=== PATIENT | female | born 1950 | race Caucasian/White ===

== ENCOUNTER 2017-09-28 15:16 | Emergency (ER) | payer MEDICARE, BC, SELFPAY ==
[2017-09-28 15:17] VITALS: BP 146/72; PULSE 69; RESP 16; TEMP 36.5; O2SAT 97; BMI 26.6
--- NOTE | 2017-09-28 15:35 | CT_ITS ---
STUDY: CT ABDOMEN AND PELVIS WITH CONTRAST REASON FOR EXAM: Female, 67 years old. Diarrhea, abdominal pain and swelling. RADIATION DOSAGE (If Supplied By Facility): CTDIvol = ( 14.61 ) mGy, DLP = ( 846.58 ) mGycm TECHNIQUE: Transaxial images were obtained from the dome of the diaphragm to the symphysis pubis with oral contrast. 100 ml of Isovue 300 contrast was administered. Sagittal and coronal images were reconstructed. Individualized dose optimization techniques were used for this CT. COMPARISON: None. FINDINGS: Mild posterior bibasilar atelectatic changes. The visualized portions of the heart are within normal limits. Normal liver. There are surgical clips in the gallbladder fossa consistent with a prior cholecystectomy. Normal spleen. Normal pancreas. Normal bilateral adrenal glands. Subcentimeter cysts of the kidneys. Otherwise normal kidneys without hydronephrosis, renal or ureteral stones. Food filled stomach. Normal small intestine. Normal colon. The appendix is visualized and appears normal. Mild calcified plaque of the aorta. Normal inferior vena cava. Normal retroperitoneum. Distended urinary bladder. Status post hysterectomy. The remaining ovaries are atrophic. Negative for pelvic mass or free fluid of the pelvis. Normal abdominal wall. There are diffuse degenerative changes of the visualized lumbar spine with demineralized osseous structures. CT/Abdomen/Pelvis WITH Contrast IMPRESSION: No acute bowel related findings. Negative for evidence of bowel perforation, bowel obstruction or inflammatory bowel changes. Negative for diverticulosis. A normal appendix is identified. No acute renal findings. Negative for hydronephrosis, renal or ureteral stones. Distended urinary bladder. Status post hysterectomy and cholecystectomy. Electronically Signed: Steph Lobo MD at 18:09 EDT , Service support ,
--- NOTE | 2017-09-28 15:37 | ED.VISSUMM ---
- ER Visit Summary Date of Service: 09/28/17 Chief Complaint: Abdominal pain and cough History of Present Illness: The patient is a 67 F who presents with generalized abdominal pain for the last 8 months. Patient describes feeling an aching sensation of burning as well as feeling bloated. She reportedly has a history of irritable bowel and spastic colon. She follows with a GI doctor in [place]. She states that there was some test done last month but she does not know the name of it. She is due for another colonoscopy this year. Patient also complains of a cough that started last fall. It is dry. She has not noted fever or chills. Her primary care physician gave her some cough syrup did not help. Physical Examination: Vital signs are unremarkable. Patient is in no acute distress and is nontoxic appearing. Head and neck examination is normal. Heart is regular rate and rhythm. Palpable pulses are noted throughout. Lungs are clear with good air movement throughout. Abdomen is soft mild diffuse tenderness throughout. Bowel sounds are noted. Extremity examination is unremarkable with full range of motion. Neurologic examination reveals no focal deficits. Test Results: CBC and chemistry studies are significant only for sodium of 133. Urinalysis is normal. Two-view chest x-ray shows no acute findings. CT scan abdomen and pelvis with p.o. and IV contrast shows no acute bowel related findings. There is no inflammation. Emergency Department Course and Treatment: She was initially given IV fluids. I kept her up to date on awaiting test. Nurse presented to me stating that she was requesting something for headache and was ordered Tylenol. When the nurse took this to her patient states that she wanted Vicodin for her migraine headache and that nothing else would work. I presented to the bedside to explain to the patient that we do not use narcotics for migraines or headaches as this causes rebound headaches. I offered to give her our normal migraine cocktail. She stated that she had taken these things in the past and nothing else would work except for Vicodin. She then brought up the fact that she had previously been in pain management and walked away from her pain management doctor last fall. I explained to her that I was not accusing her of seeking narcotics but it is recommended that narcotics not be used in the treatment of headache. Once test results returned nurse did advise her that everything looked okay and patient wanted her IV removed and left the emergency room prior to my repeat evaluation or being able to write discharge instructions. Treatment Plan: [] Disposition: Eloped from ED Impression: 1. Chronic abdominal pain 2. Chronic cough This note was generated with indeni dictation software. It may contain incorrect words, spelling, and punctuation that were not noted in review of the chart prior to signing ED Disposition - Plan for ED Patient: Disposition: Home or Assisted Living Chief Complaint: Abd Pain Referrals: Regino Davey MD [Primary Care Provider] -
[2017-09-28 15:53] LABS: Absolute Neutrophil Count 4.9 X10^3/uL (2.0-7.7); Basophil# 0.03 X10^3/uL; Basophil% 0.3 % (0-1); Eosinophils% 2.3 % (0-5); Hematocrit 34.7 % (37-47); Hemoglobin 12.1 g/dl (12.0-15.0); Lymphocyte % 33.1 % (19-41); Mean Corp Hgb Conc 34.9 g/gl (32-36); Mean Corpuscular Hgb 33.7 pg (27.0-32.0); Mean Corpuscular Volume 96.7 fL (81-99); Mean Platelet Vol. 9.6 fl (6.2-12.0); Monocyte# 0.75 X10^3/uL; Monocyte% 8.6 % (0-10); Neutrophil # 4.86 X10^3/uL (2.7-7.7); Neutrophil % 55.5 % (47-70); Platelet Count 397 K/mm3 (150-450); RBC Distribution Width CV 12.5 % (11.6-14.6); RBC Distribution Width SD 42.2 fl (35.1-43.9); Red Blood Count 3.59 M/mm3 (4.2-5.4); White Blood Count 8.8 K/mm3 (4.4-11.0)
[2017-09-28] MEDS: 0.9% Normal Saline 1,000 ML 150 ML IV (15:53)
[2017-09-28 15:55] LABS: Bacteria 0 SEEN /hpf (None Seen); Mucous, Urine 0 SEEN /hpf (<or=2+); White Blood Cells 0 SEEN /hpf (0-5)
[2017-09-28 16:10] LABS: POSITIVE COUNT NO; POSITIVE DIFFERENTIAL NO; POSITIVE MORPHOLOGY NO
[2017-09-28 16:15] LABS: Color, Urine Yellow (Yellow); Glucose, Dipstick Normal (Normal); Ketone-Dipstick Negative (Negative); Leukocyte Esterase-Dipstick Negative /ul (Negative); Nitrite-Dipstick Negative (Negative); Occult Blood-Urine Negative /ul (Negative); Protein-Dipstick Negative (Negative); Urine Bilirubin Dipstick Negative (Negative); Urine Clarity Clear (Clear); Urine Urobilinogen Normal (Normal)
[2017-09-28 16:24] LABS: Anion Gap 5 (5-15); BUN 9 mg/dL (7-18); Calcium,Total 9.2 mg/dL (8.5-10.1); Chloride 101 mmol/L (98-107); EST Glomerular Filtration Rate 59 mL/min (>60); Est Glom Filt Rate - Afr Amer 71 mL/min (>60); Estimated Creatinine Clearance 42.59 ml/min; Glucose 91 mg/dL (74-106); Potassium 4.3 mmol/L (3.5-5.1); Sodium Level 133 mmol/L (136-145)
[2017-09-28 16:29] LABS: Red Blood Cells-Urine 0-5 SEEN /hpf (0-5); Squamous Epithelial Cells - UA 0-5 SEEN /hpf (5-10)
--- NOTE | 2017-09-28 17:25 | RAD_ITS ---
STUDY: X-RAY CHEST REASON FOR EXAM: Female, 67 years old. Coughing since February 26, 2017. Diarrhea for one year. Left lower quadrant sharp abdominal pain. History of prior cholecystectomy. TECHNIQUE: 2 views COMPARISON: Prior chest radiograph of February 28, 2014. FINDINGS: The lungs are clear and expanded. There is no demonstrated pleural abnormality. Normal size heart. Normal mediastinum and coleen. Normal visualized pulmonary arteries. There is atherosclerotic calcification of the aortic arch . Normal visualized thoracic spine. Normal visualized ribs, clavicles, and shoulders. There is no demonstrated abnormality of the visualized soft tissue structures of the upper abdomen. RAD/Chest PA and Lateral IMPRESSION: No acute cardiopulmonary findings or changes. Electronically Signed: Steph Lobo MD at 17:54 EDT , Service support ,
--- NOTE | 2017-09-28 17:47 | ED.RN ---
DR MENDOZA NOTIFIED PT REQUESTING SOMETHING FOR A MIGRAINE
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
[2017-09-28 18:23] VITALS: BP 179/86; PULSE 75; RESP 18; O2SAT 97
--- NOTE | 2017-09-28 19:07 | ED.RN ---
PT ASKING FOR IV OUT, DR. MENDOZA AWARE AND GIVES VERBAL CONSENT TO DISCUSS NEGATIVE SCAN RESULTS. PT AWARE AND WANTING TO LEAVE PRIOR TO DISCHARGE INSTRUCTIONS GIVEN. DISCUSSED FURTHER PAIN AND COMPLICATIONS TO COME BACK. AMBULATORY OUT WITH .
== END 2017-09-28 19:11 | disposition home or self-care (01) ==
PROVIDERS: Emergency Provider Emergency Medicine; Family Provider Family Medicine; PCP Family Medicine
DX: G89.29 Other chronic pain (principal); R10.9 Unspecified abdominal pain; R05 Cough; R19.7 Diarrhea, unspecified; M79.7 Fibromyalgia; Z72.0 Tobacco use
CPT/HCPCS: 71046; 74177; 80048; 81001; 85025; 99282; J7030; Q9967; A4216

== ENCOUNTER → 2017-12-05 16:11 | Outpatient (CLI) | payer MEDICARE, BC, SELFPAY | PROVIDERS: Family Provider Family Medicine; PCP Family Medicine; Visit Provider Family Medicine | DX: M25.552 Pain in left hip (principal) | CPT/HCPCS: 73502 ==

== ENCOUNTER → 2018-06-21 15:09 | Outpatient (CLI) | payer MEDICARE, SELFPAY ==
[2018-06-21 18:01] LABS: Anion Gap 10 (5-15); BUN 14 mg/dL (7-18); BUN/Creat Ratio 15.3 RATIO (10-20); Calcium,Total 9.2 mg/dL (8.5-10.1); Chloride 99 mmol/L (98-107); Cholesterol 220 mg/dL (200); Creatinine, Serum 0.92 mg/dL (0.55-1.02); EST Glomerular Filtration Rate 65 mL/min (>60); Est Glom Filt Rate - Afr Amer 78 mL/min (>60); Glucose 102 mg/dL (74-106); High Density Lipoprotein 57 mg/dL; Potassium 4.5 mmol/L (3.5-5.1); Sodium Level 134 mmol/L (136-145); Thyroid Stim Hormone (TSH) 1.13 uIU/mL (0.358-3.74); Triglycerides 177 mg/dL; Very Low Density Lipoprotein 35 mg/dL (5-40)
== END ==
PROVIDERS: Family Provider Family Medicine; PCP Family Medicine; Referring Provider Family Medicine; Visit Provider Family Medicine
DX: I10 Essential (primary) hypertension (principal); E66.9 Obesity, unspecified
CPT/HCPCS: 36415; 80048; 80061; 84443

== ENCOUNTER → 2019-02-17 15:38 | Outpatient (CLI) | payer MEDICARE, SELFPAY ==
[2019-02-17 18:04] LABS: Anion Gap 11 (5-15); BUN 13 mg/dL (7-18); BUN/Creat Ratio 11.2 RATIO (10-20); Calcium,Total 8.9 mg/dL (8.5-10.1); Chloride 103 mmol/L (98-107); Cholesterol 239 mg/dL (200); Creatinine, Serum 1.16 mg/dL (0.55-1.02); EST Glomerular Filtration Rate 49 mL/min (>60); Est Glom Filt Rate - Afr Amer 60 mL/min (>60); Glucose 98 mg/dL (74-106); High Density Lipoprotein 63 mg/dL; Potassium 4.2 mmol/L (3.5-5.1); Sodium Level 137 mmol/L (136-145); Triglycerides 141 mg/dL; Very Low Density Lipoprotein 28 mg/dL (5-40)
== END ==
PROVIDERS: Family Provider Family Medicine; PCP Family Medicine; Referring Provider Family Medicine; Visit Provider Family Medicine
DX: I10 Essential (primary) hypertension (principal)
CPT/HCPCS: 36415; 80048; 80061

== ENCOUNTER → 2019-05-15 14:33 | Outpatient (CLI) | payer MEDICARE, SELFPAY ==
[2019-04-17 14:05] VITALS: BMI 31.3
[2019-05-15 16:08] LABS: Anion Gap 7 (5-15); BUN 14 mg/dL (7-18); BUN/Creat Ratio 13.1 RATIO (10-20); Calcium,Total 9.2 mg/dL (8.5-10.1); Chloride 100 mmol/L (98-107); Cholesterol 213 mg/dL (200); Creatinine, Serum 1.07 mg/dL (0.55-1.02); EST Glomerular Filtration Rate 54 mL/min (>60); Est Glom Filt Rate - Afr Amer 65 mL/min (>60); Glucose 93 mg/dL (74-106); High Density Lipoprotein 63 mg/dL; Potassium 4.2 mmol/L (3.5-5.1); Sodium Level 131 mmol/L (136-145); Triglycerides 174 mg/dL; Very Low Density Lipoprotein 35 mg/dL (5-40)
== END ==
PROVIDERS: PCP Family Medicine; Referring Provider Family Medicine; Visit Provider Family Medicine
DX: I10 Essential (primary) hypertension (principal)
CPT/HCPCS: 36415; 80048; 80061

== ENCOUNTER → 2019-09-12 15:34 | Outpatient (CLI) | payer MEDICARE, SELFPAY ==
[2019-04-17 14:05] VITALS: BMI 31.3
[2019-09-12 17:59] LABS: Absolute Lymphocyte Count 2.01 X10^3/uL (0.83-4.51); Absolute Neutrophil Count 6.5 X10^3/uL (2.0-7.7); Basophil# 0.07 X10^3/uL; Basophil% 0.7 % (0-1); Eosinophils% 2.1 % (0-5); Hematocrit 39.1 % (37-47); Hemoglobin 13.3 g/dL (12.0-15.0); Lymphocyte # 2.01 X10^3/ul (4.0); Lymphocyte % 21.4 % (19-41); Mean Corpuscular Hgb 32.8 pg (27.0-32.0); Mean Corpuscular Volume 96.3 fL (81-99); Mean Platelet Vol. 11.2 fl (6.2-12.0); Monocyte# 0.61 X10^3/uL; Monocyte% 6.5 % (0-10); NRBC Flagged by Analyzer 0 % (0-5); Neutrophil # 6.47 X10^3/uL (2.7-7.7); Platelet Count 347 K/mm3 (150-450); RBC Distribution Width SD 42.3 fl (35.1-43.9); Red Blood Count 4.06 M/mm3 (4.2-5.4); White Blood Count 9.4 K/mm3 (4.4-11.0)
[2019-09-12 18:30] LABS: ALB/GLOB Ratio 1.2 RATIO (0.9-2.4); AST(SGOT) 21 U/L (15-37); Alanine Aminotransfer ALT/SGPT 20 U/L (13-56); Albumin, Serum 3.8 g/dL (3.2-5.0); Alkaline Phosphatase 53 U/L (45-117); Anion Gap 6 (5-15); BUN 7 mg/dL (7-18); BUN/Creat Ratio 7.8 RATIO (10-20); Chloride 103 mmol/L (98-107); Cholesterol 162 mg/dL (200); Creatinine, Serum 0.89 mg/dL (0.55-1.02); EST Glomerular Filtration Rate 66 mL/min (>60); Est Glom Filt Rate - Afr Amer 80 mL/min (>60); Globulin 3.1 g/dL (2.2-4.2); Glucose 106 mg/dL (74-106); High Density Lipoprotein 58 mg/dL; Potassium 4.3 mmol/L (3.5-5.1); Protein, Total 6.9 g/dL (6.4-8.2); Sodium Level 135 mmol/L (136-145); Triglycerides 104 mg/dL; Very Low Density Lipoprotein 21 mg/dL (5-40)
--- OUTSIDE RECORDS SUMMARY | 2020-01-25 08:43 | XMS RPT_ITS | CCD ---
:1950 External Reference #:[id number] Author Organization [facility] Care Team Providers Name Role Phone Edouard Unavailable Unavailable Edouard Unavailable Unavailable Edouard Unavailable Unavailable Edouard Unavailable Unavailable Edouard Unavailable Unavailable Joel PACHECO, Eulalio Unavailable Unavailable Primary Care Provider Unavailable Popeye Davey Primary Care Provider Allergies Reported Allergen Reaction(s) Severity Date of Location Onset buPROPion Intolerance 12-09-2009 - [facility] (61157) cloNIDine Intolerance 09-27-2015 - [facility] (66695) Desipramine Intolerance 12-09-2009 - [facility] (40935) Desvenlafaxine Mental Status 04-13-2011 - [facility] Change (10384) Doxycycline Hives 11-29-2011 - [facility] (16160) Erythromycin hives Critical, 08-16-2015 - [facility] Critical Orthopaedic [address] [facility] (53002) FLUoxetine Mental Status 11-24-2010 - [facility] Change (92099) gabapentin Hives 03-13-2013 - [facility] (03447) Imipramine Hives 12-09-2009 - [facility] (05991) metroNIDAZOLE Hives, Itching 08-06-2012 - [facility] (47971) Misc. Anesthesia [facility]: [facility] [ Misc. Anesthesia Repositor y Allergy] Mold Extract Critical, 06-17-2019 - [facility] Translations: [ MOLD] Critical Orthop [facility]edic Center - [facility] (18605) Sertraline Other: See 06-26-2011 - [facility] Comments (86225) Solifenacin Intolerance 11-09-2009 - [facility] (97883) SUMAtriptan Intolerance 12-09-2009 - [facility] (99604) traMADol GI Upset 02-14-2006 - [facility] (69230) Valproate Other: See 10-21-2010 - [facility] Comments (00670) venlafaxine Hives High 05-14-2012 - [facility] (38089) Medications Current Medications Medication Name Sig Date Prescriber Location Acetaminophen acetaminophen 09-21-2019 [facility], (TYLENOL) tablet [place] ([address]) 1,000 mg Acetaminophen / HYDROcodone-acetamin Historical [facility], HYDROcodone ophen (NORCO) Provider [place] ([address]) 7.5-325 MG per Historical tablet Take 1 tablet Provider by mouth every 6 hours as needed for Pain. 0 Active Atenolol 25 mg, Oral, 2 TIMES 09-19-2019 [facility] DAILY, First dose on Orthopa edic 09/19/19 at 2100 Center - [facility] (75802) atenolol (TENORMIN) 25 mg 08-16-2015 [facility] tablet Take 1 tablet by mouth [facility] - [facility]opa[facility] Surgeons three times daily. 90 tablet Cli amanda (03505) 11 03/25/2016 Active Comment: Take 1 tablet by mouth three times daily. atorvastatin 10 mg, Oral, DAILY, First dose 09-19-2019 [facility] [place] on Sun09/19/19 at 2200 (4523 7) Substituted for Simvastatin (ZOCOR). Comment: Take 10 mg by mouth once antwan ly. Docusate / sennosides-docusate sodium 09-22-2019 [facility]- sennosides, LONG-TERM (SENOKOT-S) 8.6-50 [place] tablet 1 tablet (35797) Enoxaparin enoxaparin (LOVENOX) 09-19-2019 [facility] ealth- injection 40 [place], [place] ([address]) Folic Acid folic acid (FOLVITE) 09-22-2019 Amira Mckee [facility]- tablet 1 [place] ([address]) haloperidol haloperidol lactate 09-20-2019 [facility] alth- lactate (HALDOL) (HALDOL) injection 1 mg [place], [place] injection 1 mg (64088) Labetalol labetalol 09-19-2019 [facility] (NORMODYNE;TRANDATE) [place] injection 10 mg (86359) Lisinopril lisinopril 09-23-2019 [facility]- (PRINIVIL;ZESTRIL) tablet [place] , [place] 40 mg (37866) 20 mg, Oral, DAILY, First dose 09-19-2019 - 09-22-2019 [facility] [place], [place] ([address]) on Sun09/19/19 at 1615 LORazepam LORazepam (ATIVAN) tablet 1.5 09-19-2019 [facility] Orthopaedic mg Center - [facility] (08216) LORazepam (ATIVAN) 2 mg tab 10-30-2016 [facility] Provider Ramona [facility] - [facility] (65024) ATIVAN 1 MG TABS take 1 tablet 08-16-2015 [facility]edic three times a day [facility] - [facility]opaedic Surgeons LORAZEPAM [phone] [facility] (96309) Ras HERNANDEZN Multiple Multiple Historical [facility]- Vitamins-Minerals Vitamins-Minerals Provider [place], [place] (MULTIVITAMIN ADULT PO) (MULTIVITAMIN ADULT PO) Histor ical (35026) Take by mouth daily as Provider needed 0 Active Nutritional Supplements Nutritional Supplements Histor ical [facility]- (ENSURE ACTIVE) LIQD (ENSURE ACTIVE) LIQD Provider [place] Take by mouth daily as Historical (4523 7) needed 0 Active Provider oxyCODONE oxyCODONE (ROXICODONE) [facility]- immediate release tablet 020 [place], [place] 5 mg (84701) POLYETHYLENE GLYCOL 3350 polyethylene glycol [facility]- (GLYCOLAX) packet 17 g 020 [place], [place] ([address]42) Promethazine promethazine (PHENERGAN) [facility]- tablet 12.5 mg 020 [place] ([address]) Simvastatin simvastatin (ZOCOR) 5 MG Historical [facility]- tablet Take 5 mg by Provider [place] mouth nightly 0 Active Historical (4523 7) Provider Sodium Chloride sodium chloride flush [facility]- 0.9 % injection 10 mL 020 [place] ([address]) Thiamine vitamin B-1 (THIAMINE) [facility]- tablet 100 mg 020 [place] ([address]) Completed/Discontinuned Medications Medication Name Sig Date Prescriber Location Acetaminophen / oxyCODONE-acetami 09-20-2019 - [facility], oxyCODONE nophen (PERCOCET) 09-21-2019 [place] (00819) 5-325 MG per tablet 1 tablet oxyCODONE-acetaminophen (PERCOCET) 09-23-2019 Historical Pr [facility], .5-325 MG per tablet Take 1 tablet [place] ([address]) by mouth every 6 hours as needed for Pain. 0 09/23/2019 Discontinued (Stop Taking at Discharge) amLODIPine amLODIPine (NORVASC) 5 MG tablet 09-24-2019 [place] ([address]) Take 1 tablet by mouth daily 30 tablet 3 09/24/2019 Active amLODIPine (NORVASC) 5 MG 09-24-2019 - 09-23-2019 Kevyn Diop [place], [place] tablet Take 1 tablet by (63591) mouth daily 30 tablet 3 09/24/2019 09/23/2019 Discontinued amLODIPine (NORVASC) tablet 09-22-2019 [place], [place] 5 mg (17720) Aspirin / Caffeine aspirin/caffeine (MIKA BACK [facility] Pr [facility] AND BODY ORAL) Take by mouth. (64721) 0 Active aspirin/caffeine (MIKA BACK AND BODY ORAL) [facility] Provider [facility] (24923) Take by mouth. 0 Active Comment: Take by mouth. Betamethasone betamethasone valerate 0.1 % 12-03-2019 [facility] [place] ([address]) every Sunday,Sunday,Sunday. 45 g 1 12/03/2019 Active betamethasone dipropionate Historical Provider [facility] ([address]) (DIPROLENE) 0.05 % ointment Apply topically 2 times daily Apply topically 2 times daily. 0 Active Comment: Apply to affected area every Sunday,Sunday,Sunday. Betamethasone / clotrimazole-betamethasone 09-10-2019 [facility] Clotrimazole (LOTRISONE) cream Apply to [facility], outside of vagina and crease of [place] ([address]990) legs twice a day for 10-14 days. 45 g 2 09/10/2019 Active clotrimazole-betamethasone (LOTRISONE) Historica l Provider [facility]- [place], [place] 1-0.05 % cream Apply topically 2 times (84910) daily Apply topically 2 times daily. 0 Active Comment: Apply to outside of vagina a nd crease of legs twice a day for 10-14 days. Blood Pressure Blood Pressure Cuff - 09-27-2015 Khadar Richardson [facility] Cuff - Home Use Home Use Indications: (44 195) Elevated blood pressure reading without diagnosis of hypertension BLOOD PRESSURE CUFF FOR HOME USE. DX: LABILE BLOOD PRESSURE 1 Device 0 09/27/2015 Active Blood Pressure Cuff - Home Use 09-27-2015 Khadar Richardson [facility] (40762) Indications: Elevated blood pressure reading without diagnosis of hypertension BLOOD PRESSURE CUFF FOR HOME USE. DX: LABILE BLOOD PRESSURE 1 Device 0 09/27/2015 Active Comment: BLOOD PRESSURE CUFF FOR HOME USE. DX: LABILE BLOOD PRESSURE Cholecalciferol VITAMIN D3 50 MCG (2000 UT) 03-14-2016 [facility] Orthopaedic TABS take 2 tablets daily Ce nter - Orthopaedic [facility]OL [facility] (48394[facility] [phone] Maggi Mcginnis [employer] Cholecalciferol, Vitamin D3, 05-20-2013 Khadar Richardson [facility] 2,000 unit cap Take 1 tablet Ort [facility]edic Center - by mouth once daily. 0 Orthopaed ic Surgeons 05/20/2013 Active Clinic (05767) Vitamin D, Cholecalciferol, 10 Historical Provid er [facility] MCG (400 UNIT) TABS Take 1 Ortho paedic Center - tablet by mouth daily as Orthopa edic Surgeons needed 0 Active Clinic (19191) Comment: Take 1 tablet by mouth once daily. Dicyclomine DICYCLOMINE HCL 20 MG TABS 03-14-2016 [facility] take 3 tablets three times C enter - Orthopaedic Surgeons daily DICYCLOMINE Clinic (63119) HCL [phone] Maggi Mcginnis LPN dicyclomine (BENTYL) 10 mg [facility] Provider Cryst al [facility] Orthopaedic capsule Take 10 mg by mouth Cent er - Orthopaedic Surgeons three times daily. 0 Active Clin ic (70906) dicyclomine (BENTYL) 10 MG Historical Provider C rystal [facility] Orthopaedic capsule Take 30 mg by mouth 3 Ce nter - Orthopaedic Surgeons times daily 0 Active Clinic (441 30) Comment: Take 10 mg by mouth three ti mes daily. Estrogens, conjugated 05-05-2019 - [facility] Conjugated (LONG-TERM) estrogens 12-02-2019 [facility] (57916[facility] (PREMARIN) vaginal cream Use 1 g vaginally two times a week. Also to the outside of the vagina. 45 g 3 12/02/2019 Active Comment: Use 1 g vaginally two times a week. Also to the outside of the vagina. Famotidine famotidine (PEPCID) 20 10-22-2015 Khadar Richardson [facility] mg tablet Take 1 tablet Orth [facility] - by mouth twice daily. Orthop aedic Surgeons 180 tablet 3 10/22/2015 Clin ic (36220) Active PEPCID 20 MG TABS take 1 tablet once 08-16-2015 [facility] - daily FAMOTIDINE Orth [facility] (79252) [phone] Maggi Mcginnis LPN Comment: Take 1 tablet by mouth twice daily. Fluconazole fluconazole (DIFLUCAN) 09-25-2018 Kilo Bonds [facility] 150 mg tablet 1 pill (39297) now, repeat in 48 hours. 2 tablet 2 09/25/2018 Active Comment: 1 pill now, repeat in 48 peter rs. Lactobacillus Lactobacillus 08-16-2017 [place] [facility] acidophilus acidophilus (81751) (ACIDOPHILUS) cap Take 1-2 capsules by mouth twice daily with meals. 60 capsule 5 08/16/2017 Active Lactobacillus acidophilus 08-16-2017 Kilo Hall [facility] (42301) (ACIDOPHILUS) cap Take 1-2 capsules by mouth twice daily with meals. 60 capsule 5 08/16/2017 Active Comment: Take 1-2 capsules by mouth t wice daily with meals. Loperamide loperamide HCl (IMODIUM A-D ORAL) [facility] Pro vider [facility] (47622) Take by mouth. 0 Active loperamide HCl (IMODIUM A-D ORAL) Take by Ccf Pr ovider [facility] (51861) mouth. 0 Active Comment: Take by mouth. Naproxen NAPROXEN 500 MG TABS 06-17-2019 [facility] take 1 tablet once daily [facility] Orthopa [facility]ic Surgeons NAPROXEN [phone] [facility] (08562) Maggi Mcginnis LPN Nystatin nystatin (MYCOSTATIN) 03-27-[address] [facility] (66187) powder Apply 1 application to affected area twice daily. Till Apr 09 (14 days) 60 g 3 03/27/2019 Active Comment: Apply 1 application to affec lenard area twice daily. Till Apr 09 (14 days) Omeprazole omeprazole (PRILOSEC) 20 mg [facility] Provider [facility] (48887) capsule Take 20 mg by mouth once daily. 0 Active Comment: Take 20 mg by mouth once antwan ly. OTC NUTRITIONAL OTC NUTRITIONAL [facility] Provider [facility] SUPPLEMENT SUPPLEMENT ensure 0 (18465) Active OTC NUTRITIONAL SUPPLEMENT ensure 0 Active Ccf P rovider [facility] (97571) Comment: ensure rosuvastatin rosuvastatin (CRESTOR) 5 02-27-2019 Kilo Bonds [facility] mg tablet Take 1 tablet (827 78) by mouth daily at bedtime. 0 02/27/2019 Active Comment: Take 1 tablet by mouth daily at bedtime. valACYclovir valACYclovir (VALTREX) 10-03-2018 Kilo [facility] 500 mg tablet Take 1 [facility] - tablet by mouth twice Orthop aedic Surgeons daily. 120 tablet 5 [facility] ( 87583) 10/03/2018 Active valACYclovir (VALTREX) 500 mg 08-16-2015 Kilo Vicente [facility] Orthopaedic tablet Take 1 tablet by mouth Ce nter - Orthopaedic once daily. 90 tablet 4 Surgeons [facility] (23639) 07/10/2018 Active Comment: Take 1 tablet by mouth twice daily. Take 1 tablet by mouth once daily. Problems Active Problems Category Problem Name Status Date Location Adjustment disorders Stress and adjustment Active 05-30-2012 - [facility] reaction (96153) Anxiety disorders Anxiety Active 04-21-2005 - [facility] [place] ([address]) Essential hypertension Hypertensive disorder Active [facility] (74981) Headache; including Headache [facility] migraine (09623) Hemorrhoids Hemorrhoids Active [facility] (43756) Inflammatory diseases Bacterial vaginosis Active [facility] of female pelvic (69757) organs Menopausal disorders Atrophic vaginitis Active 12-13-2011 - [facility] (43978) Mood disorders Depressive disorder Active 04-21-2005 - [facility] (57942) Other connective Trochanteric bursitis, Active 06-18-2019 - [facility] Clinic tissue disease left hip Orthopaedic C enter - Orthopaedic [facility] (93329) Other connective Muscle pain Active [facility] linic tissue disease (10562) Other nervous system Acute postoperative [facility] [place] disorders pain (61489) Residual codes; Altered mental status Active 09-19-2019 - [facility] [place] unclassified (88981) Residual codes; Chronic pain Active 06-19-2013 [facility] unclassified (50267) Residual codes; Delirium Active [facility] [place] un[place] (74702) Residual codes; [facility]inations [facility] [place] (15175) Residual codes; Decline in functional Active [facility] [place] un[place] status (13981) 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-15-2013 [facility] [place] disorders withdrawal delirium (45392) Unclassified Positive measurement Active 05-26-2014 - [facility] finding (66060) Urinary tract Chronic interstitial Active 11-25-2009 - [facility] infections cystitis (17002) Viral infection Herpes simplex type 2 Active [facility] infection (07821) Past or Other Problems Category Problem Name Status Date Location Abdominal pain Pain in female pelvis Completed 11-25-2009 [facility] - (26633) Anal and rectal Rectal pain Completed 01-05-2012 [facility] conditions - (65541) Biliary tract disease Biliary calculus [facility] (07243[facility] Other and unspecified Tubular adenoma of Completed 10-31-2013 [facility] benign neoplasm colon - (00683) Other bone disease and Osteopenia Completed 06-22-2010 [facility] musculoskeletal - (67459) deformities Other connective tissue Fibromyalgia Completed 08-12-2011 [facility] disease - (17384) Other eye disorders Aponeurotic ptosis Completed 08-16-2015 Cr ystal [facility] - Orthopaedic [address] - [facility] (02241) Other gastrointestinal Constipation Completed 12-13-2011 [facility] disorders - (91613) Other inflammatory Pruritus of skin Completed 12-13-2011 [facility] condition of skin - (30068) Other lower respiratory Cough Completed 08-02-2010 [facility] disease - (71409) Other nervous system Burning sensation of Completed 06-05-2012 [facility] disorders vagina - (98521) Other nutritional; Weight gain Completed 11-24-2010 [facility] endocrine; and - (46760) metabolic disorders Other skin disorders Intrinsic aging of skin Completed 6 [facility] Orthopaedic [facility] (39679) Sexually transmitted Human papilloma virus Completed 12-08-2012 [facility] infections (not HIV or deoxyribonucleic acid - (16031) hepatitis) test positive, high risk on vaginal specimen Unclassified Problem [facility] Orthopaedic [facility] (02799) Results Result Name Value Range Unit Interpretation Flag Date Location [facility] Normal 12-02-2019 [facility] LÓPEZANGÉLICA Axel ([id number]) 1950 F [facility] Time Provider Department (93294) 12/02/19 KILO BONDS During your visit today, we recorded the following informati on about you: Kilo Bonds MD 12/02/2019 2:42 PM Signed The following approved medic ation requests have been transmitted electronically. Signed Prescriptions Disp Refills betamethasone valerate 0.1 % cream 45 g 1 Sig: Apply to affected area every Sunday,Sunday,Sunday. Authorizing Provider: KILO BONDS MD Allergies As of Date: 12/02/2019 Noted Allergy Reaction VENLAFAXINE 05/14/2012 4 - Hives CLONIDINE 09/27/2015 5 - Intolerance Comments: pain all over DEPAKOTE (DIVALPROEX SODIUM) 10/21/2010 14 - Other: See Comm ents Comments: body jerks DESIPRAMINE 12/09/2009 5 - Intolerance Comments: crying DOXYCYCLINE 11/29/2011 4 - Hives FLAGYL (METRONIDAZOLE HCL) 08/06/2012 4 - Hives 9 - Itching IMIPRAMINE 12/09/2009 4 - Hives Comments: wt gain IMITREX (SUMATRIPTAN SUCCINATE) 12/09/2009 5 - Intolerance Comments: anxiety NEURONTIN (GABAPENTIN) 03/13/2013 4 - Hives PRISTIQ (DESVENLAFAXINE) 04/13/2011 1 - Mental Status Change Comments: headache,anorexia PROZAC (FLUOXETINE HCL) 11/24/2010 1 - Mental Status Change Comments: confusion,frequent falls,bladder pain SERTRALINE 06/26/2011 14 - Other: See Comments Comments: dysuria,bladder pain ULTRAM (TRAMADOL HCL) 02/14/2006 8 - GI Upset VESICARE (SOLIFENACIN SUCCINATE) 11/09/2009 5 - Intolerance Comments: blurred vision,trouble swallow WELLBUTRIN (BUPROPION HCL) 12/09/2009 5 - Intolerance Comments: anxiety, sob Date Reviewed: 05/21/2019 Reviewed by: Phillip Birch - Fully Assessed Reason for Visit: Hx Meds [438] Order(s):[START ON 12/03/2019] betamethasone valerate 0.1 % c reamApply to affected area every Sunday,Sunday,Sunday.Disp: 45 gRfl: 1 Prescriptions as of 12/02/2019 Sig: CONJUGATED ESTROGENS 0.625 MG* Use 1 g vaginally two times a * BETAMETHASONE VALERATE 0.1 % * Apply to affected area every * CLOTRIMAZOLE-BETAMETHASONE 1 * Apply to outside of vagina an * OMEPRAZOLE 20 MG CAPSULE,LAURA* Take 20 mg by mouth once magalie * ATORVASTATIN 10 MG TABLET Take 10 mg by mouth once magalie* NYSTATIN 100,000 UNIT/GRAM TO* Apply 1 application to affect * Patient not taking: Reported on 05/05/2019 ROSUVASTATIN 5 MG TABLET Take 1 tablet by mouth daily * Patient not taking: Reported on 03/27/2019 OTC NUTRITIONAL SUPPLEMENT ensure IMODIUM A-D ORAL Take by mouth. MIKA BACK AND BODY ORAL Take by mouth. VALACYCLOVIR 500 MG TABLET Take 1 tablet by mouth twice * FLUCONAZOLE 150 MG TABLET 1 pill now, repeat in 48 hour* VALACYCLOVIR 500 MG TABLET Take 1 tablet by mouth once d* Patient not taking: Reported on 02/27/2019 DICYCLOMINE 10 MG CAP (BENTYL* Take 10 mg by mouth three bhavya * LACTOBACILLUS ACIDOPHILUS CAP* Take 1-2 capsules by mouth tw * Patient not taking: Reported on 02/27/2019 LORAZEPAM 2 MG TABLET ATENOLOL 25 MG TABLET Take 1 tablet by mouth three * FAMOTIDINE 20 MG TABLET Take 1 tablet by mouth twice * COMPOUNDED PRESCRIPTION BLOOD PRESSURE CUFF FOR HOME * CHOLECALCIFEROL (VITAMIN D3) * Take 1 tablet by mouth once d * Problem List As Of Date 12/02/2019 Noted Resolved DEPRESSIVE DISORDER NEC [F32.9] 04/21/2005 KIMBERLY (generalized anxiety disorder) [F41.1] 04/21/2005 HEADACHE [R51] 04/21/2005 HEMORRHOIDS NOS [K64.9] More... Myalgia [M79.10] COMMON MIGRAINE W/O MENTN INTRACT [G43.009] 10/30/2005 Chronic Interstitial Cystitis [N30.10] 11/25/2009 Pelvic Pain in Female [R10.2] 11/25/2009 Osteopenia [M85.80] 06/22/2010 More... Cystitis [N30.90] 08/02/2010 Cough [R05] 08/02/2010 Weight gain [R63.5] 11/24/2010 Fibromyalgia [M79.7] 08/12/2011 Anxiety [F41.9] 10/06/2011 Unspecified pruritic disorder [L29.9] 12/13/2011 Postmenopausal atrophic vaginitis [N95.2] 12/13/2011 Unspecified constipation [K59.00] 12/13/2011 Vaginal pain [R10.2] 01/05/2012 Rectal pain [K62.89] 01/05/2012 Adjustment disorder with mixed anxiety and depr*05/30/2012 Vaginal burning [N94.9] 06/05/2012 Chronic pain [G89.29] 06/19/2013 Perineal pain in female [N94.9] 09/18/2013 Constipation [K59.00] 09/18/2013 Stress and adjustment reaction [F43.29] 10/31/2013 Tubular adenoma of colon [D12.6] 10/31/2013 Opiate dependence (HCC) [F11.20] 12/15/2013 Vaginal high risk HPV DNA test positive [R87.81*12/08/2012 More... HPV test positive [[id number]] 05/26/2014 More... Generalized abdominal pain [R10.84] 02/18/2015 Other cholelithiasis without obstruction [K80.8*02/18/2015 HTN (hypertension) [I10] BV (bacterial vaginosis) [N76.0, B96.89] HSV-2 (herpes simplex virus 2) infection [B00.9] Prescriptions ordered this encounter Disp Refills Start End BETAMETHASONE VALERATE 0.1 % TOPICAL* 45 g 1 12/03/2019 Route: TOPICAL Sig: Apply to affected area every Sunday,Sunday,Sunday. Encounter Status:Closed by KILO BONDS MD on 12/02/19 [facility] (OB[facility]) Normal 12-01-2019 [facility] ANGÉLICA DAWN ([id number]) 1950 [facility] Date Time Provider Department ([id number]) 12/01/19 KILO BONDS During your visit today, we recorded the following informati on about you: Cathie Baker 12/01/2019 12:49 PM Signed Please call when you get a chance. Not sure what she needs as she dropped the call. But she mentioned her premerin and having back surgery Kilo Bonds MD 12/02/2019 11:50 AM Signed The following approved medic ation requests have been transmitted electronically. Signed Prescriptions Disp Refills conjugated estrogens (PREMARIN) vaginal cream 45 g 3 Sig: Use 1 g vaginally two times a week. Also to the outsi de of the vagina. HERMELINDO: No Authorizing Provider: KILO BONDS MD Please notify patient that her prescript ion for estrogen cream was sent to her pharmacy to use as prescribed. If she has had a recurrence of vulvar vaginal itching queta cative of a yeast infection she can utilize her Lotrisone cream. Thank you Kilo Bonds M.D. Kate Cross Pss 12/02/2019 2:42 PM Signed Pt called back. Relayed Dr. Bonds's message below but she is states there was a different cream that Dr. Bonds had prescribed for her. I was able t o speak to Dr. Bonds and he is calling the appropriate cream into her ph armacy and recommends that she follows the pharmacists instructio ns. He also recommends she follows up with her dynamite packing machine feeder in [place] for t he rash on her thighs. I relayed that message to pt AND she expressed understanding . Allergies As of Date: 12/01/2019 Noted Allergy Reaction VENLAFAXINE 05/14/2012 4 - Hives CLONIDINE 09/27/2015 5 - Intolerance Comments: pain all over DEPAKOTE (DIVALPROEX SODIUM) 10/21/2010 14 - Other: See Comm ents Comments: body jerks DESIPRAMINE 12/09/2009 5 - Intolerance Comments: crying DOXYCYCLINE 11/29/2011 4 - Hives FLAGYL (METRONIDAZOLE HCL) 08/06/2012 4 - Hives 9 - Itching IMIPRAMINE 12/09/2009 4 - Hives Comments: wt gain IMITREX (SUMATRIPTAN SUCCINATE) 12/09/2009 5 - Intolerance Comments: anxiety NEURONTIN (GABAPENTIN) 03/13/2013 4 - Hives PRISTIQ (DESVENLAFAXINE) 04/13/2011 1 - Mental Status Change Comments: headache,anorexia PROZAC (FLUOXETINE HCL) 11/24/2010 1 - Mental Status Change Comments: confusion,frequent falls,bladder pain SERTRALINE 06/26/2011 14 - Other: See Comments Comments: dysuria,bladder pain ULTRAM (TRAMADOL HCL) 02/14/2006 8 - GI Upset VESICARE (SOLIFENACIN SUCCINATE) 11/09/2009 5 - Intolerance Comments: blurred vision,trouble swallow WELLBUTRIN (BUPROPION HCL) 12/09/2009 5 - Intolerance Comments: anxiety, sob Date Reviewed: 05/21/2019 Reviewed by: Phillip Birch - Fully Assessed Reason for Visit: Question [0905] Order(s):conjugated estrogens (PREMARIN) vaginal creamUse 1 g vaginally two times a week. Also to the outside of the vagina.Disp: 45 gRf l: 3 Prescriptions as of 12/01/2019 Sig: CONJUGATED ESTROGENS 0.625 MG* Use 1 g vaginally two times a * CLOTRIMAZOLE-BETAMETHASONE 1 * Apply to outside of vagina an * OMEPRAZOLE 20 MG CAPSULE,LAURA* Take 20 mg by mouth once magalie * ATORVASTATIN 10 MG TABLET Take 10 mg by mouth once magalie* NYSTATIN 100,000 UNIT/GRAM TO* Apply 1 application to affect * Patient not taking: Reported on 05/05/2019 ROSUVASTATIN 5 MG TABLET Take 1 tablet by mouth daily * Patient not taking: Reported on 03/27/2019 OTC NUTRITIONAL SUPPLEMENT ensure IMODIUM A-D ORAL Take by mouth. MIKA BACK AND BODY ORAL Take by mouth. VALACYCLOVIR 500 MG TABLET Take 1 tablet by mouth twice * FLUCONAZOLE 150 MG TABLET 1 pill now, repeat in 48 hour* VALACYCLOVIR 500 MG TABLET Take 1 tablet by mouth once d* Patient not taking: Reported on 02/27/2019 DICYCLOMINE 10 MG CAP (BENTYL* Take 10 mg by mouth three bhavya * LACTOBACILLUS ACIDOPHILUS CAP* Take 1-2 capsules by mouth tw * Patient not taking: Reported on 02/27/2019 LORAZEPAM 2 MG TABLET ATENOLOL 25 MG TABLET Take 1 tablet by mouth three * FAMOTIDINE 20 MG TABLET Take 1 tablet by mouth twice * COMPOUNDED PRESCRIPTION BLOOD PRESSURE CUFF FOR HOME * CHOLECALCIFEROL (VITAMIN D3) * Take 1 tablet by mouth once d * Problem List As Of Date 12/01/2019 Noted Resolved DEPRESSIVE DISORDER NEC [F32.9] 04/21/2005 KIMBERLY (generalized anxiety disorder) [F41.1] 04/21/2005 HEADACHE [R51] 04/21/2005 HEMORRHOIDS NOS [K64.9] More... Myalgia [M79.10] COMMON MIGRAINE W/O MENTN INTRACT [G43.009] 10/30/2005 Chronic Interstitial Cystitis [N30.10] 11/25/2009 Pelvic Pain in Female [R10.2] 11/25/2009 Osteopenia [M85.80] 06/22/2010 More... Cystitis [N30.90] 08/02/2010 Cough [R05] 08/02/2010 Weight gain [R63.5] 11/24/2010 Fibromyalgia [M79.7] 08/12/2011 Anxiety [F41.9] 10/06/2011 Unspecified pruritic disorder [L29.9] 12/13/2011 Postmenopausal atrophic vaginitis [N95.2] 12/13/2011 Unspecified constipation [K59.00] 12/13/2011 Vaginal pain [R10.2] 01/05/2012 Rectal pain [K62.89] 01/05/2012 Adjustment disorder with mixed anxiety and depr*05/30/2012 Vaginal burning [N94.9] 06/05/2012 Chronic pain [G89.29] 06/19/2013 Perineal pain in female [N94.9] 09/18/2013 Constipation [K59.00] 09/18/2013 Stress and adjustment reaction [F43.29] 10/31/2013 Tubular adenoma of colon [D12.6] 10/31/2013 Opiate dependence (HCC) [F11.20] 12/15/2013 Vaginal high risk HPV DNA test positive [R87.81*12/08/2012 More... HPV test positive [KRI4230] 05/26/2014 More... 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 Also to the outsi de of the vagina. Medications Discontinued During This Encounter Prescriptions - conjugated estrogens (PREMARIN) vaginal cream (Discontinue d) Use 1 g vaginally two times a week. Also to the outside of t he vagina. Encounter Status:Closed by OLIVERIO SCHWARTZ RN on 12/02/19 mrds on 2019-10-02 MRDS Patient name: ANGÉLICA DAWN MR#: Judy 10-02-2019 [facility] [id number] Hospital ([id number]) Location: MD Acc#: [id number] Admit Date: 09/25/19 Discharge Date: 10/02/19 : 1950 Age: 69 Sex: F Dictated By: Chino Vail MD Signing Physician: DICTATED BY: Chino Vail M.D. SIGNING PHYSICIAN: DISCHARGE DATE: 10/02/19 DATE OF SERVICE: 10/02/2019 This is a 69-year-old female, admitted on a pink slip from [facility] Emergency Department for paranoid delusions and hallucinatio ns. Chief Complaint: Paranoia, delusions, and hallucinations. History of Present Illness: Please refer to initial psychi atric evaluation. HOSPITAL COURSE: During this hospital stay, the patient was treated with Rispedal 0.25 mg b.i.d., lorazepam 2 mg t.i.d., Remeron 7.5 mg at bedtime, traz odone 25 mg at bedtime p.r.n. Overall, the patient showed significant improvement. She consistently den ied any hallucinations. Did not exhibit any dangerous behavi or to self or others. Able to participate in groups and activities with a lot of encouragement. During this hospitalization, her lab oratory data, hemoglobin A1c 5.2, triglycerides 151. Vitamin B12, folate l evel, TSH within normal range. RPR was nonreactive. DISCHARGE CONDITION: This is a 69-year-old female, pleasant, cooperaive, alert, oriented to day, month, year, place, and person. Mood is fee ling better. Affect is bright. Denies any hallucinations. Denies suicidal ideations. Did not dis cuss any paranoid ideations. Concentration is poor. Insight superficial. Impulse control and judgment improved. DISCHARGE DIAGNOSES: AXIS I: 1. Major depression, severe, recurrent with psychosis. 2. Generalized anxiety disorder. 3. Delirium secondary to medical condition. AXIS II: Deferred. AXIS III: 1. Hypertension. 2. Hypercholesterolemia. 3. Status post cervical fusion. AXIS IV: Moderate, suffering with chronic depression. AXIS V: Global Assessment of Functioning at the time of disc harge 55. DISCHARGE MEDICATIONS: 1. Risperdal 0.25 mg b.i.d. 2. Remeron 7.5 mg at bedtime. 3. Lorazepam 2 mg t.i.d. 4. Trazodone 25 mg at bedtime p.r.n. 5. Flexeril 5 mg t.i.d. 6. Simvastatin 5 mg before bedtime. 7. Lisinopril 20 mg daily. 8. [place] 1 tablet every 6 hours p.r.n. 9. Atenolol 25 mg b.i.d. 10. Norvasc 5 mg daily. DISPOSITION: The patient discharged home with her husb and with followup with VR. JAKE/YOVANY @ 16:52 @ 03:40 # [id number] Chino Vail M.D. Electronically Signed Date/T sheila: 10/05/191406 Electronically Signed Date/Time: 10/05/191406 mrpn on 2019-10-01 MRPN Patient Name:ANGÉLICA DAWN MR #: Judy 10-01-2019 [facility] [id number] [facility] ([id number]) Location: MD Acc#: [id number] Date of Admit: 09/25/19 : 1950 Age: 69 Sex: F Dictated By: Girish Martin MD Signing Physician: DICTATED BY: Girish Martin M.D. SIGNING PHYSICIAN: DATE OF SERVICE: 10/01/2019 REASON FOR VISIT: Medical management. SUBJECTIVE: The patient is seen and evaluated. D iscussed with nurseKatherine patient. Has back spine spasm since she has re cent surgery. Decided to put on Flexeril 10 mg p.o. t.i.d. The patient denies any chest pain, cough, phlegm, fe chau, chills, nausea, vomiting. Started her on physical therapy. OBJECTIVE: VITAL SIGNS: Temperature 37.2, pulse 89, respirat ions 20, blood prssure 137/56, oxygen saturation 95% on room air. HEENT : Pupils are equal, round, reactive to light and accommodation. NECK: Supple. No goiter, lymphadenopathy. [address]: Symmetrical. LUNGS: Clinically clear. No rhonchi, rub, or rales. CARDIOVASCULA R: S1, S2 normal. No murmur, rub, or gallop. ABDOMEN: Soft, nontender. No distention. Bowel sound s present. EXTREMITIES: Has no edema, clubbing, cyanosis. SKIN: Warm, dry. PSYCHOLOGICAL: A ffect normal, mood normal. CENTRAL NERVOUS SYSTEM: Moving all 4 extremities. No focal deficit. Looked on her back wound, that is healing. No obvious infection. VASCULAR: Radial pulse 2+, dorsalis pedis 2+. No new lab work today. ASSESSMENT AND PLAN: 1. The patient has generalized anxiety, major depression, ps ychosis. Treatmentper Dr. Castro. 2. Hypertension. Continue with lisinopril, atenolol, Norvasc . 3. Hyperlipidemia. Continue with statin. 4. Recent back surgery. Now has spasm. Start Flexeril 10 mg p.o. t.i.d. JAYRO/YOVANY @ 12:01 @ 15:20 # [id number] Girish Martin M.D. Electronically Signed Date/Time: 10/01/191618 Electronically Signed Date/Time: 10/01/191618 [facility] Patient Name:ANGÉLICA DAWN MR #: Judy 10-01-2019 [facility] [id number] [facility] ([id number]) Location: MD Acc#: [id number] Date of Admit: 09/25/19 : 1950 Age: 69 Sex: F Dictated By: Ramesh Castro MD Signing Physician: DICTATED BY: Ramesh Castro M.D. SIGNING PHYSICIAN: DATE OF SERVICE: 10/01/2019 Chief Complaint: Change in mental status including paranoi a, delusions, and visual hallucinations. SUBJECTIVE: This is a 69-year-old female with no significant past psychiatric history, who was admitted with an abrupt change in mental status, which inclu ded paranoia, delusions and visual hallu cinations. This patient unde rwent spinal fusion September 18 of this year and soon after surgery began exhibiting the previously described symptomatology. Her symp toms were most consistent with delirium. I evaluated her on the time of admission to this u nit and again today. I found her to be significantly improved with no signs of active psychosis as of this dictation. This morning, she is pleasant, cooperative and relaxed. She is not manic or psych otic. She has insight into her recent change in mental status, stating my mind was all mixed up and I thought my was somebody else, but I do not think that now. The patient states that she is eager to be discharged home back to her . She was alert and oriented in al l spheres. She denied feeling depressed. She was not anxious. She adamantly denied suicidal thoughts. She is tolerating medication well with no side effects. She did have poor sleep last night . Her appetite is erratic and that she eats anywhere between 25% and 75% of her meal s. At times, she is somewhat attention seeking including being irritable _and____ tearful with staff. But again her p sychosis has resolved. OBJECTIVE: Mental Status Exam: At the time of this minal luation, she was alert and oriented in all 3 spheres. Memory was intact in all spheres as well. Mood is d escribed as okay. Her affect is somewhat dull. She is currently not psychotic. There is no e vidence of auditory or visual hallucinations. She is not paranoid or delusional. She denie s suicidal and homicidal thoughts. Her judgment is theoretically intact. Insight is good. Speech is presented in a normal tone as well as normal pace. DIAGNOSTIC ASSESSMENT: Delirium, improved. TREATMENT PLAN: 1. No change in psychiatric medication as this patient is showing definite signs of improvement. 2. Continue supportive therapy, activity therapy and group t herapy. 3. Likely to be discharged tomorrow back home with her amee nd. MORALES/YOVANY @ 09:26 @ 10:10 # [id number] Ramesh Castro M.D. Electronically Signed Date/Time: 10/01/19 1133 Electronically Signed Date/Time: 10/01/19 1133 [facility] Patient Name:ANGÉLICA DAWN MR #: Judy 10-01-2019 [facility] [id number] [facility] ([id number]) Location: MD Acc#: [id number] Date of Admit: 09/25/19 : 1950 Age: 69 Sex: F Dictated By: Chino Vail MD Signing Physician: DICTATED BY: Chino Vail M.D. SIGNING PHYSICIAN: PSYCHIATRIC FOLLOWUP NOTE SUBJECTIVE: This is a 69-year-old Caucas rachelle female, admitted as a referral fro [facility] Emergency Department for increased paranoia, delusi ons, and hallucinations. Information gathered by reji parrish the chart, discussing with staff, interviewin with patient. The patient reports to not sleep ing well and reports she is having pain in her back and keeping her up at night. She is eating up to 75% of her meals. Last night , she did receive repeat trazodone. Staff reports the patient is somewhat anxious, irritable, wanting staff to do things for her own. During this interview, the patient able to comprehend a nd respond appropriately, able to maintain conversation. No observation of any hallucinations. The patient reports she did talk to her and they had a g ood conversation. She does not think that he is her ex-. She continues to believe that her has been into drugs an d he is acting strange. The patient reports she would like to go home, so that she can wal k around the house and spent time to dog. Most recent labs, vital signs, and medical followup reviewed . The patient tolerating medications fairly well. Review Of Systems: Denies nausea, diarrhea, or constipatio n. Gait unsteady. OBJECTIVE: Vital signs: Blood pressure 152/67, pulse 96, res pirations 20, andtemperature 36.4. Denies feeling dizzy or lightheaded. No falls reported. Cooperative, alert, and oriented to time, place, and person. Mood feeling bettr. Affect is anxious. Denies hallucinations. Remains delusional. Denies s uicidal ideations. Concentration is poor. Insight superficial. Impulse control improved. Judgmen t improved. ASSESSMENT: AXIS I: 1. Generalized anxiety disorder. 2. Major depression, recurrent with psychosis. AXIS III: 1. Hypertension. 2. Hypercholesterolemia. 3. Status post cervical fusion. TREATMENT PLAN: 1. Lorazepam 2 mg t.i.d. 2. Risperdal 0.25 mg b.i.d. 3. Remeron 7.5 mg at bedtime. 4. Trazodone 25 mg at bedtime p.r.n. 5. Supportive therapy, group and activity therapy. JAKE/YOVANY @ 23:00 @ 12:50 # [id number] Chino Vail M.D. Electronically Signed Date/Time: 10/02/19 1228 Electronically Signed Date/Time: 10/02/19 1228 rapid plasma reagin on 2019-09-29 RAPID PLASMA REAGIN NONREACTIVE NONREACTIVE Normal 2019 [facility] ( [id number]) Comment: Performed By: #### VB12, FOL , LIPID, MG, T4, TSH #### [facility] [address] [place] [address] mrpn on 2019-09-29 MRPN Patient Name:ANGÉLICA DAWN MR #: Normal 09-29-2019 [facility] [id number] Hospital ([id number]) Location: MD Acc#: [id number] Date of Admit: 09/25/19 : 1950 Age: 69 Sex: F Dictated By: Chino Vail MD Signing Physician: DICTATED BY: Chino Vail M.D. SIGNING PHYSICIAN: DATE OF SERVICE: 09/29/2019 SUBJECTIVE: This is a 69-year-old Caucas rachelle female, admitted as a referral fro [facility] on a pink slip for increased pa ranoia, delusions, and hallucinations. Information is gathered by reviewing chart, discussing with staff, interviewingthe patient. Staff reports, the patient slept 5 hours, eating 50% of meals. D id receive Ativan p.r.n. around 2:55 for anxiety and restlessness. During this interview, the p atient continues to be paranoid and delusional towards her husba nd and she thinks he has been drugs and she is scared. She thinks he is using her pain medications. Able to maintain eye conta ct, maintain conversation. Most recent labs, vital signs, and medical followup reviewed. The patien t tolerating medications fairly well. Review of Systems: Denies nausea, vomiting, diarrhea, or c onstipation. Gait usteady. OBJECTIVE: Vital Signs: Blood pressure 129/72, pulse 95, res pirations 16, andtemperature 36.4. Reports to being in pain in her back. Cooperative, alert, and oriented to time, place, and person. Mood somewhat depessed. Affect is anxious. Denies any hallucinations. Remains paranoid and d elusional. Denies suicidal ideations. Concentration is poor. Insight superficial. Impulse control improved. Judgement poor. ASSESSMENT: AXIS I: 1. Generalized anxiety disorder. 2. Major depression, recurrent with psychosis. AXIS III: 1. Hypertension. 2. Status post spinal fusion. 3. Hypercholesterolemia. TREATMENT PLAN: 1. Lorazepam 2 mg t.i.d. 2. Risperdal 0.25 mg b.i.d. 3. Remeron 7.5 mg daily. 4. Trazodone 25 mg at bedtime p.r.n. 5. Supportive therapy. 6. Group and activity therapy. JAKE/YOVANY @ 12:44 @ 16:50 # [id number] Chino Vail M.D. Electronically Signed Date/Time: 09/30/19 1147 Electronically Signed Date/Time: 09/30/19 1147 [facility] Patient Name:ANGÉLICA DAWN MR #: Judy 09-29-2019 [facility] [id number] [facility] ([id number]) Location: MD Acc#: [id number] Date of Admit: 09/25/19 : 1950 Age: 69 Sex: F Dictated By: Girish Martin MD Signing Physician: DICTATED BY: Girish Martin M.D. SIGNING PHYSICIAN: DATE OF SERVICE: 09/29/2019 A 69-year-old female. REASON FOR VISIT: Medical management. SUBJECTIVE: The patient is seen and evaluated. She had recent spinal surgery on September 17, 2019. Eventually, has a healing garza rgical incision, but got two three gaps, very small gap with sanguinous discharge. Discussed with the nurse. We will keep watching. No treatment, just to heal on their own. The patient has no fever, chills, chest pain, or any ba ck pain. OBJECTIVE: VITAL SIGNS: Temperature 36.4, pulse 98, respirat ion 16, blood pressure 129/72, oxygen saturation 96% on room air. HEENT: Pupils equal, round, and reactive to light and accommodation. NECK: Supple. No goiter. No lymphadenopathy. CHEST: Symmetri louise. LUNGS: Clinically clear. No rhonchi, rub, or rales. CARDIOVASCULAR: S1, S2 normal. No mu rmur, rub, or gallop. ABDOMEN: Soft, nontender. No distention. Bowel sounds present. EXTREM ITIES: Has no edema, clubbing, cyanosis. Peripheral pulses are well felt. SKIN: Warm and dr y. PSYCHOLOGICAL: Affect normal. Mood normal. CENTRAL NERVOUS SYSTEM: Moving all four extremi ties. No focal weakness. On back suture sides is having littl e gap in her suture on the upper end on both sides. Lower side has some sanguinous discharge, but it does not look infected. No new lab work today. ASSESSMENT AND PLAN: 1. The patient has generalized anxiety disorder, major depression, psychosis, treatment per Dr. Vail. 2. The patient has hypertension. Continue with lisinopril, a tenolol, and Norvasc. Blood pressure is well controlled. 3. Hyperlipidemia. Continue with simvastatin, recent spina l fusion surgery. The patient is getting pain medications. She has surgical wound that is healing. No further treatment required. JAYRO/YOVANY @ 12:38 @ 17:10 # [id number] Girish Martin M.D. Electronically Signed Date/Time: 10/01/19800 Electronically Signed Date/Time: 10/01/19800 pn.pdoc on PN.PDOC ANGÉLICA DAWN Female [id number] Normal 09-28-2019 [facility] Attending provider: ADM IN MD [id number] [facility] ([id number]) Chino Vail 1950 69 DOS: Progress Note - Date of Service Date of Service: 09/28/19 - Subjective Subjective: Pt seen for medical management. Pt with no complaints. No CP or SOB. Taking PO w ith no nausea or vomiting. Pt says fair control of back pain, wearing her brace. 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 HTN - lisinopril, atenolol, norvasc 2. HLD - simvastatin 3. recent spinal fusion surgery, narcotics may be causing so me delirium, hallucinations - stopped narcotics - scheduled tylenol and motrin 4. Hallucinations and delirium, history of anxiety - further management as per psych Dictated By: Jen Israel MD Dictated Date/Time:09/28/19 1355 Electronically Signed Date/Time: 09/28/19 1438 mrpn on 2019-09-28 MRPN Patient Name:ANGÉLICA DAWN MR #: Judy 09-28-2019 [facility] [id number] Hospital ([id number]) Location: MD Acc#: [id number] Date of Admit: 09/25/19 : 1950 Age: 69 Sex: F Dictated By: Chino Vail MD Signing Physician: DICTATED BY: Chino Vail M.D. SIGNING PHYSICIAN: DATE OF SERVICE: 09/28/2019 SUBJECTIVE: This is a 69-year-old Caucas rachelle female, admitted as a referral fro [facility] on a pink slip for increased pa ranoia, delusions, and hallucinations. Information is gathered by reviewing chart, discussing with staff, interviewingthe patient. Staff reports, the patient slept 6.5 hours, eating 25% to 50% of m eals. She did receive Ativan 1 mg p.r.n. around 4 p.m. During this interview, the patient reports she had surgery on her back and since then she has not been sleeping and her appetite has be en poor. She reports to feeling sad and depressed where she thinks her is drugs. During this interview, the patient is pleasant, able to maintain eye contact, maintain conversation. She thinks her is getting into her medications and she knew when somebody uses drugs as her first in a car crash and he was abusing drugs at that time. She reports to being scared at home because of her experience with her first and now she thinks her c urrent is doing the same thing using drugs. During this interview, the patient is ple asant able to maintain eye contact and maintain conversation. No reports of any suicida l statements or gestures. She denies any appetite disturbance. Most recent labs, vital sig ns, and medical followup reviewed. The patient tolerating medications fairly well. REVIEW OF SYSTEMS: Denies nausea, vomiting, diarrhea, consti pation. OBJECTIVE: Vital signs, blood pressure 143/73, p ulse 92, respirations 20, and emperature 36.2. Denies feeling dizzy or lightheaded. Abl e to maintain eye contact and maintain conversation. Cooperative, alert, and oriented to time, place, and p erson. Mood depressed. ffect is anxious. Denies any auditory or visual hallucinations at present. Remains paranoid and delusional. Denies suicidal or homicidal ideations. Concentration is poor . Insight superficial. Impulse control somewhat improved. Judgement poor. ASSESSMENT: AXIS I: 1. Generalized anxiety disorder. 2. Major depression, recurrent with psychosis. AXIS III: Hypertension, hypercholesterolemia, status post sp inal fusion. TREATMENT PLAN: 1. Remeron 7.5 mg before bedtime. 2. Risperdal 0.25 mg b.i.d. 3. Trazodone 25 mg at bedtime p.r.n. 4. Lorazepam 2 mg t.i.d. 5. Supportive therapy. 6. Group and activity therapy. PABLO @ 15:45 @ 17:40 # [id number] Chino Vail M.D. Electronically Signed Date/Time: 09/29/191102 Electronically Signed Date/Time: 09/29/191102 mrpn on 2019-09-27 MRPN Patient Name:ANGÉLICA DAWN MR #: Judy 09-27-2019 [facility] [id number] Hospital ([id number]) Location: MD Acc#: [id number] Date of Admit: 09/25/19 : 1950 Age: 69 Sex: F Dictated By: Deandra Garcia NP Signing Physician: DICTATED BY: SPRING Dennis SIGNING PHYSICIAN: DATE OF SERVICE: 09/27/2019 This is a 69-year-old female of Dr. Chino Vail. SUBJECTIVE: This is a 69-yea r-old female who is admitted due to a new onset change in mental status including paranoia, delusions, and visual guerra ucinations. Information is gathered by reviewing the chart, discussing w [facility] staff and interviewing the patient. Staff reports the patient slept about 3-1/2 hours last linwood ron. The patient herself states that she did not get to sleep very well. She complained o f a lot of pain in her mouth. She says that she really does not have a very good appetite. I did ask her if it was because of the pain in her mouth, she said no, she is just not hungry. She reports to having depression, mainly because she cannot go home to be with her dog and her kids. She re ports that she started having anxiety and depression when she was age 29. Reports that she has had a lot of anxiety and fear and that the Ativan is the thing that helps her. She states that she was having some hallucinations when she was in the hospital for the surgery and states that they told her she had a micro CVA. She, by staff report, had a spinal fusion about a week ago. She is delusional about her first off and on. He apparently was a drug addict, has since passed in an auto accident. She hs been to the current for a number of years, and s he is thinking that he is the previous , been delusional and confused off and on since the admission, and paranoid with flight of ideas. Very concerned about one of the o ther patients that yells and screams a lot. She has been social with one of the other female patient in the a ctivities room, but at the time that I saw her, she was lying in her bed, complaining of the pain in her mouth and on her back. She does have some scheduled medications, but according to the staff, they are not giving her narcotics at this time. She has scheduled anti-inflammatory and Tylenol. She reported that she is only paranoid that she is never going to get out of this place and started telling me about how she hurt her back, jumping over an old dog because she did not want a fall on the dog. She denies current suicidal ideation. She was aware she was in [facility] that it was September 2019 and Monica was president. She thought it was the , which was l ast Sunday. She was able to maintain eye contact. The entire time that she was charli merle with me she had her finger on her tooth telling me that she had a broken tooth, which was caus ing her extreme pain and that she could not keep her tongue off of it and she reported that she was not able to talk a nd denied that was the reason she was not eating much, but questionable she m ay not be a eating as much because of the to tooth. Most recent labs, vital signs, and medical followup have been reviewed. OBJECTIVE: Blood pressure 137/60, pulse 76, respiratio ns 16, temperature 36, and pulse ox 98% on room air. Her gait is somewhat unsteady because of having th e recent back surgery. There have been no falls reported. There is no noted involuntary buccolingua l movements, tardive dyskinesia, or other extrapyramidal symptoms that are abnormal. She is alert and oriented x3 to 4. Her memory is intact. Her mood is somewhat euthymic, b ut possibly some depression there. Her affect is anxious, fearful. She continues to be paranoid, delusiona l. Denying any hallucinations currently, but she realizes that she did have them previously. She is denying s uicidal or homicidal thoughts. Judgment is poor. Insight poor. Impulse control somewhat poo r and speech normal in tone and rate. DIAGNOSTIC ASSESSMENT: AXIS I: Delirium with psychosis. AXIS III: Hypertension, hyperlipidemia, recent spinal fusion surgery and acute pain. TREATMENT PLAN: 1. Review the medications. 2. Continue the medications as ordered.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 [address] [place] [address] Glucose Ql (U) Normal Normal (<70) Normal 09-19-2019 [facility] (44862) Comment: Result Comment: . Performed By: #### CUA2, DRG A4 #### [facility] [address] [place] [address] Ketone,Urine Negative Negative Normal 09-19-2019 [facility] (13039) Comment: Result Comment: . Performed By: #### CUA2, DRG A4 #### [facility] [address] [place] [address] Leukocytes,Urine Negative Negative Normal 09-19-2019 [facility] (97582) Comment: Result Comment: . Performed By: #### CUA2, DRG A4 #### [facility] [address] [place] [address] Nitrites,Urine Negative Negative Normal 09-19-2019 [facility] (07234) Comment: Result Comment: . Performed By: #### CUA2, DRG A4 #### [facility] [address] [place] [address] Occult Blood,Urine Negative Negative Normal 09-19-2019 [facility] (30883) Comment: Result Comment: . Performed By: #### CUA2, DRG A4 #### [facility] [address] [place] [address] pH (U) 6.5 5.0-8.0 Normal 09-19-[address] [facility] (16563) Comment: Result Comment: . Performed By: #### CUA2, DRG A4 #### [facility] [address], [place] Protein (U) [Mass/Vol] Negative Negative mg/dL Normal 020 [facility] (58595) Comment: Result Comment: . Performed By: #### CUA2, DRG A4 #### [facility] [address], [place] Specific Campbell,Urine 1.007 1.005 - 1.030 Normal [facility] (78481) Comment: Result Comment: . Performed By: #### CUA2, DRG A4 #### [facility] [address], [place] Urobilinogen,Urine Normal Normal (0-1) Normal 09-19-19 [facility] (38428) Comment: Result Comment: . Performed By: #### CUA2, DRG A4 #### [place] [address], [place] comp metabolic panel on 2019-09-19 Calcium [Mass/Vol] 10.0 8.4-10.4 mg/dL Normal 09-19-2019 [facility] (27672) Comment: Performed By: #### HEMDF, CM P3, ETOH4, MG3, TSH5 #### [place] [address], [place] ALP [Catalytic activity/Vol] 59 38-126 U/L Normal 0 09-19-2019 [facility] (62294) Comment: Performed By: #### HEMDF, CM P3, ETOH4, MG3, TSH5 #### [facility] [address], [place] ALT [Catalytic activity/Vol] 14 0-34 U/L Normal 0 09-19-2019 [facility] (66486) Comment: Result Comment: The ALT test is performed by an updated assay method. Please note that the referen ce intervals have been changed and are now sex spec ific. Performed By: #### HEMDF, CM P3, ETOH4, MG3, TSH5 #### [place] [address] [place], [place] Anion gap [Moles/Vol] 10 Normal 09-19-19 [facility] (54142) Comment: Performed By: #### HEMDF, CM P3, ETOH4, MG3, TSH5 #### [facility] [address], [place] AST [Catalytic activity/Vol] 38 15-46 U/L Normal 0 09-19-2019 [facility] (68025) Comment: Performed By: #### HEMDF, CM P3, ETOH4, MG3, TSH5 #### [facility] [address], [place] Bilirubin [Mass/Vol] 0.5 0.2-1.3 mg/dL Normal 0 [facility] (99782) Comment: Performed By: #### HEMDF, CM P3, ETOH4, MG3, TSH5 #### [place] [address] [place], [place] CO2 [Moles/Vol] 23 22-30 mmol/L Normal 09-19-2019 [facility] (09002) Comment: Performed By: #### HEMDF, CM P3, ETOH4, MG3, TSH5 #### [place] [address] [place], [place] Creatinine [Mass/Vol] 0.81 0.52-1.25 mg/dL Normal 09-19-19 20 [facility] (16496) Comment: Performed By: #### HEMDF, CM P3, ETOH4, MG3, TSH5 #### [place] [address] [place], [place] GFR/1.73 sq M predicted 85.2 >60 mL/min Normal 2019 [facility] among blacks MDRD (S/P/Bld) (38215) [Vol rate/Area] Comment: Performed By: #### HEMDF, CM P3, ETOH4, MG3, TSH5 #### [facility] [address], [place] GFR/1.73 sq M predicted 73.5 >60 mL/min Normal 2019 [facility] among non-blacks MDRD (16878) (S/P/Bld) [Vol rate/Area] Comment: Result Comment: KDIGO guidel zachary provide the following GFR categories: Stage GFR(ml/min/1.73 m2) Te lidia G1 >=90 Normal or high G2 60-89 Mildly decreased* G3a 45-59 Mildly to moderate ly decreased G3b 30-44 Moderately to irene rely decreased G4 15-29 Severely decreased G5 <15 Kidney failure *Relative to young adult lev el. In the absence of evidence o f kidney damage, neither GFR category G1 nor G2 fulfill t he criteria for CKD. The CKD-EPI equation is brenda dated in individuals 18 years of age and older. Currently the best equation for estimating glomerular filtra tion rate (GFR) from serum creatinine in children is e Bedside Mckay equation. It is less accurate in patie nts with extremes of muscle mass, restriction of dietary protein, ingestion of creatine, extra-renal metabolism of cr eatinine, or treatment with medications that affect ruthie l tubular creatinine secretion. Performed By: #### HEMDF, CM P3, ETOH4, MG3, TSH5 #### [facility] [address], [place] Glucose [Mass/Vol] 117 70-100 mg/dL High 09-19-2019 [facility] (89021) Comment: Performed By: #### HEMDF, CM P3, ETOH4, MG3, TSH5 #### [facility] [address], [place] Protein [Mass/Vol] 7.0 6.3-8.2 g/dL Normal 09-19-2019 [facility] (75094) Comment: Performed By: #### HEMDF, CM P3, ETOH4, MG3, TSH5 #### [facility] [address] [place] [address] Urea nitrogen [Mass/Vol] 8 7-20 mg/dL Normal 09-18 [facility] (66384) Comment: Performed By: #### HEMDF, CM P3, ETOH4, MG3, TSH5 #### [facility] [address], [place] Potassium [Moles/Vol] 3.8 3.5-5.1 mmol/L Normal 09-19-19 20 [facility] (68184) Comment: Performed By: #### HEMDF, CM P3, ETOH4, MG3, TSH5 #### [facility] [address] [place] [address] Sodium [Moles/Vol] 132 135-145 mmol/L Low 09-19-2019 [facility] (43210) Comment: Performed By: #### HEMDF, CM P3, ETOH4, MG3, TSH5 #### [facility] [address] [place] [address] Albumin [Mass/Vol] 4.4 3.5-5.0 g/dL Normal 09-19-2019 [facility] (81160) Comment: Performed By: #### HEMDF, CM P3, ETOH4, MG3, TSH5 #### [facility] [address] [place] [address] Chloride [Moles/Vol] 99 98-107 mmol/L Normal 0 [facility] (38522) Comment: Performed By: #### HEMDF, CM P3, ETOH4, MG3, TSH5 #### [facility] [address] [place] [address] No panel information on 2019-09-19 SARS-CoV-2 Not Detected 09-19-2019 [facility]- Expected Result: Not Detected [place] ([address]) _ Real-time, RT-PCR performed on the [employer] by the [facility]. Negative results do not preclude SARS-CoV-2 infection and should not be used as the sole basis for treatment or other patient management decisions. This assay was developed by [employer] and distributed under an Emergency Use Authorization (EUA) granted by the FDA for the qualitative detection of SARS-CoV-2 nucleic acid. Test Performed by 09-19-2019 , [place] ([address]) [address] [place] [address] Specimen Source Comment:Nasopharyngea l Swab TSH Qn 0.941 0.465 - u[IU]/m 09-19-2019 [facility] lth- 4.68 L [place] (93 078) Test Performed by 09-19-2019 [place] ([address]) [address] [place] [address] Amphetamines, urine Negative 09-19-2019 [place], [place] ([address]) Barbiturates, Ur Negative 09-19-2019 [place] ([address]) Benzodiazepine Ur Qual Negative 020 [place] ([address]) Cocaine Metabolites, Negative 0 [place], [place] ([address]) Methadone, Urine Negative 09-19-2019 [place] ([address]) Opiates, Urine Positive 09-19-2019 [place] ([address]) Oxycodone Screen, Ur Positive 0 [place] ([address]) PCP, Urine Negative 09-19-2019 [place] ([address]) Comment: The expected value for all o f the drugs listed above is Negative. The following drugs or drug groups have been screened for by Immunoassay at the llowing thresholds: Amphetamine class (1000 ng/m L), Barbiturates (200 ng/mL), Benzodiazepines (200 ng/mL), Cocaine (300 ng/mL), Methadone (300 ng/mL), Opiat es (300 ng/mL), Oxycodone (100 ng/mL), and P CP (25 ng/mL). NOTE: These results are for medical treatment only. Analysis performed using non -forensic procedures. POSITIVE results are NOT con firmed by a more specific alternative method unless re quested. If confirmation is needed, request confirmation under separate order. Test Performed by 09-19-2019 [place] ([address]) [address] [place] [address] Albumin [Mass/Vol] 4.4 3.5 - 5 g/dL 09-19-2019 [place] ([address]) ALP [Catalytic 59 38 - 126 U/L 09-19-2019 [facility], activity/Vol] [place] (45 237) ALT [Catalytic 14 0 - 34 U/L 09-19-2019 [facility], activity/Vol] [place] (45 237) Comment: The ALT test is performed by an updated assay method. Please note that the referen ce intervals have been changed and are now sex spec ific. Anion gap [Moles/Vol] 10 mmol/L 09-19-19 20 [place] ([address]) AST [Catalytic 38 15 - 46 U/L 09-19-2019 [place] activity/Vol] (94931 ) Bilirubin Ql (U) 0.5 0.2 - 1.3 mg/dL 09-19-2019 [place] ([address]) Calcium [Mass/Vol] 10.0 8.4 - 10.4 mg/dL 09-19-2019 [place] ([address]) Chloride [Moles/Vol] 99 98 - 107 mmol/L 0 [place] ([address]) CO2 [Moles/Vol] 23 22 - 30 mmol/L 09-19-2019 [place] ([address]) Creatinine [Mass/Vol] 0.81 0.52 - 1.25 mg/dL 2019 [place] ([address]) EGFR IF NonAfrican 73.5 >60 mL/min 09-19-2019 [place] ([address]) Comment: KDIGO guidelines provide the following GFR categories: Stage GFR(ml/min/1.73 m2) Terms G1 >=90 Normal or h igh G2 60-89 Mildly decr eased* G3a 45-59 Mildly to moderately decreased G3b 30-44 Moderately to severely decreased G4 15-29 Severely de creased G5 <15 Kidne y failure *Relative to young adult lev el. In the absence of evidence o f kidney damage, neither GFR category G1 nor G2 fulfill t he criteria for CKD. The CKD-EPI equation is brenda dated in individuals 18 years of age and older. Currently the best equation for estimating glomerular filtra tion rate (GFR) from serum creatinine in children is th e Bedside Mckay equation. It is less accurate in patie nts with extremes of muscle mass, restriction of dietary protein, ingestion of creatine, extra-renal metabolism of cr eatinine, or treatment with medications that affect rtuhie l tubular creatinine secretion. Ethanol Lvl <0.010 0 - 0.01 09-19-2019 [place] ([address]) Comment: NOTE: This result is for med ical treatment only. Analysis performed using non -forensic procedures. GFR/1.73 sq M 85.2 >60 mL/min 09-19-2019 [facility] predicted among [facility], blacks MDRD LINDA (5558 7) (S/P/Bld) [Vol rate/Area] Glucose [Mass/Vol] 117 70 - 100 mg/dL High 09-19-2019 [place] ([address]) Interpretation and Abnormal 09-19-2019 [facility] review of laboratory [facility], [place] ([address]) Magnesium [Mass/Vol] 1.9 1.6 - 2.3 mg/dL 0 [place] ([address]) Potassium 3.8 3.5 - 5.1 mmol/L 09-19-2019 [facility] [Moles/Vol] [place] ([address]) Protein [Mass/Vol] 7.0 6.3 - 8.2 g/dL 09-19-2019 [place] ([address]) Sodium [Moles/Vol] 132 135 - 145 mmol/L Low 09-19-2019 [place] ([address]) Urea nitrogen 8 7 - 20 mg/dL 09-19-2019 [facility] [Mass/Vol] [place] ([address]) Test Performed by 09-19-2019 [facility], [address] [place] [address] Patient Name: 09-19-2019 [facility] ANGÉLICA DAWN MRN: [facility], [id number] FIN: [place] (4 1781) [id number] ---CT--- Exam Date/Time 09/19/2019 08:47:[address] Head or Brain w/o Contrast Ordering Physician KILO ELLSWORTH Accession Number [id number] CPT4 Codes 09282 () Reason For Exam altered mental status Report CT HEAD: CLINICAL INDICATION: Altered mental status TECHNIQUE: Transaxial CT sequence performed through the head with 3 mm reconstruction. Sagittal and Coronal reconstruction images included. Dose reduction employed with automated exposure control. COMPARISON: None FINDINGS: Ventricles and Extra-axial spaces: Normal in size and morphology for the patient's age. No abnormal extracerebral collection identified. Cerebral and cerebellar parenchyma: No definite CT evidence for acute infarct. No mass effect or midline shift. Hemorrhage: None Brainstem: Normal Visualized Paranasal sinuses: Normal. Mastoid air cells: Normal Visualized Orbits: Normal Calvarium and skull base: There is frontal bone hyperostosis IMPRESSION: 1. No evidence for acute intracranial abnormality. Report Dictated on --- Final --- Dictated: 09/19/2019 8:56 am Dictating Physician: MD ROJAS GEORGE RICHARD Signed Date and Time: 09/19/2019 8:58 am Signed by: MD ROJAS GEORGE RICHARD Transcribed Date and Time: 09/19/2019 8:56 [facility], [facility] Incoming Radiology Results From [facility] - 2019 8:59 AM EDT 09-19-2019 [place] ([address]) Patient Name: ANGÉLICA DAWN ---CT--- Exam Date/Time 09/19/2019 08:47:[address] Head or Brain w/o Contrast Ordering Physician KILO ELLSWORTH Accession Number [id number] CPT4 Codes 61197 () Reason For Exam altered mental status Report CT HEAD: CLINICAL INDICATION: Altered mental status TECHNIQUE: Transaxial CT sequence performed through the head with 3 mm reconstruction. Sagittal and Coronal reconstruction images i ncluded. Dose reduction employed with automated exposure control. COMPARISON: None FINDINGS: Ventricles and Extra-axial spaces: Normal in size and morpho logy for the patient's age. No abnormal extracerebral collection iden tified. Cerebral and cerebellar parenchyma: No definite CT evidence for acute infarct. No mass effect or midline shift. Hemorrhage: None Brainstem: Normal Visualized Paranasal sinuses: Normal. Mastoid air cells: Normal Visualized Orbits: Normal Calvarium and skull base: There is frontal bone hyperostosis IMPRESSION: 1. No evidence for acute intracranial abnormality. Report Dictated on --- Final --- Dictated: 09/19/2019 8:56 am Dictating Physician: MD ROJAS GEORGE RICHARD Signed Date and Time: 09/19/2019 8:58 am Signed by: RUEB, MD, MARINE Gay Date and Time: 09/19/2019 8:56 Absolute Baso # 0.1 0 - 0.2 10*3/uL 09-19-2019 [place] ([address]) Absolute Neut # 11.0 1.8 - 7 10*3/uL High 09-19-2019 [place] ([address]) Basophils/100 WBC 0.4 0 - 2 % 09-19-2019 [facility] (Bld) [place] ([address]) Eosinophils (Bld) 0.0 0 - 0.5 10*3/uL 09-19-2019 [facility] [#/Vol] [place] ([address]) Eosinophils/100 WBC 0.3 1 - 6 % Low 09-19-2019 [facility] (Bld) [place] ([address]) Erythrocyte 12.8 11.5 - % 09-19-2019 [facility] distribution width [facility].5 [facility] ([facility] [Ratio] LINDA (45 237) Granulocytes/100 WBC 79.3 40 - 80 % 0 [facility] (Bld) [place] ([address]) Hematocrit (Bld) 36.5 35 - 47 % 09-19-2019 [facility] [Volume fraction] [place] ([address]) Hemoglobin (Bld) 12.8 11.7 - 16 g/dL 09-19-2019 [facility] [Mass/Vol] [place] ([address]) Interpretation and Abnormal 09-19-2019 [facility] review of laboratory [facility], results [place] ([address]) Lymphocytes (Bld) 1.7 1 - 4.3 10*3/uL 09-19-2019 [facility] [#/Vol] [place] ([address]) Lymphocytes/100 WBC 11.9 20 - 40 % Low 09-19-2019 [facility] (Bld) [place] ([address]) MCH (RBC) [Entitic 33.3 26 - 34 pg 09-19-2019 [facility] mass] [place] ([address]) MCHC (RBC) 35.0 32 - 36 % 09-19-2019 [facility] [Mass/Vol] [place] ([address]) MCV (RBC) [Entitic 95.1 79 - 98 fL 09-19-2019 [facility] [place] ([address]) Monocytes (Bld) 1.1 0 - 0.8 10*3/uL High 09-19-2019 [facility] [#/Vol] [place] ([address]) Monocytes/100 WBC 8.1 2 - 10 % 09-19-2019 [place] (Bld) [place] ([address]) Platelet mean volume 8.6 7.4 - 10.4 fL 09-19-19 20 [facility] (Bld) [Entitic vol] [place] ([address]) Platelets (Bld) 313 140 - 440 10*3/uL 09-19-2019 [facility] [#/Vol] [place] ([address]) RBC (Bld) [#/Vol] 3.84 3.8 - 5.2 10*6/uL 09-19-2019 [place] ([address]) WBC (Bld) [#/Vol] 13.9 3.6 - 10.7 10*3/uL High 09-19-2019 [place] ([address]) Test Performed by 09-19-2019 [facility], [address] [place] [address]) [place] [address] Appearance (U) Clear Clear NA 09-19-2019 [place] ([address]) Comment: . Bilirubin Urine Negative Negative mg/dL 0 [place] ([address]) Comment: . Color (U) Colorless Lt. Yellow NA 09-19-2019 [place] ([address]) Comment: . Glucose, Ur Normal Normal (<70) mg/dL 0 [place] ([address]) Comment: . Ketones Ql (U) Negative Negative mg/dL 09-19-2019 [place] ([address]) Comment: . LEUKOCYTES, UA Negative Negative Janelle/uL 0 [place] ([address]) Comment: . Nitrite, Urine Negative Negative NA 09-19-2019 [place] ([address]) Comment: . Occult Blood,Urine Negative Negative mg/dL 2019 [place] ([address]) Comment: . pH (U) 6.5 OTH - OTH [pH] 09-19-2019 [facility] [place] ([address]) Comment: . Protein (U) [Mass/Vol] Negative Negative mg/dL mg/[place] ([address]) Comment: . Specific Campbell, Urine 1.007 OTH - OTH 2019 [place] ([address]) Comment: . Urobilinogen, Urine Normal Normal (0-1) mg/dL 0 09-19-2019 [place] ([address]) Comment: . Test Performed by [employer] 09-19-2019 [place] ([address]) [employer], [place] [address] obsolete on 2019-09 OBSOLETE Refill (OBGMEM) Normal 09-09-2019 [facility] ANGÉLICA [place] ([id number]) 1950 [facility] Time Provider Department ([address]) 09/09/19 KILO BONDS OBGMEM During your visit today, we recorded the following informati on about you: Allergies As of Date: 09/09/2019 Noted Allergy Reaction VENLAFAXINE 05/14/2012 4 - Hives CLONIDINE 09/27/2015 5 - Intolerance Comments: pain all over DEPAKOTE (DIVALPROEX SODIUM) 10/21/2010 14 - Other: See Comm ents Comments: body jerks DESIPRAMINE 12/09/2009 5 - Intolerance Comments: crying DOXYCYCLINE 11/29/2011 4 - Hives FLAGYL (METRONIDAZOLE HCL) 08/06/2012 4 - Hives 9 - Itching IMIPRAMINE 12/09/2009 4 - Hives Comments: wt gain IMITREX (SUMATRIPTAN SUCCINATE) 12/09/2009 5 - Intolerance Comments: anxiety NEURONTIN (GABAPENTIN) 03/13/2013 4 - Hives PRISTIQ (DESVENLAFAXINE) 04/13/2011 1 - Mental Status Change Comments: headache,anorexia PROZAC (FLUOXETINE HCL) 11/24/2010 1 - Mental Status Change Comments: confusion,frequent falls,bladder pain SERTRALINE 06/26/2011 14 - Other: See Comments Comments: dysuria,bladder pain ULTRAM (TRAMADOL HCL) 02/14/2006 8 - GI Upset VESICARE (SOLIFENACIN SUCCINATE) 11/09/2009 5 - Intolerance Comments: blurred vision,trouble swallow WELLBUTRIN (BUPROPION HCL) 12/09/2009 5 - Intolerance Comments: anxiety, sob Date Reviewed: 05/21/2019 Reviewed by: Phillip Birch - Fully Assessed Order(s):clotrimazole-betamethasone (LOTRISONE) creamApply t o outside of vagina and crease of legs twice a day for 10-14 days.Disp: 4 5 gRfl: 2 Aug Betamethasone Dipropionate (DIPROLENE) 0.05 % ointmentAp ply 1 application to affected area twice daily for 10 days. For 7- 10 daysDisp: 45 gRfl: 2 Prescriptions as of 09/09/2019 Sig: CLOTRIMAZOLE-BETAMETHASONE 1 * Apply to outside of vagina an * BETAMETHASONE, AUGMENTED 0.05* Apply 1 application to affect * OMEPRAZOLE 20 MG CAPSULE,LAURA* Take 20 mg by mouth once magalie * CONJUGATED ESTROGENS 0.625 MG* Use 1 g vaginally two times a * ATORVASTATIN 10 MG TABLET Take 10 mg by mouth once magalie* NYSTATIN 100,000 UNIT/GRAM TO* Apply 1 application to affect * Patient not taking: Reported on 05/05/2019 ROSUVASTATIN 5 MG TABLET Take 1 tablet by mouth daily * Patient not taking: Reported on 03/27/2019 OTC NUTRITIONAL SUPPLEMENT ensure IMODIUM A-D ORAL Take by mouth. MIKA BACK AND BODY ORAL Take by mouth. VALACYCLOVIR 500 MG TABLET Take 1 tablet by mouth twice * FLUCONAZOLE 150 MG TABLET 1 pill now, repeat in 48 hour* VALACYCLOVIR 500 MG TABLET Take 1 tablet by mouth once d* Patient not taking: Reported on 02/27/2019 DICYCLOMINE 10 MG CAP (BENTYL* Take 10 mg by mouth three bhavya * LACTOBACILLUS ACIDOPHILUS CAP* Take 1-2 capsules by mouth tw * Patient not taking: Reported on 02/27/2019 LORAZEPAM 2 MG TABLET ATENOLOL 25 MG TABLET Take 1 tablet by mouth three * FAMOTIDINE 20 MG TABLET Take 1 tablet by mouth twice * COMPOUNDED PRESCRIPTION BLOOD PRESSURE CUFF FOR HOME * CHOLECALCIFEROL (VITAMIN D3) * Take 1 tablet by mouth once d * Problem List As Of Date 09/09/2019 Noted Resolved DEPRESSIVE DISORDER NEC [F32.9] 04/21/2005 KIMBERLY (generalized anxiety disorder) [F41.1] 04/21/2005 HEADACHE [R51] 04/21/2005 HEMORRHOIDS NOS [K64.9] More... Myalgia [M79.10] COMMON MIGRAINE W/O MENTN INTRACT [G43.009] 10/30/2005 Chronic Interstitial Cystitis [N30.10] 11/25/2009 Pelvic Pain in Female [R10.2] 11/25/2009 Osteopenia [M85.80] 06/22/2010 More... Cystitis [N30.90] 08/02/2010 Cough [R05] 08/02/2010 Weight gain [R63.5] 11/24/2010 Fibromyalgia [M79.7] 08/12/2011 Anxiety [F41.9] 10/06/2011 Unspecified pruritic disorder [L29.9] 12/13/2011 Postmenopausal atrophic vaginitis [N95.2] 12/13/2011 Unspecified constipation [K59.00] 12/13/2011 Vaginal pain [R10.2] 01/05/2012 Rectal pain [K62.89] 01/05/2012 Adjustment disorder with mixed anxiety and depr*05/30/2012 Vaginal burning [N94.9] 06/05/2012 Chronic pain [G89.29] 06/19/2013 Perineal pain in female [N94.9] 09/18/2013 Constipation [K59.00] 09/18/2013 Stress and adjustment reaction [F43.29] 10/31/2013 Tubular adenoma of colon [D12.6] 10/31/2013 Opiate dependence (HCC) [F11.20] 12/15/2013 Vaginal high risk HPV DNA test positive [R87.81*12/08/2012 More... HPV test positive [[id number]] 05/26/2014 More... 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 BETAMETHASONE, AUGMENTED 0.05 % TOPI* 45 g 2 09/10/201909/07 Class: Call Rx Route: TOPICAL Sig: Apply 1 application to affected area twice daily for 10 days. For 7-10 days Medications Discontinued During This Encounter clotrimazole-betamethasone (LOTRISON* 45 g 2 02/27/20192019 Route: TOPICAL Sig: Apply 1 application to affected area twice daily. Apply to outside of vagina and crease of legs twice a day for 10-14 days. Disc: Reason for discontinue is not on file. Aug Betamethasone Dipropionate (DIPR* 45 g 2 10/24/2018 020 Route: TOPICAL Sig: Apply 1 application to affected area twice daily. For 7 -10 days Patient not taking: Reported on 02/27/2019 Disc: Reason for discontinue is not on file. Encounter Status:Closed by KILO BONDS MD on 09/10/19 progress on 2019-08 PROGRESS HNO ID: [id number] Normal 08-25-2019 [facility] Author: Michelle (Rt) Na Bryson ([id number]) Service: ? Author Type: Superintendent Division Type: Progress Notes Filed: 08/25/2019 3:09 PM Note Text: Radiology Service Progress Note PATIENT NAME: Angélica Dawn DATE OF SERVICE: August 25, 2019 TIME: 3:09 PM PATIENT IDENTITY VERIFICATION COMPLETED USING TWO (2) IDENTI FIERS: Name and Date of confirmed by patient verbally. FALL SCREENING: Has the patient had 2 falls in the last year or 1 fall with injury or currently using an Ambulatory Assistive Devic e (Walker, Cane, Wheelchair, Crutches, etc.)? No PATIENT GENDER DATA: Female. status: : No status: NO. PATIENT RELEVANT IMPLANT DATA REVIEWED: Yes RADIOLOGY DEPARTMENT: MR; Exam(s) Completed: Spine: Lumbar s pine PERIPHERAL IV DATA: Not applicable SIGNED BY: RT Nas August 25, 2019 3:09 PM mri lumbar spine wo ivcon on 2019-08-25 MRI LUMBAR * * *Final Report* * * Normal 2019 [facility] SPINE WO IVCON DATE OF EXAM: Aug 25 2019 3:30PM [place] ([id number]) WRM [id number] - MRI LUMBAR SPINE WO IVCON / PROCEDURE REASON: MRI Lumbar W/O Contrast * * * * Physician Interpretation * * * * EXAMINATION: MRI LUMBAR SPINE WO IVCON CLINICAL HISTORY: Low back pain with radiation to the left l eg. TECHNIQUE: Routine lumbosacral spine MR protocol without kimberly olinium. MQ: [id number] COMPARISON: None. RESULT: Counting reference: Lumbosacral junction. For the purposes o f this report, L4-5 is considered the level of the iliac crest and assume there are 5 lumbar-type vertebrae. Anatomic variant: None. Alignment: Grade 1 spondylolisthesis at L4-5 and minimal spondylolisthesis at L5-S1. Alignment is otherwise anatomic. Mild disc space narrowing at L4-5.. Bone marrow signal/fracture: No evidence of pathologic marro w infiltration. Mild loos in height of the T12 vertebral body with normal signal intensity compatible with a remote benign compression fracture. Conus: The conus is within normal limits of signal intensity and morphology. Paraspinal soft tissues: Small synovial cysts along the rj ins of the lamina and spinous processes at L4-5. Lower thoracic spine: Visualized lower thoracic canal and fo ramina are patent. T12-L1: Canal and foramina are patent. L1-L2: Canal and foramina are patent. L2-L3: Canal and foramina are patent L3-L4: Canal and foramina are patent L4-L5: Spondylolisthesis, facet degenerative changes and rig ht sided synovial cyst with severe canal stenosis. Spondylolisthesis, facet degenerative changes and rostrocaudal facet subluxation with moderate to severe left and mild right foraminal stenosis. L5-S1: Minimal spondylolisthesis. Canal and foramina are pat ent Sacrum and iliac wings: The visualized sacrum and iliac wing s are within normal limits. IMPRESSION: Grade 1 spondylolisthesis with severe canal and moderate to severe bony foraminal stenosis at L4-5. Subtle remote benign compression fracture at T12. Anatomic Thoracic/Lumbar Variant: None. L4-5 is considered t he level of the iliac crest and assume there are 5 lumbar-type vertebrae . Barge Captain: PSCB Transcribe Date/Time: Aug 25 2019 4:21P Dictated by : REGINO ZACARIAS MD This examination was interpreted and the report reviewed and electronically signed by: REGINO ZACARIAS MD on Aug 25 2019 4:42PM EST [id number] clinical summary: [email or web address] on 2019-06-18 OOP 06-18-2019 - 06-18-2019 [facility] ([id number]) clinical lists update: preload extended on 2019-06-17 Tobacco smoking current everyday 020 - [facility] status NHIS smoker 06-17-2019 [facility] - [facility] ([id number]) progress on 2019-05 PROGRESS HNO ID: [id number] Normal 05-21-2019 [place] Author: Phillip Early Queta [facility] Service: ? [place] Author Type: Physician ([id number]) Type: Progress Notes Filed: 05/21/2019 5:00 PM Note Text: HISTORY AND PHYSICAL Angélica Dawn 1950 REFERRING PHYSICIAN: Kilo Bonds MD CHIEF COMPLAINT: Consult (Possible Hemorrhoids) HPI: The patient is a 68 year old female referred for rectal and anal pain. The patient notes a painful feeling her rectum. She no irvin it is worse when sitting. She states this is been present for some time but getting worse for at least the past few weeks to months. Angélica feels this is hemorrhoidal issues. She does not note a ny bleeding but does note pain. She denies pain with bowel movements. In the past she had long-standing history is related to constipation. ronaldo now notes irritable bowel type symptoms which alternated between const ipation and diarrhea. She has trouble regulating her stools. In the past she took Amena lax for her constipation issues The patient notes acid reflux and occasional difficulty in s wallowing. The patient underwent colonoscopy in 2013 was found to have an adenomatous polyp but no other specific abnormalities. She also had uppe r endoscopy performed in 2014 this was apparently unremarkable. She unde rwent laparoscopic cholecystectomy on February 26, 2015 She underwent upper GI/barium swallow on September 30, 2013. This was generally unremarkable. She was seen by Dr. Taco reyes on September 18, 2013. His impre ssion was chronic perineal pain along with an anterior rectocele and s phincter defect. At the time she was having more chronic constipation issues and fibromyalgia and irritable bowel syndrome constipation predo minant. Dr. reyes noted: The patient is a 63-year-old female with a 4-year history of constant burning pain that worsens with sitting and improves with a b owel motion. She complains of associated erythematous skin changes to the perineum. The pain is equally distributed around the anus, and is localize d to the perianum/anal canal. The pain began after her mother was mur dered by her sisters. ? She occasionally experiences bright red rectal bleeding. She notices this blood with bowel motions, but not during strenuous or normal activity. The blood appears on the tissue paper, but not in the commode wa ter or mixed with the stool. She has some protrusion that spontaneously r educes. ? She has a 20-year history of constipation and abdominal pain . She has one bowel motion each month that is preceded by abdominal pain a nd bloating. She never strains, but she does sit on the commode for 5 min utes every morning. ? She eventually feels distended and nauseated. She will sit o n the commode and begin to immediately evacuate without straining or manip ulation. The stools are initially hard and then become more loose; she ge nerally complains of incomplete evacuation. She admits to occasional (every other month) digital disimpaction. She never has to splint her vag dontae to facilitate passage of stool. She denies incontinence of flat us, liquid stool, and solid stool. She is and had one difficult de livery with an associated tear or episiotomy. ? She has trialed psyllium, laxatives, suppositories, and enem as with mixed success; the transanal therapies work best. She takes Vicodi n each day and has done so for the past 6 years. She has been well prepped for both colonoscopies with standard mechanical polyethylene glycol s olution preparations. ? She underwent a colonoscopy in February 2012 that revealed a tubular adenoma that was completely removed. Another colonoscopy in September 2013 showed decreased anal sphincter tone and two polyps that wer e completely removed. She allegedly underwent a CT scan of the abdomen an d pelvis in 2011 that was normal. She has not undergone serum testing fo r thyroid dysfunction, hypercalcemia, and hyperkalemia, anorectal phys iology testing, or imaging by defecating proctogram and colonic tra nsit study. ? Please see the results from today's anorectal physiology josué dy, which were reviewed and discussed. He noted an anterior sphincter defect with decreased tone an d squeeze along with an anterior rectocele. Defecography was ordered but was not completed by the lindsayen t. In discussions with the patient she notes the time of childb irth she weighed about 120 pounds. She had relatively large children with her 2 births. She recalls she had an episiotomy. Care was recommended to have follow-up colonoscopy recently but states that because of her pelvic and anal pain she doesn't feel sh e could tolerate endoscopy. The patient is being seen by me today at the request of Dr. Bonds for my opinion and advice regarding anal/pelvic pain. 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 - HTN (hypertension) - IBS (irritable bowel syndrome) - Myalgia and myositis, unspecified - Unspecified constipation Constipation - Unspecified hemorrhoids without mention of complication Hemorrhoids - Vaginal high risk HPV DNA test positive 12/2012 Pap negative PAST SURGICAL HISTORY Procedure Laterality Date - COLONOSCOP W/ OR W/O [facility] SPEC 11/27/2001 Colonoscopy - COLONOSCOPY 2013 - LAP CHOLECYSTECT/CHOLANGIOGRAPHY 02/25/2015 - LIGATE FALLOPIAN TUBE 1978 Tubal ligation - VAGINAL HYSTERECTOMY Hysterectomy, vaginal Current Outpatient Medications Medication Sig - hydrocortisone (PREPARATION H HYDROCORTISONE) 1 % cream Ap ply to affected area twice daily. - omeprazole (PRILOSEC) 20 mg capsule Take 20 mg by mouth on ce daily. - conjugated estrogens (PREMARIN) vaginal cream Use 1 g vagi nicolette two times a week. Also to the outside of the vagina. - atorvastatin (LIPITOR) 10 mg tablet Take 10 mg by mouth on ce daily. - nystatin (MYCOSTATIN) powder Apply 1 application to affect ed area twice daily. Till Apr 09 (14 days) (Patient not taking: Reported on 05/05/2019 ) - clotrimazole-betamethasone (LOTRISONE) cream Apply 1 appli cation to affected area twice daily. Apply to outside of vagina and cr ease of legs twice a day for 10-14 days. - rosuvastatin (CRESTOR) 5 mg tablet Take 1 tablet by mouth daily at bedtime. (Patient not taking: Reported on 03/27/2019 ) - OTC NUTRITIONAL SUPPLEMENT ensure - loperamide HCl (IMODIUM A-D ORAL) Take by mouth. - aspirin/caffeine (MIKA BACK AND BODY ORAL) Take by mouth. - Aug Betamethasone Dipropionate (DIPROLENE) 0.05 % ointment Apply 1 application to affected area twice daily. For 7-10 days (Pat ient not taking: Reported on 02/27/2019 ) - valACYclovir (VALTREX) 500 mg tablet Take 1 tablet by mout h twice daily. - fluconazole (DIFLUCAN) 150 mg tablet 1 pill now, repeat in 48 hours. - valACYclovir (VALTREX) 500 mg tablet Take 1 tablet by mout h once daily. (Patient not taking: Reported on 02/27/2019 ) - dicyclomine (BENTYL) 10 mg capsule Take 10 mg by mouth thr ee times daily. - Lactobacillus acidophilus (ACIDOPHILUS) cap Take 1-2 capsu les by mouth twice daily with meals. (Patient not taking: Reported on ) - LORazepam (ATIVAN) 2 mg tab - atenolol (TENORMIN) 25 mg tablet Take 1 tablet by mouth th ree times daily. - famotidine (PEPCID) 20 mg tablet Take 1 tablet by mouth tw ice daily. - Blood Pressure Cuff - Home Use BLOOD PRESSURE CUFF FOR KAMLESH E USE. DX: LABILE BLOOD PRESSURE - Cholecalciferol, Vitamin D3, 2,000 unit cap Take 1 tablet by mouth once daily. No current facility-administered medications for this visit. ALLERGIES: Venlafaxine; Clonidine; Depakote [Divalproex Sodi um]; Desipramine; Doxycycline; Flagyl [Metronidazole Hcl]; Imipra mine; Imitrex [Sumatriptan Succinate]; Neurontin [Gabapentin]; Pristiq [De svenlafaxine]; Prozac [Fluoxetine Hcl]; Sertraline; Ultram [Tramadol Hcl]; Vesicare [Solifenacin Succinate]; Wellbutrin [Bupropion Hcl] PERSONAL HISTORY: Social History Tobacco Use - Smoking status: Current Some Day Smoker Packs/day: 0.50 Types: Cigarettes Start date: 01/01/1997 - Smokeless tobacco: Never Used - Tobacco comment: 2 cig per day Substance Use Topics - Alcohol use: No - Drug use: No FAMILY HISTORY: FAMILY HISTORY Problem Relation Age of Onset - Diabetes Sister Type 2 - Coronary Artery Disease Father - Cancer Maternal Aunt lung - Cancer Maternal Uncle stomach - Alzheimer's Disease Maternal Aunt - Alzheimer's Disease Mother REVIEW OF SYMPTOMS: The review of systems data was entered by the nurse and revi ewed by me See Below PHYSICAL EXAMINATION: General: The patient is 68 year old female, well nourished, well hydrated in no acute distress. The patient is oriented to time, place , and person. VITALS: Blood pressure 157/88, pulse 90, temperature 37.2 ?C (98.9 ?F), height 157.5 cm (5' 2), weight 76.2 kg (168 lb). Body mass index is 30.73 kg/m?. HEENT: Normal cephalic, ataumatic, pupils are equally round, sclera are anicteric, mucous membranes are moist, oropharynx is clear. Neck has no masses, asymmetry or lymphadenopathy. Thyroid is unremarkabl e. Respiratory: Clear to auscultation and percussion. Normal re spiratory excursion and pattern. Cardiac: Examination is regular rate and rhythm. Abdominal exam: Soft, nontender, with no palpable masses. No hepatosplenomegaly. No palpable hernias. Rectal exam: Normal external anatomy, no significant hemorrh oids or masses. Digital rectal exam - decreased tone with an anterio r palpable sphincter defect. Relatively thin perineal body. No obvious external prolapse of a rectocele but the congestion of an anterior re ctocele and digital rectal exam. Visual inspection appears to be more co nsistent with a cystocele, otherwise no masses or other abnormalities Extremities: no clubbing, cyanosis or edema. No adenopathy. Other: LABORATORY VALUES: As Noted RADIOLOGIC STUDIES: As Noted Assessment IMPRESSION: Likely sphincter injury, likely small rectocele, irritable bowel syndrome alternating diarrhea constipation, anorectal/ pelvic pain PLAN: At this point in time, I recommend the patient have a trial of fiber to see if this does better job related to her bowels. We also d iscussed topical steroid ointment in the perianal area versus supposi tories and also recommended sitz baths to see if this would help. If overall her perianal pain issues subside, then I would pl an to perform upper and lower endoscopy. We discussed the risks and benefi ts of the planned endoscopy. I have informed the patient that complica tions can occur including failure to complete the endoscopy and perfor ation. The patient had the opportunity to ask questions concerning the planned endoscopy. My staff has also explained the procedure to the patient in understandable terms and has given the patient printed mater ial concerning the procedure. The patient freely consents to surgery. For symptoms fail to improve on the above treatments then I would consider referral back to colorectal surgery and pelvic floor dysfunc tion clinic. The patient has medical comorbidities for which I plan to pe rform the procedure under monitored anesthetic care. Diagnoses: (Z86.010) Personal history of colonic polyps ([facility] encounter diagnosis) (K64.8) Internal hemorrhoids (K62.89) Anal or rectal pain My findings have been communicated to Dr. Bonds via share d medical record. This note will be forwarded to Axel Collado. Return to Clinic: The patient is instructed to follow-up wit h me as needed. Phillip Birch MD Client Representative for exam offered to Angélica Dawn: accepted GENERAL:No weight loss, No malaise, No fevers HEENT:Negative for frequent or significant headaches, No guido nges in hearing or vision, no nose bleeds or other nasal problems CARDIOVASCULAR: Negative for chest pain, Negative for leg sw elling, Negative for palpitaions RESPIRATORY:Positive for:, Chronic or frequent coughs GASTROINTESTINAL: Negative for abdominal discomfort, Negativ e for blood in stools, Negative for black stools, Positive for:, Change in bowel movements, Frequent diarrhea and Painful bowel movements or constipation GENITOURINARY: Postivie for: and Incontinence or dribbling ENDOCRINE: None MECHANICAL PROJECT ENGINEER:Positive for:, Incontinence or diribbling MECHANICAL PROJECT ENGINEER: Age of first period: 12 Number of pregnancies: 2 Number of live births: 2 Your age at of first child: 18 Your age at start of menopause: 40's Taking hormone replacement: Yes, for 10 year. Family History of Cancer: Breast: Niece. MUSCULOSKELETAL: Positive for:, joint pain, back pain NEUROLOGIC:Positive for: Frequent or recurring Headaches HEMATOLOGIC/LYMPHATIC/IMMUNOLOGIC:Positive for: and Bleeding or bruising tendancy cnov on 2019-05-21 CNOV Office Visit (OSCAR) Normal 05-21-[address] [place] [address] Clinic LÓPEZANGÉLICA ([id number]) 1950 [facility] Date Time Provider Department ([id number]) 05/21/19 1:45 PM PHILLIP BIRCH During your visit today, we recorded the following informati on about you: Temperature Pulse Blood pressure Weight 98.9 degrees 90/minute 157/88 76.2 kg Height 1.575 m Phillip Birch MD 05/21/2019 5:00 PM Signed HISTORY AND PHYSICAL Angélica Dawn 1950 REFERRING PHYSICIAN: Kilo Bonds MD CHIEF COMPLAINT: Consult (Possible Hemorrhoids) HPI: The patient is a 68 year old female referred for rect al and anal pain. The patient notes a painful feeling her rectum. She notes it is worse when sitting. She states this is been present for some time but getting worse for at least the past few weeks to months. Angélica feels this is hemorrhoidal issues. She does not note any bleeding but does note pain. She denies pain with bowel movements. In the past she had long-standing history is related to constipation. She now no irvin irritable bowel type symptoms which alternated between constipation and diarrhea. She has trouble regulating her stools. In the past she took Amena lax for her constipation issues The patient notes acid reflux and occasional difficulty in s wallowing. The patient underwent colonoscopy in 2013 was found to have an adenomatous polyp but no other specific abnormalities. She also had uppe r endoscopy performed in 2014 this was apparently un remarkable. She underwent laparoscopic cholecystectomy on February 26, 2015 She underwent upper GI/barium swallow on September 30, 2013. This was generally unremarkable. She was seen by Dr. Taco reyes on September 18 4. His impression was chronic perineal pain along with an anterior rectocele and sphinct er defect. At the time she was having more chronic constipation issues and fib romyalgia and irritable bowel syndrome constipation predominant. Dr. linda brown noted: The patient is a 63-year-old female with a 4-yea r history of constant burning pain that worsens with sitting and impro ves with a bowel motion. She complains of associated erythematous skin changes to the perineu m. The pain is equally distributed around the anus, and is localized to the perianum/anal canal. The pain began after her mother was murdered by her sisters. ? She occasionally experiences bright red rectal bleeding. She notices this blood with bowel motions, but not during strenuous or normal activ ity. The blood appears on the tissue paper, but not in the commode water or mixed with the stool. She has some protrusion that spontaneously reduces. ? She has a 20-year history of constipation and abdominal pain. She has one bowel motion each month that is preceded by abdominal pain a nd bloating. She never strains, but she does sit on the commode for 5 minutes every morning. ? She eventually feels distended and nauseated. Sh e will sit on the commode and begin to immediately evacuat e without straining or manipulation. The stools are initially hard and then become more loose; she generally com plains of incomplete evacuation. She admits to occasional (every oth er month) digital disimpaction. She never has to splint her vagina to facilita te passage of stool. She denies incontinen ce of flatus, liquid stool, and solid stool. She is and had one difficult delivery with an associated tear or episiotomy. ? She has trialed psyllium, laxatives, suppositories, and enem as with mixed success; the transanal therapies work be st. She takes Vicodin each day and has done so for the past 6 years. She has be en well prepped for both colonoscopies with standard mechanical polyethylene glycol solution prepar ations. ? She underwent a colonoscopy in February 2012 that reve aled a tubular adenoma that was completely removed. Another col onoscopy in September 2013 showed decreased anal sphincter tone and two polyps that were completely removed. She allegedly underwent a CT scan of the abdomen and p patti in 2011 that was normal. She has not undergone serum testing for thyroid dysfunction, hyperca lcemia, and hyperkalemia, anorectal phys iology testing, or imaging by defecating proctogram and colonic transit study. ? Please see the results from today's anorectal physiology josué dy, which were reviewed and discussed. He noted an anterior sphincter defect with decreased tone and squeeze along with an anterior rectocele. Defecography was ordered but was not completed by the jose t. In discussions with the patient she notes the time of childbirth she weighed about 120 pounds. She had relatively large children with her 2 births. She recalls she had an episiotomy. Care was recommended to have follow-up colonoscopy recentl y but states that because of her pelvic and anal pain she doesn't feel she cou ld tolerate endoscopy. The patient is being seen by me today at the request of Dr Christina Bonds for my opinion and advice regarding anal/pelvic pain. 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 - HTN (hypertension) - IBS (irritable bowel syndrome) - Myalgia and myositis, unspecified - Unspecified constipation Constipation - Unspecified hemorrhoids without mention of complication Hemorrhoids - Vaginal high risk HPV DNA test positive 12/2012 Pap negative PAST SURGICAL HISTORY Procedure Laterality Date - COLONOSCOP W/ OR W/O BRSH SPEC 11/27/2001 Colonoscopy - COLONOSCOPY 2013 - LAP CHOLECYSTECT/CHOLANGIOGRAPHY 02/25/2015 - LIGATE FALLOPIAN TUBE 1978 Tubal ligation - VAGINAL HYSTERECTOMY Hysterectomy, vaginal Current Outpatient Medications Medication Sig - hydrocortisone (PREPARATION H HYDROCORTISONE) 1 % cream Apply to affected area twice daily. - omeprazole (PRILOSEC) 20 mg capsule Take 20 mg by mouth on ce daily. - conjugated estrogens (PREMARIN) vaginal cream Use 1 g vaginally two times a week. Also to the outside of the vagina. - atorvastatin (LIPITOR) 10 mg tablet Take 10 mg by mouth on ce daily. - nystatin (MYCOSTATIN) powder Apply 1 application to affect ed area twice daily. Till Apr 09 (14 days) (Patient not taking: Reported on 05/05/2019 ) - clotrimazole-betamethasone (LOTRISONE) cream Apply 1 application to affected area twice daily. Apply to o utside of vagina and crease of legs twice a day for 10-14 days. - rosuvastatin (CRESTOR) 5 mg tablet Take 1 tabl et by mouth daily at bedtime. (Patient not taking: Reported on 03/27/2019 ) - OTC NUTRITIONAL SUPPLEMENT ensure - loperamide HCl (IMODIUM A-D ORAL) Take by mouth. - aspirin/caffeine (MIKA BACK AND BODY ORAL) Take by mouth. - Aug Betamethasone Dipropionate (DIPROLENE) 0.05 % ointment Apply 1 application to affected area twice daily. For 7-10 day s (Patient not taking: Reported on 02/27/2019 ) - valACYclovir (VALTREX) 500 mg tablet Take 1 tablet by mout h twice daily. - fluconazole (DIFLUCAN) 150 mg tablet 1 pill now, repeat in 48 hours. - valACYclovir (VALTREX) 500 mg tablet Take 1 tablet by mout h once daily. (Patient not taking: Reported on 02/27/2019 ) - dicyclomine (BENTYL) 10 mg capsule Take 10 mg by mouth t hree times daily. - Lactobacillus acidophilus (ACIDOPHILUS ) cap Take 1-2 capsules by mouth twice daily with meals. (Patient not taking: Reported on 9 ) - LORazepam (ATIVAN) 2 mg tab - atenolol (TENORMIN) 25 mg tablet Take 1 tablet by mo uth three times daily. - famotidine (PEPCID) 20 mg tablet Take 1 tablet by mouth tw ice daily. - Blood Pressure Cuff - Home Use BLOOD PRESSURE CUFF FOR HOME USE. DX: LABILE BLOOD PRESSURE - Cholecalciferol, Vitamin D3, 2,000 unit cap Take 1 tablet by mouth once daily. No current facility-administered medications for this visit. ALLERGIES: Venlafaxine; Clonidine; Depakote [Div alproex Sodium]; Desipramine; Doxycycline; Flagyl [Metronidazole Hcl]; Imipramine; Imitrex [Sumatriptan Succinate]; Neurontin [Gabapentin]; Pristiq [Desvenlafaxine] ; Prozac [Fluoxetine Hcl]; Sertraline; Ultram [Tramadol Hcl]; Vesicar e [Solifenacin Succinate]; Wellbutrin [Bupropion Hcl] PERSONAL HISTORY: Social History Tobacco Use - Smoking status: Current Some Day Smoker Packs/day: 0.50 Types: Cigarettes Start date: 01/01/1997 - Smokeless tobacco: Never Used - Tobacco comment: 2 cig per day Substance Use Topics - Alcohol use: No - Drug use: No FAMILY HISTORY: FAMILY HISTORY Problem Relation Age of Onset - Diabetes Sister Type 2 - Coronary Artery Disease Father - Cancer Maternal Aunt lung - Cancer Maternal Uncle stomach - Alzheimer's Disease Maternal Aunt - Alzheimer's Disease Mother REVIEW OF SYMPTOMS: The review of systems data was entered by the nurse and revi ewed by me See Below PHYSICAL EXAMINATION: General: The patient is 68 year old female, well traci shed, well hydrated in no acute distress. The patient is oriented to time, place, a nd person. VITALS: Blood pressure 157/88, pulse 90, temperature 37.2 ?C (98.9 ?F), height 157.5 cm (5' 2), weight 76.2 kg (168 lb). Body mass index i s 30.73 kg/m?. HEENT: Normal cephalic, ataumatic, pupils are equally round, sclera are anicteric, mucous membranes are moist, oropharynx is clear. Neck has no masses, asymmetry or lymphadenopathy. Thyroid is unremarkabl e. Respiratory: Clear to auscultation and percussion. Normal re spiratory excursion and pattern. Cardiac: Examination is regular rate and rhythm. Abdominal exam: Soft, nontender, with no palpable masses. No hepatosplenomegaly. No palpable hernias. Rectal exam: Normal external anatomy, no significant hemor rhoids or masses. Digital rectal exam - decreased tone with an anterior palpab le sphincter defect. Relatively thin perineal body. No obvious external p rolapse of a rectocele but the congestion of an anter ior rectocele and digital rectal exam. Visual inspection appears to be more con sistent with a cystocele, otherwise no masses or other abnormalities Extremities: no clubbing, cyanosis or edema. No adenopathy. Other: LABORATORY VALUES: As Noted RADIOLOGIC STUDIES: As Noted Assessment IMPRESSION: Likely sphincter injury, likely small rect ocele, irritable bowel syndrome alternating diarrhea constipation, anorectal/pelvic pain PLAN: At this point in time, I recommend the p atient have a trial of fiber to see if this does better job related to her bowels. We a lso discussed topical steroid ointment in the perianal area versus suppositories and also recommended sitz baths to see if this would help. If overall her perianal pain issues subside, then I would plan to perform upper and lower endoscopy. We discussed the risks and benefits of the planned endoscopy. I have informed the patient that comp lications can occur including failure to complete the endoscopy and perforation. The patie nt had the opportunity to ask questions concerning the planned endosc opy. My staff has also explained the procedure to the patient in understanda ble terms and has given the patient printed material concerning the procedure. The patient freely consents to surgery. For symptoms fail to improve on the above treatments then I would consider referral back to colorectal surgery and pelvic floor dysfunc tion clinic. The patient has medical luca rbidities for which I plan to perform the procedure under monitored anesthetic care. Diagnoses: (Z86.010) Personal history of colonic polyps ([facility] encounter diagnosis) (K64.8) Internal hemorrhoids (K62.89) Anal or rectal pain My findings have been communicated to Dr. Anatoliy garcia via shared medical record. This note will be forwarded to Dr. Regino Davey MD. Return to Clinic: The patient is instructed to follow-up w ith me as needed. Phillip Birch MD Client Representative for exam offered to Angélica Dawn: accepted GENERAL:No weight loss, No malaise, No fevers HEENT:Negative for frequent or significa nt headaches, No changes in hearing or vision, no nose bleeds or other nasal problems CARDIOVASCULAR: Negative for chest pain, Negative for leg swelling, Negative for palpitaions RESPIRATORY:Positive for:, Chronic or frequent coughs GASTROINTESTINAL: Negative for abdominal discomfort, Negativ e for blood in stools, Negative for black stools, Positive for:, Mcdonnell ge in bowel movements, Frequent diarrhea and Painful bowel movements or constipatio n GENITOURINARY: Postivie for: and Incontinence or dribbling ENDOCRINE: None MECHANICAL PROJECT ENGINEER:Positive for:, Incontinence or diribbling MECHANICAL PROJECT ENGINEER: Age of first period: 12 Number of pregnancies: 2 Number of live births: 2 Your age at of first child: 18 Your age at start of menopause: 40's Taking hormone replacement: Yes, for 10 year. Family History of Cancer: Breast: Niece. MUSCULOSKELETAL: Positive for:, joint pain, back pain NEUROLOGIC:Positive for: Frequent or recurring Headaches HEMATOLOGIC/LYMPHATIC/IMMUNOLOGIC:Positive for: and Bleeding or bruising tendancy Edna Love LPN 05/21/2019 1:41 PM Addendum SMOKING CESSATION Stopping smoking is one of t he most important things you can do to protect your current and future health, as well as that of your family. I t is an potent risk factor for the future development of coronary artery disease and heart attacks. Smoking is both an addiction and a learned behavior. T he nicotine withdrawal takes anywhere from 2-4 weeks and results in symptoms such as irritability, fatigue, insomnia, coughing, dizziness, poor concentration, hunger and cigarette cravings. After the nicotine withdrawa l period, the learned linkage between certain acts or situations and cigarette use remain. Strategies to deal with these must be deve loped along with new behaviors to ensure successful smoking cessation. RESOURCES [facility] Smoking Cessation Appointment Line [facility] [place] [phone]. [place] Tobacco Quit line: National Cancer [place] at http://www.smokefree.gov [place] [employer] at http://www.lungusa.org [place] [employer] Society at http://www.cancer.org STRATEGIES TOWARD SMOKING CESSATION - Make a list of the reasons why you want to quit, plus the benefits to be gained, and compare them to the reasons why you should kalin nue to smoke. - Pick a specific quit date. - If you are interested in using nicotine patches or gum t o assist with the nicotine withdrawal, let your doctor know. - Inform friends, family, and co-workers that you are quitting and when your quit date is. Ask for their understanding and support. - Prepare your environment by removing a ll cigarettes prior to your quit date. - Prior to your quit date, avoid smoking in places where y ou spend a lot of time (such as the house, work, car). - From previous quit attempts, identify what helped you to s top smoking. - From previous quit attempts, identify what triggered rel apse. How can you avoid that again? - What things (situations, emotions) do you anticipate will be most challenging, especially in the first few weeks, to your quit ting effort? - What can you do to address these challenges? - Avoid (or limit) alcohol consumption during the quitting p rocess. - If your spouse or close co worker currently smokes, consider quitting together or at the very least, develop specific plans to maintain you r cigarette abstinence while in the home or at work. - Take each day, each hour, each craving, one at a time. Every step or action you take toward smoking cessation is a success. The only sunshine lure is the failure to try. - The health of you and your family is worth the effort. STOP SMOKING CHECK LIST Preparing to Quit: ___ Make a personal pact with yourself to quit. ___ Pick a date for quitting completely. (My date to quit is ____.) ___ Write down on a card the three most importan t reasons for quitting. Carry the card with you from now on. Look at it several times a da y. ___ Prior to quitting, elimi deanne smoking completely in 2 or 3 of your high risk situations. ___ Reduce consumption to one pack per day or less. ___ Change to a less desirable brand of cigarettes. ___ Discard your employee benefits manager. Use matches. Carry your cigarett es in a different place. ___ Spend a little time each day picturing in your mind stre ssful events occurring in the future and you not smoking. Actual Quitting: The First Two Weeks ___ Get rid of all cigarettes. Put away all smoking relate d objects such as ashtrays. Ask the people you live with not to smoke in your presence for the first two weeks. ___ Spend as much time as possible with non-smoking people. ___ Keep busy, especially on evenings and weekends. ___ Avoid high risk situations (large parties, bars, etc.). ___ Spend time in places that prohibit or discou rage smoking (e.g., theaters, libraries). ___ Drink plenty of fluids. ___ Don't substitute food or sugar based products for cigarettes. Use approved substitutions. (ice water, high bulk/low calorie foods, suga rless gum, mouthwash, brushing teeth) ___ Begin or increase a regular exercise program. ___ When experiencing withdrawal effects: 1. Remind yourself why you are quitting (from your card). 2. Remind yourself that whatever discomfort you are experien cing is only a tiny fraction of the probable discomfort ass ociated with continued smoking. 3. Practice deep breathing or other relaxation techniques. ___ Remind yourself that you can free yo urself from this unhealthy, expensive, messy habit and become a non-smoker. Maintenance of Quitting: After two weeks ___ Remind yourself that the desire to smoke is linked to ma ny situations, people and emotional stress. ___ When you do have a desire to smoke, remember that it onl y lasts a few seconds: distract yourself and leave the situation if necess aurora. ___ After each desire to smoke has passed, pat y ourself on the back, you have just made progress in breaking the habit forever. ___ Save the money on wasted on cigarettes in a special fund and buy yourself something nice. Maintenance of Quitting: After Two Months ___ Be particularly vigilant when unusual life events occur. (weddings, holidays, vacations). ___ Be particularly vigilant when stressful life event s occur (relationship, financial or work problems). ___ Remind yourself regularly that not smoking is completely within your personal control. ___ Never lull yourself into thinking yo u are out of danger and you can safely have a cigarette or two. ___ If you do slip and have one or more cigarettes, do not conclude that you have failed at quitting. Return to complete abstinence immediately and learn from your experience. ___ If you have gained signi ficant weight since quitting, now is the time to do something about it. ___ Each time you see a cigarettes advertisement, lm nd yourself of why you quit. Also remember that a powerful industry spends bi llions of dollars each year trying to get people like yourself re-hooked. [facility] - LAB TEST INFORMATION HOURS: 7 am to 6 pm Sunday ? Sunday, 7 am -12 pm on Sunday . The lab is located in [facility] on the first floor. T here is a registration window at the lab, available 7 am to 3 pm Sunday ? Sunday. If lisa tration is unavailable at the lab, you may register at the patient re gistration office near the front lobby of the [facility]. ROUTINE ORDERS 60 days after they are entered. If you arrive for your lab testing after the orders have , you m ay be required to wait in the lab while they are reinstated. FUTURE ORDERS are lab tests to be completed on or afte r an ?expected? future date. These orders 60 days after the expected date. STANDING ORDERS are recurrin g orders with an expiration date. The interval will indicate how often the test should be completed. FASTING means nothing to eat or drink (except water) 1 0-12 hours before your blood is drawn. CT / MRI / IVP If you have lab tests ord ered for one of these radiology exams, please complete the blood work at least one day prior to the scheduled exam. PRESCRIPTION REFILL REQUESTS Request prescription refills through your [facility] account or contact your Pharmacy. [facility] Schedule My Appointment enables you to view yo established Primary Care Provider's open Wave - Private Location App e and book an appointment online in real-time. This feature is available in Internal Medicine, [facility], or Pediatrics at any of our [facility] locations and [place]. The following instructions are important for you related to your office visit today with the [facility] General Surgeons. INSTRUCTIONS FOR AN ANAL PAIN Regulation of the bowel habits is most important - I u sually recommend fiber for initial regularion. I recommend that you avoid spicy foods and perform sitz ba ths three to four times per day and after bovel movements. A sitz bath is draw ing luke warm water in the bathtub and soaking. The purpose is to relax the sphincter and rinse the anal area. DO NOT ADD EPSOM SALTS OR OTHER I NGREDIENTS THIS CAN INCREASE THE BURNING. Try hydrocortisone ointment to the rectum area With each bowel movement, I recommend placing th e topcial pain ointment prior to the bowel movements and use baby wipes and perform a sitz bath after each bowel movement. Dibucaine can be used between times as needed for anal pain. If you note any difficulties or concerns, you should contact our office immediately. If you note any additional difficulties, questions, or con cerns, you should contact our office immediately @ and ask to be transferred to the General Surgery department. Referring Provider: KILO BONDS [[id number]] Allergies As of Date: 05/21/2019 Noted Allergy Reaction VENLAFAXINE 05/14/2012 4 - Hives CLONIDINE 09/27/2015 5 - Intolerance Comments: pain all over DEPAKOTE (DIVALPROEX SODIUM) 10/21/2010 14 - Other: See Comm ents Comments: body jerks DESIPRAMINE 12/09/2009 5 - Intolerance Comments: crying DOXYCYCLINE 11/29/2011 4 - Hives FLAGYL (METRONIDAZOLE HCL) 08/06/2012 4 - Hives 9 - Itching IMIPRAMINE 12/09/2009 4 - Hives Comments: wt gain IMITREX (SUMATRIPTAN SUCCINATE) 12/09/2009 5 - Intolerance Comments: anxiety NEURONTIN (GABAPENTIN) 03/13/2013 4 - Hives PRISTIQ (DESVENLAFAXINE) 04/13/2011 1 - Mental Status Change Comments: headache,anorexia PROZAC (FLUOXETINE HCL) 11/24/2010 1 - Mental Status Change Comments: confusion,frequent falls,bladder pain SERTRALINE 06/26/2011 14 - Other: See Comments Comments: dysuria,bladder pain ULTRAM (TRAMADOL HCL) 02/14/2006 8 - GI Upset VESICARE (SOLIFENACIN SUCCINATE) 11/09/2009 5 - Intolerance Comments: blurred vision,trouble swallow WELLBUTRIN (BUPROPION HCL) 12/09/2009 5 - Intolerance Comments: anxiety, sob Date Reviewed: 05/21/2019 Reviewed by: Phillip T Queta - Fully Assessed Reason for Visit: Consult [[id number]] Cmt: Possible Hemorrhoids Primary Visit Diagnosis:Personal history of colonic polyps [ Z86.010] Other Visit Diagnoses:Internal hemorrhoids [K64.8] Anal or rectal pain [K62.89] Order(s):CONSULT TO GENERAL SURGERY [9095] Order #: [id number] 68Qty: 1 hydrocortisone (PREPARATION H HYDROCORTISONE) 1 % creamApply to affected area twice daily.Disp: 57 gRfl: 2 Prescriptions as of 05/21/2019 Sig: HYDROCORTISONE 1 % TOPICAL CR* Apply to affected area twice * OMEPRAZOLE 20 MG CAPSULE,LAURA* Take 20 mg by mouth once magalie * CONJUGATED ESTROGENS 0.625 MG* Use 1 g vaginally two times a * ATORVASTATIN 10 MG TABLET Take 10 mg by mouth once magalie* NYSTATIN 100,000 UNIT/GRAM TO* Apply 1 application to affect * Patient not taking: Reported on 05/05/2019 CLOTRIMAZOLE-BETAMETHASONE 1 * Apply 1 application to affect * ROSUVASTATIN 5 MG TABLET Take 1 tablet by mouth daily * Patient not taking: Reported on 03/27/2019 OTC NUTRITIONAL SUPPLEMENT ensure IMODIUM A-D ORAL Take by mouth. MIKA BACK AND BODY ORAL Take by mouth. BETAMETHASONE, AUGMENTED 0.05* Apply 1 application to affect * Patient not taking: Reported on 02/27/2019 VALACYCLOVIR 500 MG TABLET Take 1 tablet by mouth twice * FLUCONAZOLE 150 MG TABLET 1 pill now, repeat in 48 hour* VALACYCLOVIR 500 MG TABLET Take 1 tablet by mouth once d* Patient not taking: Reported on 02/27/2019 DICYCLOMINE 10 MG CAP (BENTYL* Take 10 mg by mouth three bhavya * LACTOBACILLUS ACIDOPHILUS CAP* Take 1-2 capsules by mouth tw * Patient not taking: Reported on 02/27/2019 LORAZEPAM 2 MG TABLET ATENOLOL 25 MG TABLET Take 1 tablet by mouth three * FAMOTIDINE 20 MG TABLET Take 1 tablet by mouth twice * COMPOUNDED PRESCRIPTION BLOOD PRESSURE CUFF FOR HOME * CHOLECALCIFEROL (VITAMIN D3) * Take 1 tablet by mouth once d * Problem List As Of Date 05/21/2019 Noted Resolved DEPRESSIVE DISORDER NEC [F32.9] 04/21/2005 KIMBERLY (generalized anxiety disorder) [F41.1] 04/21/2005 HEADACHE [R51] 04/21/2005 HEMORRHOIDS NOS [K64.9] More... Myalgia [M79.10] COMMON MIGRAINE W/O MENTN INTRACT [G43.009] 10/30/2005 Chronic Interstitial Cystitis [N30.10] 11/25/2009 Pelvic Pain in Female [R10.2] 11/25/2009 Osteopenia [M85.80] 06/22/2010 More... Cystitis [N30.90] 08/02/2010 Cough [R05] 08/02/2010 Weight gain [R63.5] 11/24/2010 Fibromyalgia [M79.7] 08/12/2011 Anxiety [F41.9] 10/06/2011 Unspecified pruritic disorder [L29.9] 12/13/2011 Postmenopausal atrophic vaginitis [N95.2] 12/13/2011 Unspecified constipation [K59.00] 12/13/2011 Vaginal pain [R10.2] 01/05/2012 Rectal pain [K62.89] 01/05/2012 Adjustment disorder with mixed anxiety and depr*05/30/2012 Vaginal burning [N94.9] 06/05/2012 Chronic pain [G89.29] 06/19/2013 Perineal pain in female [N94.9] 09/18/2013 Constipation [K59.00] 09/18/2013 Stress and adjustment reaction [F43.29] 10/31/2013 Tubular adenoma of colon [D12.6] 10/31/2013 Opiate dependence (HCC) [F11.20] 12/15/2013 Vaginal high risk HPV DNA test positive [R87.81*12/08/2012 More... HPV test positive [ULM1996] 05/26/2014 More... 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 It is an potent risk factor for the future development of coronary ar valdez disease and heart attacks. Smoking is both an addiction and a learned behavior. The amanda otine withdrawal takes anywhere from 2-4 weeks and results in symp toms such as irritability, fatigue, insomnia, coughing, dizziness, poor c oncentration, hunger and cigarette cravings. After the nicotine withdrawal period, the learned linkage between certain acts or situations and cigar ette use remain. Strategies to deal with these must be developed laurent g with new behaviors to ensure successful smoking cessation. RESOURCES [facility] Smoking Cessation Appointment Line [phone] [facility] [phone]. [place] Tobacco Quit line: National Cancer [place] at http://www.smokefree.gov [place] [employer] at http://www.lungusa.org [place] [employer] Society at http://www.cancer.org STRATEGIES TOWARD SMOKING CESSATION - Make a list of the reasons why you want to quit, plus the benefits to be gained, and compare them to the reasons why you should kalin nue to smoke. - Pick a specific quit date. - If you are interested in using nicotine patches or gum to assist with the nicotine withdrawal, let your doctor know. - Inform friends, family, and co-workers that you are quitti ng and when your quit date is. Ask for their understanding and support. - Prepare your environment by removing all cigarettes prior to your quit date. - Prior to your quit date, avoid smoking in places where you spend a lot of time (such as the house, work, car). - From previous quit attempts, identify what helped you to s top smoking. - From previous quit attempts, identify what triggered relap se. How can you avoid that again? - What things (situations, emotions) do you anticipate will be most challenging, especially in the first few weeks, to your quit ting effort? - What can you do to address these challenges? - Avoid (or limit) alcohol consumption during the quitting p rocess. - If your spouse or close coworker currently smokes, conside r quitting together or at the very least, develop specific plans to nawaf ntain your cigarette abstinence while in the home or at work. - Take each day, each hour, each craving, one at a time. [place] ry step or action you take toward smoking cessation is a success. The o nly failure is the failure to try. - The health of you and your family is worth the effort. STOP SMOKING CHECK LIST Preparing to Quit: ___ Make a personal pact with yourself to quit. ___ Pick a date for quitting completely. (My date to quit is ____.) ___ Write down on a card the three most important reasons fo r quitting. Carry the card with you from now on. Look at it several time s a day. ___ Prior to quitting, eliminate smoking completely in 2 or 3 of your high risk situations. ___ Reduce consumption to one pack per day or less. ___ Change to a less desirable brand of cigarettes. ___ Discard your employee benefits manager. Use matches. Carry your cigarettes in a different place. ___ Spend a little time each day picturing in your mind stre ssful events occurring in the future and you not smoking. Actual Quitting: The First Two Weeks ___ Get rid of all cigarettes. Put away all smoking related objects such as ashtrays. Ask the people you live with not to smoke in yo ur presence for the first two weeks. ___ Spend as much time as possible with non-smoking people. ___ Keep busy, especially on evenings and weekends. ___ Avoid high risk situations (large parties, bars, etc.). ___ Spend time in places that prohibit or discourage smoking (e.g., theaters, libraries). ___ Drink plenty of fluids. ___ Don't substitute food or sugar based products for cigare ttes. Use approved substitutions. (ice water, high bulk/low calorie fo ods, sugarless gum, mouthwash, brushing teeth) ___ Begin or increase a regular exercise program. ___ When experiencing withdrawal effects: 1. Remind yourself why you are quitting (from your card). 2. Remind yourself that whatever discomfort you are experiencing is only a tiny fraction of the probable discomf ort associated with continued smoking. 3. Practice deep breathing or other relaxation techniques. ___ Remind yourself that you can free yourself from this unh ealthy, expensive, messy habit and become a non-smoker. Maintenance of Quitting: After two weeks ___ Remind yourself that the desire to smoke is linked to ma ny situations, people and emotional stress. ___ When you do have a desire to smoke, remember that it onl y lasts a few seconds: distract yourself and leave the situation if necess aurora. ___ After each desire to smoke has passed, pat yourself on t he back, you have just made progress in breaking the habit forever. ___ Save the money on wasted on cigarettes in a special fun d and buy yourself something nice. Maintenance of Quitting: After Two Months ___ Be particularly vigilant when unusual life events occur. (weddings, holidays, vacations). ___ Be particularly vigilant when stressful life events occu r (relationship, financial or work problems). ___ Remind yourself regularly that not smoking is completely within your personal control. ___ Never lull yourself into thinking you are out of danger and you can safely have a cigarette or two. ___ If you do slip and have one or more cigarettes, do not c onclude that you have failed at quitting. Return to complete abstinence i mmediately and learn from your experience. ___ If you have gained significant weight since quitting, no w is the time to do something about it. ___ Each time you see a cigarettes advertisement, remind you rself of why you quit. Also remember that a [employer] spends bill ions of dollars each year trying to get people like yourself harsha zamudio. [facility] - LAB TEST INFORMATION HOURS: 7 am to 6 pm Sunday ? Sunday, 7 am -12 pm on Sunday . The lab is located in [facility] on the first floor. There is a re gistration window at the lab, available 7 am to 3 pm Sunday ? Sunday. I f registration is unavailable at the lab, you may register at the patient registration office near the front lobby of the hospital. ROUTINE ORDERS 60 days after they are entered. If you arrive for your lab testing after the orders have , you may be r equired to wait in the lab while they are reinstated. FUTURE ORDERS are lab tests to be completed on or after an ? expected? future date. These orders 60 days after the expected date. STANDING ORDERS are recurring orders with an expiration date . The interval will indicate how often the test should be completed. FASTING means nothing to eat or drink (except water) 10-12 h ours before your blood is drawn. CT / MRI / IVP If you have lab tests ordered for one of thes e radiology exams, please complete the blood work at least one day prior to the scheduled exam. PRESCRIPTION REFILL REQUESTS Request prescription refills through your [facility] account or contact your Pharmacy. [facility] Schedule My Appointment enables you to view your est ablished Primary Care Provider's open schedule and book an appointmen t online in real-time. This feature is available in Internal Medicine, F amily Medicine, or Pediatrics at any of our [facility] and [facility]. The following instructions are important for you related to your office visit today with the [facility] General Hieuo emma. INSTRUCTIONS FOR AN ANAL PAIN Regulation of the bowel habits is most important - I usually recommend fiber for initial regularion. I recommend that you avoid spicy foods and perform sitz bath s three to four times per day and after bovel movements. A sitz bath is drawing luke warm water in the bathtub and soaking. The purpose is t o relax the sphincter and rinse the anal area. DO NOT ADD EPSOM SALTS OR OTHER INGREDIENTS THIS CAN INCREASE THE BURNING. Try hydrocortisone ointment to the rectum area With each bowel movement, I recommend placing the topcial pa in ointment prior to the bowel movements and use baby wipes and perform a sitz bath after each bowel movement. Dibucaine can be used between bhavya es as needed for anal pain. If you note any difficulties or concerns, you should contact our office immediately. If you note any additional difficulties, questions, or roc rns, you should contact our office immediately @ [phone] and ask to be transferred to the General Surgery department. Prescriptions ordered this encounter Disp Refills Start End HYDROCORTISONE 1 % TOPICAL CREAM 57 g 2 05/21/2019 0 Route: TOPICAL Sig: Apply to affected area twice daily. Letter Text Letter Text Encounter Status:Closed by PHILLIP BIRCH MD on 05/21/19 vag pathogens dna o n 2019-05-05 Mariola sp DNA Negative for Negative for Normal 0 [facility] Probe Mariola species Mariola species Walton ([id number]) by DNA Probe by DNA Probe Comment: Performed By: #### VAGDNA ## ##[id number] [place], [place] [phone] Kierra vag DNA Negative for Negative for Normal 05-05-2019 [facility] Probe Gardnerella Gardnerella [place] and vaginalis by DNA vaginalis by DNA ([id number]) Probe Probe Comment: Performed By: #### VAGDNA ## ##[place] [address] [place], [place] [phone] Trich vag DNA Negative for Negative for Normal 05-05-2019 [facility] Probe Trichomonas Trichomonas Clevel and vaginalis by DNA vaginalis by DNA ([id number]) Probe Probe Comment: Performed By: #### VAGDNA ## ##[address] [phone] progress on 2019-04 PROGRESS HNO ID: [id number] Normal 05-05-2019 [facility] Author: Kilo Bonds [place] ([id number]) Service: ? Author Type: Physician Type: Progress Notes Filed: 05/30/2019 12:56 PM Note Text: Angélica Dawn is a 68 year old female who presents for a fol low up for vulvar irritation and burning. 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 ? She was treated for this in the past second week of March . ? However further testing was performed and positive one week later and she should be retreated with the Cleocin vaginal ovules that she did well within the past. Patient called and said that she has started the suppository for her infection and it is burning. She said it also fajardo when she is urinating but that didn't start until she started the medication. Subjective: Current Outpatient Medications on File Prior to Visit Medication Sig - atorvastatin (LIPITOR) 10 mg tablet Take 10 mg by mouth on ce daily. - nystatin (MYCOSTATIN) powder Apply 1 application to affect ed area twice daily. Till Apr 09 (14 days) - clotrimazole-betamethasone (LOTRISONE) cream Apply 1 appli cation to affected area twice daily. Apply to outside of vagina and cr ease of legs twice a day for 10-14 days. - rosuvastatin (CRESTOR) 5 mg tablet Take 1 tablet by mouth daily at bedtime. (Patient not taking: Reported on 03/27/2019 ) - OTC NUTRITIONAL SUPPLEMENT ensure - loperamide HCl (IMODIUM A-D ORAL) Take by mouth. - aspirin/caffeine (MIKA BACK AND BODY ORAL) Take by mouth. - Aug Betamethasone Dipropionate (DIPROLENE) 0.05 % ointment Apply 1 application to affected area twice daily. For 7-10 days (Pat ient not taking: Reported on 02/27/2019 ) - valACYclovir (VALTREX) 500 mg tablet Take 1 tablet by mout h twice daily. - fluconazole (DIFLUCAN) 150 mg tablet 1 pill now, repeat in 48 hours. (Patient not taking: Reported on 03/27/2019 ) - valACYclovir (VALTREX) 500 mg tablet Take 1 tablet by mout h once daily. (Patient not taking: Reported on 02/27/2019 ) - dicyclomine (BENTYL) 10 mg capsule Take 10 mg by mouth thr ee times daily. - Lactobacillus acidophilus (ACIDOPHILUS) cap Take 1-2 capsu les by mouth twice daily with meals. (Patient not taking: Reported on ) - LORazepam (ATIVAN) 2 mg tab - atenolol (TENORMIN) 25 mg tablet Take 1 tablet by mouth th ree times daily. - famotidine (PEPCID) 20 mg tablet Take 1 tablet by mouth tw ice daily. (Patient not taking: Reported on 02/27/2019 ) - Blood Pressure Cuff - Home Use BLOOD PRESSURE CUFF FOR KAMLESH E USE. DX: LABILE BLOOD PRESSURE - Cholecalciferol, Vitamin D3, 2,000 unit cap Take 1 tablet by mouth once daily. No current facility-administered medications on file prior t o visit. 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 - HTN (hypertension) - IBS (irritable bowel syndrome) - Myalgia and myositis, unspecified - Unspecified constipation Constipation - Unspecified hemorrhoids without mention of complication Hemorrhoids - Vaginal high risk HPV DNA test positive 12/2012 Pap negative PAST SURGICAL HISTORY Procedure Laterality Date - COLONOSCOP W/ OR W/O BRSH SPEC 11/27/2001 Colonoscopy - COLONOSCOPY 2013 - LAP CHOLECYSTECT/CHOLANGIOGRAPHY 02/25/2015 - LIGATE FALLOPIAN TUBE 1977 Tubal ligation - VAGINAL HYSTERECTOMY Hysterectomy, vaginal FAMILY HISTORY Problem Relation Age of Onset - Diabetes Sister Type 2 - Coronary Artery Disease Father - Cancer Maternal Aunt lung - Cancer Maternal Uncle stomach - Alzheimer's Disease Maternal Aunt - Alzheimer's Disease Mother Social History Tobacco Use - Smoking status: Current Some Day Smoker Packs/day: 0.50 Types: Cigarettes Start date: 01/01/1997 - Smokeless tobacco: Never Used - Tobacco comment: 2 cig per day Substance Use Topics - Alcohol use: No - Drug use: No Objective: There were no vitals taken for this visit. No LMP recorded. Patient has had a hysterectomy. ALLERGIES Allergen Reactions - Venlafaxine Hives - Clonidine Intolerance pain all over - Depakote [Divalproe* Other: See Comments body jerks - Desipramine Intolerance crying - Doxycycline Hives - Flagyl [Metronidazo* Hives, Itching - Imipramine Hives wt gain - Imitrex [Sumatripta* Intolerance anxiety - Neurontin [Gabapent* Hives - Pristiq [Desvenlafa* Mental Status Change headache,anorexia - Prozac [Fluoxetine * Mental Status Change confusion,frequent falls,bladder pain - Sertraline Other: See Comments dysuria,bladder pain - Ultram [Tramadol Hc* GI Upset - Vesicare [Solifenac* Intolerance blurred vision,trouble swallow - Wellbutrin [Bupropi* Intolerance anxiety, sob Pelvic exam: No evidence of lichen sclerosis Mild erythema of the vulva No vulvar lesions Findings consistent with vulvar vaginal atrophy however impr danny from findings in the past No evidence of external hemorrhoids Assessment: 1) recent bacterial vaginosis treated with Cleocin 2) resolved lichen sclerosus 3) vulvar atrophy 4) long-term persistent complaints of rectal pain which symp tomatically appears to be consistent with internal hemorrhoids She has had a difficult therapeutic relationship with prior gastroenterologists Complicated by high level of anxiety and psychiatric issues Plan: 1) vaginal DNA sent 2) need to find affordable option for estrogen vaginal cream , possibly through Premarin cream 3) patient looking for referral for evaluation of internal h emorrhoids and referral made to Gen. surgery division [facility] 4) follow-up results vaginal DNA Kilo Bonds MD cnov on 2019-05-05 CNOV Office Visit (OBGMEM) Normal 05-05-[address] [place] [address] Clinic ANGÉLICA DAWN ([id number]) 1950 [facility] Date Time Provider Department ([id number]) 05/05/19 1:15 PM KILO BONDS OBEM During your visit today, we recorded the following informati on about you: Blood pressure Weight 170/90 77.1 kg Kilo Bonds MD 05/30/2019 12:56 PM Signed Angélica Dawn is a 68 year old female who presen for a follow up for vulvar irritation and burning. 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 ? She was treated for this in the past second week of March . ? However further testing was performed and positive one week later and she should be retreated with the Cleocin vaginal ovules th at she did well within the past. Patient called and said that she has sta rted the suppository for her infection and it is burning. She said it also fajardo when she is urinating but that didn't start until she started the medication. Subjective: Current Outpatient Medications on File Prior to Visit Medication Sig - atorvastatin (LIPITOR) 10 mg tablet Take 10 mg by mouth on ce daily. - nystatin (MYCOSTATIN) powder Apply 1 application to affect ed area twice daily. Till Apr 09 (14 days) - clotrimazole-betamethasone (LOTRISONE) cream Apply 1 application to affected area twice daily. Apply to o utside of vagina and crease of legs twice a day for 10-14 days. - rosuvastatin (CRESTOR) 5 mg tablet Take 1 tabl et by mouth daily at bedtime. (Patient not taking: Reported on 03/27/2019 ) - OTC NUTRITIONAL SUPPLEMENT ensure - loperamide HCl (IMODIUM A-D ORAL) Take by mouth. - aspirin/caffeine (MIKA BACK AND BODY ORAL) Take by mouth. - Aug Betamethasone Dipropionate (DIPROLENE) 0.05 % ointment Apply 1 application to affected area twice daily. For 7-10 day s (Patient not taking: Reported on 02/27/2019 ) - valACYclovir (VALTREX) 500 mg tablet Take 1 tablet by mout h twice daily. - fluconazole (DIFLUCAN) 150 mg tablet 1 pill now, repeat in 48 hours. (Patient not taking: Reported on 03/27/2019 ) - valACYclovir (VALTREX) 500 mg tablet Take 1 tablet by mout h once daily. (Patient not taking: Reported on 02/27/2019 ) - dicyclomine (BENTYL) 10 mg capsule Take 10 mg by mouth t hree times daily. - Lactobacillus acidophilus (ACIDOPHILUS ) cap Take 1-2 capsules by mouth twice daily with meals. (Patient not taking: Reported on 9 ) - LORazepam (ATIVAN) 2 mg tab - atenolol (TENORMIN) 25 mg tablet Take 1 tablet by mo uth three times daily. - famotidine (PEPCID) 20 mg tablet Take 1 tablet by mouth twice daily. (Patient not taking: Reported on 02/27/2019 ) - Blood Pressure Cuff - Home Use BLOOD PRESSURE CUFF FOR HOME USE. DX: LABILE BLOOD PRESSURE - Cholecalciferol, Vitamin D3, 2,000 unit cap Take 1 tablet by mouth once daily. No current facility-administered medications on file prior t o visit. 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 - HTN (hypertension) - IBS (irritable bowel syndrome) - Myalgia and myositis, unspecified - Unspecified constipation Constipation - Unspecified hemorrhoids without mention of complication Hemorrhoids - Vaginal high risk HPV DNA test positive 12/2012 Pap negative PAST SURGICAL HISTORY Procedure Laterality Date - COLONOSCOP W/ OR W/O BRSH SPEC 11/27/2001 Colonoscopy - COLONOSCOPY 2013 - LAP CHOLECYSTECT/CHOLANGIOGRAPHY 02/25/2015 - LIGATE FALLOPIAN TUBE 1978 Tubal ligation - VAGINAL HYSTERECTOMY Hysterectomy, vaginal FAMILY HISTORY Problem Relation Age of Onset - Diabetes Sister Type 2 - Coronary Artery Disease Father - Cancer Maternal Aunt lung - Cancer Maternal Uncle stomach - Alzheimer's Disease Maternal Aunt - Alzheimer's Disease Mother Social History Tobacco Use - Smoking status: Current Some Day Smoker Packs/day: 0.50 Types: Cigarettes Start date: 01/01/1997 - Smokeless tobacco: Never Used - Tobacco comment: 2 cig per day Substance Use Topics - Alcohol use: No - Drug use: No Objective: There were no vitals taken for this visit. No LMP recorded. Patient has had a hysterectomy. ALLERGIES Allergen Reactions - Venlafaxine Hives - Clonidine Intolerance pain all over - Depakote [Divalproe* Other: See Comments body jerks - Desipramine Intolerance crying - Doxycycline Hives - Flagyl [Metronidazo* Hives, Itching - Imipramine Hives wt gain - Imitrex [Sumatripta* Intolerance anxiety - Neurontin [Gabapent* Hives - Pristiq [Desvenlafa* Mental Status Change headache,anorexia - Prozac [Fluoxetine * Mental Status Change confusion,frequent falls,bladder pain - Sertraline Other: See Comments dysuria,bladder pain - Ultram [Tramadol Hc* GI Upset - Vesicare [Solifenac* Intolerance blurred vision,trouble swallow - Wellbutrin [Bupropi* Intolerance anxiety, sob Pelvic exam: No evidence of lichen sclerosis Mild erythema of the vulva No vulvar lesions Findings consistent with vulvar vaginal atrophy however improved from findings in the past No evidence of external hemorrhoids Assessment: 1) recent bacterial vaginosis treated with Cleocin 2) resolved lichen sclerosus 3) vulvar atrophy 4) long-term persistent comp laints of rectal pain which symptomatically appears to be consistent with internal hemorrhoids She has had a difficult ther apeutic relationship with prior gastroenterologists Complicated by high level of anxiety and psychiatric issues Plan: 1) vaginal DNA sent 2) need to find affordable option for es trogen vaginal cream, possibly through Premarin cream 3) patient looking for referral for evaluation of internal h emorrhoids and referral made to Gen. surgery division [facility] 4) follow-up results vaginal DNA Kilo Bonds MD Referring Provider: REGINO DAVEY [[id number]] Allergies As of Date: 05/05/2019 Noted Allergy Reaction VENLAFAXINE 05/14/2012 4 - Hives CLONIDINE 09/27/2015 5 - Intolerance Comments: pain all over DEPAKOTE (DIVALPROEX SODIUM) 10/21/2010 14 - Other: See Comm ents Comments: body jerks DESIPRAMINE 12/09/2009 5 - Intolerance Comments: crying DOXYCYCLINE 11/29/2011 4 - Hives FLAGYL (METRONIDAZOLE HCL) 08/06/2012 4 - Hives 9 - Itching IMIPRAMINE 12/09/2009 4 - Hives Comments: wt gain IMITREX (SUMATRIPTAN SUCCINATE) 12/09/2009 5 - Intolerance Comments: anxiety NEURONTIN (GABAPENTIN) 03/13/2013 4 - Hives PRISTIQ (DESVENLAFAXINE) 04/13/2011 1 - Mental Status Change Comments: headache,anorexia PROZAC (FLUOXETINE HCL) 11/24/2010 1 - Mental Status Change Comments: confusion,frequent falls,bladder pain SERTRALINE 06/26/2011 14 - Other: See Comments Comments: dysuria,bladder pain ULTRAM (TRAMADOL HCL) 02/14/2006 8 - GI Upset VESICARE (SOLIFENACIN SUCCINATE) 11/09/2009 5 - Intolerance Comments: blurred vision,trouble swallow WELLBUTRIN (BUPROPION HCL) 12/09/2009 5 - Intolerance Comments: anxiety, sob Date Reviewed: 05/05/2019 Reviewed by: Aura Franks - Fully Assessed Reason for Visit: Vaginal Infection [241] Cmt: Pt used cleocin and had bad sebastián e effect of burning Reason For Visit History Recorded Primary Visit Diagnosis:Chronic vaginitis [N76.1] Other Visit Diagnoses:Internal hemorrhoids [K64.8] Anal or rectal pain [K62.89] Order(s):VAGINAL PATHOGENS DNA PROBES [SQVAGDNA] Order #: [id number]. #:[id number] CONSULT TO GENERAL SURGERY [0724] Order #: [id number]: 1 FUTURE conjugated estrogens (PREMARIN) vaginal creamUse 1 g vaginal ly two times a week. Also to the outside of the vagina.Disp: 45 gRf l: 3 Prescriptions as of 05/05/2019 Sig: OMEPRAZOLE 20 MG CAPSULE,LAURA* Take 20 mg by mouth once magalie * ATORVASTATIN 10 MG TABLET Take 10 mg by mouth once magalie* CLOTRIMAZOLE-BETAMETHASONE 1 * Apply 1 application to affect * OTC NUTRITIONAL SUPPLEMENT ensure IMODIUM A-D ORAL Take by mouth. MIKA BACK AND BODY ORAL Take by mouth. VALACYCLOVIR 500 MG TABLET Take 1 tablet by mouth twice * FLUCONAZOLE 150 MG TABLET 1 pill now, repeat in 48 hour* DICYCLOMINE 10 MG CAP (BENTYL* Take 10 mg by mouth three bhavya * LORAZEPAM 2 MG TABLET ATENOLOL 25 MG TABLET Take 1 tablet by mouth three * FAMOTIDINE 20 MG TABLET Take 1 tablet by mouth twice * COMPOUNDED PRESCRIPTION BLOOD PRESSURE CUFF FOR HOME * CHOLECALCIFEROL (VITAMIN D3) * Take 1 tablet by mouth once d * CONJUGATED ESTROGENS 0.625 MG* Use 1 g vaginally two times a * NYSTATIN 100,000 UNIT/GRAM TO* Apply 1 application to affect * Patient not taking: Reported on 05/05/2019 ROSUVASTATIN 5 MG TABLET Take 1 tablet by mouth daily * Patient not taking: Reported on 03/27/2019 BETAMETHASONE, AUGMENTED 0.05* Apply 1 application to affect * Patient not taking: Reported on 02/27/2019 VALACYCLOVIR 500 MG TABLET Take 1 tablet by mouth once d* Patient not taking: Reported on 02/27/2019 LACTOBACILLUS ACIDOPHILUS CAP* Take 1-2 capsules by mouth tw * Patient not taking: Reported on 02/27/2019 Problem List As Of Date 05/05/2019 Noted Resolved DEPRESSIVE DISORDER NEC [F32.9] 04/21/2005 KIMBERLY (generalized anxiety disorder) [F41.1] 04/21/2005 HEADACHE [R51] 04/21/2005 HEMORRHOIDS NOS [K64.9] More... Myalgia [M79.10] COMMON MIGRAINE W/O MENTN INTRACT [G43.009] 10/30/2005 Chronic Interstitial Cystitis [N30.10] 11/25/2009 Pelvic Pain in Female [R10.2] 11/25/2009 Osteopenia [M85.80] 06/22/2010 More... Cystitis [N30.90] 08/02/2010 Cough [R05] 08/02/2010 Weight gain [R63.5] 11/24/2010 Fibromyalgia [M79.7] 08/12/2011 Anxiety [F41.9] 10/06/2011 Unspecified pruritic disorder [L29.9] 12/13/2011 Postmenopausal atrophic vaginitis [N95.2] 12/13/2011 Unspecified constipation [K59.00] 12/13/2011 Vaginal pain [R10.2] 01/05/2012 Rectal pain [K62.89] 01/05/2012 Adjustment disorder with mixed anxiety and depr*05/30/2012 Vaginal burning [N94.9] 06/05/2012 Chronic pain [G89.29] 06/19/2013 Perineal pain in female [N94.9] 09/18/2013 Constipation [K59.00] 09/18/2013 Stress and adjustment reaction [F43.29] 10/31/2013 Tubular adenoma of colon [D12.6] 10/31/2013 Opiate dependence (HCC) [F11.20] 12/15/2013 Vaginal high risk HPV DNA test positive [R87.81*12/08/2012 More... HPV test positive [LSP5554] 05/26/2014 More... Generalized abdominal pain [R10.84] 02/18/2015 Other cholelithiasis without obstruction [K80.8*02/18/2015 HTN (hypertension) [I10] BV (bacterial vaginosis) [N76.0, B96.89] HSV-2 (herpes simplex virus 2) infection [B00.9] Prescriptions ordered this encounter Disp Refills Start End CONJUGATED ESTROGENS 0.625 MG/GRAM V* 45 g 3 05/05/2019 Route: VAGINAL Sig: Use 1 g vaginally two times a week. Also to the outsi de of the vagina. Encounter Status:Closed by KILO BONDS MD on 05/30/19 progress on 2019-04 PROGRESS HNO ID: [id number] Normal 04-28-2019 [facility] Author: Kilo Bonds [place] ([id number]) Service: ? Author Type: Physician Type: Progress Notes Filed: 04/28/2019 9:36 AM Note Text: Angélica Dawn is a 68 year old female who presents for a fol low up for hormonal issues. Also evaluation of response to treatment regarding lichen sc lerosus Current Outpatient Medications on File Prior to Visit Medication Sig - atorvastatin (LIPITOR) 10 mg tablet Take 10 mg by mouth on ce daily. - clotrimazole-betamethasone (LOTRISONE) cream Apply 1 appli cation to affected area twice daily. Apply to outside of vagina and cr ease of legs twice a day for 10-14 days. - OTC NUTRITIONAL SUPPLEMENT ensure - loperamide HCl (IMODIUM A-D ORAL) Take by mouth. - valACYclovir (VALTREX) 500 mg tablet Take 1 tablet by mout h twice daily. - dicyclomine (BENTYL) 10 mg capsule Take 10 mg by mouth thr ee times daily. - LORazepam (ATIVAN) 2 mg tab - atenolol (TENORMIN) 25 mg tablet Take 1 tablet by mouth th ree times daily. - Cholecalciferol, Vitamin D3, 2,000 unit cap Take 1 tablet by mouth once daily. - rosuvastatin (CRESTOR) 5 mg tablet Take 1 tablet by mouth daily at bedtime. (Patient not taking: Reported on 03/27/2019 ) - aspirin/caffeine (MIKA BACK AND BODY ORAL) Take by mouth. - Aug Betamethasone Dipropionate (DIPROLENE) 0.05 % ointment Apply 1 application to affected area twice daily. For 7-10 days (Pat ient not taking: Reported on 02/27/2019 ) - fluconazole (DIFLUCAN) 150 mg tablet 1 pill now, repeat in 48 hours. (Patient not taking: Reported on 03/27/2019 ) - valACYclovir (VALTREX) 500 mg tablet Take 1 tablet by mout h once daily. (Patient not taking: Reported on 02/27/2019 ) - Lactobacillus acidophilus (ACIDOPHILUS) cap Take 1-2 capsu les by mouth twice daily with meals. (Patient not taking: Reported on ) - famotidine (PEPCID) 20 mg tablet Take 1 tablet by mouth tw ice daily. (Patient not taking: Reported on 02/27/2019 ) - Blood Pressure Cuff - Home Use BLOOD PRESSURE CUFF FOR KAMLESH E USE. DX: LABILE BLOOD PRESSURE No current facility-administered medications on file prior t o visit. 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 - HTN (hypertension) - IBS (irritable bowel syndrome) - Myalgia and myositis, unspecified - Unspecified constipation Constipation - Unspecified hemorrhoids without mention of complication Hemorrhoids - Vaginal high risk HPV DNA test positive 12/2012 Pap negative PAST SURGICAL HISTORY Procedure Laterality Date - COLONOSCOP W/ OR W/O [facility] SPEC 11/27/2001 Colonoscopy - COLONOSCOPY 2013 - LAP CHOLECYSTECT/CHOLANGIOGRAPHY 02/25/2015 - LIGATE FALLOPIAN TUBE 1978 Tubal ligation - VAGINAL HYSTERECTOMY Hysterectomy, vaginal FAMILY HISTORY Problem Relation Age of Onset - Diabetes Sister Type 2 - Coronary Artery Disease Father - Cancer Maternal Aunt lung - Cancer Maternal Uncle stomach - Alzheimer's Disease Maternal Aunt - Alzheimer's Disease Mother Social History Tobacco Use - Smoking status: Current Some Day Smoker Packs/day: 0.50 Types: Cigarettes Start date: 01/01/1997 - Smokeless tobacco: Never Used - Tobacco comment: 2 cig per day Substance Use Topics - Alcohol use: No - Drug use: No Objective: BP 162/94 Wt 170 lb (77.1kg) No LMP recorded. Patient has had a hysterectomy. ALLERGIES Allergen Reactions - Venlafaxine Hives - Clonidine Intolerance pain all over - Depakote [Divalproe* Other: See Comments body jerks - Desipramine Intolerance crying - Doxycycline Hives - Flagyl [Metronidazo* Hives, Itching - Imipramine Hives wt gain - Imitrex [Sumatripta* Intolerance anxiety - Neurontin [Gabapent* Hives - Pristiq [Desvenlafa* Mental Status Change headache,anorexia - Prozac [Fluoxetine * Mental Status Change confusion,frequent falls,bladder pain - Sertraline Other: See Comments dysuria,bladder pain - Ultram [Tramadol Hc* GI Upset - Vesicare [Solifenac* Intolerance blurred vision,trouble swallow - Wellbutrin [Bupropi* Intolerance anxiety, sob Pelvic exam: Resolution of lichen sclerosis externally Mild external erythema within the folds of the groin area an d near the labia majora appear the results of a vulvar candidiasis Assessment: 1) previous history of lichen sclerosis now well controlled 2) 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 no active outbreaks 3) vulvar candidiasis minimal 4) GI related issues as previously noted Plan: 1) Diflucan 150 mg repeat in 48 hours 2) nystatin powder twice a day as discussed 3) vaginal DNA results 4) follow-up by phone for results Kilo Bonds MD Addendum positive BV noted vag pathogens dna o n 2019-03-27 Mariola sp DNA Negative for Negative for Normal 9 [facility] Probe Mariola species Mariola species Finn ([id number]) by DNA Probe by DNA Probe Comment: Performed By: #### VAGDNA ## ##[address] [phone] Kierra vag Positive for Negative for Critically 03-27-2019 Cl gabriel DNA Probe Gardnerella Gardnerella abnormal Clinic vaginalis by DNA vaginalis by DNA Finn probe. Probe ([id number]) Comment: Result Comment: This is sugg estive, but not diagnostic of bacterial vaginosis, results should be interpreted in conjunction with other data such as pH, amine odor, clue cell s and vaginal discharge characteristics. Performed By: #### VAGDNA ## ##[address] [phone] Trich vag DNA Negative for Negative for Normal 03-27-2019 [facility] Probe Trichomonas Trichomonas Clevel and vaginalis by DNA vaginalis by DNA ([id number]) Probe Probe Comment: Performed By: #### VAGDNA ## ##[address] [id number]- [phone] cnov on 2019-03-27 CNOV Office Visit (OBGMEM) Normal 03-27-20 [facility] ANGÉLICA DAWN ([id number]) 1950 [facility] Date Time Provider Department ([id number]) 03/27/19 10:15 AM KILO BONDS During your visit today, we recorded the following informati on about you: Blood pressure Weight 162/94 77.1 kg Kilo Bonds MD 04/28/2019 9:36 AM Signed Angélica Dawn is a 68 year old female who presents for a fol low up for hormonal issues. Also evaluation of response to treatment regarding lichen sc lerosus Current Outpatient Medications on File Prior to Visit Medication Sig - atorvastatin (LIPITOR) 10 mg tablet Take 10 mg by mouth on ce daily. - clotrimazole-betamethasone (LOTRISONE) cream Apply 1 application to affected area twice daily. Apply to o utside of vagina and crease of legs twice a day for 10-14 days. - OTC NUTRITIONAL SUPPLEMENT ensure - loperamide HCl (IMODIUM A-D ORAL) Take by mouth. - valACYclovir (VALTREX) 500 mg tablet Take 1 tablet by mout h twice daily. - dicyclomine (BENTYL) 10 mg capsule Take 10 mg by mouth t hree times daily. - LORazepam (ATIVAN) 2 mg tab - atenolol (TENORMIN) 25 mg tablet Take 1 tablet by mo uth three times daily. - Cholecalciferol, Vitamin D3, 2,000 unit cap Take 1 tablet by mouth once daily. - rosuvastatin (CRESTOR) 5 mg tablet Take 1 tabl et by mouth daily at bedtime. (Patient not taking: Reported on 03/27/2019 ) - aspirin/caffeine (MIKA BACK AND BODY ORAL) Take by mouth. - Aug Betamethasone Dipropionate (DIPROLENE) 0.05 % ointment Apply 1 application to affected area twice daily. For 7-10 day s (Patient not taking: Reported on 02/27/2019 ) - fluconazole (DIFLUCAN) 150 mg tablet 1 pill now, repeat in 48 hours. (Patient not taking: Reported on 03/27/2019 ) - valACYclovir (VALTREX) 500 mg tablet Take 1 tablet by mout h once daily. (Patient not taking: Reported on 02/27/2019 ) - Lactobacillus acidophilus (ACIDOPHILUS ) cap Take 1-2 capsules by mouth twice daily with meals. (Patient not taking: Reported on 9 ) - famotidine (PEPCID) 20 mg tablet Take 1 tablet by mouth twice daily. (Patient not taking: Reported on 02/27/2019 ) - Blood Pressure Cuff - Home Use BLOOD PRESSURE CUFF FOR HOME USE. DX: LABILE BLOOD PRESSURE No current facility-administered medications on file prior t o visit. 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 - HTN (hypertension) - IBS (irritable bowel syndrome) - Myalgia and myositis, unspecified - Unspecified constipation Constipation - Unspecified hemorrhoids without mention of complication Hemorrhoids - Vaginal high risk HPV DNA test positive 12/2012 Pap negative PAST SURGICAL HISTORY Procedure Laterality Date - COLONOSCOP W/ OR W/O [facility] SPEC 11/27/2001 Colonoscopy - COLONOSCOPY 2013 - LAP CHOLECYSTECT/CHOLANGIOGRAPHY 02/25/2015 - LIGATE FALLOPIAN TUBE 1977 Tubal ligation - VAGINAL HYSTERECTOMY Hysterectomy, vaginal FAMILY HISTORY Problem Relation Age of Onset - Diabetes Sister Type 2 - Coronary Artery Disease Father - Cancer Maternal Aunt lung - Cancer Maternal Uncle stomach - Alzheimer's Disease Maternal Aunt - Alzheimer's Disease Mother Social History Tobacco Use - Smoking status: Current Some Day Smoker Packs/day: 0.50 Types: Cigarettes Start date: 01/01/1997 - Smokeless tobacco: Never Used - Tobacco comment: 2 cig per day Substance Use Topics - Alcohol use: No - Drug use: No Objective: BP 162/94 Wt 170 lb (77.1kg) No LMP recorded. Patient has had a hysterectomy. ALLERGIES Allergen Reactions - Venlafaxine Hives - Clonidine Intolerance pain all over - Depakote [Divalproe* Other: See Comments body jerks - Desipramine Intolerance crying - Doxycycline Hives - Flagyl [Metronidazo* Hives, Itching - Imipramine Hives wt gain - Imitrex [Sumatripta* Intolerance anxiety - Neurontin [Gabapent* Hives - Pristiq [Desvenlafa* Mental Status Change headache,anorexia - Prozac [Fluoxetine * Mental Status Change confusion,frequent falls,bladder pain - Sertraline Other: See Comments dysuria,bladder pain - Ultram [Tramadol Hc* GI Upset - Vesicare [Solifenac* Intolerance blurred vision,trouble swallow - Wellbutrin [Bupropi* Intolerance anxiety, sob Pelvic exam: Resolution of lichen sclerosis externally Mild external erythema within the folds of the groin a jae and near the labia majora appear the results of a vulvar candidiasis Assessment: 1) previous history of lichen sclerosis now well controlled 2) 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 Valtrex no active outbreaks 3) vulvar candidiasis minimal 4) GI related issues as previously noted Plan: 1) Diflucan 150 mg repeat in 48 hours 2) nystatin powder twice a day as discussed 3) vaginal DNA results 4) follow-up by phone for results Kilo Bonds MD Addendum positive BV noted Referring Provider: SELF [[id number]] Allergies As of Date: 03/27/2019 Noted Allergy Reaction VENLAFAXINE 05/14/2012 4 - Hives CLONIDINE 09/27/2015 5 - Intolerance Comments: pain all over DEPAKOTE (DIVALPROEX SODIUM) 10/21/2010 14 - Other: See Comm ents Comments: body jerks DESIPRAMINE 12/09/2009 5 - Intolerance Comments: crying DOXYCYCLINE 11/29/2011 4 - Hives FLAGYL (METRONIDAZOLE HCL) 08/06/2012 4 - Hives 9 - Itching IMIPRAMINE 12/09/2009 4 - Hives Comments: wt gain IMITREX (SUMATRIPTAN SUCCINATE) 12/09/2009 5 - Intolerance Comments: anxiety NEURONTIN (GABAPENTIN) 03/13/2013 4 - Hives PRISTIQ (DESVENLAFAXINE) 04/13/2011 1 - Mental Status Change Comments: headache,anorexia PROZAC (FLUOXETINE HCL) 11/24/2010 1 - Mental Status Change Comments: confusion,frequent falls,bladder pain SERTRALINE 06/26/2011 14 - Other: See Comments Comments: dysuria,bladder pain ULTRAM (TRAMADOL HCL) 02/14/2006 8 - GI Upset VESICARE (SOLIFENACIN SUCCINATE) 11/09/2009 5 - Intolerance Comments: blurred vision,trouble swallow WELLBUTRIN (BUPROPION HCL) 12/09/2009 5 - Intolerance Comments: anxiety, sob Date Reviewed: 03/27/2019 Reviewed by: Gaby Castañeda - Fully Assessed Reason for Visit: Vaginal Problem [117] Primary Visit Diagnosis:Acute vaginitis [N76.0] Order(s):[] fluconazole (DIFLUCAN) 150 mg tabletTake 1 tablet by mouth one time only for 1 dose. Repeat in 48 hours.Disp: 2 tabletR fl: 1 nystatin (MYCOSTATIN) powderApply 1 application to affected area twice daily. Till Apr 09 (14 days)Disp: 60 gRfl: 3 VAGINAL PATHOGENS DNA PROBES [SQVAGDNA] Order #: [id number] pec. #:[id number] Clindamycin Phosphate (CLEOCIN) 100 mg vaginal suppositoryUs e 1 Suppository vaginally daily at bedtime for 3 days.Disp: 3 SuppositoryRfl: 0 Prescriptions as of 03/27/2019 Sig: ATORVASTATIN 10 MG TABLET Take 10 mg by mouth once magalie* CLOTRIMAZOLE-BETAMETHASONE 1 * Apply 1 application to affect * OTC NUTRITIONAL SUPPLEMENT ensure IMODIUM A-D ORAL Take by mouth. VALACYCLOVIR 500 MG TABLET Take 1 tablet by mouth twice * DICYCLOMINE 10 MG CAP (BENTYL* Take 10 mg by mouth three bhavya * LORAZEPAM 2 MG TABLET ATENOLOL 25 MG TABLET Take 1 tablet by mouth three * CHOLECALCIFEROL (VITAMIN D3) * Take 1 tablet by mouth once d * CLEOCIN 100 MG VAGINAL SUPPOS* Use 1 Suppository vaginally d * FLUCONAZOLE 150 MG TABLET Take 1 tablet by mouth one ti* NYSTATIN 100,000 UNIT/GRAM TO* Apply 1 application to affect * ROSUVASTATIN 5 MG TABLET Take 1 tablet by mouth daily * Patient not taking: Reported on 03/27/2019 MIKA BACK AND BODY ORAL Take by mouth. BETAMETHASONE, AUGMENTED 0.05* Apply 1 application to affect * Patient not taking: Reported on 02/27/2019 FLUCONAZOLE 150 MG TABLET 1 pill now, repeat in 48 hour* Patient not taking: Reported on 03/27/2019 VALACYCLOVIR 500 MG TABLET Take 1 tablet by mouth once d* Patient not taking: Reported on 02/27/2019 LACTOBACILLUS ACIDOPHILUS CAP* Take 1-2 capsules by mouth tw * Patient not taking: Reported on 02/27/2019 FAMOTIDINE 20 MG TABLET Take 1 tablet by mouth twice * Patient not taking: Reported on 02/27/2019 COMPOUNDED PRESCRIPTION BLOOD PRESSURE CUFF FOR HOME * Problem List As Of Date 03/27/2019 Noted Resolved DEPRESSIVE DISORDER NEC [F32.9] 04/21/2005 KIMBERLY (generalized anxiety disorder) [F41.1] 04/21/2005 HEADACHE [R51] 04/21/2005 HEMORRHOIDS NOS [K64.9] More... Myalgia [M79.10] COMMON MIGRAINE W/O MENTN INTRACT [G43.009] 10/30/2005 Chronic Interstitial Cystitis [N30.10] 11/25/2009 Pelvic Pain in Female [R10.2] 11/25/2009 Osteopenia [M85.80] 06/22/2010 More... Cystitis [N30.90] 08/02/2010 Cough [R05] 08/02/2010 Weight gain [R63.5] 11/24/2010 Fibromyalgia [M79.7] 08/12/2011 Anxiety [F41.9] 10/06/2011 Unspecified pruritic disorder [L29.9] 12/13/2011 Postmenopausal atrophic vaginitis [N95.2] 12/13/2011 Unspecified constipation [K59.00] 12/13/2011 Vaginal pain [R10.2] 01/05/2012 Rectal pain [K62.89] 01/05/2012 Adjustment disorder with mixed anxiety and depr*05/30/2012 Vaginal burning [N94.9] 06/05/2012 Chronic pain [G89.29] 06/19/2013 Perineal pain in female [N94.9] 09/18/2013 Constipation [K59.00] 09/18/2013 Stress and adjustment reaction [F43.29] 10/31/2013 Tubular adenoma of colon [D12.6] 10/31/2013 Opiate dependence (HCC) [F11.20] 12/15/2013 Vaginal high risk HPV DNA test positive [R87.81*12/08/2012 More... HPV test positive [TMA2770] 05/26/2014 More... Generalized abdominal pain [R10.84] 02/18/2015 Other cholelithiasis without obstruction [K80.8*02/18/2015 HTN (hypertension) [I10] BV (bacterial vaginosis) [N76.0, B96.89] HSV-2 (herpes simplex virus 2) infection [B00.9] Prescriptions ordered this encounter Disp Refills Start End FLUCONAZOLE 150 MG TABLET 2 ta* 1 03/27/2019 03/27/2019 Route: ORAL Sig: Take 1 tablet by mouth one time only for 1 dose. Repeat in 48 hours. NYSTATIN 100,000 UNIT/GRAM TOPICAL P* 60 g 3 03/27/2019 Route: TOPICAL Sig: Apply 1 application to affected area twice daily. Till Apr 09 (14 days) CLEOCIN 100 MG VAGINAL SUPPOSITORY 3 Garza* 0 04/28/20192019 Route: VAGINAL Sig: Use 1 Suppository vaginally daily at bedtime for 3 days . Medications Discontinued During This Encounter Clindamycin Phosphate (CLEOCIN) 100 * 3 Garza* 0 03/09/201904/28 Route: VAGINAL Sig: Use 1 Suppository vaginally daily at bedtime for 3 days . Disc: Reason for discontinue is not on file. Disposition: Return in about 3 months (around 06/26/2019) for lichen sclerosis. Follow-up and Disposition History Recorded Encounter Status:Closed by IKLO BONDS MD on 04/28/19 vag pathogens dna o n 2019-02-27 Mariola sp DNA Negative for Negative for Normal 9 [facility] Probe Mariola species Mariola species Finn ([id number]) by DNA Probe by DNA Probe Comment: Performed By: #### VAGDNA ## ## [facility] [address] [place] [id number] Kierra vag Positive for Negative for Critically 02-27-2019 Cl gabriel DNA Probe Gardnerella Gardnerella abnormal Clinic vaginalis by DNA vaginalis by DNA Finn probe. Probe ([id number]) Comment: Result Comment: This is sugg estive, but not diagnostic of bacterial vaginosis, results should be interpreted in conjunction with other data such as pH, amine odor, clue cell s and vaginal discharge characteristics. Performed By: #### VAGDNA ## ## [facility] [address] [place], [place] [address] Trich vag DNA Negative for Negative for Normal 02-27-2019 [facility] Probe Trichomonas Trichomonas Clevel and vaginalis by DNA vaginalis by DNA ([id number]) Probe Probe Comment: Performed By: #### VAGDNA ## ## [facility] [address] [place], [place] [address] progress on 2019-02 PROGRESS HNO ID: [id number] Normal 02-27-2019 [facility] Author: Kilo Bonds [place] ([id number]) Service: ? Author Type: Physician Type: Progress Notes Filed: 03/09/2019 11:14 AM Note Text: Angélica Dawn is a 68 year old post-menopausal femal e who presents for her annual gynecologic exam. Patient has been m enopausal for many. Patient has been on hormone replacement therapy. 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 Known lichen sclerosus history with improvement on medicatio n patient somewhat compliant with appropriate Temovate taper in the pa st however she becomes confused at times about how to use this and sometime s overuses or under uses History of anal rectal pain Detailed workup and evaluation by Deandra Price [facility] Dev[facility]n Is well known to me and many of these issues characterized i n her note from GI evaluation are familiar and helping and going on for years waxing and waning. History of chronic suppressive Valtrex use. Will need to reevaluate her liver enzymes, recently normal t his year History of HSV type II Last Pap: Negative vaginal DNA test positive for HPV er 2012 Otology has remained negative History of abnormal pap: yes Last mammogram: Negative History of abnormal mammogram: no Colonoscopy: , 2011 2018 Bone Mineral Density: Discussed Cholesterol profile 2019 Glucose/TSH 2019 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 2018 - HTN (hypertension) - IBS (irritable bowel syndrome) - Myalgia and myositis, unspecified - Unspecified constipation Constipation - Unspecified hemorrhoids without mention of complication Hemorrhoids - Vaginal high risk HPV DNA test positive 12/2012 Pap negative PAST SURGICAL HISTORY Procedure Laterality Date - COLONOSCOP W/ OR W/O [facility] SPEC 11/27/2001 Colonoscopy - COLONOSCOPY 2013 - LAP CHOLECYSTECT/CHOLANGIOGRAPHY 02/25/2015 - LIGATE FALLOPIAN TUBE 1977 Tubal ligation - VAGINAL HYSTERECTOMY Hysterectomy, vaginal FAMILY HISTORY Problem Relation Age of Onset - Diabetes Sister Type 2 - Coronary Artery Disease Father - Cancer Maternal Aunt lung - Cancer Maternal Uncle stomach - Alzheimer's Disease Maternal Aunt - Alzheimer's Disease Mother Social History Tobacco Use - Smoking status: Current Some Day Smoker Packs/day: 0.50 Types: Cigarettes Start date: 01/01/1997 - Smokeless tobacco: Never Used - Tobacco comment: 2 cig per day Substance Use Topics - Alcohol use: No - Drug use: No REVIEW OF SYSTEMS Bladder: vaginal burning internal, external and vaginal dryn ess Bowel: hemorrhoids Breast: No breast lumps, nipple d/c, overlying skin changes, redness or skin retraction EXAM: pleasant,well developed,well nourished,white female in no apparent distress, in mild distress HEENT: WNL NECK: Full range of motion,no adenopathy,thyroid normal DERMATOLOGY:Without lesions, Non-icteric, non-hirsute BREAST: soft, non-tender, symmetric, no dominant mass, demetra l nipple-areolar complex, no lymphadenopathy and no nipple dis charge CHEST: Normal inspiratory effort CARDIAC:Regular rate, rhythm ABDOMEN: Soft,non-tender,no hernia,No masses, hepatosplenome slade,No lymphadenopathy PELVIC: external genitalia normal, normal Bartholin's glands , urethra, [employer] [place]'s glands, no vulvar lesions, no cervical lesions, vaul t clean with normal discharge, normal appearing perineal body and periana l region, resolution of lichen sclerosis Some evidence of vulvar candidiasis mild erythema but very m inimal Compared to prior exams no evidence of active lichen scleros us possibility of mild exists No inguinal lymphadenopathy No vulvar lesions Thin discharge consistent BIMANUAL: no adnexal masses, no pelvic masses and uterus jian gically absent RECTAL: deferred. NEURO: alert and oriented x3,exam grossly non-focal EXTREMITIES: Warm,No cyanosis, clubbing,No edema,nontender ASSESSMENT: Normal annual exam. 1) postmenopausal for many years 2) overall resolution of lichen sclerosis. 3) history of HSV type II and she takes Valtrex for chronic suppression discussed in detail. 4) minimal vulvar irritation consistent with yeast. History of HPV 2013 vaginal pap cytology has been negative PLAN: 1) Pap done with HPV 2) SBE reviewed, Mammogram ordered yes 3) Nutrition, exercise and routine health maintenance exams reviewed. 4) follow-up with GI as previously indicated 5) vaginal DNA sent patient to check for results Kilo Bonds MD hpv w/genotype on HPV HighRisk Negative for HPV DNA high risk types: Normal 02-27-2019 [facility] Other 31,33,35,39,45,51,52,56,58,59,66,68 by [facility] PCR. [place] ([id number]) Comment: Result Comment: This test wa s developed and its performance characteristics determined by [facility] [place] ([facility] It has not been cleared or a pproved by the FDA. [facility] is regulated under CLIA as qualified to perform high-complexity testing. This test is used for clinical purposes. It should not be regarded as inv estigational or for research . Performed By: #### HPVHRR ## ##[place] [id number] [phone] HPV HighRisk Type 16 Negative for HPV DNA Normal 02-27-2019 [facility] high risk type 16 by [place] ([id number]) PCR. Comment: Performed By: #### HPVHRR ## ##[place] [id number]- [phone] HPV HighRisk Type 18 Negative for HPV DNA Normal 02-27-2019 [facility] high risk type 18 by [facility] ([id number]) PCR. Comment: Performed By: #### HPVHRR ## ##[place] [id number]- [phone] cytology on 2019-02 CYTOLOGY Normal 02-27-2019 [facility] ADDITIONAL PROCEDURES PRESENT Clinic [facility] ([id number]) Specimen originated from [facility] Specimen #: [id number] Submitting Physician: KILO BONDS MD SPECIMEN SUBMITTED A: VAGINAL VAULT,SCREENING, FLUID FINAL DIAGNOSIS A. VAGINAL VAULT,SCREENING, FLUID Satisfactory for interpretation. Negative for intraepithelial lesion or malignancy. This specimen has been analyzed by the ThinPrep Imaging Syst em, an automated imaging and review system, which assists the labor atory in evaluating cells on ThinPrep Pap tests. Following automated imaging, selected vazquez from every slide are reviewed by a cytotechn ologist. DARREN Burr(ASCP) (Electronic Signature) ADDITIONAL PROCEDURE(S) HUMAN PAPILLOMA VIRUS Date Ordered: 02/28/2019 Date Reported: 03/04/2019 Procedure Results and Interpretation Negative for HPV DNA high risk type 16 by PCR. Negative for HPV DNA high risk type 18 by PCR. Negative for HPV DNA high risk types: 31,33,35,39,45,51,52,5 6,58,59,66,68 by PCR. This test was developed and its performance characteristics determined by [facility] [place] ([facility] It has not been cleared or approved by the FDA. -[facility] is r egulated under CLIA as qualified to perform high-complexity testing. This test is used for clinical purposes. It should not be regarded as investigatio nal or for research. CLINICAL DATA ROUTINE EXAM, HPV Testing: No Date of Last Menstrual Period: Hysterectomy Menstrual History: HYSTERECTOMY STAINS A: VAGINAL VAULT,SCREENING, FLUID THIN PREP MECHANICAL PROJECT ENGINEER Liu Richardson M.D., Community Director Date of Report: 03/04/2019 Date of Procedure: 02/27/2019 Date of Receipt: 02/27/2019 Submitted by: KILO BONDS MD Location: [facility] Diagnostic interpretation performed at [facility], [address] [place] [address]. CLIA Number: [id number] The Pap Smear is a screening test for cervical cancer. False negative results occur with all screening tests, emphasizing the need for rescreening at recommended intervals, and clinical correlati on. cnov on 2019-02-27 CNOV Office Visit (OBGMEM) Normal 02-28-20 [place] [facility] LÓPEZANGÉLICA ([id number]) 1950 F [facility] Time Provider Department ([id number]) 02/27/19 2:00 PM KILO BONDS OBGMEM During your visit today, we recorded the following informati on about you: Blood pressure Weight 122/68 78.9 kg Kilo Bonds MD 03/09/2019 11:14 AM Signed Angélica Dawn is a 68 year old post-menopausal femal e who presents for her annual gynecologic exam. Patient has been menopausal for many. Patient has been on hormone replacement therapy. 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 Known lichen sclerosus history with impr ovement on medication patient somewhat compliant with appropriate Temovate taper in the past howeve r she becomes confused at times about how to use this and sometimes overuses or under uses History of anal rectal pain Detailed workup and evaluation by Deandra Price [facility] Is well known to me and many of these is sues characterized in her note from GI evaluation are familiar and helping and going on for years waxing and waning. History of chronic suppressive Valtrex use. Will need to reevaluate her liver enzymes, recently normal t his year History of HSV type II Last Pap: Negative vaginal DNA test positive for HPV er 2012 Otology has remained negative History of abnormal pap: yes Last mammogram: Negative History of abnormal mammogram: no Colonoscopy: , 2011 2018 Bone Mineral Density: Discussed Cholesterol profile 2019 Glucose/TSH 2018 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 - HTN (hypertension) - IBS (irritable bowel syndrome) - Myalgia and myositis, unspecified - Unspecified constipation Constipation - Unspecified hemorrhoids without mention of complication Hemorrhoids - Vaginal high risk HPV DNA test positive 12/2012 Pap negative PAST SURGICAL HISTORY Procedure Laterality Date - COLONOSCOP W/ OR W/O BRSH SPEC 11/27/2001 Colonoscopy - COLONOSCOPY 2013 - LAP CHOLECYSTECT/CHOLANGIOGRAPHY 02/25/2015 - LIGATE FALLOPIAN TUBE 1977 Tubal ligation - VAGINAL HYSTERECTOMY Hysterectomy, vaginal FAMILY HISTORY Problem Relation Age of Onset - Diabetes Sister Type 2 - Coronary Artery Disease Father - Cancer Maternal Aunt lung - Cancer Maternal Uncle stomach - Alzheimer's Disease Maternal Aunt - Alzheimer's Disease Mother Social History Tobacco Use - Smoking status: Current Some Day Smoker Packs/day: 0.50 Types: Cigarettes Start date: 01/01/1997 - Smokeless tobacco: Never Used - Tobacco comment: 2 cig per day Substance Use Topics - Alcohol use: No - Drug use: No REVIEW OF SYSTEMS Bladder: vaginal burning internal, external and vaginal dryn ess Bowel: hemorrhoids Breast: No breast lumps, nipple d/c, overlying skin ch anges, redness or skin retraction EXAM: pleasant,well developed,well nourished,white female in no apparent distress, in mild distress HEENT: WNL NECK: Full range of motion,no adenopathy,thyroid normal DERMATOLOGY:Without lesions, Non-icteric, non-hirsute BREAST: soft, non-tender, symmetric, no dominant mass, normal nipple-areolar complex, no lymphadenopathy and no nipple discharge CHEST: Normal inspiratory effort CARDIAC:Regular rate, rhythm ABDOMEN: Soft,non-tender,no hernia,No masses, hepatosplenome slade,No lymphadenopathy PELVIC: external genitalia normal, demetra l Bartholin's glands, urethra, [place]'s glands, no vulvar lesions, no cervical lesions, vault clean with normal discharge, normal appearing perineal body and perianal region, resolution of lichen sclerosis Some evidence of vulvar candidiasis mild erythema but very m inimal Compared to prior exams no evidence of active li calderon sclerosus possibility of mild exists No inguinal lymphadenopathy No vulvar lesions Thin discharge consistent BIMANUAL: no adnexal masses, no pelvic masses and uterus jian gically absent RECTAL: deferred. NEURO: alert and oriented x3,exam grossly non-focal EXTREMITIES: Warm,No cyanosis, clubbing,No edema,nontender ASSESSMENT: Normal annual exam. 1) postmenopausal for many years 2) overall resolution of lichen sclerosis. 3) history of HSV type II and she takes Valtrex for chronic suppression discussed in detail. 4) minimal vulvar irritation consistent with yeast. History of HPV 2012 vaginal pap cytology has been negative PLAN: 1) Pap done with HPV 2) SBE reviewed, Mammogram ordered yes 3) Nutrition, exercise and routine health maintenance exams reviewed. 4) follow-up with GI as previously indicated 5) vaginal DNA sent patient to check for results Kilo Bonds MD Referring Provider: SELF [[id number]] Allergies As of Date: 02/27/2019 Noted Allergy Reaction VENLAFAXINE 05/14/2012 4 - Hives CLONIDINE 09/27/2015 5 - Intolerance Comments: pain all over DEPAKOTE (DIVALPROEX SODIUM) 10/21/2010 14 - Other: See Comm ents Comments: body jerks DESIPRAMINE 12/09/2009 5 - Intolerance Comments: crying DOXYCYCLINE 11/29/2011 4 - Hives FLAGYL (METRONIDAZOLE HCL) 08/06/2012 4 - Hives 9 - Itching IMIPRAMINE 12/09/2009 4 - Hives Comments: wt gain IMITREX (SUMATRIPTAN SUCCINATE) 12/09/2009 5 - Intolerance Comments: anxiety NEURONTIN (GABAPENTIN) 03/13/2013 4 - Hives PRISTIQ (DESVENLAFAXINE) 04/13/2011 1 - Mental Status Change Comments: headache,anorexia PROZAC (FLUOXETINE HCL) 11/24/2010 1 - Mental Status Change Comments: confusion,frequent falls,bladder pain SERTRALINE 06/26/2011 14 - Other: See Comments Comments: dysuria,bladder pain ULTRAM (TRAMADOL HCL) 02/14/2006 8 - GI Upset VESICARE (SOLIFENACIN SUCCINATE) 11/09/2009 5 - Intolerance Comments: blurred vision,trouble swallow WELLBUTRIN (BUPROPION HCL) 12/09/2009 5 - Intolerance Comments: anxiety, sob Date Reviewed: 02/27/2019 Reviewed by: Gaby Castañeda - Fully Assessed Reason for Visit: Well Woman [[id number]] Primary Visit Diagnosis:Vaginal high risk human papillomavirus (HPV) DNA test positive [R87.811] Other Visit Diagnoses:Candidiasis of vulva and vagina [B37.3 ] Well female exam with routine gynecological exam [Z01.419] Order(s):clotrimazole-betamethasone (LOTRISONE) creamApply 1 application to affected area twice daily. Apply to outside of vagina and cr ease of legs twice a day for 10-14 days.Disp: 45 gRfl: 2 rosuvastatin (CRESTOR) 5 mg tabletTake 1 tablet by mouth antwan ly at bedtime.Disp: Rfl: PAP FLUID VAGINAL VAULT SCREENING [3611665] Order #: [id number]. #:[id number] VAGINAL PATHOGENS DNA PROBES [SQVAGDNA] Order #: [id number] pec. #:[id number] HPV W/GENOTYPE [SQHPVHRR] Order #: [id number]. #:[id number] Prescriptions as of 02/27/2019 Sig: CLOTRIMAZOLE-BETAMETHASONE 1 * Apply 1 application to affect * OTC NUTRITIONAL SUPPLEMENT ensure IMODIUM A-D ORAL Take by mouth. MIKA BACK AND BODY ORAL Take by mouth. VALACYCLOVIR 500 MG TABLET Take 1 tablet by mouth twice * FLUCONAZOLE 150 MG TABLET 1 pill now, repeat in 48 hour* DICYCLOMINE 10 MG CAP (BENTYL* Take 10 mg by mouth three bhavya * LORAZEPAM 2 MG TABLET ATENOLOL 25 MG TABLET Take 1 tablet by mouth three * COMPOUNDED PRESCRIPTION BLOOD PRESSURE CUFF FOR HOME * CHOLECALCIFEROL (VITAMIN D3) * Take 1 tablet by mouth once d * ROSUVASTATIN 5 MG TABLET Take 1 tablet by mouth daily * BETAMETHASONE, AUGMENTED 0.05* Apply 1 application to affect * Patient not taking: Reported on 02/27/2019 VALACYCLOVIR 500 MG TABLET Take 1 tablet by mouth once d* Patient not taking: Reported on 02/27/2019 LACTOBACILLUS ACIDOPHILUS CAP* Take 1-2 capsules by mouth tw * Patient not taking: Reported on 02/27/2019 FAMOTIDINE 20 MG TABLET Take 1 tablet by mouth twice * Patient not taking: Reported on 02/27/2019 Problem List As Of Date 02/27/2019 Noted Resolved DEPRESSIVE DISORDER NEC [F32.9] 04/21/2005 KIMBERLY (generalized anxiety disorder) [F41.1] 04/21/2005 HEADACHE [R51] 04/21/2005 HEMORRHOIDS NOS [K64.9] More... Myalgia [M79.10] COMMON MIGRAINE W/O MENTN INTRACT [G43.009] 10/30/2005 Chronic Interstitial Cystitis [N30.10] 11/25/2009 Pelvic Pain in Female [R10.2] 11/25/2009 Osteopenia [M85.80] 06/22/2010 More... Cystitis [N30.90] 08/02/2010 Cough [R05] 08/02/2010 Weight gain [R63.5] 11/24/2010 Fibromyalgia [M79.7] 08/12/2011 Anxiety [F41.9] 10/06/2011 Unspecified pruritic disorder [L29.9] 12/13/2011 Postmenopausal atrophic vaginitis [N95.2] 12/13/2011 Unspecified constipation [K59.00] 12/13/2011 Vaginal pain [R10.2] 01/05/2012 Rectal pain [K62.89] 01/05/2012 Adjustment disorder with mixed anxiety and depr*05/30/2012 Vaginal burning [N94.9] 06/05/2012 Chronic pain [G89.29] 06/19/2013 Perineal pain in female [N94.9] 09/18/2013 Constipation [K59.00] 09/18/2013 Stress and adjustment reaction [F43.29] 10/31/2013 Tubular adenoma of colon [D12.6] 10/31/2013 Opiate dependence (HCC) [F11.20] 12/15/2013 Vaginal high risk HPV DNA test positive [R87.81*12/08/2012 More... HPV test positive [GFF7409] 05/26/2014 More... Generalized abdominal pain [R10.84] 02/18/2015 Other cholelithiasis without obstruction [K80.8*02/18/2015 HTN (hypertension) [I10] BV (bacterial vaginosis) [N76.0, B96.89] HSV-2 (herpes simplex virus 2) infection [B00.9] Prescriptions ordered this encounter Disp Refills Start End CLOTRIMAZOLE-BETAMETHASONE 1 %-0.05 * 45 g 2 02/27/2019 Route: TOPICAL Sig: Apply 1 application to affected area twice daily. Apply to outside of vagina and crease of legs twice a day for 10-14 days. ROSUVASTATIN 5 MG TABLET 02/27/2019 Class: Med Update Route: ORAL Sig: Take 1 tablet by mouth daily at bedtime. Medications Discontinued During This Encounter clotrimazole-betamethasone (LOTRISON* 45 g 2 12/18/201802/27 Route: TOPICAL Sig: Apply 1 application to affected area twice daily. Apply to outside of vagina and crease of legs twice a day for 10-14 days. Disc: Reason for discontinue is not on file. Encounter Status:Closed by KILO BONDS MD on 03/09/19 progress on 2019-01 PROGRESS HNO ID: [id number] Normal 01-08-2019 [facility] Author: Deandra Castro [place] ([id number]) Service: ? Author Type: Physician Type: Progress Notes Filed: 01/09/2019 11:54 AM Note Text: Angélica Dawn 1950 REFERRING PHYSICIAN: MD Arturo CHIEF COMPLAINT: Established Patient (Discuss colonscopy) HPI: The patient is a 68 year old female presents for [facility] ons about her upcoming colonoscopy. She initially began by stating that she was in a great deal of pain and that she required narcotic pain medications for her colonosc opy, because she knows that the colon cleansing preparation is going to hurt. I reassured her that she will have adequate anesthesia for t he procedure. She wanted me to prescribe her narcotic pain pills in this e ncounter in anticipation of the pain that she would have after the colon oscopy. I told her that narcotic pain medications after the colonosc opy would not be needed, and I recommended use of acetaminophen and/or ibu profen. She states that the acetaminophen and ibuprofen were not preeti quate. Then she continues on by discussing her vaginal atrophy and that it is causing a great deal of pain. She describes rectal pain that is so severe that she lies all day and that her has to do the lorenzo cery shopping. She states that she is trying a medication for her vaginal a trophy and that every time she goes off it, something bad happens. The first time, her mother . The second time, her dog di ed. At this point, the patient is in tears. She continues in tears and i s sobbing for the remainder of this encounter. She states that she has had pain since the age of 27 and yo u don't know what it's like. I can't take it, I lay in bed and cry. I have offered referral to a pain clinic for the patient. Kendall higgins states that she had seen one of the pain management physicians in [facility] a nd all he does is shots and they don't help and he won't give me pills . She states that she walked out. She refused referral to a pain clinic , because she states - all they do is shots. She states that she paid $300 to obtain a marijuana drug car d and states that she went into a store to look for something to take, bu t everything was too expensive. She thinks that the lorazepam is causing her vaginal atrophy , but she doesn't want to discontinue it, because I don't know what I 'll do . Then she states: my dog's about to . When she learned that I was not a vehicle calibration engineer or a co lorectal surgeon, she stated that she did not know this (even though this was told to her by my staff when she was in clinic last week) She did not want to undergo the procedure (colonoscopy) sche duled for next week. I had offered to refer patient to either a gastroenterologis t and/or a colorectal surgery - she refused. Review of records- patient's rectal pain evaluated by Dr. St laura, a colorectal surgeon, in 2013. He notes that the rectal pain b andrea after the patient's mother was murdered by the patient's sisters. He also noted that patient had a long history of irritable bowel symptoms. He obtained an anal manometry test which he stated was normal. Patient was also seen by Dr. Rogers, a colorectal surgeon, i n February 2018. He had found no abnormalities upon examination and rec ommended referral to a vehicle calibration engineer for which the patient refus ed. 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 - HTN (hypertension) - IBS (irritable bowel syndrome) - Myalgia and myositis, unspecified - Unspecified constipation Constipation - Unspecified hemorrhoids without mention of complication Hemorrhoids - Vaginal high risk HPV DNA test positive 12/2012 Pap negative PAST SURGICAL HISTORY Procedure Laterality Date - COLONOSCOP W/ OR W/O BRSH SPEC 11/27/2001 Colonoscopy - COLONOSCOPY 2013 - LAP CHOLECYSTECT/CHOLANGIOGRAPHY 02/25/2015 - LIGATE FALLOPIAN TUBE 1978 Tubal ligation - VAGINAL HYSTERECTOMY Hysterectomy, vaginal Current Outpatient Medications: OTC NUTRITIONAL SUPPLEMENT ensure loperamide HCl (IMODIUM A-D ORAL) Take by mouth. aspirin/caffeine (MIKA BACK AND BODY ORAL) Take by mouth. clotrimazole-betamethasone (LOTRISONE) cream Apply 1 applica tion to affected area twice daily. Apply to outside of vagina and cr ease of legs twice a day for 10-14 days. Aug Betamethasone Dipropionate (DIPROLENE) 0.05 % ointment A pply 1 application to affected area twice daily. For 7-10 days valACYclovir (VALTREX) 500 mg tablet Take 1 tablet by mouth twice daily. fluconazole (DIFLUCAN) 150 mg tablet 1 pill now, repeat in 4 8 hours. valACYclovir (VALTREX) 500 mg tablet Take 1 tablet by mouth once daily. dicyclomine (BENTYL) 10 mg capsule Take 10 mg by mouth three times daily. Lactobacillus acidophilus (ACIDOPHILUS) cap Take 1-2 capsule s by mouth twice daily with meals. LORazepam (ATIVAN) 2 mg tab atenolol (TENORMIN) 25 mg tablet Take 1 tablet by mouth thre e times daily. famotidine (PEPCID) 20 mg tablet Take 1 tablet by mouth twic e daily. Blood Pressure Cuff - Home Use BLOOD PRESSURE CUFF FOR HOME USE. DX: LABILE BLOOD PRESSURE Cholecalciferol, Vitamin D3, 2,000 unit cap Take 1 tablet by mouth once daily. 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 Social Needs Financial resource strain: Not on file Food insecurity: Worry: Not on file Inability: Not on file Transportation needs: Medical: Not on file Non-medical: Not on file Tobacco Use Smoking status: Current Some Day Smoker Packs/day: 0.50 Types: Cigarettes Start date: 01/01/1997 Smokeless tobacco: Never Used Tobacco comment: 2 cig per day Substance and Sexual Activity Alcohol use: No Drug use: No Sexual activity: Yes Partners: Male Lifestyle Physical activity: Days per week: Not on file Minutes per session: Not on file Stress: Not on file Relationships Social connections: Talks on phone: Not on file Gets together: Not on file Attends christianity service: Not on file Active member of club or organization: Not on file Attends meetings of clubs or organizations: Not on file Relationship status: Not on file Intimate partner violence: Fear of current or ex partner: Not on file Emotionally abused: Not on file Physically abused: Not on file Forced sexual activity: Not on file Other Topics Concerns: Not on file Social History Narrative Not on file FAMILY HISTORY Problem Relation Age of Onset - Diabetes Sister Type 2 - Coronary Artery Disease Father - Cancer Maternal Aunt lung - Cancer Maternal Uncle stomach - Alzheimer's Disease Maternal Aunt - Alzheimer's Disease Mother REVIEW OF SYSTEMS: (obtained by nursing staff and reviewed b y me) General: The patient denies fatigue, denies weight loss, NOT ES weight gain, NOTES feeling hot, and NOTES feelings of cold. Eyes: The patient denies glaucoma, denies eye injury/surgery , does not wear glasses or contacts. Ear/Nose/Throat: The patient denies allergies, denies hayfev er, denies ear infections, and denies bloody noses. Cardiovascular: The patient NOTES chest pain, denies heart d isease, NOTES high blood pressure,denies cardiac stent, denies prior heart attack, denies irregular heart beat, NOTES high cholesterol, denies poor circulation, denies heart failure, other cardiac issues, NOT ES claudication, NOTES cold feet, denies peripheral arterial st ent. Respiratory: The patient denies tuberculosis, denies pneumon ia, NOTES frequent cough, denies pulmonary embolism, denies shor tness of breath, and denies coughing up blood. Gastrointestinal: The patient NOTES difficulty swallowing, N OTES acid reflux, denies ulcers, denies vomiting, denies jaundice /hepatitis, NOTES gallbladder problems, denies black or tarry stools, NO IRVIN hemorrhoids, denies bleeding from rectum, denies diverticuli tis, NOTES constipation, NOTES diarrhea, NOTES loss of stool control, a nd denies hernias. Kidney/Bladder: The patient denies kidney stones, denies uri ne infections, and denies bloody urine. Skin: The patient denies a history of skin cancer, denies bleeding/changing moles, and denies a history of skin rash. Neurologic: The patient denies a history of epilepsy/convuls ions, NOTES headaches, denies head/spinal injuries, and denies str mihaela/TIA. Psychiatric: The patient NOTES psychiatric medications, NOTE S depression, and denies voices, denies substance abuse. Endocrine: The patient denies thyroid disorders, denies diab etes, and NOTES hormonal problems. Hematologic: The patient denies a history of bruising, denie s bleeding, and denies anemia, denies blood clots. Infections: The patient denies a history of measles and mump s, denies rheumatic fever, and NOTES sexually transmitted disea ses. Musculoskeletal: The patient NOTES back pain/injury, NOTES b ack problems, denies sciatica, denies knee/foot trouble, NOTES a rthritis, or denies gout. PHYSICAL EXAMINATION: General: The patient is 68 year old female, well nourished, well hydrated in no acute distress. The patient is oriented to time, place , and person. VITALS: BP 148/80 RR 14 HR 82 Ht 5'3 Wt:167# Head ? Normocephalic. EOM intact with sclera clear and no ic terus noted. Mouth with mucus membranes moist. Neck - supple with no jugular venous distention noted. Trach ea is midline. Lungs ? no labored breathing noted, such as retractions. No cough heard. Abdomen ? soft and benign. Difficult to determine if any mas ses or organomegaly due to body habitus. Extremities ? no pitting edema noted. Skin ? normal skin integrity. Neurological ? no focal deficits noted. Psych ? tearful, anxious but appropriate Assessment IMPRESSION: chronic rectal pain PLAN: I have discussed the above with the patient. I had also discussed physical examination findings with Dejuan Key PA-C, who had evaluated patient last week. The majority of this patient encounter was involved in discu ssion of the patient's multiple complaints and calamities. She often spea ks tangentially, as in stating that her does the grocer y shopping, and her dog dying, etc. When asked specifically about her sy mptoms, she responds only that she is in chronic pain and that it is sev ere and that it has been present for many years and none of the treatment s in the past has worked. She states that she is not a drug addict and wou ld use any narcotics that I would prescribe her very carefully. In the records, there is note of opioid addiction and a hospitalization note d for withdrawal symptoms from opioids. She has been evaluated by multiple specialists. She does hav e symptoms of irritable bowel syndrome for which a referral to a gastroent erologist (who specializes in IBS) at [facility] may be of benefit. (I do not believe that there are any surgical options to offer the patient) Sh e states that she doesn't want to travel to [place]. I have explained th at the specialists at that location would be better equipped to hel p her. She still refuses. I mentioned that she might benefit with talking to a therap ist and she then said you all think I am crazy, I am not. I am in pain (and she points to her perineum) and you need to find it! Once again, I had offered endoscopic evaluation to patient, but she refused. I have offered referral to colorectal surgery and/or gastroe nterology, but she refused. She states that they probably wouldn't given her pills also. Because of her chronic pain, I have offered patient referral to a pain management clinic but she refused. Greater than 50% of this patient encounter was dedicated to face to face discussion with the patient - total time spent with the lindsay ent - 25 minutes. . Diagnoses: (K62.89) Anal or rectal pain (primary encounter d iagnosis) Return to Clinic: The patient is instructed to follow-up wit h me as per needed. I have confirmed and edited as necessary, the [facility] and HERMAN gonzales btained by others. MD naveen Cash on 2019-01-08 CNOV Office Visit (GENSWS) Normal 01-09-20 19 [place] [facility] ANGÉLICA DAWN ([id number]) 1950 [facility] Date Time Provider Department ([id number]) 01/08/19 3:30 PM DEANDRA CASTRO During your visit today, we recorded the following informati on about you: Deandra Castro MD 01/09/2019 11:54 AM Signed Angélica Dawn 1950 REFERRING PHYSICIAN: MD Arturo CHIEF COMPLAINT: Established Patient (Discuss colonscopy) HPI: The patient is a 68 year old female presents for [facility] about her upcoming colonoscopy. She initially began by stating that she was in a great deal of pain and that she required narcotic pain medications for her c olonoscopy, because she knows that the colon cleansing preparation is going to hurt. I reassured her that she will have adequate anesthesia for t he procedure. She wanted me to prescribe her narcotic pain pills in this e ncounter in anticipation of the pain that she would have after the colon oscopy. I told her that narcotic pain medications after the co lonoscopy would not be needed, and I recommended use of acetaminophen and/or ibupro fen. She states that the acetaminophen and ibuprofen were not preeti quate. Then she continues on by discussing her vaginal atrophy and that it is causing a great deal of pain. She describes rectal pain that is so s evere that she lies all day and that her has to do the grocery shop ping. She states that she is trying a medication for her vaginal atrophy and that every time she goes off it, something bad happens. The first time, her mother . The second time, her dog di ed. At this point, the patient is in tears. She continues in tears and is sobbing for the remainder of this encounter. She states that she has had pain since the age o f 27 and you don't know what it's like. I can't take it, I lay in bed and cry. I have offered referral to a pain clinic for the patient. She states that she had seen one of the pain management physicians in [facility] and a ll he does is shots and they don't help and he won't give me pills. She states that she walked out. She refused referral to a pain clinic, because she states - all they do is shots. She states that she paid $300 to obtain a [employer] drug card and states that she went into a store to look for something to take, but e verything was too expensive. She thinks that the lorazepam is causing her vag inal atrophy, but she doesn't want to discontinue it, because I don't know what I'll do . Then she states: my dog's about to . When she learned that I was not a gastroenterolo gist or a colorectal surgeon, she stated that she did not know this (even bonifacio salas this was told to her by my staff when she was in clinic last week) She did not want to undergo the procedure (colonoscopy) scheduled for next week. I had offered to refer patient to either a gastroenterologis t and/or a colorectal surgery - she refused. Review of records- patient's rectal pain evaluated by Dr. Reyes, a colorectal surgeon, in 2013. He notes that the rectal pain began after the patient's mother was murdered by the patient's sis ters. He also noted that patient had a long history of irritable bowel symptoms. He obtained an anal manometry test which he stated was normal. Patient was also seen by Dr. Rogers, a colorectal surg leno, in February 2018. He had found no abnormalities upon examination and rec ommended referral to a vehicle calibration engineer for which the patient refused. 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 - HTN (hypertension) - IBS (irritable bowel syndrome) - Myalgia and myositis, unspecified - Unspecified constipation Constipation - Unspecified hemorrhoids without mention of complication Hemorrhoids - Vaginal high risk HPV DNA test positive 12/2012 Pap negative PAST SURGICAL HISTORY Procedure Laterality Date - COLONOSCOP W/ OR W/O [facility] SPEC 11/27/2001 Colonoscopy - COLONOSCOPY 2013 - LAP CHOLECYSTECT/CHOLANGIOGRAPHY 02/25/2015 - LIGATE FALLOPIAN TUBE 1977 Tubal ligation - VAGINAL HYSTERECTOMY Hysterectomy, vaginal Current Outpatient Medications: OTC NUTRITIONAL SUPPLEMENT ensure loperamide HCl (IMODIUM A-D ORAL) Take by mouth. aspirin/caffeine (MIKA BACK AND BODY ORAL) Take by mouth. clotrimazole-betamethasone (LOTRISONE) cream Apply 1 a pplication to affected area twice daily. Apply to o utside of vagina and crease of legs twice a day for 10-14 days. Aug Betamethasone Dipropionate (DIPROLEN E) 0.05 % ointment Apply 1 application to affected area twice daily. For 7-10 days valACYclovir (VALTREX) 500 mg tablet Take 1 tablet by mouth twice daily. fluconazole (DIFLUCAN) 150 mg tablet 1 pill now, repeat in 4 8 hours. valACYclovir (VALTREX) 500 mg tablet Take 1 tablet by mouth once daily. dicyclomine (BENTYL) 10 mg capsule Take 10 mg by mouth three times daily. Lactobacillus acidophilus (ACIDOPHILUS) cap Take 1-2 c apsules by mouth twice daily with meals. LORazepam (ATIVAN) 2 mg tab atenolol (TENORMIN) 25 mg tablet Take 1 tablet by mouth thre e times daily. famotidine (PEPCID) 20 mg tablet Take 1 tablet by mouth twic e daily. Blood Pressure Cuff - Home Use BLOOD PRESSURE CUFF FOR KAMLESH E USE. DX: LABILE BLOOD PRESSURE Cholecalciferol, Vitamin D3, 2,000 unit cap Take 1 tablet by mouth once daily. 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 Needs Financial resource strain: Not on file Food insecurity: Worry: Not on file Inability: Not on file Transportation needs: Medical: Not on file Non-medical: Not on file Tobacco Use Smoking status: Current Some Day Smoker Packs/day: 0.50 Types: Cigarettes Start date: 01/01/1997 Smokeless tobacco: Never Used Tobacco comment: 2 cig per day Substance and Sexual Activity Alcohol use: No Drug use: No Sexual activity: Yes Partners: Male Lifestyle Physical activity: Days per week: Not on file Minutes per session: Not on file Stress: Not on file Relationships Social connections: Talks on phone: Not on file Gets together: Not on file Attends christianity service: Not on file Active member of club or organization: Not on file Attends meetings of clubs or organizations: Not on file Relationship status: Not on file Intimate partner violence: Fear of current or ex partner: Not on file Emotionally abused: Not on file Physically abused: Not on file Forced sexual activity: Not on file Other Topics Concerns: Not on file Social History Narrative Not on file FAMILY HISTORY Problem Relation Age of Onset - Diabetes Sister Type 2 - Coronary Artery Disease Father - Cancer Maternal Aunt lung - Cancer Maternal Uncle stomach - Alzheimer's Disease Maternal Aunt - Alzheimer's Disease Mother REVIEW OF SYSTEMS: (obtained by nursing staff and reviewed b y me) General: The patient denies fatigue, denies weight loss, NOT ES weight gain, NOTES feeling hot, and NOTES feelings of cold. Eyes: The patient denies glaucoma, denies eye injury/surgery , does not wear glasses or contacts. Ear/Nose/Throat: The patient denies allergies, denies hayfev er, denies ear infections, and denies bloody noses. Cardiovascular: The patient NOTES chest pain, denies heart d isease, NOTES high blood pressure,denies cardiac stent, denies prior hea rt attack, denies irregular heart beat, NOTES high cholesterol, de nies poor circulation, denies heart failure, other cardiac issues, NOTES claudication, NOT ES cold feet, denies peripheral arterial stent. Respiratory: The patient denies tuberculosis, denies pneumon ia, NOTES frequent cough, denies pulmonary embolism, denies shortness of breath, and denies coughing up blood. Gastrointestinal: The patient NOTES difficulty swallowing, N OTES acid reflux, denies ulcers, denies vomiting, denies jaundice/hepa titis, NOTES gallbladder problems, denies black or tarry stoo ls, NOTES hemorrhoids, denies bleeding from rectum, denies diverticulitis, NOTES constipat ion, NOTES diarrhea, NOTES loss of stool control, and denies hernias. Kidney/Bladder: The patient denies kidney stones, denies uri ne infections, and denies bloody urine. Skin: The patient denies a history of skin cancer, denies bleeding/changing moles, and denies a history of skin rash. Neurologic: The patient denies a history of epilepsy/convuls ions, NOTES headaches, denies head/spinal injuries, and denies stroke/TI A. Psychiatric: The patient NOTES psychiatric medications, NOTE S depression, and denies voices, denies substance abuse. Endocrine: The patient denies thyroid disorders, denies diab etes, and NOTES hormonal problems. Hematologic: The patient denies a history of bruising, denie s bleeding, and denies anemia, denies blood clots. Infections: The patient denies a history of measles and mump s, denies rheumatic fever, and NOTES sexually transmitted diseases. Musculoskeletal: The patient NOTES back pain/injury, NOTES b ack problems, denies sciatica, denies knee/foot trouble, NOTES arthritis , or denies gout. PHYSICAL EXAMINATION: General: The patient is 68 year old female, well traci shed, well hydrated in no acute distress. The patient is oriented to time, place, a nd person. VITALS: BP 148/80 RR 14 HR 82 Ht 5'3 Wt:167# Head ? Normocephalic. EOM intact with sc liza clear and no icterus noted. Mouth with mucus membranes moist. Neck - supple with no jugular venous distention noted. Trach ea is midline. Lungs ? no labored breathing noted, such as retractions. No cough heard. Abdomen ? soft and benign. D ifficult to determine if any masses or organomegaly due to body habitus. Extremities ? no pitting edema noted. Skin ? normal skin integrity. Neurological ? no focal deficits noted. Psych ? tearful, anxious but appropriate Assessment IMPRESSION: chronic rectal pain PLAN: I have discussed the above with the patient. I had also discussed physical examinatio n findings with Kate Shaver PA-C, who had evaluated patient last week. The majority of this patient encounter was involved in discu ssion of the patient's multiple complaints and calamities. She lexie hiren speaks tangentially, as in stating that her does the grocery shoppi ng, and her dog dying, etc. When asked specifically about her s ymptoms, she responds only that she is in chronic pain and that it is severe and that it has been present for many years and none of the treatments in the past has worke d. She states that she is not a drug addict and would use any narcotics that I wo uld prescribe her very carefully. In the records, there is note of opioid chaparro ction and a hospitalization noted for withdrawal symptoms from opioids. She has been evaluated by multiple specialists. She does hav e symptoms of irritable bowel syndrome for which a referral to a gastroent erologist (who specializes in IBS) at [facility] may be of benefit. (I do not believe that there are any surgical options to offer the patient) She sta irvin that she doesn't want to travel to [place]. I have expl ained that the specialists at that location would be better equipped to help her. She stil l refuses. I mentioned that she might benefit with talking to a therapist and she then said you all think I am crazy, I am not. I am i n pain (and she points to her perineum) and you need to find it! Once again, I had offered endoscopic evaluation to humaira silvestre, but she refused. I have offered referral to colorectal garza rgery and/or gastroenterology, but she refused. She states that they probably wouldn't given her pills also. Because of her chronic pain, I have offered patient referral to a pain management clinic but she refused. Greater than 50% of this patient encounter was dedicated to face to face discussion with the patient - total time spent w ith the patient - 25 minutes. . Diagnoses: (K62.89) Anal or rectal pain (primary encounter d iagnosis) Return to Clinic: The lindsayen t is instructed to follow-up with me as per needed. I have confirmed and edited as necessary , the PFSH and ROS obtained by others. Deandra Castro MD Referring Provider: SELF [[id number]] Allergies As of Date: 01/08/2019 Noted Allergy Reaction VENLAFAXINE 05/14/2012 4 - Hives CLONIDINE 09/27/2015 5 - Intolerance Comments: pain all over DEPAKOTE (DIVALPROEX SODIUM) 10/21/2010 14 - Other: See Comm ents Comments: body jerks DESIPRAMINE 12/09/2009 5 - Intolerance Comments: crying DOXYCYCLINE 11/29/2011 4 - Hives FLAGYL (METRONIDAZOLE HCL) 08/06/2012 4 - Hives 9 - Itching IMIPRAMINE 12/09/2009 4 - Hives Comments: wt gain IMITREX (SUMATRIPTAN SUCCINATE) 12/09/2009 5 - Intolerance Comments: anxiety NEURONTIN (GABAPENTIN) 03/13/2013 4 - Hives PRISTIQ (DESVENLAFAXINE) 04/13/2011 1 - Mental Status Change Comments: headache,anorexia PROZAC (FLUOXETINE HCL) 11/24/2010 1 - Mental Status Change Comments: confusion,frequent falls,bladder pain SERTRALINE 06/26/2011 14 - Other: See Comments Comments: dysuria,bladder pain ULTRAM (TRAMADOL HCL) 02/14/2006 8 - GI Upset VESICARE (SOLIFENACIN SUCCINATE) 11/09/2009 5 - Intolerance Comments: blurred vision,trouble swallow WELLBUTRIN (BUPROPION HCL) 12/09/2009 5 - Intolerance Comments: anxiety, sob Date Reviewed: 01/08/2019 Reviewed by: Deandra Castro - Fully Assessed Reason for Visit: Established Patient [[id number]] Cmt: Discuss colonscopy Primary Visit Diagnosis:Anal or rectal pain [K62.89] Prescriptions as of 01/08/2019 Sig: OTC NUTRITIONAL SUPPLEMENT ensure IMODIUM A-D ORAL Take by mouth. MIKA BACK AND BODY ORAL Take by mouth. CLOTRIMAZOLE-BETAMETHASONE 1 * Apply 1 application to affect * BETAMETHASONE, AUGMENTED 0.05* Apply 1 application to affect * VALACYCLOVIR 500 MG TABLET Take 1 tablet by mouth twice * FLUCONAZOLE 150 MG TABLET 1 pill now, repeat in 48 hour* VALACYCLOVIR 500 MG TABLET Take 1 tablet by mouth once d* DICYCLOMINE 10 MG CAP (BENTYL* Take 10 mg by mouth three bhavya * LACTOBACILLUS ACIDOPHILUS CAP* Take 1-2 capsules by mouth tw * LORAZEPAM 2 MG TABLET ATENOLOL 25 MG TABLET Take 1 tablet by mouth three * FAMOTIDINE 20 MG TABLET Take 1 tablet by mouth twice * COMPOUNDED PRESCRIPTION BLOOD PRESSURE CUFF FOR HOME * CHOLECALCIFEROL (VITAMIN D3) * Take 1 tablet by mouth once d * Problem List As Of Date 01/08/2019 Noted Resolved DEPRESSIVE DISORDER NEC [F32.9] INVALID FOR* KIMBERLY (generalized anxiety disorder) [F41.1] INVALID FOR* HEADACHE [R51] INVALID FOR* HEMORRHOIDS NOS [K64.9] More... Myalgia [M79.10] COMMON MIGRAINE W/O MENTN INTRACT [G43.009] INVALID FOR* Chronic Interstitial Cystitis [N30.10] INVALID FOR* Pelvic Pain in Female [R10.2] INVALID FOR* Osteopenia [M85.80] INVALID FOR* More... Cystitis [N30.90] INVALID FOR* Cough [R05] INVALID FOR* Weight gain [R63.5] INVALID FOR* Fibromyalgia [M79.7] INVALID FOR* Anxiety [F41.9] INVALID FOR* Unspecified pruritic disorder [L29.9] INVALID FOR* Postmenopausal atrophic vaginitis [N95.2] INVALID FOR* Unspecified constipation [K59.00] INVALID FOR* Vaginal pain [R10.2] INVALID FOR* Rectal pain [K62.89] INVALID FOR* Adjustment disorder with mixed anxiety and depr*INVALID FOR* Vaginal burning [N94.9] INVALID FOR* Chronic pain [G89.29] INVALID FOR* Perineal pain in female [N94.9] INVALID FOR* Constipation [K59.00] INVALID FOR* Stress and adjustment reaction [F43.29] INVALID FOR* Tubular adenoma of colon [D12.6] INVALID FOR* Opiate dependence (HCC) [F11.20] INVALID FOR* Vaginal high risk HPV DNA test positive [R87.81*INVALID FOR* More... HPV test positive [[id number]] INVALID FOR* More... Generalized abdominal pain [R10.84] INVALID FOR* Other cholelithiasis without obstruction [K80.8*INVALID FOR* HTN (hypertension) [I10] BV (bacterial vaginosis) [N76.0, B96.89] HSV-2 (herpes simplex virus 2) infection [B00.9] Encounter Status:Closed by MD DEANDRA CASTRO on 01/09/19 progress on 2018-12 PROGRESS HNO ID: [id number] Normal 01-06-2019 [facility] Author: Kate Shaver Finn ([id number]) Service: ? Author Type: Physician Gas Meter Repair Supervisor Type: Progress Notes Filed: 01/06/2019 7:11 PM Note Text: HISTORY AND PHYSICAL Angélica Dawn 1950 REFERRING PHYSICIAN: MD Arturo CHIEF COMPLAINT: Consult (Consult Diarrhea rectal pain) HPI: The patient is a 68 year old female referred for rectal pain and diarrhea. Angélica notes pain with sitting. She notes frequent loose stools which worsens the irritation in her rectal area. Denies bloo d in stools, black tarry stools or abdominal pain. Denies family history of colon issues. The patient notes no upper GI complaints. Angélica has undergone prior endoscopy. She notes significant a nxiety regarding endoscopy citing that she was fully awake for r 2011 colonoscopy which was done under moderate sedation. Notes sh ronaldo remembered everything and had extreme discomfort with that procedure. Patient recalls was told after colonoscopy that I have a pouch in m y rectum. Notes has chronic vaginal pain as well, saw MECHANICAL PROJECT ENGINEER and was diag nosed with vaginal atrophy. Patient had another colonoscopy which was done in [place] in 2013, scanned records reviewed in [facility]. She had polyps removed at that time, pathology report not available for review. She was also note d to have small external hemorrhoids and decreased sphincter tone. Rec ommendations included seeing a colorectal surgeon and having anal sphinct er manometry. Patient states she was unaware of that finding and did not s ee colorectal at that time. She did see a colorectal surgeon in February 08 for rectal pain, that note is reviewed. She was not found to hav e any specific abnormalities at that time, and her symptoms were f elt to possibly be related to IBS. Gastroenterology was recommended , however per Dr. Rogers's note the patient declined referral at that time . She denies having another rectal exam since that time. She d enies seeing anyone in gastroenterology recently. 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 - HTN (hypertension) - IBS (irritable bowel syndrome) - Myalgia and myositis, unspecified - Unspecified constipation Constipation - Unspecified hemorrhoids without mention of complication Hemorrhoids - Vaginal high risk HPV DNA test positive 12/2012 Pap negative PAST SURGICAL HISTORY Procedure Laterality Date - COLONOSCOP W/ OR W/O [facility] SPEC 11/27/2001 Colonoscopy - COLONOSCOPY 2013 - LAP CHOLECYSTECT/CHOLANGIOGRAPHY 02/25/2015 - LIGATE FALLOPIAN TUBE 1978 Tubal ligation - VAGINAL HYSTERECTOMY Hysterectomy, vaginal Current Outpatient Medications: OTC NUTRITIONAL SUPPLEMENT ensure loperamide HCl (IMODIUM A-D ORAL) Take by mouth. aspirin/caffeine (MIKA BACK AND BODY ORAL) Take by mouth. clotrimazole-betamethasone (LOTRISONE) cream Apply 1 applica tion to affected area twice daily. Apply to outside of vagina and cr ease of legs twice a day for 10-14 days. valACYclovir (VALTREX) 500 mg tablet Take 1 tablet by mouth twice daily. dicyclomine (BENTYL) 10 mg capsule Take 10 mg by mouth three times daily. LORazepam (ATIVAN) 2 mg tab famotidine (PEPCID) 20 mg tablet Take 1 tablet by mouth twic e daily. Cholecalciferol, Vitamin D3, 2,000 unit cap Take 1 tablet by mouth once daily. Aug Betamethasone Dipropionate (DIPROLENE) 0.05 % ointment A pply 1 application to affected area twice daily. For 7-10 days fluconazole (DIFLUCAN) 150 mg tablet 1 pill now, repeat in 4 8 hours. valACYclovir (VALTREX) 500 mg tablet Take 1 tablet by mouth once daily. Lactobacillus acidophilus (ACIDOPHILUS) cap Take 1-2 capsule s by mouth twice daily with meals. atenolol (TENORMIN) 25 mg tablet Take 1 tablet by mouth thre e times daily. Blood Pressure Cuff - Home Use BLOOD PRESSURE CUFF FOR HOME USE. DX: LABILE BLOOD PRESSURE No current facility-administered medications for this visit. 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 Social Needs Financial resource strain: Not on file Food insecurity: Worry: Not on file Inability: Not on file Transportation needs: Medical: Not on file Non-medical: Not on file Tobacco Use Smoking status: Current Some Day Smoker Packs/day: 0.50 Types: Cigarettes Start date: 01/01/1997 Smokeless tobacco: Never Used Tobacco comment: 2 cig per day Substance and Sexual Activity Alcohol use: No Drug use: No Sexual activity: Yes Partners: Male Lifestyle Physical activity: Days per week: Not on file Minutes per session: Not on file Stress: Not on file Relationships Social connections: Talks on phone: Not on file Gets together: Not on file Attends christianity service: Not on file Active member of club or organization: Not on file Attends meetings of clubs or organizations: Not on file Relationship status: Not on file Intimate partner violence: Fear of current or ex partner: Not on file Emotionally abused: Not on file Physically abused: Not on file Forced sexual activity: Not on file Other Topics Concerns: Not on file Social History Narrative Not on file FAMILY HISTORY: FAMILY HISTORY Problem Relation Age of Onset - Diabetes Sister Type 2 - Coronary Artery Disease Father - Cancer Maternal Aunt lung - Cancer Maternal Uncle stomach - Alzheimer's Disease Maternal Aunt - Alzheimer's Disease Mother REVIEW OF SYMPTOMS: The review of systems data was entered by the nurse and revi ewed by nj Nursing Notes: J Luis Ivette ANDREW 01/01/2019 2:34 PM Signed REVIEW OF SYSTEMS: General: The patient denies fatigue, denies weight loss, NOT ES weight gain, NOTES feeling hot, and NOTES feelings of cold. Eyes: The patient denies glaucoma, denies eye injury/surgery , does not wear glasses or contacts. Ear/Nose/Throat: The patient denies allergies, denies hayfev er, denies ear infections, and denies bloody noses. Cardiovascular: The patient NOTES chest pain, denies heart d isease, NOTES high blood pressure,denies cardiac stent, denies prior heart attack, denies irregular heart beat, NOTES high cholesterol, denies poor circulation, denies heart failure, other cardiac issues, NOT ES claudication, NOTES cold feet, denies peripheral arterial st ent. Respiratory: The patient denies tuberculosis, denies pneumon ia, NOTES frequent cough, denies pulmonary embolism, denies shor tness of breath, and denies coughing up blood. Gastrointestinal: The patient NOTES difficulty swallowing, N OTES acid reflux, denies ulcers, denies vomiting, denies jaundice /hepatitis, NOTES gallbladder problems, denies black or tarry stools, NO IRVIN hemorrhoids, denies bleeding from rectum, denies diverticuli tis, NOTES constipation, NOTES diarrhea, NOTES loss of stool control, a nd denies hernias. Kidney/Bladder: The patient denies kidney stones, denies uri ne infections, and denies bloody urine. Skin: The patient denies a history of skin cancer, denies bleeding/changing moles, and denies a history of skin rash. Neurologic: The patient denies a history of epilepsy/convuls ions, NOTES headaches, denies head/spinal injuries, and denies str mihaela/TIA. Psychiatric: The patient NOTES psychiatric medications, NOTE S depression, and denies voices, denies substance abuse. Endocrine: The patient denies thyroid disorders, denies diab etes, and NOTES hormonal problems. Hematologic: The patient denies a history of bruising, denie s bleeding, and denies anemia, denies blood clots. Infections: The patient denies a history of measles and mump s, denies rheumatic fever, and NOTES sexually transmitted disea ses. Musculoskeletal: The patient NOTES back pain/injury, NOTES b ack problems, denies sciatica, denies knee/foot trouble, NOTES a rthritis, or denies gout. When was patient's last Mammogram screening? 2019? Last Colonoscopy: 2013 J Luis Toro LPN I have confirmed and edited as necessary, the PFSH and ROS o btained by others. PHYSICAL EXAMINATION: General: The patient is 68 year old female, well nourished, well hydrated in no acute distress. The patient is oriented to time, place , and person. VITALS: Blood pressure 152/78, pulse 86, temperature 36.4 ?C (97.6 ?F), height 158.8 cm (5' 2.5), weight 75.8 kg (167 lb), SpO2 98 %. Body mass index is 30.06 kg/m?. HEENT: Normal cephalic, ataumatic, pupils are equally round, sclera are anicteric, mucous membranes are moist, oropharynx is clear. Neck has no masses, asymmetry or lymphadenopathy. Respiratory: Clear to auscultation and percussion. Normal re spiratory excursion and pattern. Cardiac: Examination is regular rate and rhythm. Normal S1/S 2 Abdominal exam: Soft, nontender, with no palpable masses. No hepatosplenomegaly. No palpable hernias. Extremities: no clubbing, cyanosis or edema. No adenopathy. Other: rectal examination showed LABORATORY VALUES: As Noted RADIOLOGIC STUDIES: As Noted Assessment IMPRESSION: rectal pain, loose stools, pain with sitting, hi story of colon polyps PLAN: I have reviewed my findings with the surgeon. Will sydnie n for lower endoscopy with anoscopy with close inspection of rectum and random biopsies. We discussed the risks and benefits of the planned endoscopy. I have informed the patient that complications can occur inc luding failure to complete the endoscopy and perforation. The patient had t he opportunity to ask questions concerning the planned endoscop y. My staff has also explained the procedure to the patient in understan dable terms and has given the patient printed material concerning the pr ocedure. The patient freely consents to surgery. I plan to use Golytely bowel preparation We will plan for Monitored Anesthetic Care. Recall and disco mfort with prior endoscopy done under moderate sedation If no concerning findings on endoscopy, recommend establishi ng with gastroenterology for further evaluation and management of IB S symptoms Patient verbalized understanding of all above and agreed wit h the plan. Diagnoses: (K62.89) Anal or rectal pain (primary encounter d iagnosis) (R19.7) Diarrhea, unspecified type (Z87.19) History of IBS (N95.2) Vaginal atrophy KEKE Richardson on 2019-01-01 CNOV Office Visit (SWS) Normal 01-02-20 19 [facility] ANGÉLICA DAWN ([id number]) 1950 [facility] Date Time Provider Department ([id number]) 01/01/19 2:30 PM KATE SHAVER During your visit today, we recorded the following informati on about you: Temperature Pulse Blood pressure Weight 97.6 degrees 86/minute 152/78 75.8 kg Height 1.588 m J Luis Toro LPN 01/01/2019 2:34 PM Signed REVIEW OF SYSTEMS: General: The patient denies fatigue, denies weight loss, NOT ES weight gain, NOTES feeling hot, and NOTES feelings of cold. Eyes: The patient denies glaucoma, denies eye injury/surgery , does not wear glasses or contacts. Ear/Nose/Throat: The patient denies allergies, denies hayfev er, denies ear infections, and denies bloody noses. Cardiovascular: The patient NOTES chest pain, denies heart d isease, NOTES high blood pressure,denies cardiac stent, denies prior hea rt attack, denies irregular heart beat, NOTES high cholesterol, de nies poor circulation, denies heart failure, other cardiac issues, NOTES claudication, NOT ES cold feet, denies peripheral arterial stent. Respiratory: The patient denies tuberculosis, denies pneumon ia, NOTES frequent cough, denies pulmonary embolism, denies shortness of breath, and denies coughing up blood. Gastrointestinal: The patient NOTES difficulty swallowing, N OTES acid reflux, denies ulcers, denies vomiting, denies jaundice/hepa titis, NOTES gallbladder problems, denies black or tarry stoo ls, NOTES hemorrhoids, denies bleeding from rectum, denies diverticulitis, NOTES constipat ion, NOTES diarrhea, NOTES loss of stool control, and denies hernias. Kidney/Bladder: The patient denies kidney stones, denies uri ne infections, and denies bloody urine. Skin: The patient denies a history of skin cancer, denies bleeding/changing moles, and denies a history of skin rash. Neurologic: The patient denies a history of epilepsy/convuls ions, NOTES headaches, denies head/spinal injuries, and denies stroke/TI A. Psychiatric: The patient NOTES psychiatric medications, NOTE S depression, and denies voices, denies substance abuse. Endocrine: The patient denies thyroid disorders, denies diab etes, and NOTES hormonal problems. Hematologic: The patient denies a history of bruising, denie s bleeding, and denies anemia, denies blood clots. Infections: The patient denies a history of measles and mump s, denies rheumatic fever, and NOTES sexually transmitted diseases. Musculoskeletal: The patient NOTES back pain/injury, NOTES b ack problems, denies sciatica, denies knee/foot trouble, NOTES arthritis , or denies gout. When was patient's last Mammogram screening? 2019? Last Colonoscopy: 2013 J Luis Shaver PA-C 01/06/2019 7:11 PM Signed HISTORY AND PHYSICAL Angélica Axel Dawn 1950 REFERRING PHYSICIAN: MD Arturo CHIEF COMPLAINT: Consult (Consult Diarrhea rectal pain) HPI: The patient is a 68 yea r old female referred for rectal pain and diarrhea. Angélica notes pain with sitting. She notes frequent loos e stools which worsens the irritation in her rectal area. Denies blood in stools, black tarry stools or abdominal pain. Denies family history of colon issues. The patient notes no upper GI complaints. Angélica has undergone prior endoscopy. She notes signifi cant anxiety regarding endoscopy citing that she was fully batsheva ke for her 2011 colonoscopy which was done under moderate sedation. Notes she remembered everythi ng and had extreme discomfort with that procedure. Patient recalls was told after colonoscopy that I have a pouch in my r ectum. Notes has chronic vaginal pain as well, saw MECHANICAL PROJECT ENGINEER and was diagnosed with vaginal atrophy. Patient had another colonoscopy which was done in [facility] in 2013, scanned records reviewed in [facility]. She had polyps removed at that [facility], pathology report not available for review. She was also noted to have small external hemorrhoids and decreased sphincter tone. Recommendations included seeing a colorectal surgeon and having anal sphin cter manometry. Patient states she was unaware of that finding and did not see colorectal at that time. She did see a colorectal surgeon in February 2018 for rectal pain, that note is reviewed. She was not found to have any specific abnormalities at that time, and her symptoms were felt to possibly be related to IBS. Gastroente rology was recommended, however per Dr. Rogers's note the patient dec lined referral at that time. She denies having another rectal exam since that time. She d enies seeing anyone in gastroenterology recently. 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 - HTN (hypertension) - IBS (irritable bowel syndrome) - Myalgia and myositis, unspecified - Unspecified constipation Constipation - Unspecified hemorrhoids without mention of complication Hemorrhoids - Vaginal high risk HPV DNA test positive 12/2012 Pap negative PAST SURGICAL HISTORY Procedure Laterality Date - COLONOSCOP W/ OR W/O [facility] SPEC 11/27/2001 Colonoscopy - COLONOSCOPY 2013 - LAP CHOLECYSTECT/CHOLANGIOGRAPHY 02/25/2015 - LIGATE FALLOPIAN TUBE 1978 Tubal ligation - VAGINAL HYSTERECTOMY Hysterectomy, vaginal Current Outpatient Medications: OTC NUTRITIONAL SUPPLEMENT ensure loperamide HCl (IMODIUM A-D ORAL) Take by mouth. aspirin/caffeine (MIKA BACK AND BODY ORAL) Take by mouth. clotrimazole-betamethasone (LOTRISONE) cream Apply 1 a pplication to affected area twice daily. Apply to o utside of vagina and crease of legs twice a day for 10-14 days. valACYclovir (VALTREX) 500 mg tablet Take 1 tablet by mouth twice daily. dicyclomine (BENTYL) 10 mg capsule Take 10 mg by mouth three times daily. LORazepam (ATIVAN) 2 mg tab famotidine (PEPCID) 20 mg tablet Take 1 tablet by mouth twic e daily. Cholecalciferol, Vitamin D3, 2,000 unit cap Take 1 tablet by mouth once daily. Aug Betamethasone Dipropionate (DIPROLEN E) 0.05 % ointment Apply 1 application to affected area twice daily. For 7-10 days fluconazole (DIFLUCAN) 150 mg tablet 1 pill now, repeat in 4 8 hours. valACYclovir (VALTREX) 500 mg tablet Take 1 tablet by mouth once daily. Lactobacillus acidophilus (ACIDOPHILUS) cap Take 1-2 c apsules by mouth twice daily with meals. atenolol (TENORMIN) 25 mg tablet Take 1 tablet by mouth thre e times daily. Blood Pressure Cuff - Home Use BLOOD PRESSURE CUFF FOR KAMLESH E USE. DX: LABILE BLOOD PRESSURE No current facility-administered medications for this visit. 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 Needs Financial resource strain: Not on file Food insecurity: Worry: Not on file Inability: Not on file Transportation needs: Medical: Not on file Non-medical: Not on file Tobacco Use Smoking status: Current Some Day Smoker Packs/day: 0.50 Types: Cigarettes Start date: 01/01/1997 Smokeless tobacco: Never Used Tobacco comment: 2 cig per day Substance and Sexual Activity Alcohol use: No Drug use: No Sexual activity: Yes Partners: Male Lifestyle Physical activity: Days per week: Not on file Minutes per session: Not on file Stress: Not on file Relationships Social connections: Talks on phone: Not on file Gets together: Not on file Attends christianity service: Not on file Active member of club or organization: Not on file Attends meetings of clubs or organizations: Not on file Relationship status: Not on file Intimate partner violence: Fear of current or ex partner: Not on file Emotionally abused: Not on file Physically abused: Not on file Forced sexual activity: Not on file Other Topics Concerns: Not on file Social History Narrative Not on file FAMILY HISTORY: FAMILY HISTORY Problem Relation Age of Onset - Diabetes Sister Type 2 - Coronary Artery Disease Father - Cancer Maternal Aunt lung - Cancer Maternal Uncle stomach - Alzheimer's Disease Maternal Aunt - Alzheimer's Disease Mother REVIEW OF SYMPTOMS: The review of systems data was entered by the nurse and revi ewed by nj Nursing Notes: J Luis Toro LPN 01/01/2019 2:34 PM Signed REVIEW OF SYSTEMS: General: The patient denies fatigue, denies weight loss, NOT ES weight gain, NOTES feeling hot, and NOTES feelings of cold. Eyes: The patient denies glaucoma, denies eye injury/surgery , does not wear glasses or contacts. Ear/Nose/Throat: The patient denies allergies, denies hayfev er, denies ear infections, and denies bloody noses. Cardiovascular: The patient NOTES chest pain, denies heart d isease, NOTES high blood pressure,denies cardiac stent, denies prior hea rt attack, denies irregular heart beat, NOTES high cholesterol, de nies poor circulation, denies heart failure, other cardiac issues, NOTES claudication, NOT ES cold feet, denies peripheral arterial stent. Respiratory: The patient denies tuberculosis, denies pneumon ia, NOTES frequent cough, denies pulmonary embolism, denies shortness of breath, and denies coughing up blood. Gastrointestinal: The patient NOTES difficulty swallowing, N OTES acid reflux, denies ulcers, denies vomiting, denies jaundice/hepa titis, NOTES gallbladder problems, denies black or tarry stoo ls, NOTES hemorrhoids, denies bleeding from rectum, denies diverticulitis, NOTES constipat ion, NOTES diarrhea, NOTES loss of stool control, and denies hernias. Kidney/Bladder: The patient denies kidney stones, denies uri ne infections, and denies bloody urine. Skin: The patient denies a history of skin cancer, denies bleeding/changing moles, and denies a history of skin rash. Neurologic: The patient denies a history of epilepsy/convuls ions, NOTES headaches, denies head/spinal injuries, and denies stroke/TI A. Psychiatric: The patient NOTES psychiatric medications, NOTE S depression, and denies voices, denies substance abuse. Endocrine: The patient denies thyroid disorders, denies diab etes, and NOTES hormonal problems. Hematologic: The patient denies a history of bruising, denie s bleeding, and denies anemia, denies blood clots. Infections: The patient denies a history of measles and mump s, denies rheumatic fever, and NOTES sexually transmitted diseases. Musculoskeletal: The patient NOTES back pain/injury, NOTES b ack problems, denies sciatica, denies knee/foot trouble, NOTES arthritis , or denies gout. When was patient's last Mammogram screening? 2019? Last Colonoscopy: 2013 J Luis Toro LPN I have confirmed and edited as necessary , the PFSH and ROS obtained by others. PHYSICAL EXAMINATION: General: The patient is 68 year old female, well traci shed, well hydrated in no acute distress. The patient is oriented to time, place, a nd person. VITALS: Blood pressure 152/78, pulse 86, temperature 36.4 ?C (97.6 ?F), height 158.8 cm (5' 2.5), weight 75.8 kg (167 lb), SpO2 98 %. Body mass index is 30.06 kg/m?. HEENT: Normal cephalic, ataumatic, pupils are equally round, sclera are anicteric, mucous membranes are moist, oropharynx is clear. Neck has no masses, asymmetry or lymphadenopathy. Respiratory: Clear to auscultation and percussion. Normal re spiratory excursion and pattern. Cardiac: Examination is regular rate and rhythm. Normal S1/S 2 Abdominal exam: Soft, nontender, with no palpable masses. No hepatosplenomegaly. No palpable hernias. Extremities: no clubbing, cyanosis or edema. No adenopathy. Other: rectal examination showed LABORATORY VALUES: As Noted RADIOLOGIC STUDIES: As Noted Assessment IMPRESSION: rectal pain, loose stools, pain with sitting, hi story of colon polyps PLAN: I have reviewed my findings with the surgeon. Will sydnie n for lower endoscopy with anoscopy with close inspection of rectu m and random biopsies. We discussed the risks and benefits of the plann ed endoscopy. I have informed the patient that complications can occur including failure t o complete the endoscopy and perforation. The patient had the opportunity to ask questions concerning the planned endoscopy. My sta ff has also explained the procedure to the patient in understandable terms and has given the patient printed material concerning the procedure. The patient freely consents to jian rina. I plan to use Golytely bowel preparation We will plan for Monitored Anesthetic Care. Recall and discomfort with prior endoscopy done under moderate sedation If no concerning findings on endoscopy, recommend establishi ng with gastroenterology for further evaluation and management of IB S symptoms Patient verbalized understanding of all above and agreed wit h the plan. Diagnoses: (K62.89) Anal or rectal pain (primary encounter d iagnosis) (R19.7) Diarrhea, unspecified type (Z87.19) History of IBS (N95.2) Vaginal atrophy Kate Shaver PA-C Referring Provider: SELF [[id number]] Allergies As of Date: 01/01/2019 Noted Allergy Reaction VENLAFAXINE 05/14/2012 4 - Hives CLONIDINE 09/27/2015 5 - Intolerance Comments: pain all over DEPAKOTE (DIVALPROEX SODIUM) 10/21/2010 14 - Other: See Comm ents Comments: body jerks DESIPRAMINE 12/09/2009 5 - Intolerance Comments: crying DOXYCYCLINE 11/29/2011 4 - Hives FLAGYL (METRONIDAZOLE HCL) 08/06/2012 4 - Hives 9 - Itching IMIPRAMINE 12/09/2009 4 - Hives Comments: wt gain IMITREX (SUMATRIPTAN SUCCINATE) 12/09/2009 5 - Intolerance Comments: anxiety NEURONTIN (GABAPENTIN) 03/13/2013 4 - Hives PRISTIQ (DESVENLAFAXINE) 04/13/2011 1 - Mental Status Change Comments: headache,anorexia PROZAC (FLUOXETINE HCL) 11/24/2010 1 - Mental Status Change Comments: confusion,frequent falls,bladder pain SERTRALINE 06/26/2011 14 - Other: See Comments Comments: dysuria,bladder pain ULTRAM (TRAMADOL HCL) 02/14/2006 8 - GI Upset VESICARE (SOLIFENACIN SUCCINATE) 11/09/2009 5 - Intolerance Comments: blurred vision,trouble swallow WELLBUTRIN (BUPROPION HCL) 12/09/2009 5 - Intolerance Comments: anxiety, sob Date Reviewed: 01/01/2019 Reviewed by: Kate Shaver - Fully Assessed Reason for Visit: Consult [173] Cmt: Consult Diarrhea rectal pain Primary Visit Diagnosis:Anal or rectal pain [K62.89] Other Visit Diagnoses:Diarrhea, unspecified type [R19.7] History of IBS [Z87.19] Vaginal atrophy [N95.2] Order(s):[] peg 3350-Electrolytes (GOLYTE LY) 236-22.74-6.74 -5.86 gram suspensionTake 4,000 mL by mouth one time only for 1 dose.Di sp: 1 BottleRfl: 0 Prescriptions as of 01/01/2019 Sig: OTC NUTRITIONAL SUPPLEMENT ensure IMODIUM A-D ORAL Take by mouth. MIKA BACK AND BODY ORAL Take by mouth. CLOTRIMAZOLE-BETAMETHASONE 1 * Apply 1 application to affect * VALACYCLOVIR 500 MG TABLET Take 1 tablet by mouth twice * DICYCLOMINE 10 MG CAP (BENTYL* Take 10 mg by mouth three bhavya * LORAZEPAM 2 MG TABLET FAMOTIDINE 20 MG TABLET Take 1 tablet by mouth twice * CHOLECALCIFEROL (VITAMIN D3) * Take 1 tablet by mouth once d * PEG 3350-ELECTROLYTES 236 GRA* Take 4,000 mL by mouth one ti * BETAMETHASONE, AUGMENTED 0.05* Apply 1 application to affect * FLUCONAZOLE 150 MG TABLET 1 pill now, repeat in 48 hour* VALACYCLOVIR 500 MG TABLET Take 1 tablet by mouth once d* LACTOBACILLUS ACIDOPHILUS CAP* Take 1-2 capsules by mouth tw * ATENOLOL 25 MG TABLET Take 1 tablet by mouth three * COMPOUNDED PRESCRIPTION BLOOD PRESSURE CUFF FOR HOME * Medication notes this encounter BETAMETHASONE, AUGMENTED 0.05 % TOPICAL OINTMENT >> J Luis Toro LPN 01/01/2019 2:22 PM >> J LUIS TORO LPN SunJan 01, 2019 2:22 PM Please d/C VALACYCLOVIR 500 MG TABLET >> J Luis Toro LPN 01/01/2019 2:21 PM >> J LUIS TORO LPN SunJan 01, 2019 2:21 PM Please d/c duplicate ATENOLOL 25 MG TABLET >> J Luis Toro LPN 01/01/2019 2:20 PM >> J LUIS TORO LPN SunJan 01, 2019 2:20 PM Twice daily Problem List As Of Date 01/01/2019 Noted Resolved DEPRESSIVE DISORDER NEC [F32.9] INVALID FOR* KIMBERLY (generalized anxiety disorder) [F41.1] INVALID FOR* HEADACHE [R51] INVALID FOR* HEMORRHOIDS NOS [K64.9] More... Myalgia [M79.10] COMMON MIGRAINE W/O MENTN INTRACT [G43.009] INVALID FOR* Chronic Interstitial Cystitis [N30.10] INVALID FOR* Pelvic Pain in Female [R10.2] INVALID FOR* Osteopenia [M85.80] INVALID FOR* More... Cystitis [N30.90] INVALID FOR* Cough [R05] INVALID FOR* Weight gain [R63.5] INVALID FOR* Fibromyalgia [M79.7] INVALID FOR* Anxiety [F41.9] INVALID FOR* Unspecified pruritic disorder [L29.9] INVALID FOR* Postmenopausal atrophic vaginitis [N95.2] INVALID FOR* Unspecified constipation [K59.00] INVALID FOR* Vaginal pain [R10.2] INVALID FOR* Rectal pain [K62.89] INVALID FOR* Adjustment disorder with mixed anxiety and depr*INVALID FOR* Vaginal burning [N94.9] INVALID FOR* Chronic pain [G89.29] INVALID FOR* Perineal pain in female [N94.9] INVALID FOR* Constipation [K59.00] INVALID FOR* Stress and adjustment reaction [F43.29] INVALID FOR* Tubular adenoma of colon [D12.6] INVALID FOR* Opiate dependence (HCC) [F11.20] INVALID FOR* Vaginal high risk HPV DNA test positive [R87.81*INVALID FOR* More... HPV test positive [PXA3313] INVALID FOR* More... Generalized abdominal pain [R10.84] INVALID FOR* Other cholelithiasis without obstruction [K80.8*INVALID FOR* HTN (hypertension) [I10] BV (bacterial vaginosis) [N76.0, B96.89] HSV-2 (herpes simplex virus 2) infection [B00.9] Visit Notes: >> J Luis Toro LPN SunJan 01, 2019 2:29 PM Status: Signed REVIEW OF SYSTEMS: General: The patient denies fatigue, denies weight loss, NOT ES weight gain, NOTES feeling hot, and NOTES feelings of cold. Eyes: The patient denies glaucoma, denies eye injury/surgery , does not wear glasses or contacts. Ear/Nose/Throat: The patient denies allergies, denies hayfev er, denies ear infections, and denies bloody noses. Cardiovascular: The patient NOTES chest pain, denies heart d isease, NOTES high blood pressure,denies cardiac stent, denies prior heart attack, denies irregular heart beat, NOTES high cholesterol, denies poor circulation, denies heart failure, other cardiac issues, NOT ES claudication, NOTES cold feet, denies peripheral arterial st ent. Respiratory: The patient denies tuberculosis, denies pneumon ia, NOTES frequent cough, denies pulmonary embolism, denies shor tness of breath, and denies coughing up blood. Gastrointestinal: The patient NOTES difficulty swallowing, N OTES acid reflux, denies ulcers, denies vomiting, denies jaundice /hepatitis, NOTES gallbladder problems, denies black or tarry stools, NO IRVIN hemorrhoids, denies bleeding from rectum, denies diverticuli tis, NOTES constipation, NOTES diarrhea, NOTES loss of stool control, a nd denies hernias. Kidney/Bladder: The patient denies kidney stones, denies uri ne infections, and denies bloody urine. Skin: The patient denies a history of skin cancer, denies bleeding/changing moles, and denies a history of skin rash. Neurologic: The patient denies a history of epilepsy/convuls ions, NOTES headaches, denies head/spinal injuries, and denies str mihaela/TIA. Psychiatric: The patient NOTES psychiatric medications, NOTE S depression, and denies voices, denies substance abuse. Endocrine: The patient denies thyroid disorders, denies diab etes, and NOTES hormonal problems. Hematologic: The patient denies a history of bruising, denie s bleeding, and denies anemia, denies blood clots. Infections: The patient denies a history of measles and mump s, denies rheumatic fever, and NOTES sexually transmitted disea ses. Musculoskeletal: The patient NOTES back pain/injury, NOTES b ack problems, denies sciatica, denies knee/foot trouble, NOTES a rthritis, or denies gout. When was patient's last Mammogram screening? 2019? Last Colonoscopy: 2013 J Luis Toro [facility] [employer] [employer] Prescriptions ordered this encounter Disp Refills Start End PEG 3350-ELECTROLYTES 236 GRAM-22.74* 1 Seferino* 0 01/01/2019 Route: ORAL Sig: Take 4,000 mL by mouth one time only for 1 dose. Encounter Status:Closed by KATE SHAVER PA-C on 01/06/19 progress on 2018-12 PROGRESS HNO ID: [id number] Normal 12-23-2018 [facility] Author: Nadine Dallas Walton ([id number]) Service: ? Author Type: ? Type: Progress Notes Filed: 12/23/2018 3:03 PM Note Text: Radiology Service Progress Note PATIENT NAME: Angélica Dawn DATE OF SERVICE: December 23, 2018 TIME: 3:03 PM PATIENT IDENTITY VERIFICATION COMPLETED USING TWO (2) METHOD S: Name and Date of confirmed by patient verbally. PATIENT GENDER DATA: Female. status: : No status: NO. PATIENT RELEVANT IMPLANT DATA REVIEWED: Not Applicable RADIOLOGY DEPARTMENT: Mammography PERIPHERAL IV DATA: Not applicable SIGNED BY: Nadine Dallas December 23, 2018 3:03 PM galindo screening on 27-12-15 [facility] SCREENING * * *Final Report* * * Normal [facility] DATE OF EXAM: Dec 23 2018 2:53PM Walton ([id number]) [facility] - [facility] SCREENING / PROCEDURE REASON: Encounter for screening mammogram for kris gnant neoplasm of breast * * * * Physician Interpretation * * * * RESULT: #[id number] - [facility] SCREENING BILATERAL DIGITAL SCREENING MAMMOGRAM WITH CAD: 12/23/2018 HISTORY: Encounter For Screening Mammogram For Malignant James plasm Of Breast /Screening Mammogram - patient reports NO breast symp toms /Priors available for comparison. RESULT: TECHNIQUE: The study was acquired using full field digital t echnology and interpreted from soft copy. Current study was also evaluated with a Computer Aided Detec tion (CAD). Comparison is made to exams dated: 09/24/2017 mammogram and mammogram - [facility]. There are scatter ed fibroglandular elements in both breasts. No significant masses, calcifications, or other findings are seen in either breast. There has been no significant interval change. IMPRESSION: NEGATIVE There is no mammographic evidence of malignancy. A 1 year sc reening mammogram is recommended. Leeann Whitley M.D., lp/treva:12/23/2018 15:12:53 Furniture Rental Consultant(s): Nadine Otoole, RT(R)(M), [facility] letter sent: Normal over 40 Mammogram BI-RADS: 1 Negative Multiple national specialty organizations have released sobia st cancer screening guidelines for women at average risk for developin g breast cancer - guidelines that are based on both evidence and opin ion, yet differ on when to start and how often to screen for breast c ancer. With representation from Breast Imaging, Internal Medicine, Women 's Health, Family Medicine, and Medical/Surgical Oncology, the [facility] has carefully reviewed the data and reached the following consen janny: 1) All women should engage in shared decision-making with eir providers to decide when to start and how often to screen; 2) All women should have the opportunity to start screening mammography at age 40; 3) For women ages 45-55, we recommend annual screening mammo grams; 4) For women ages 55 and over, we support both the transitio n from an annual to a biennial interval if this aligns more with patie nt's values and preferences, or continuation with annual screening; 5) All women should discuss with their providers when to sto p screening mammograms. Barge Captain: Treva Transcribe Date/Time: Dec 23 2018 2:31P Dictated by: LEEANN WHITLEY MD This examination was interpreted and the report reviewed and electronically signed by: LEEANN WHITLEY MD on Dec 23 2018 3:12PM EST [id number] cnco on 2018-12-23 CNCO HNO ID: [id number] Normal 12-23-2018 [facility] Author: Mammography Coordinator ([id number]) Service: ? Author Type: Physician Type: Letter Filed: 12/24/2018 11:33 PM Note Text: December 23, 2018 PID: [id number] Angélica Dawn [address] [place] [address] Dear Ms. Dawn, We are pleased to inform you that the results of your recent breast imaging exam on 12/23/2018 are normal. Early detection of cancer is very important. We also underst and recommendations regarding breast cancer screening are contro versial. Please discuss with your primary care provider which strateg y is best for you and whether a mammogram is right for you. Your imaging studies and report will be kept on file at [facility] as part of your permanent medical record and are available f or your continuing care. Thank you for allowing us to help in meeting your health car e needs. Sincerely, Dr. Whitley Interpreting Radiologist [facility] (Normal over 40) obsolete on 2018-12 OBSOLETE Refill (OBGMEM) Normal 12-16-2018 [facility] ANGÉLICA DAWN ([id number]) 1950 F [facility] Time Provider Department ([id number]) 12/16/18 KILO BONDS OBEM During your visit today, we recorded the following informati on about you: Allergies As of Date: 12/16/2018 Noted Allergy Reaction VENLAFAXINE 05/14/2012 4 - Hives CLONIDINE 09/27/2015 5 - Intolerance Comments: pain all over DEPAKOTE (DIVALPROEX SODIUM) 10/21/2010 14 - Other: See Comm ents Comments: body jerks DESIPRAMINE 12/09/2009 5 - Intolerance Comments: crying DOXYCYCLINE 11/29/2011 4 - Hives FLAGYL (METRONIDAZOLE HCL) 08/06/2012 4 - Hives 9 - Itching IMIPRAMINE 12/09/2009 4 - Hives Comments: wt gain IMITREX (SUMATRIPTAN SUCCINATE) 12/09/2009 5 - Intolerance Comments: anxiety NEURONTIN (GABAPENTIN) 03/13/2013 4 - Hives PRISTIQ (DESVENLAFAXINE) 04/13/2011 1 - Mental Status Change Comments: headache,anorexia PROZAC (FLUOXETINE HCL) 11/24/2010 1 - Mental Status Change Comments: confusion,frequent falls,bladder pain SERTRALINE 06/26/2011 14 - Other: See Comments Comments: dysuria,bladder pain ULTRAM (TRAMADOL HCL) 02/14/2006 8 - GI Upset VESICARE (SOLIFENACIN SUCCINATE) 11/09/2009 5 - Intolerance Comments: blurred vision,trouble swallow WELLBUTRIN (BUPROPION HCL) 12/09/2009 5 - Intolerance Comments: anxiety, sob Date Reviewed: 10/24/2018 Reviewed by: Tena Carranza Ma - Fully Assessed Reason for Visit: Refill Request [94] Order(s):clotrimazole-betamethasone (LOTRISONE) creamApply 1 application to affected area twice daily. Apply to outside of vagina and cr ease of legs twice a day for 10-14 days.Disp: 45 gRfl: 2 Prescriptions as of 12/16/2018 Sig: CLOTRIMAZOLE-BETAMETHASONE 1 * Apply 1 application to affect * BETAMETHASONE, AUGMENTED 0.05* Apply 1 application to affect * VALACYCLOVIR 500 MG TABLET Take 1 tablet by mouth twice * FLUCONAZOLE 150 MG TABLET 1 pill now, repeat in 48 hour* VALACYCLOVIR 500 MG TABLET Take 1 tablet by mouth once d* DICYCLOMINE 10 MG CAP (BENTYL* Take 10 mg by mouth three bhavya * LACTOBACILLUS ACIDOPHILUS CAP* Take 1-2 capsules by mouth tw * LORAZEPAM 2 MG TABLET ATENOLOL 25 MG TABLET Take 1 tablet by mouth three * FAMOTIDINE 20 MG TABLET Take 1 tablet by mouth twice * COMPOUNDED PRESCRIPTION BLOOD PRESSURE CUFF FOR HOME * CHOLECALCIFEROL (VITAMIN D3) * Take 1 tablet by mouth once d * Problem List As Of Date 12/16/2018 Noted Resolved DEPRESSIVE DISORDER NEC [F32.9] INVALID FOR* KIMBERLY (generalized anxiety disorder) [F41.1] INVALID FOR* HEADACHE [R51] INVALID FOR* HEMORRHOIDS NOS [K64.9] More... Myalgia [M79.10] COMMON MIGRAINE W/O MENTN INTRACT [G43.009] INVALID FOR* Chronic Interstitial Cystitis [N30.10] INVALID FOR* Pelvic Pain in Female [R10.2] INVALID FOR* Osteopenia [M85.80] INVALID FOR* More... Cystitis [N30.90] INVALID FOR* Cough [R05] INVALID FOR* Weight gain [R63.5] INVALID FOR* Fibromyalgia [M79.7] INVALID FOR* Anxiety [F41.9] INVALID FOR* Unspecified pruritic disorder [L29.9] INVALID FOR* Postmenopausal atrophic vaginitis [N95.2] INVALID FOR* Unspecified constipation [K59.00] INVALID FOR* Vaginal pain [R10.2] INVALID FOR* Rectal pain [K62.89] INVALID FOR* Adjustment disorder with mixed anxiety and depr*INVALID FOR* Vaginal burning [N94.9] INVALID FOR* Chronic pain [G89.29] INVALID FOR* Perineal pain in female [N94.9] INVALID FOR* Constipation [K59.00] INVALID FOR* Stress and adjustment reaction [F43.29] INVALID FOR* Tubular adenoma of colon [D12.6] INVALID FOR* Opiate dependence (HCC) [F11.20] INVALID FOR* Vaginal high risk HPV DNA test positive [R87.81*INVALID FOR* More... HPV test positive [ISU4325] INVALID FOR* More... 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 Apply to outside of vagina and crease of legs twice a day for 10-14 days. Medications Discontinued During This Encounter clotrimazole-betamethasone (LOTRISON* 45 g 2 09/25/20182018 Route: TOPICAL Sig: Apply 1 application to affected area twice daily. Apply to outside of vagina and crease of legs twice a day for 10-14 days. Disc: Reason for discontinue is not on file. Encounter Status:Closed by KILO BONDS MD on 12/18/18 us dvt lower hammad on 2018-09-04 US DVT LOWER * * *Final Report* * * Normal 05- [facility] DATE OF EXAM: Sep 04 2018 2:33PM ([id number]) MDU 1005 - US DVT LOWER [facility] / PROCEDURE REASON: Leg swelling or pain, DVT suspected * * * * Physician Interpretation * * * * EXAMINATION: BILATERAL LOWER EXTREMITY VENOUS ULTRASOUND WIT H DUPLEX DOPPLER IMAGING HISTORY: Leg swelling or pain, DVT suspected TECHNIQUE: Sam scale with compression maneuvers, color and spectral (duplex) Doppler at rest and with augmentation of the bilate ral distal external iliac, common femoral, femoral and popliteal veins was performed. Sam scale with compression maneuvers of the bila teral peroneal and posterior tibial veins was performed. Images we re obtained and stored in a permanent archive. COMPARISON: None. RESULT: Right lower extremity: Distal external iliac and common femoral veins: Compression: Normal Doppler: Normal, spontaneous respirophasic flow Normal response to augmentation Femoral vein: Compression: Normal Doppler: Normal, spontaneous respirophasic flow Normal response to augmentation Popliteal vein: Compression: Normal Doppler: Normal, spontaneous respirophasic flow Normal response to augmentation Calf deep veins: Peroneal veins: Normal color flow Posterior tibial veins: Normal color flow Left lower extremity: Distal external iliac and common femoral veins: Compression: Normal Doppler: Normal, spontaneous respirophasic flow Normal response to augmentation Femoral vein: Compression: Normal Doppler: Normal, spontaneous respirophasic flow Normal response to augmentation Popliteal vein: Compression: Normal Doppler: Normal, spontaneous respirophasic flow Normal response to augmentation Calf deep veins: Peroneal veins: Normal color flow Posterior tibial veins: Normal color flow - - IMPRESSION: NO ACUTE DVT IN THE RIGHT LOWER EXTREMITY. NO ACUTE DVT IN THE LEFT LOWER EXTREMITY. Barge Captain: [facility] Transcribe Date/Time: Sep 04 2018 2:36P Dictated by : ALETHEA SMYTH MD This examination was interpreted and the report reviewed and electronically signed by: ALETHEA SMYTH MD on Sep 04 2018 2:39PM EST [id number] nt pro bnp on 09-04 Protein mass conc 82 <125 pg/mL Normal 09-04-2018 [facility] ([id number]) Comment: Performed By: #### NTBNP ### # [facility] [address] [place] [address] magnesium on 09-04 Magnesium mass conc 1.8 1.7-2.3 mg/dL Normal 09-04-2018 [facility] ([id number]) Comment: Performed By: #### CBCDICinthia Naranjo MP, MG1 #### [facility] [address] [facility] [phone] ed prov note on 201 12-12-28 Protein mass HNO ID: [id number] Normal 09-05-19 [place] [facility] Author: Jonas Ortiz) [facility] Service: ? 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 Was sent in by her doctor for concer ns of blood clot. Patient denies any history of blood clots. Denies any history of congestive heart failure. States that she first noticed the swelling increased over the past few weeks. Denies any shortness of b reath or difficulty breathing. Denies any fever or chills. 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 - HTN (hypertension) - IBS (irritable bowel syndrome) - Myalgia and myositis, unspecified - Unspecified constipation Constipation - Unspecified hemorrhoids without mention of complication Hemorrhoids - Vaginal high risk HPV DNA test positive 12/2012 Pap negative PAST SURGICAL HISTORY Procedure Laterality Date - COLONOSCOP W/ OR W/O BRSH SPEC 11/27/2001 Colonoscopy - LAP CHOLECYSTECT/CHOLANGIOGRAPHY 02/25/2015 - LIGATE FALLOPIAN TUBE 1978 Tubal ligation - VAGINAL HYSTERECTOMY Hysterectomy, vaginal FAMILY HISTORY Problem Relation Age of Onset - Diabetes Sister Type 2 - Coronary Artery Disease Father - Cancer Maternal Aunt lung - Cancer Maternal Uncle stomach - Alzheimer's Disease Maternal Aunt - Alzheimer's Disease Mother Social History Tobacco Use - Smoking status: Current Some Day Smoker Packs/day: 0.50 Years: 8.00 Pack years: 4.00 Types: Cigarettes - Smokeless tobacco: Never Used - Tobacco comment: 2 cig per day Substance and Sexual Activity - Alcohol use: No - Drug use: No - Sexual activity: Yes Partners: Male ALLERGIES Allergen Reactions - Venlafaxine Hives - Clonidine Intolerance pain all over - Depakote [Divalproe* Other: See Comments body jerks - Desipramine Intolerance crying - Doxycycline Hives - Flagyl [Metronidazo* Hives, Itching - Imipramine Hives wt gain - Imitrex [Sumatripta* Intolerance anxiety - Neurontin [Gabapent* Hives - Pristiq [Desvenlafa* Mental Status Change headache,anorexia - Prozac [Fluoxetine * Mental Status Change confusion,frequent falls,bladder pain - Sertraline Other: See Comments dysuria,bladder pain - Ultram [Tramadol Hc* GI Upset - Vesicare [Solifenac* Intolerance blurred vision,trouble swallow - Wellbutrin [Bupropi* Intolerance anxiety, sob Review of Systems Constitutional: Negative. HENT: Negative. Respiratory: Negative. Negative for cough, shortness of sobia th and wheezing. Cardiovascular: Positive for leg swelling. Gastrointestinal: Negative. Genitourinary: Negative. Musculoskeletal: Negative. Negative for back pain and neck p ain. Skin: Negative. Negative for rash and wound. Neurological: Negative. Psychiatric/Behavioral: Negative. Physical Exam BP 176/84 Pulse 84 Temp (Src) 98.2 (Oral) Resp 20 Wt 170 lb (77.1kg) SpO2 98% O2 Therapy: Room Air Physical Exam Constitutional: She is oriented to person, place, and time. She appears well-developed and well-nourished. No distress. HENT: Head: Atraumatic. Nose: Nose normal. Eyes: Pupils are equal, round, and reactive to light. EOM ar e normal. Neck: Normal range of motion. Cardiovascular: Normal rate, regular rhythm and normal heart sounds. Pulmonary/Chest: Effort normal and breath sounds normal. No stridor. No respiratory distress. Musculoskeletal: Clinically I do not appreciate any swelling in the lower ext remities. No edema. Neurovascularly intact distally. No calf tenderness. Neurological: She is alert and oriented to person, place, an d time. No cranial nerve deficit. Coordination normal. Skin: Skin is warm. Capillary refill takes less than 2 secon ds. No erythema. Psychiatric: She has a normal mood and affect. Her behavior is normal. Judgment and thought content normal. Nursing note and vitals reviewed. Diagnostic Testing ED Labs Ordered and Reviewed COMP METABOLIC PANEL - Abnormal; Notable for the following c omponents: Result Value Ref Range Glucose 107 (*) 74 - 99 mg/dL Creatinine 1.00 (*) 0.58 - 0.96 mg/dL All other components within normal limits MAGNESIUM BLD NT PRO BNP CBC + DIFF US DVT LOWER BILAT Final Result IMPRESSION: NO ACUTE DVT IN THE RIGHT LOWER EXTREMITY. NO ACUTE DVT IN THE LEFT LOWER EXTREMITY. 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 Patient and felt comfortable with discharge plan and understand the importance of follow-up with a primary care doctor and return here if s ymptoms change or worsen. The patient was DISCHARGED: Counseled patient regarding lab results AND radiology results AND suspected diagnosis AND need for follow-up. Discharged home with verbal and written instructions. They were instruc lenard to return as needed for persistent or worsening symptoms or any new co ncerns. Condition at time of disposition: stable SIGNATURE: KEKE Flanagan (Pa) 09/04/182228 ed note on ED NOTE HNO ID: [id number] Normal 09-04-2018 [facility] ([id number]) Author: Alejandrina StrongRn) CARMEL Zarate Service: ? Author Type: Registered Nurse Type: ED Notes Filed: 09/04/2018 3:06 PM Note Text: Pt was discharged home and will follow up with her family me gerardo anderson She was ambulatory with her discharge ED NOTE HNO ID: [id number] Normal 09-04-2018 [facility] ([id number]) Author: Bety StrongRn) CARMEL Francisco Service: ? Author Type: Registered Nurse Type: ED Notes Filed: 09/06/2018 9:48 AM Note Text: Emergency Services: ED Call Back Questionnaire SERVICE DATE: 09/04/2018 Are you feeling better? No Any questions about discharge instructions and follow-up car e? No Were you able to make a follow up appointment? Patient state s she will call today to schedule f/u Do you have any further questions? No Is there anything that we could have done differently to imp rove your ED visit? no SIGNATURE: Bety Francisco RN PATIENT NAME: Angélica Dawn DATE: September 06, 2018 TIME: 9:47 AM ED NOTE HNO ID: [id number] Colon 09-04-2018 [facility] ([id number]) Author: Alejandrina StrongRn) CARMEL Zarate Service: ? Author Type: Registered Nurse Type: ED Notes Filed: 09/04/2018 2:58 PM Note Text: Jonas poole rounds and the pt is discharged questions answere d ED NOTE HNO ID: [id number] Colon 09-04-2018 [facility] ([id number]) Author: Alejandrina StrongRn) CARMEL Zarate Service: ? Author Type: Registered Nurse Type: ED Notes Filed: 09/04/2018 2:53 PM Note Text: Pt is in a position of comfort Denies increase in her pain H er remains at the bedside ED NOTE HNO ID: [id number] Colon 09-04-2018 [facility] ([id number]) Author: Alejandrina Zarate RN Service: ? Author Type: Registered Nurse Type: ED Notes Filed: 09/04/2018 2:09 PM Note Text: is bedside ED NOTE HNO ID: [id number] Colon 09-04-2018 [facility] ([id number]) Author: Meg StrongRn) CARMEL Braun Service: Nursing Author Type: Registered Nurse Type: ED Notes Filed: 09/04/2018 1:13 PM Note Text: Patient presents to ED with bilat LE swelling. Patient has m ultiple vague complaints. 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 About leg sw elling and was advised to go to ED to r/o DVT comp metabolic panel on 2018-09-04 Albumin mass conc 4.8 3.9-4.9 g/dL Normal 09-04-2018 [facility] ([id number]) Comment: Performed By: #### CBCDIF, C MP, MG1 #### [facility] [address] [facility] [phone] ALP enzyme act/vol 68 34-123 U/L Normal 09-04-2018 [facility] ([id number]) Comment: Performed By: #### CBCDIF, C MP, MG1 #### [facility] [address] [facility] [phone] ALT enzyme act/vol 22 7-38 U/L Normal 09-04-2018 [facility] ([id number]) Comment: Performed By: #### CBCDIF, C MP, MG1 #### [facility] [address] [facility] [phone] Anion gap molar conc 12 9-18 mmol/L Normal [address] [place] [address] ([id number]) Comment: Performed By: #### CBCDIF, C MP, MG1 #### [facility] [address] [phone] AST enzyme act/vol 33 13-35 U/L Normal 09-04-2018 [facility] ([id number]) Comment: Performed By: #### CBCDIF, C MP, MG1 #### [facility] [address] [place] [address] Bilirubin mass conc 0.3 0.2-1.3 mg/dL Normal 09-04-2018 [facility] ([id number]) Comment: Performed By: #### CBCDIF, C MP, MG1 #### [facility] [address] [place] [address] Calcium mass conc 9.3 8.5-10.2 mg/dL Normal 09-04-2018 [facility] ([id number]) Comment: Performed By: #### CBCDIF, C MP, MG1 #### [facility] [address] [place] [address] Chloride molar conc 103 97-105 mmol/L Normal 09-04-2018 [facility] ([id number]) Comment: Performed By: #### CBCDIF, C MP, MG1 #### [facility] [address] [place] [address] CO2 molar conc 22 22-30 mmol/L Normal 09-04-[address] [facility] ([id number]) Comment: Performed By: #### CBCDIF C MP, MG1 #### [facility] [address] [facility] [phone] Creatinine mass conc 1.00 0.58-0.96 mg/dL High 9 [facility] ([id number]) Comment: Performed By: #### CBCDIF C MP, MG1 #### [facility] [address] [facility] [phone] eGFR- Amer. >60 Normal 09-04-2018 [facility] ([id number]) Comment: Performed By: #### CBCDIF C MP, MG1 #### [facility] [address] [phone] GFR/1.73 sq M predicted among 55 . Normal 09-04-2018 [facility] ([id number]) non-blacks MDRD vol rate/area (S/P/Bld) Comment: Result Comment: eGFR (Estima lenard GFR) Units of measure: mL/min/1.73 meters squared eGFR is derived from the ree xpressed MDRD Study equation using the following parameters: serum creatinine, age, gender and race. The creatinine assay has been calibrated to be traceable to IDMS. An eGFR <60 mL/min/1.73m2 fo r >3 months is consistent with chronic kidney disease. Refer to KDOQI guidelines for clinical interpretation. In patients with unstable re nal function, e.g. those with acute kidney injury, the eGFR may not accurately reflect actual GFR. Performed By: #### CBCDIF C MP, MG1 #### [facility] [address] [facility] [phone] Glucose mass conc 107 74-99 mg/dL High 09-04-2018 [facility] ([id number]) Comment: Result Comment: The [place] [employer] (ADA) provides guidance for cutoff values for fasting glucose and random glucose. The ADA defines fasting as no caloric intake for at least 8 hours. Fas ting plasma glucose results between 100 to 125 mg/dL indicate increased risk for diabetes (prediabetes). Fasting plasma glucose resul ts greater than or equal to 126 mg/dL meet the criteria for diagnosis of diabetes. In the absence of unequivocal hyperglycemia, results should be confirmed by repeat testing. In a patient with classic s ymptoms of hyperglycemia or hyperglycemic crisis, random plasma glucose results greater than or equal to 200 mg/dL meet the criteria for diagnosis of diabetes. Reference: Standards of [facility] Care in Diabetes 2016, [place] [employer] Association. Diabetes Care. 2016.39(Suppl 1). Performed By: #### CBCDIF, C MP, MG1 #### [facility] [address] [facility] [phone] Potassium molar conc 4.0 3.7-5.1 mmol/L Normal 9 [facility] ([id number]) Comment: Performed By: #### CBCDIF, C MP, MG1 #### [facility] [address] [place] [phone] Protein mass conc 7.7 6.3-8.0 g/dL Normal 09-04-2018 [facility] ([id number]) Comment: Performed By: #### CBCDIF, C MP, MG1 #### [facility] [address] [place], [place] [phone] Sodium molar conc 137 136-144 mmol/L Normal 09-04-2018 [facility] (40274) Comment: Performed By: #### CBCDIF, C MP, MG1 #### [facility] [address] Urea nitrogen mass conc 12 7-21 mg/dL Normal 2018 [facility] ([id number]) Comment: Performed By: #### CBCDIF, C MP, MG1 #### [facility] [address] [place] [address] cbc and differential on 2018-09-04 Abs Baso 0.04 <0.11 k/uL Normal 09-04-2018 [facility] ([id number]) Comment: Performed By: #### CBCDIF, C MP, MG1 #### [facility] [address] [place] [phone] Abs [place] 0.50 <0.87 k/uL Normal 09-04-2018 [facility] ([id number]) Comment: Performed By: #### CBCDIF, C MP, MG1 #### [facility] [address] [facility] [phone] Abs Neut 5.17 1.45-7.50 k/uL Normal 09-04-2018 [facility] ([id number]) Comment: Performed By: #### CBCDIF, C MP, MG1 #### [facility] [address] [place] [address] Basophils/100 WBC (Bld) 0.5 % Normal 2018 [facility] ([id number]) Comment: Performed By: #### CBCDIF, C MP, MG1 #### [facility] [address] [place] [address] Eosinophils #/vol (Bld) 0.22 <0.46 k/uL Normal 2018 [facility] ([id number]) Comment: Performed By: #### CBCDIF, C MP, MG1 #### [facility] [address] [place] [phone] Eosinophils/100 WBC (Bld) 2.8 % Normal - [facility] ([id number]) Comment: Performed By: #### CBCDIF, C MP, MG1 #### [facility] [address] [place], [place] [id number] Erythrocyte distribution 12.6 11.5-15.0 % Normal 09-04 [facility] (72129) width Ratio (RBC) Comment: Performed By: #### CBCDIF, C MP, MG1 #### [facility] [address] [place] [phone] Hematocrit Volume Fraction 41.1 36.0-46.0 % Normal [facility] (91086) (Bld) Comment: Performed By: #### CBCDIF, C MP, MG1 #### [facility] [address] [place] [phone] Hemoglobin mass conc 14.1 11.5-15.5 g/dL Normal [facility] (Bld) (75099) Comment: Performed By: #### CBCDIF, C MP, MG1 #### [facility] [address] [place] [phone] Lymphocytes #/vol (Bld) 1.83 1.00-4.00 k/uL Normal 2018 [facility] (08401) Comment: Performed By: #### CBCDIF, C MP, MG1 #### [facility] [address] [facility] [phone] Lymphocytes/100 WBC (Bld) 23.6 % Normal 08-08 [facility] (66800) Comment: Performed By: #### CBCDIF, C MP, MG1 #### [facility] [address] [facility] [phone] MCH Entitic mass (RBC) 34.0 26.0-34.0 pG Normal 019 [facility] (63623) Comment: Performed By: #### CBCDIF, C MP, MG1 #### [facility] [address] [facility] [phone] MCHC mass conc (RBC) 34.3 30.5-36.0 g/dL Normal [facility] (38669) Comment: Performed By: #### CBCDIF, C MP, MG1 #### [facility] [address] [place] [address] MCV Entitic volume (RBC) 99.0 80.0-100.0 fL Normal 08-08 [facility] (94994) Comment: Performed By: #### CBCDIF, C MP, MG1 #### [facility] [address] [place] [address] Monocytes/100 WBC (Bld) 6.4 % Normal 2018 [facility] ([id number]) Comment: Performed By: #### CBCDIF, C MP, MG1 #### [facility] [address] [facility] [phone] Neutrophils/100 WBC (Bld) 66.7 % Normal 08-08 [facility] (80210) Comment: Performed By: #### CBCDIF, C MP, MG1 #### [facility] [address] [place] [address] Platelet mean volume 9.8 9.0-12.7 fL Normal 9 [facility] (70326) Entitic volume (Bld) Comment: Performed By: #### CBCDIF, C MP, MG1 #### [facility] [address] [place] [address] Platelets #/vol (Bld) 356 150-400 k/uL Normal 09-05-19 19 [facility] (05955) Comment: Performed By: #### CBCDIF, C MP, MG1 #### [facility] [address] [phone] RBC #/vol (Bld) 4.15 3.90-5.20 m/uL Normal 09-04-2018 [facility] (28299) Comment: Performed By: #### CBCDIF, C MP, MG1 #### [facility] [address] [phone] WBC #/vol (Bld) 7.76 3.70-11.00 k/uL Normal 09-04-2018 [facility] (91118) Comment: Performed By: #### CBCDIF, C MP, MG1 #### [facility] [address] [phone] Vital Signs Vital Sign Description Value / Unit Date Location The following section is limited to 5 en tries per type and includes entries from the following time range: [id number] - [id number] 2. BMI (Body Mass Index) 27.44 kg/m2 09-19-2019 [place], [place] ([address]) NEGATED: Highlighted 29.37 kg/m2 06-18-2019 - 06-18-2019 [facility] rowBMI (Body Mass Index) [facility] (31531) Body Temperature 97.5 [degF] 09-23-2019 [place] ([address]) Body weight 68.04 kg 09-19-2019 [place] ([address]) NEGATED: Highlighted 72.58 kg 06-18-2019 - 06-18-2019 [facility] (73052) NEGATED: Highlighted 73 kg 06-18-2019 - 06-18-2019 [facility] rowBody weight [facility] (05277) BP Diastolic 60 mm[Hg] 09-23-2019 [place], [place] ([address]) NEGATED: Highlighted 82 mm[Hg] 06-18-2019 - 06-18-2019 [facility] rowBP Diastolic [facility] (29374) NEGATED: Highlighted 77 mm[Hg] 06-18-2019 - 06-18-2019 [facility] rowBP Diastolic [facility] (40548) BP Systolic 148 mm[Hg] 09-23-2019 [place], [place] ([address]) NEGATED: Highlighted 149 mm[Hg] 06-18-2019 - 06-18-2019 [facility] rowBP Systolic [facility] (50497) NEGATED: Highlighted 144 mm[Hg] 06-18-2019 - 06-18-2019 [facility] rowBP Systolic [facility] (65744) NEGATED: Highlighted 2+ 06-18-2019 - 06-18-2019 [facility] rowHeart rate [facility] (23392) Height 157.5 cm 09-19-2019 [place], [place] ([address]) NEGATED: Highlighted 157 cm 06-18-2019 - 06-18-2019 [facility] rowHeight [facility] (29919) NEGATED: Highlighted 157.48 cm 06-18-2019 - 06-18-2019 [facility] rowHeight [facility] (91219) Pulse (Heart Rate) 71 /min 09-23-2019 [place], [place] ([address]) NEGATED: Highlighted 67 /min 06-18-2019 - 06-18-2019 [facility] rowPulse (Heart Rate) [facility] (18495) Pulse Oximetry 96 % 09-23-2019 [place], [place] ([address]) Respiratory Rate 20 /min 09-23-2019 [place], [place] ([address]) Encounters Date Type Reason Provider Location 07-20-2017 - Ambulatory Farideh Edouard Farideh Facility:[facility] 07-21-2017 Edouard Farideh [facility] 05-28-2017 - Ambulatory Farideh Edouard Farideh Facility:[facility] 05-29-2017 [facility] 09-19-2019 - Evaluation and Altered mental Kilo Ellsworth [facility]W MED SURG 09-23-2019 management of status Kevyn Diop Comment: Altered mental status, unspe cified altered mental status type (Primary Dx); Hallucinations; Delirium 06-18-2019 - Patient encounter Manny Vicente [facility] 06-19-[address] - [facility]opaedic [facility] (56266) 12-02-2019 - Telephone encounter Kilo Bonds Obst etrics/Gynecology 12-02-2019 Comment: Hx Meds 12-01-2019 - 12-01-2019 Telephone encounter Kilo Pham Obstetrics/Gynecology Comment: Question Procedures Procedure Name Date Provider Location Radiologic exam chest 09-20-2019 Kevyn Diop [place], [place] single view ([address]27) COVID-19 09-19-2019 [place] ([address]) Ct head/brain w/o contrast 09-19-2019 Kilo Brookeowski [place], [place] material ([address]) Assay of ethanol 09-19-2019 [place] ([address]) Assay of magnesium 09-19-2019 [place] ([address]) Assay of thyroid 09-19-2019 Kilo Juani [place], [place] stimulating hormone tsh (86027) Blood count complete 09-19-2019 Kiol Ellsworth Tashia [place], [place] auto&auto difrntl wbc (66434) Comprehensive metabolic 09-19-2019 Kilo Juani [place], [place] panel ([address]) Drug screen class list a 09-19-2019 [place] ([address]) Urnls dip stick/tablet rgnt 09-19-2019 Kilo Ellsworth [place] auto w/o microscopy ([address]116) NEGATED: Highlighted 06-18-2019 - [facility] rowDocumentation of current 06-18-2019 [facility] medications [facility] (26086) NEGATED: Highlighted 06-18-2019 - [facility] am[facility] rowSmoking cessation 06-18-2019 [facility] - education [facility] (06549) Arthrocentesis aspir&/inj 06-18-2019 - Manny Allen [facility] major jt/bursa w/o us 06-19-2019 [facility] (04869) Blood pressure outside of 06-18-2019 - Manny Allen [facility] normal parameters - 06-19-2019 [facility] [place] - follow-up not documented [facility] (76519) BMI documented as above 06-18-2019 - Manny [facility] normal parameters - 06-19-2019 [facility] [place] - follow-up documented [facility] (80352) Documentation of current 06-18-2019 - Manny Vicente rystal Clinic medications 06-19-2019 [facility] er - [facility] (77280) Fall plan of care docd 06-18-2019 - Manny Sofia [facility] 06-19-2019 [facility] er - [facility] (13586) Fall risk assessment docd 06-18-2019 - Manny [facility] 06-19-2019 [facility] er - [facility] (62704) Injection - triamcinolone 06-18-2019 - Manny Allen [facility] acetonide 10 mg 06-19-2019 [facility] er - [facility] (63300) Pain assessment documented 06-18-2019 - Manny Allen [facility] as positive - follow-up 06-19-2019 [facility] - documented [facility] (75413) Pt tobacco screen rcvd tlk 06-18-2019 - Manny [facility] 06-19-2019 [facility] er - [facility] (80993) Ptfalls assess-docd ge2>/yr 06-18-2019 - Manny [facility] 06-19-2019 [facility] er - [facility] (13734) Radiologic examination 06-18-2019 - Manny Sofia [facility] pelvis 1/2 views 06-18-2019 [facility] ter - [facility] (69147) [facility]53433[facility] Colonoscopy 02-26-2012 - [facility] 02-26-2012 (10813) Plan of Treatment Plan Description Date Location COLONOSCOPY COLONOSCOPY 02-25-2022 - [facility] 02-25-2022 (73322) DIABETES SCREEN DIABETES SCREEN 09-04-2021 - [facility] 09-04-2021 (72385) Creatinine monitoring Creatinine monitoring 09-18-2020 [place] ([address]) Potassium monitoring Potassium monitoring 09-18-2020 [place], [place] ([address]) MAMMOGRAM MAMMOGRAM 12-24-2019 - [facility] 12-24-2019 (62923) Flu vaccine (Season no information 12-09-2019 - [place], [place] Ended) 12-09-2019 (52477) LIPID SCREEN LIPID SCREEN 01-21-2018 - [facility] 01-21-2018 (15935) ANNUAL PCP TEAM CHRONIC ANNUAL PCP TEAM CHRONIC 03-25-2017 - [facility] DISEASE VISIT DISEASE VISIT 03-25-2017 (93161) ADVANCE DIRECTIVE ADVANCE DIRECTIVE 2014 - [facility] DISCUSSION DISCUSSION 2014 (96207) SHINGRIX VACCINE (2 of SHINGRIX VACCINE ([facility]) 08-13-2012 (80113) DTAP,TDAP,TD (1 - Tdap) DTAP,TDAP,TD (1 - Tdap) 1968 - [facility] 1968 (37930) BP CONTROLLED (<130/80) BP CONTROLLED (<130/80) 07-05-1967 - [facility] 07-05-1967 (67461) HEPATITIS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 pt's were both updated. Will continue to monitor. organ, Betty Herzog PTA - 09/22/2019 10:10 AM EDT Physical Therapy Facility/Department: [facility] Daily Treatment Note NAME: Angélica Dawn : 1950 Date of Service: 09/22/2019 Discharge Recommendations: 24 hour supervision or assist, Home with Home health PT PT Equipment Recommendations Other: pt has FWW at home Assessment Body structures, Functions, Activity limitations: Decreased functional mobility ;Decreased ROM;Decreased safe awareness;Decreased balance;Increased pain;Decreased strength;Decreased cognition Assessment: Pt moving well but limited by current cognition. Still having several paranoid thoughts.Anticipate discharge to home with 24 hour assist and home PT once medically stable. Increased time for session to redirect and re-orient. Prognosis: Good Decision Making: Low Complexity Barriers to Learning: mental status REQUIRES PT FOLLOW UP: Yes Activity Tolerance Activity Tolerance: Patient limited by cognitive status Patient Diagnosis(es): The primary encounter diagnosis was Altered mental status, unspecified altered mental status type. Diagnoses of Hallucinations and Delirium were also pertinent to this visit. has no past medical history on file. has no past surgical history on file. Restrictions Restrictions/Precautions Restrictions/Precautions: Fall Risk, General Precautions Required Braces or Orthoses?: (back brace is at home) Position Activity Restriction Spinal Precautions: No Bending, No Lifting, No Twisting Spinal Precautions: recent lumbar sx--per spouse L4L5 done at [facility] Other position/activity restrictions: soft restraints, sitter present in room Subjective General Chart Reviewed: Yes Family / Caregiver Present: Yes(sitter) Subjective Subjective: pt supine in bed with HOB up. Agreeable to PT and wanting to go to the bathroom. Still expressing several paranoid thoughts. General Comment Comments: soft restraints, no bandage over incision Pain Screening Patient Currently in Pain: Yes Pain Assessment Pain Level: (was not able to rate on a pain scale when asked. ) Pain Type: Surgical pain Pain Location: Back Vital Signs Patient Currently in Pain: Yes Orientation Orientation Overall Orientation Status: Impaired Orientation Level: Disoriented to place;Oriented to person;Disoriented to situation;Disoriented to time Objective Bed mobility Bridging: Supervision Supine to Sit: Minimal assistance Sit to Supine: Supervision Scooting: Supervision Comment: increased time to complete Transfers Sit to Stand: Contact guard assistance Stand to sit: Contact guard assistance Comment: several transfers during session, multiple times from EOB and once from toilet. Ambulation Ambulation?: Yes Ambulation 1 Surface: level tile Device: No Device Assistance: Contact guard assistance Gait Deviations: Slow [place];Decreased step length;Decreased step height Distance: 15 ft to bathroom Ambulation 2 Surface - 2: level tile Device 2: Rolling Walker Assistance 2: Supervision Gait Deviations: Slow [place]ina Distance: ~300 ft Comments: initially did not want to go back to room due to paranoid thoughts that someone was going to kill her. Offered to call once back in room and pt was agreeable. Stairs/Curb Stairs?: No(deferred due to paranoid thoughts) Balance Comments: pt used toilet and was able to wipe independently. Stood at sink to wash hands, supervision. Pt also taken to window and tried to work on standing ex's but pt stated that she does not like toexercise. Exercises Knee Long Arc Quad: sitting EOB x 10 reps, BLE Ankle Pumps: sitting EOB x 5 reps Goals Short term goals Time Frame for Short term goals: 2 wks Short term goal 1: Pt will be able to complete log roll technique for supine to sit with min A for homegoing., PROGRESSING, try with bed flat and no rail next session. Short term goal 2: Pt will be able to verbalize full recall of lumbar precautions to protect healingstructures., NOT ADDRESSED Short term goal 3: Pt will transfer sit<>stand supv in prep for gait. PROGRESSING Short term goal 4: Pt will amb 50-100' with FWW supv without LOB. GOAL MET, PLEASE UPDATE Short term goal 5: Up/down 5 steps with bilat UE support CGA for home entry. NOT ADDRESSED Patient Goals Patient goals : to go home Plan Plan Times per day: Daily Plan weeks: 2 wks Current Treatment Recommendations: Strengthening, Balance Training, Transfer Training, Gait Training, Patient/Caregiver Education & Training, Functional Mobility Training, Stair training, Safety Education & Training Safety Devices Type of devices: All fall risk precautions in place, Patient at risk for falls, Left in bed, Call light within reach Restraints Initially in place: Yes Restraints: soft UE restraints Therapy Time Individual Concurrent Group Co-treatment Time In 915 Time Out 0950 Minutes 34 Timed Code Treatment Minutes: 34 Minutes(gait, FA) *This MATERIALS ASSOCIATE wore N95, gloves and face shield during whole treatment session.* Betty Chapa PTA Amira Terry APRN - COPING MACHINE OPERATOR - 09/22/2019 8:36 AM EDT Department of Psychiatry Progress Note Reason for Consult/Chief Complaint: Chief Complaint Patient presents with ? Delusional [place] slipped from [facility] she had back surgery 2 days ago. Per the pink slip she is here for med clearance. SHe had stated to staff she was seeing black bears in her room and was hearing gun shots outside her room. She refused to be evaluated there so she was pink slipped. SHe arrives via [facility] is calm and cooperative with staff. ? Hallucinations Patient denies the above but does make mention of black bears in her room. SHe states she had an unwitnessed fall this am in the bathroom. When RN inquired if she let her nurse know, she states I have not seen her. Kate on 7W at [facility] states she had a sitter last night that would be very unlikely. Patient is currently A&Ox3. Consulting Practitioner: Amira Terry APRN Identifying data: Angélica Dawn is a 69 y.o. female HISTORY OF PRESENT ILLNESS: Pt seen for follow up regarding consult for hallucinations. Please see Dr. Lugo's note for full consult. Had seemingly been improving over the preceding 24 hours. This morning patient is in 2 point soft restraints. She does seem rather paranoid this morning. Not hallu cinating but talking about her sleeping with the nurses. Has also been rather argumentative and accusatory with staff this morning. This morning refuses to answer orientation questions for me, states several times that she needs to be released so that she can go and take her dog and leave town. Very irritable throughout interview. Past Medical and Psychiatric History: PTSD, KIMBERLY, major depressive disorder No past medical history on file. Family Psychiatric and Medical History: no known family psych history. Father with ETOH use disorder No family history on file. Social History: Lives at home with . Social History Socioeconomic History ? Marital status: Spouse name: Not on file ? Number of children: Not on file ? Years of education: Not on file ? Highest education level: Not on file Occupational History ? Not on file Social Needs ? Financial resource strain: Not on file ? Food insecurity Worry: Not on file Inability: Not on file ? Transportation needs Medical: Not on file Non-medical: Not on file Tobacco Use ? Smoking status: Not on file Substance and Sexual Activity ? Alcohol use: Not on file ? Drug use: Not on file ? Sexual activity: Not on file Lifestyle ? Physical activity Days per week: Not on file Minutes per session: Not on file ? Stress: Not on file Relationships ? Social connections Talks on phone: Not on file Gets together: Not on file Attends christianity service: Not on file Active member of club or organization: Not on file Attends meetings of clubs or organizations: Not on file Relationship status: Not on file ? Intimate partner violence Fear of current or ex partner: Not on file Emotionally abused: Not on file Physically abused: Not on file Forced sexual activity: Not on file Other Topics Concern ? Not on file Social History Narrative ? Not on file PAST SURGICAL HISTORY No past surgical history on file. Recent lumbar spinal surgery Allergies: Patient has no allergy information on record. REVIEW OF SYSTEMS: ROS: Review of Systems Unable to perform ROS: Mental status change PHYSICAL EXAM: Vitals: BP (!) 146/93 Pulse 90 Temp 97.3 ?F (36.3 ?C) (Temporal) Resp 16 Ht 5' 2 (1.575 m) Wt 150lb (68 kg) SpO2 97% BMI 27.44 kg/m? Physical Examination: Physical Exam HENT: Head: Normocephalic and atraumatic. Cardiovascular: Rate and Rhythm: Normal rate. Pulmonary: Effort: Pulmonary effort is normal. No respiratory distress. Neurological: Mental Status: She is alert. She is disoriented. Psychiatric: Attention and Perception: She is inattentive. She does not perceive auditory or visual hallucinations. Speech: Speech is tangential. Behavior: Behavior is uncooperative. Thought Content: Thought content is paranoid and delusional. Comments: Irritable mood, constricted affect Judgement and insight variable, currently irritable and accusatory Assessment: Delirium (likely multifactorial) in the setting of prior mental illness PTSD Anxiety PLAN: Will add low dose risperdal BID to assist with agitation, paranoia at this time given these symptomsaffecting the patient's ability to receive adequate care for her medical needs. Will continue low dose haldol PRN for breakthrough agitation. Pt likely poor candidate for inpatient psychiatric admission given postoperative status and absence of prior psychosis. (unlikely that this mental statua change is entirely psychiatrically mediated). Will monitor closely to observe for effect and tolerability. Please page myself or [facility] psychiatrist for emergent needs or follow up questions. Thank you for allowing me to participate in the care of this patient. Kevyn Diop MD - 09/22/2019 8:04 AM EDT Hospitalist Progress Note 09/22/2019 8:04 AM Subjective: Admit Date: 09/19/2019 PCP: No primary care provider on file. Interval History: Paranoid and delusional again this morning. When speaking with RN this morning, patient replies, You're not real. This is a figment of my imagination. I am hallucinating you. Does not believe I am her doctor, aggitated delirium. Denies chest pain, sob, abdominal pain, nausea, vomiting, diarrhea, constipation, fevers, or chills. DIET GENERAL; Patient Vitals for the past 96 hrs (Last 3 readings): Weight 09/19/19 0816 150 lb (68 kg) Medications: ? amLODIPine 5 mg Oral Daily ? [START ON 09/23/2019] lisinopril 40 mg Oral Daily ? acetaminophen 1,000 mg Oral 3 times per day ? sodium chloride flush 10 mL Intravenous 2 times per day ? enoxaparin 40 mg Subcutaneous Daily ? LORazepam 1.5 mg Oral TID ? atenolol 25 mg Oral BID ? atorvastatin 10 mg Oral Daily Recent Labs 09/19/19 0833 WBC 13.9* HGB 12.8 PLT 313 Recent Labs 09/19/19 0833 NA 132* K 3.8 CL 99 CO2 23 BUN 8 CREATININE 0.81 GLUCOSE 117* Recent Labs 09/19/19 0833 AST 38 ALT 14 BILITOT 0.5 ALKPHOS 59 No results found for: TRIG, HDL, LDLCALC, CHOL No results for input(s): INR in the last 72 hours. No results for input(s): CKTOTAL, CKMB, TROPONINI in the last 72 hours. Objective: Vitals: BP (!) 146/93 Pulse 90 Temp 97.3 ?F (36.3 ?C) (Temporal) Resp 16 Ht 5' 2 (1.575 m) Wt 150 lb (68 kg) SpO2 97% BMI 27.44 kg/m? Pulse Ox: SpO2 Av % Min: 97 % Max: 97 % Supplemental O2: PHYSICAL EXAM: GENERAL: agitated, in soft restraints. HEAD: Normocephalic, atraumatic. EYES: Pupils equal, round and reactive to light and accommodation, extraocular movements intact. ENT: Moist mucous membranes. No erythema is noted. NECK: Supple. No masses. No lymphadenopathy. CARDIOVASCULAR: Regular rate and rhythm, s1,2 no murmur PULMONARY: Lungs are clear to auscultation bilaterally. ABDOMEN: Soft, nontender, nondistended. Positive bowel sounds. MUSCULOSKELETAL: Strength 5/5 bilaterally in all extremities. Pulses 2+ NEUROLOGIC: Cranial nerves II through XII grossly intact. No focal deficits are noted. DATA: CBC: Recent Labs 09/19/19 0833 WBC 13.9* RBC 3.84 HGB 12.8 HCT 36.5 MCV 95.1 RDW 12.8 PLT 313 BMP: Recent Labs 09/19/19 0833 NA 132* K 3.8 CL 99 CO2 23 BUN 8 CREATININE 0.81 GLUCOSE 117* CALCIUM 10.0 ANIONGAP 10 LIVER PROFILE: Recent Labs 09/19/19 0833 AST 38 ALT 14 BILITOT 0.5 ALKPHOS 59 LABALBU 4.4 PROT 7.0 PT/INR: No results for input(s): PROTIME, INR in the last 72 hours. CARDIAC ENZYMES: No results for input(s): TROPONINI in the last 72 hours. Procalcitonin: No results found for: PROCAL Urine Culture: No results found for this or any previous visit. I reviewed: [x] laboratory results [x] radiographic results At the time of today's encounter. Pt was advised of the results. Assessment Active Problems: Altered mental status, unspecified Benzodiazepine withdrawal with delirium (HCC) Declining functional status Anxiety Resolved Problems: * No resolved hospital problems. * TME; delirium vs benzo w/d: waxing and waning; worse in the AM S/p L3-L5 laminectomy L4-L5 TLIF 09/16 HTN HLD PLAN: Face to face evaluation for non-violent restraints; soft restraints to upper extremities Resume home meds, continue benzos, sitter, psych and geriatric PT/OT See orders, continue POC Dispo: medically cleared for DC pending psych recs regarding dispo; home vs IP psych. Advance Directive: Full Code PPE was worn for the duration of the encounter including but not limited to a N95. Donaldo Minor Hospitalist Kevyn mesa MD - 09/21/2019 3:01 PM EDT Hospitalist Progress Note 09/21/2019 3:01 PM Subjective: Admit Date: 09/19/2019 PCP: No primary care provider on file. Interval History: mentation improving throught the day. Remains on soft restraints for safety. Denies chest pain, sob, abdominal pain, nausea, vomiting, diarrhea, constipation, fevers, or chills. DIET GENERAL; Date 09/21/19 0000 - 09/21/19 2359 Shift [id number] [id number] [id number] 24 Hour Total INTAKE P.O.(mL/kg/hr) 400(0.7) 400 Shift Total(mL/kg) 400(5.9) 400(5.9) OUTPUT Shift Total(mL/kg) Weight (kg) 68 68 68 68 Patient Vitals for the past 96 hrs (Last 3 readings): Weight 09/19/19 0816 150 lb (68 kg) Medications: ? acetaminophen 1,000 mg Oral 3 times per day ? sodium chloride flush 10 mL Intravenous 2 times per day ? enoxaparin 40 mg Subcutaneous Daily ? LORazepam 1.5 mg Oral TID ? atenolol 25 mg Oral BID ? lisinopril 20 mg Oral Daily ? atorvastatin 10 mg Oral Daily Recent Labs 09/19/19 0833 WBC 13.9* HGB 12.8 PLT 313 Recent Labs 09/19/19 0833 NA 132* K 3.8 CL 99 CO2 23 BUN 8 CREATININE 0.81 GLUCOSE 117* Recent Labs 09/19/19 0833 AST 38 ALT 14 BILITOT 0.5 ALKPHOS 59 No results found for: TRIG, HDL, LDLCALC, CHOL No results for input(s): INR in the last 72 hours. No results for input(s): CKTOTAL, CKMB, TROPONINI in the last 72 hours. Objective: Vitals: BP (!) 146/93 Pulse 90 Temp 97.3 ?F (36.3 ?C) (Temporal) Resp 16 Ht 5' 2 (1.575 m) Wt 150 lb (68 kg) SpO2 97% BMI 27.44 kg/m? Pulse Ox: SpO2 Av % Min: 97 % Max: 97 % Supplemental O2: PHYSICAL EXAM: GENERAL: Patient is a well-developed, well-nourished female in no acute distress, alert and oriented to self and place, HEAD: Normocephalic, atraumatic. EYES: Pupils equal, round and reactive to light and accommodation, extraocular movements intact. ENT: Moist mucous membranes. No erythema is noted. NECK: Supple. No masses. No lymphadenopathy. CARDIOVASCULAR: Regular rate and rhythm, s1,2 no murmur PULMONARY: Lungs are clear to auscultation bilaterally. ABDOMEN: Soft, nontender, nondistended. Positive bowel sounds. MUSCULOSKELETAL: Strength 5/5 bilaterally in all extremities. Pulses 2+ NEUROLOGIC: Cranial nerves II through XII grossly intact. No focal deficits are noted. DATA: CBC: Recent Labs 09/19/19 0833 WBC 13.9* RBC 3.84 HGB 12.8 HCT 36.5 MCV 95.1 RDW 12.8 PLT 313 BMP: Recent Labs 09/19/19 0833 NA 132* K 3.8 CL 99 CO2 23 BUN 8 CREATININE 0.81 GLUCOSE 117* CALCIUM 10.0 ANIONGAP 10 LIVER PROFILE: Recent Labs 09/19/19 0833 AST 38 ALT 14 BILITOT 0.5 ALKPHOS 59 LABALBU 4.4 PROT 7.0 PT/INR: No results for input(s): PROTIME, INR in the last 72 hours. CARDIAC ENZYMES: No results for input(s): TROPONINI in the last 72 hours. Procalcitonin: No results found for: PROCAL Urine Culture: No results found for this or any previous visit. I reviewed: [x] laboratory results [x] radiographic results At the time of today's encounter. Pt was advised of the results. Assessment Active Problems: Altered mental status, unspecified Benzodiazepine withdrawal with delirium (HCC) Declining functional status Anxiety Resolved Problems: * No resolved hospital problems. * TME; delirium vs benzo w/d: improved S/p L3-L5 laminectomy L4-L5 TLIF 09/16 HTN HLD PLAN: Face to face evaluation for non-violent restraints; soft restraints to upper extremities Resume home meds, continue benzos, sitter, psych and geriatric PT/OT,DC planning See orders, continue POC Advance Directive: Full Code PPE was worn for the duration of the encounter including but not limited to a N95. Donaldo Minor Hospitalist Jana Navarrete RN - 09/21/2019 1:01 PM EDTPsych paged to make aware that the patient seems much more paranoid today. Dr. Sanchez paged. etty Rios PTA - 09/21/2019 12:11 PM EDT Physical Therapy Facility/Department: [facility] Daily Treatment Note NAME: Angélica Dawn : 1950 Date of Service: 09/21/2019 Discharge Recommendations: 24 hour supervision or assist, Home with Home health PT PT Equipment Recommendations Other: pt has FWW at home Assessment Body structures, Functions, Activity limitations: Decreased functional mobility ;Decreased ROM;Decreased safe awareness;Decreased balance;Increased pain;Decreased strength;Decreased cognition Assessment: Overall mobility of pt is good, no LOB, no SOB. Performed log roll with use of bed rail and supervision with gait when using a walker. Pt is more limited by delusions of staff going to hurther. For some reason pt did trust this MATERIALS ASSOCIATE and would not let aide get vital signs. This MATERIALS ASSOCIATE took vital signs at end of session for nursing staff. Anticipate discharge to home with 24 hr supervision andhome PT. Increased time for session due to pt needing redirected through out. Prognosis: Good Decision Making: Low Complexity Barriers to Learning: mental status REQUIRES PT FOLLOW UP: Yes Activity Tolerance Activity Tolerance: Patient limited by cognitive status Patient Diagnosis(es): The primary encounter diagnosis was Altered mental status, unspecified altered mental status type. Diagnoses of Hallucinations and Delirium were also pertinent to this visit. has no past medical history on file. has no past surgical history on file. Restrictions Restrictions/Precautions Restrictions/Precautions: Fall Risk, General Precautions Position Activity Restriction Spinal Precautions: No Bending, No Lifting, No Twisting Spinal Precautions: recent lumbar sx--per spouse L4L5 done at [facility] Other position/activity restrictions: soft restraints, sitter present in room Subjective General Chart Reviewed: Yes Additional Pertinent Hx: Pt transferred from [facility] where she had lumbar surgery after change in mentalstatus with delusions/hallucinations and fall Family / Caregiver Present: Yes(sitter present) Subjective Subjective: Pt supine in bed with restraints on. Agreeable to PT. Plesant but very paranoid and speaking about how the nurses are going to kill her and rape her. Re-oriented several times, reassurance given through out tx session, and called at end of session for pt to speak with him. General Comment Comments: soft restraints, no bandage over incision Pain Screening Patient Currently in Pain: Yes Pain Assessment Pain Assessment: 0-10 Pain Level: 9 Pain Type: Surgical pain Pain Location: Back Vital Signs Patient Currently in Pain: Yes Orientation Orientation Orientation Level: Disoriented to situation;Oriented to person(oriented to hospital but not which one. ) Cognition Cognition Following Commands: Follows one step commands consistently Attention Span: Difficulty dividing attention Insights: Decreased awareness of deficits Initiation: Requires cues for some Sequencing: Requires cues for some Cognition Comment: currently having delusions that staff is going to kill and rape her. Objective Bed mobility Supine to Sit: Minimal assistance(via log roll) Sit to Supine: Minimal assistance Scooting: Supervision Transfers Sit to Stand: Contact guard assistance Stand to sit: Contact guard assistance Comment: pt stood from bed several times through out session and stood from toilet Ambulation Ambulation?: Yes More Ambulation?: Yes Ambulation 1 Surface: level tile Device: No Device Assistance: Contact guard assistance Gait Deviations: Slow Etelvina;Decreased step length;Decreased step height Distance: 15 ft to bathroom Ambulation 2 Surface - 2: level tile Device 2: Rolling Walker Assistance 2: Supervision Gait Deviations: Slow Etelvina Distance: ~ 150 ft Comments: no LOB but stops several times and tells this MATERIALS ASSOCIATE statements about delusions she is havingand paranoid thoughts. Stairs/Curb Stairs?: No Balance Comments: pt used toilet and was able to wipe independently. Stood several minutes in bathroom and had to be redirected. Goals Short term goals Time Frame for Short term goals: 2 wks Short term goal 1: Pt will be able to complete log roll technique for supine to sit with min A for homegoing., PROGRESSING, try with bed flat and no rail next session. Short term goal 2: Pt will be able to verbalize full recall of lumbar precautions to protect healingstructures., NOT ADDRESSED Short term goal 3: Pt will transfer sit<>stand supv in prep for gait. PROGRESSING Short term goal 4: Pt will amb 50-100' with FWW supv without LOB. GOAL MET, PLEASE UPDATE Short term goal 5: Up/down 5 steps with bilat UE support CGA for home entry. NOT ADDRESSED Patient Goals Patient goals : to go home Plan Plan Times per day: Daily Plan weeks: 2 wks Current Treatment Recommendations: Strengthening, Balance Training, Transfer Training, Gait Training, Patient/Caregiver Education & Training, Functional Mobility Training, Stair training, Safety Education & Training Safety Devices Type of devices: Left in bed, Call light within reach, All fall risk precautions in place, Sitter present Restraints Initially in place: Yes Restraints: soft UE restraints Therapy Time Individual Concurrent Group Co-treatment Time In 0845 Time Out 0930 Minutes 45 Timed Code Treatment Minutes: 45 Minutes(gait x2, FA) *This MATERIALS ASSOCIATE wore N95, gloves and face shield during whole treatment session.* Betty Chapa PTA Jana Navarrete RN - 09/21/2019 9:51 AM EDTExplained to pt that if she is less aggressive and cooperating we will try to assist patient to bedside commode. Pt still not understanding reasoning for restraints. RN again explained that pt had beenacting very unsafe yesterday and was continuing to demonstrate unsafe behavior by wanting to get outof bed alone, and being aggressive towards staff. Pt then states that there are people out there trying to kill me, and listening to my phone conversations. They are going to rape and kill me. RN explained that she was in the hospital and that she was safe. Pt then stated They are all dressed as nurses. Dr. Diop made aware of paranoia and orders to continue medical hold and he will consult geriatrics. Radha Marley RD, LD - 09/20/2019 4:10 PM EDT Nutrition Assessment Type and Reason for Visit: Initial, Positive Nutrition Screen Nutrition Recommendations: 1. Continue general diet, encourage PO intake. 2. Pt declining ONS at this time. Re-assess during F/U. 3. Suggest obtain CBW when able to monitor wt changes. 4. Monitor %PO intakes, labs, mentation. RD will follow. Nutrition Assessment: Pt admitted with AMS s/p back surgery on 09/16. Pt denies N/V. States that she is not eating as well because she is in a lot of pain. Declining ONS at this time. Malnutrition Assessment: ? Malnutrition Status: At risk for malnutrition ? Context: Acute illness or injury ? Findings of the 6 clinical characteristics of malnutrition (Minimum of 2 out of 6 clinical characteristics is required to make the diagnosis of moderate or severe Protein Calorie Malnutrition based on AND/ASPEN Guidelines): 1. Energy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 information [employer] provides. The information contained herein is not intended to cover all possible uses, directions, precautions, warnings, drug interactions, allergic reactions, or adverse effects. If you have questions about the drugs you are taking, check with your doctor, nurse or pharmacist. Copyright 6742-5551 [employer] software. Version: 15.01. Revision date: 02/03/2019. Care instructions adapted under license by [employer]. If you have questions about a medical condition or this instruction, always ask your healthcare professional. [employer] disclaimsany warranty or liability for your use of this information. documented in this encounter Additional Source Comments FOR RECORDS PERTAINING TO PATIENTS WHO ARE OR HAVE BEEN ENROLLED IN A CHEMICAL DEPENDENCY/SUBSTANCE ABUSE PROGRAM, SOME INFORMATION MAY BE OMITTED. This clinical summary was aggregated from multiple sources. Caution should be exercised in using it in the provision of clinical care. This summary normalizes information from multiple sources, and as a consequence, information in this document may materially changethe coding, format and clinical context of patient data. In addition, data may be omittedin some cases. CLINICAL DECISIONS SHOULD BE BASED ON THE PRIMARY CLINICAL RECORDS. [employer] provides no warranty or guarantee of the accuracy or completeness of information in this document. UNRECOGNIZED CONTENT PROVIDED BELOW FOR UNRECOGNIZED SECTION INFORMATION SOURCE DATE CREATED AUTHOR AUTHOR'S ORGANIZATIO N 09/27/2017 [facility] DATE CREATED AUTHOR AUTHOR'S ORGANIZATIO N 09/12/2018 [facility] DATE CREATED AUTHOR AUTHOR'S ORGANIZATIO N 09/20/2019 [facility] DATE CREATED AUTHOR AUTHOR'S ORGANIZATIO N 10/28/2019 [facility] DATE CREATED AUTHOR AUTHOR'S ORGANIZATIO N 12/03/2019 [facility] donaldo UNRECOGNIZED CONTENT PROVIDED BELOW FOR UNRECOGNIZED SECTION Reason for Visit Reason For Visit Description Start Date New/Est - 1st visit with physician Preliminary reason for visit data, not yet signed by the author as of left hip pain Reason Comments Delusional [place] slipped from [facility] she had back surgery 2 days ago. Per the pink slip she is here for med clearance. SHe had stated to staff she was seei ng black bears in her room and was hearing gun shots outside her room. She refused to be evaluated there so she was pink slipped. SHe arrive s via [facility] is calm and cooperative with staff. Hallucinations Patient denies the above but does make mention of black bears in her room. SHe states she had an unwitnessed fall this am in the bathroom. When RN inquired if she let her nurse know, she states I have not seen her. Kate on 7W at [facility] states she had a sitter last night that would be very unl ikely. Patient is currently A&Ox3. Reason Onset Date Comments Question 12/01/2019 Reason Onset Date Comments Hx Meds 12/02/2019 UNRECOGNIZED CONTENT PROVIDED BELOW FOR UNRECOGNIZED SECTION Source Comments In the event this information is protected by the Federal Confidentiality of Alcohol and Drug Abuse Patient Records regulations: The Federal rules restrict any use of the information to criminally investigate or prosecute any alcohol or drug abuse patient.[facility] InstituteIn the event this information is protected by the Federal Confidentiality of Alcohol and Drug Abuse Patient Records regulations: The Federal rules restrict any use of the information to criminally investigate or prosecute any alcohol or drug abuse patient.[facility] UNRECOGNIZED CONTENT PROVIDED BELOW FOR UNRECOGNIZED SECTION Miscellaneous Notes Telephone Encounter - Kate Christianson - 12/02/2019 2:38 PM EDTPt called back. Relayed Dr. Bonds's message below but she is states there was a different cream that Dr. Hannah prescribed for her. I was able to speak to Dr. Bonds and he is calling the appropriate cream into her pharmacy and recommends that she follows the pharmacists instructions. He also recommends she follows up with her dynamite packing machine feeder in [place] for the rash on her thighs. I relayed that message to pt & she expressed understanding. elephone Encounter - Kilo Bonds - 12/02/2019 11:06 AM EDT The following approved medication requests have been transmitted electronically. Signed Prescriptions Disp Refills conjugated estrogens (PREMARIN) vaginal cream 45 g 3 Sig: Use 1 g vaginally two times a week. Also to the outside of the vagina. HERMELINDO: No Authorizing Provider: KILO BONDS MD Please notify patient that her prescription for estrogen cream was sent to her pharmacy to use as prescribed. If she has had a recurrence of vulvar vaginal itching indicative of a yeast infection she can utilize her Lotrisone cream. Thank you Kilo Bonds M.D. elephone Encounter - Cathie Baker - 12/01/2019 12:47 PM EDT Please call when you get a chance. Not sure what she needs as she dropped the call. But she mentioned her premerin and having back surgery documented in this encounter Telephone Encounter - Kilo Bonds - 12/02/2019 2:37 PM EDT The following approved medication requests have been transmitted electronically. Signed Prescriptions Disp Refills betamethasone valerate 0.1 % cream 45 g 1 Sig: Apply to affected area every Sunday,Sunday,Sunday. Authorizing Provider: KILO BONDS MD documented in this encounter
== END ==
PROVIDERS: PCP Family Medicine; Referring Provider Family Medicine; Visit Provider Family Medicine
DX: Z01.818 Encounter for other preprocedural examination (principal); I10 Essential (primary) hypertension
CPT/HCPCS: 36415; 80053; 80061; 85025

== ENCOUNTER 2019-09-24 14:25 | Emergency (ER) | payer MEDICARE, SELFPAY ==
[2019-04-17 14:05] VITALS: BMI 31.3
[2019-09-24 14:27] VITALS: BP 176/75; PULSE 96; RESP 18; TEMP 36.4; O2SAT 97; BMI 28.8
--- NOTE | 2019-09-24 14:33 | CT_ITS ---
STUDY: CT BRAIN WITHOUT CONTRAST REASON FOR EXAM: Female, 69 years old. AMS RADIATION DOSAGE (If Supplied By Facility): CTDIvol = ( 44.99 ) mGy, DLP = ( 796.11 ) mGycm TECHNIQUE: Transaxial CT imaging of the brain was performed without administration of intravenous contrast material. Individualized dose optimization techniques were used for this CT. COMPARISON: Comparison is made with prior examination dated October 28, 2010. FINDINGS: Normal soft tissue structures. Normal calvarium. There is mild cerebral atrophy with widening of the extra-axial spaces and ventricular dilatation. Normal white matter tracts of the cerebral hemispheres. Normal basal ganglia and thalami. Normal brainstem. Normal cerebellum. There is no intracranial hemorrhage. There are no findings of an acute ischemic infarction. Atherosclerotic calcification of the cavernous portions of the internal carotid arteries bilaterally. Normal visualized paranasal sinuses. CT/Brain/Head without Contrast IMPRESSION: Chronic involutional changes of the brain. Electronically Signed: Arnold Pruitt, at 15:46 EDT , Service support ,
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
[2019-09-24 14:42] VITALS: BP 176/75; PULSE 97; RESP 12; TEMP 37; O2SAT 97
[2019-09-24 14:51] LABS: Absolute Lymphocyte Count 1.76 X10^3/uL (0.83-4.51); Absolute Neutrophil Count 8.5 X10^3/uL (2.0-7.7); Basophil# 0.03 X10^3/uL; Basophil% 0.3 % (0-1); Eosinophil# 0.24 X10^3/uL; Eosinophils% 2.1 % (0-5); Hematocrit 32.2 % (37-47); Hemoglobin 11.2 g/dL (12.0-15.0); Lymphocyte # 1.76 X10^3/ul (4.0); Lymphocyte % 15.3 % (19-41); Mean Corp Hgb Conc 34.8 g/dL (32-36); Mean Corpuscular Hgb 33.1 pg (27.0-32.0); Mean Corpuscular Volume 95.3 fL (81-99); Mean Platelet Vol. 9.6 fl (6.2-12.0); NRBC Flagged by Analyzer 0 % (0-5); Neutrophil # 8.54 X10^3/uL (2.7-7.7); Neutrophil % 74.3 % (47-70); Platelet Count 405 K/mm3 (150-450); RBC Distribution Width CV 12.4 % (11.6-14.6); RBC Distribution Width SD 42.8 fl (35.1-43.9); Red Blood Count 3.38 M/mm3 (4.2-5.4); White Blood Count 11.5 K/mm3 (4.4-11.0)
[2019-09-24 14:56] LABS: Bacteria 0 SEEN /hpf (None Seen); Mucous, Urine 0 SEEN /hpf (<or=2+); Red Blood Cells-Urine 0 SEEN /hpf (0-5); Squamous Epithelial Cells - UA 0 SEEN /hpf (5-10); White Blood Cells 0 SEEN /hpf (0-5)
[2019-09-24 14:59] LABS: Color, Urine Yellow (Yellow); Glucose, Dipstick Normal (Normal); Leukocyte Esterase-Dipstick Negative /ul (Negative); Nitrite-Dipstick Negative (Negative); Occult Blood-Urine Negative /ul (Negative); Protein-Dipstick Negative (Negative); Urine Bilirubin Dipstick Negative (Negative); Urine Clarity Clear (Clear); Urine Urobilinogen Normal (Normal); Urine pH 6.5 (5.0 - 8.0)
[2019-09-24 15:00] LABS: Ketone-Dipstick 150 mg/dl (Negative)
[2019-09-24 15:16] LABS: AST(SGOT) 25 U/L (15-37); Alanine Aminotransfer ALT/SGPT 19 U/L (13-56); Albumin, Serum 3.4 g/dL (3.2-5.0); Alkaline Phosphatase 59 U/L (45-117); Anion Gap 10 (5-15); BUN 10 mg/dL (7-18); BUN/Creat Ratio 13.9 RATIO (10-20); Calcium,Total 8.8 mg/dL (8.5-10.1); Chloride 98 mmol/L (98-107); Creatinine, Serum 0.72 mg/dL (0.55-1.02); EST Glomerular Filtration Rate 85 mL/min (>60); Est Glom Filt Rate - Afr Amer 103 mL/min (>60); Globulin 3.3 g/dL (2.2-4.2); Glucose 108 mg/dL (74-106); Potassium 3.7 mmol/L (3.5-5.1); Protein, Total 6.7 g/dL (6.4-8.2); Sodium Level 132 mmol/L (136-145)
[2019-09-24] MEDS: 0.9% Normal Saline 1,000 ML 150 ML IV (15:52)
[2019-09-24 15:53] VITALS: BP 173/82; PULSE 93; RESP 17; TEMP 36.5; O2SAT 97
[2019-09-24 17:36] VITALS: BP 193/74; RESP 17
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
--- NOTE | 2019-09-24 18:30 | CM.ED ---
SOCIAL WORK CALL TO [facility] TO INQUIRE ABOUT BED AVAILABILITY. PER CLOTH FOLDER MACHINE, NO BED AVAILABLE AT THIS TIME.
--- NOTE | 2019-09-24 18:48 | CM.ED ---
SOCIAL WORK REFERRAL FAXED AND CALLED TO SHERRI AT [facility]. UPDATED ON REFERRAL FOR [facility]. REPORTS CONCERNS IF PATIENT NOT ACCEPTED AND BEING DISCHARGED HOME. EDUCATION AND SUPPORT PROVIDED.
[2019-09-24 19:31] LABS: Alcohol, Blood (Medical)-Serum < 3.0 mg/dL
[2019-09-24 19:50] LABS: Amphetamine Urine VISTA NEGATIVE (<1000 ng/mL); Barbiturate Urine VISTA NEGATIVE (< 200 ng/mL); Benzodiazepine Urine VISTA NEGATIVE (< 200 ng/mL); Cocaine Urine VISTA NEGATIVE (< 300 ng/mL); Ecstacy Urine VISTA NEGATIVE (< 500 ng/mL); Methadone Urine VISTA NEGATIVE (< 300 ng/mL); PCP Urine VISTA NEGATIVE (< 25 ng/mL); THC Urine VISTA NEGATIVE (< 50 ng/mL); Vista UDS pH Range 6
--- NOTE | 2019-09-24 19:55 | CM.ED ---
SOCIAL WORK RECEIVED CALL FROM SHERRI WITH [facility]. SHERRI REPORTS IS GETTING RECORDS FROM [facility]. WILL UPDATE THIS WORKER ONCE RECEIVED AND REVIEWED. Eliseo BOWMAN, CHIROPRACTIC CARE, CURRICULUM ASSISTANT
[2019-09-24 21:00] VITALS: BP 169/78; PULSE 78; RESP 16; O2SAT 97
--- NOTE | 2019-09-24 21:00 | CM.ED ---
SOCIAL WORK CALL TO SHERRI WITH [facility] TO INQUIRE ABOUT STATUS OF REFERRAL. LEFT MESSAGE, AWAITING CALL BACK.
--- NOTE | 2019-09-24 21:25 | CM.ED ---
SOCIAL WORK CALL TO [facility] TO UPDATE END OF SW SHIFT. REQUESTED MAIN ED LINE BE CONTACTED REGARDING REFERRAL. Eliseo BOWMAN MSW, STRUCTURAL METAL WORKER.
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
[2019-09-25] VITALS (8 sets, daily range): BP systolic 141–185; BP diastolic 58–88; PULSE 90–105; RESP 16–20; TEMP 36.2–36.3; O2SAT 96–98
--- NOTE | 2019-09-25 00:06 | ED.RN ---
CALLED [facility], SPOKE TO SHERRI AND ALICIA, THEY ARE WAITING ON INFORMATION FROM [facility] REFERENCE HER SURGERY.
[2019-09-25] MEDS: LORazepam 1 MG Tablet 2 MG PO (00:57)
[2019-09-25] MEDS: Atenolol 25 MG Tablet PO ×2 (01:01→18:24)
--- NOTE | 2019-09-25 05:00 | ED.RN ---
see downtime documentation
--- NOTE | 2019-09-25 05:07 | ED.RN ---
[facility] downtime from 0200 until 0500. Please see downtime forms.
[2019-09-25] MEDS: oxyCODONE 5 MG Tablet PO (05:26)
--- NOTE | 2019-09-25 07:48 | ED.RN ---
speak with dex at [facility], they will attempt to contact [facility] was they are open regarding the medical information they need.
--- NOTE | 2019-09-25 09:00 | CM.ED ---
SOCIAL WORK CALL TO [facility] TO INQUIRE ABOUT STATUS OF REFERRAL. PER WORKER, DOCTOR IS CONTINUING TO WANT SURGERY REPORT. ETIENNE NEVAREZ HAS BEEN IN CONTACT WITH [facility]. UPDATED BY NURSING ON PATIENT'S STATUS OVERNIGHT AND THIS MORNING. PER NURSING, PATIENT ATTEMPTING TO BRUSH TEETH WITH MOUTH SWAP AND HAND SOAP. PATIENT CONTINUES TO REPORT HER IS ON DRUGS.
--- NOTE | 2019-09-25 09:44 | CM.ED ---
SOCIAL WORK SPOKE WITH INTAKE AT [facility]. PER RETAIL LOSS PREVENTION OFFICER, RECEIVED CLINICAL DOCUMENTATION FROM [facility]. AWAITING TO HEAR BACK ON NEEDS FOR POST OP FOLLOW UP CARE/APPOINTMENTS AND IF APPOINTMENTS ARE ABLE TO BE POSTPONED WHILE PATIENT IN FACILITY. WORKER INQUIRING ABOUT WOUND CARE TO DEHISCED INCISION. NURSING REPORTS WOUND CARE IS ABD PAD WITH TAPE, NO DRAINAGE. RETAIL LOSS PREVENTION OFFICER REPORTS WILL ALL THIS WORKER BACK ONCE NEEDS FOR POST OP FOLLOW UP ARE DETERMINED. Eliseo BOWMAN, PHLEBOTOMY LAB ASSISTANT, BLEACH TESTER.
--- NOTE | 2019-09-25 09:45 | NURSING ---
IV DCd per repeated pt request d/t pain. Site benign.
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
--- NOTE | 2019-09-25 10:19 | CM.ED ---
SOCIAL WORK RECEIVED CALL BACK FROM [facility] WITH [facility]. PER SELAM, PHYSICIAN IS DENYING PATIENT THEY DO NOT BELIEVE PATIENT REQUIRES [facility]YCH. BELIEVE PATIENT'S CONFUSION/DELIRIUM IS FROM PAIN MEDICATIONS AND RECENT HOSPITALIZATION/SURGERY. Eliseo BOWMAN, QUALITY ASSURANCE MONITOR BODY, TIP PUNCHER.
--- NOTE | 2019-09-25 10:27 | CM.ED ---
SOCIAL WORK DISCUSSED CASE WITH DR. SESAY. DUE TO PATIENT'S MENTAL STATUS CHANGE, DR. SESAY TO DISCUSS WITH HOSPITALIST. THIS WORKER TO CONTINUE TO ASSIST WITH SAFE AND APPROPRIATE DISCHARGE PLANNING. Eliseo BOWMAN, ENTERPRISE RESOURCE PLANNER, ELECTRIC PLATER.
--- NOTE | 2019-09-25 11:00 | CM.ED ---
SOCIAL WORK CALLED IN FOR UPDATE. REPORTS ABLE TO COME IN AND BRING DISCHARGE INSTRUCTIONS FROM [facility]. TO BE IN WITHIN THE HOUR.
--- NOTE | 2019-09-25 11:10 | CM.ED ---
SOCIAL WORK HOSPITALIST, DR. OLIVIER HERE TO SEE PATIENT. UPDATED ON PATIENT'S STATUS AND CONVERSATION WITH PATIENT'S OVER THE PHONE. INFORMED IS COMING IN.
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
--- NOTE | 2019-09-25 11:35 | ED.VISSUMM ---
- ER Visit Summary Date of Service: 09/25/19 Chief Complaint: [Addendum to initial dictation] History of Present Illness: The patient is a 69 F [turned over to me this morning after being in the department now for over 20 hours. Patient presented with paranoia and delusions. Patient is one-week postop lumbar surgery. Social workers have been attempting placement of patient to [facility] psych facility. I was told that patient would require transfer and placement to a geriatric psychiatric facility. clam bed worker once again evaluating patient this morning. Initial facility declined the patient.] Physical Examination: [HEENT-PERRLA, EOMI. Cranial nerves II through XII grossly intact. TMs clear. Mucous membranes moist. No adenopathy. Cardiovascular-regular rate and rhythm without murmur or ectopy Lungs-clear to auscultation, chest wall stable without crepitus or subcu emphysema Abdomen-normoactive bowel sounds, soft, nontender, no rebound or rigidity, no peritoneal signs. Back exam-patient has ABD dressing over surgical wound. No active bleeding or signs of infection. Extremities-intact ?4, normal range of motion, normal pulses, atraumatic] Test Results: [] Emergency Department Course and Treatment: [I had patient evaluated by hospitalist who felt that her symptoms primarily are psychiatric and did not feel patient would require medical admission. It was not felt her symptoms are related to her current medications.] Treatment Plan: [Patient continues to be paranoid. Patient continues with delusions.] Disposition: [Pending transfer to psychiatric facility] Impression: [Psychosis Paranoia Delusional] This note was generated with Cinnamon dictation software. It may contain incorrect words, spelling, and punctuation that were not noted in review of the chart prior to signing ED Disposition - Plan for ED Patient: Diagnosis: Altered mental status, Delusion, Paranoid Referrals: Regino Davey MD [Primary Care Provider] -
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
--- NOTE | 2019-09-25 12:45 | CM.ED ---
SOCIAL WORK CALL TO [facility] TO INQUIRE ABOUT BED AVAILABILITY FOR TODAY. HORSE RACETRACK MANAGER REPORTS NO FEMALE BEDS AVAILABLE. CALL TO [facility]. REFERRAL INFORMATION DISCUSSED. REQUESTED INFORMATION TO BE FAXED. COREY RUBIO, CAP SIZER.
--- NOTE | 2019-09-25 14:10 | CM.ED ---
SOCIAL WORK CALL TO [facility] TO INQUIRE IF FAX RECEIVED. [facility] REPORT FAX HAS NOT BEEN RECEIVED AT THIS TIME. REFERRAL RE-FAXED. Eliseo BOWMAN, HUMAN RESOURCES BENEFITS MANAGER,WEB OPERATIONS ADMINISTRATOR.
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
--- NOTE | 2019-09-25 15:10 | CM.ED ---
SOCIAL WORK RECEIVED CALL FROM WORKER WITH [facility]. INFORMED REFERRAL HAS BEEN REVIEWED AND DR WILL ACCEPT ONCE NEGATIVE COVID TEST OBTAINED. UPDATED STAFF. ORDER TO BE OBTAINED FOR COVID TEST.
--- NOTE | 2019-09-25 16:36 | ED.RN ---
Patient provided warm blankets as requested. Patient awake and interacting with staff.
--- NOTE | 2019-09-25 17:48 | ED.RN ---
Assisted Patient up to bathroom. Patient now lying on cart drinking water as requested.
--- NOTE | 2019-09-25 18:48 | CM.ED ---
SOCIAL WORK COVID RESULTS BACK AND FAXED TO [facility]. CALL TO EDISON WITH [facility] AND UPDATED ON NEGATIVE COVID-19. [facility] STATES ONCE RESULTS RECEIVED WILL CALL THIS WORKER BACK WITH ACCEPTING INFORMATION. Eliseo BOWMAN MSW, PROPERTY CARETAKER.
[2019-09-25] MEDS: HYDROcodone Bitartrate/Apap 5/325 Tablet PO (18:50)
--- NOTE | 2019-09-25 19:05 | CM.ED ---
SOCIAL WORK RECEIVED CALL FROM [facility] WITH RETIREMENT. PATIENT ACCEPTED BY DR. MCCOLLUM TO ROOM 288. NURSE TO CALL REPORT TO ONCE TRANSPORTATION IS ARRANGED. STAFF SARA. Eliseo BOWMAN MSW, ENTRY LEVEL CHEMIST.
[2019-09-25] MEDS: LORazepam 1 MG Tablet PO (20:01)
--- OUTSIDE RECORDS SUMMARY | 2020-01-25 15:18 | XMS RPT_ITS | CCD ---
:1950 External Reference #:[id number] Author Organization [facility] Care Team Providers Name Role Phone Edouard Unavailable Unavailable Edouard Unavailable Unavailable Edouard Unavailable Unavailable Edouard Unavailable Unavailable Edouard Unavailable Unavailable Joel PACHECO, Eulalio Unavailable Unavailable Primary Care Provider Unavailable Popeye Davey Primary Care Provider Allergies Reported Allergen Reaction(s) Severity Date of Location Onset buPROPion Intolerance 12-09-2009 - [facility] (74472) cloNIDine Intolerance 09-27-2015 - [facility] (57773) Desipramine Intolerance 12-09-2009 - [facility] (79774) Desvenlafaxine Mental Status 04-13-2011 - [facility] Change (18860) Doxycycline Hives 11-29-2011 - [facility] (31626) Erythromycin hives Critical, 08-16-2015 - [facility] Critical Orthopaedic [address] [facility] (58284) FLUoxetine Mental Status 11-24-2010 - [facility] Change (30267) gabapentin Hives 03-13-2013 - [facility] (26734) Imipramine Hives 12-09-2009 - [facility] (06159) metroNIDAZOLE Hives, Itching 08-06-2012 - [facility] (80336) Misc. Anesthesia [facility] Translations: Health System [ Misc. Anesthesia Repositor y Allergy] Mold Extract Critical, 06-17-2019 - [facility] Translations: [ MOLD] Critical Orthop aedic Center - [facility] (42206) Sertraline Other: See 06-26-2011 - [facility] Comments (03196) Solifenacin Intolerance 11-09-2009 - [facility] (27819) SUMAtriptan Intolerance 12-09-2009 - [facility] (47346) traMADol GI Upset 02-14-2006 - [facility] (33732) Valproate Other: See 10-21-2010 - [facility] Comments (88551) venlafaxine Hives High 05-14-2012 - [facility] (79267) Medications Current Medications Medication Name Sig Date Prescriber Location Acetaminophen acetaminophen 09-21-2019 [facility], (TYLENOL) tablet [place] ([address]) 1,000 mg Acetaminophen / HYDROcodone-acetamin Historical [facility], HYDROcodone ophen (NORCO) Provider [place] ([address]) 7.5-325 MG per Historical tablet Take 1 tablet Provider by mouth every 6 hours as needed for Pain. 0 Active Atenolol 25 mg, Oral, 2 TIMES 09-19-2019 [facility] DAILY, First dose on Orthopa edic 09/19/19 at 2100 Center - [facility] (41958) atenolol (TENORMIN) 25 mg 08-16-2015 [facility] tablet Take 1 tablet by mouth [facility] - Orthopaedic Surgeons three times daily. 90 tablet Cli amanda (04186) 11 03/25/2016 Active Comment: Take 1 tablet by mouth three times daily. atorvastatin 10 mg, Oral, DAILY, First dose 09-19-2019 [facility], [place] on Sun09/19/19 at 2200 (4523 7) Substituted for Simvastatin (ZOCOR). Comment: Take 10 mg by mouth once antwan ly. Docusate / sennosides-docusate sodium 09-22-2019 [facility]- sennosides, PENITENTIARY (SENOKOT-S) 8.6-50 [place] tablet 1 tablet (76632) Enoxaparin enoxaparin (LOVENOX) 09-19-2019 [facility] ealth- injection 40 [place], [place] ([address]) Folic Acid folic acid (FOLVITE) 09-22-2019 Amira Mckee [facility]- tablet 1 mg [place] ([address]) haloperidol haloperidol lactate 09-20-2019 Reyna [facility] alth- lactate (HALDOL) (HALDOL) injection 1 mg [place], [place] injection 1 mg (65314) Labetalol labetalol 09-19-2019 [facility] (NORMODYNE;TRANDATE) [place] injection 10 mg (33217) Lisinopril lisinopril 09-23-2019 [facility]- (PRINIVIL;ZESTRIL) tablet [place] , [place] 40 mg (74695) 20 mg, Oral, DAILY, First dose 09-19-2019 - 09-22-2019 [facility] [place], [place] ([address]) on Sun09/19/19 at 1615 LORazepam LORazepam (ATIVAN) tablet 1.5 09-19-2019 [facility] Orthopaedic mg Center - [facility] (32909) LORazepam (ATIVAN) 2 mg tab 10-30-2016 [facility] Provider Ramona [facility] Orthopaedic Center - [facility]opa edic [facility] (98822) ATIVAN 1 MG TABS take 1 tablet 08-16-2015 C [facility] Orthopaedic three times a day [facility] - Orthopaedic Surgeons LORAZEPAM [phone] [facility] (06191) Ras HERNANDEZN Multiple Multiple Historical [facility]- Vitamins-Minerals Vitamins-Minerals Provider [place], [place] (MULTIVITAMIN ADULT PO) (MULTIVITAMIN ADULT PO) Histor ical (59356) Take by mouth daily as Provider needed 0 Active Nutritional Supplements Nutritional Supplements Histor ical [facility]- (ENSURE ACTIVE) LIQD (ENSURE ACTIVE) LIQD Provider [place] Take by mouth daily as Historical (4523 7) needed 0 Active Provider oxyCODONE oxyCODONE (ROXICODONE) [facility]- immediate release tablet 020 [place] 5 mg (83799) POLYETHYLENE GLYCOL 3350 polyethylene glycol [facility]- (GLYCOLAX) packet 17 g 020 [place], [place] (53157) Promethazine promethazine (PHENERGAN) [employer]- tablet 12.5 mg 020 [place] ([address]) Simvastatin simvastatin (ZOCOR) 5 MG Historical [employer]- tablet Take 5 mg by Provider [place] mouth nightly 0 Active Historical (4523 7) Provider Sodium Chloride sodium chloride flush [employer]- 0.9 % injection 10 mL 020 [place] ([address]) Thiamine vitamin B-1 (THIAMINE) [facility]- tablet 100 mg 020 [place] ([address]) Completed/Discontinuned Medications Medication Name Sig Date Prescriber Location Acetaminophen / oxyCODONE-acetami 09-20-2019 - [facility], oxyCODONE nophen (PERCOCET) 09-21-2019 [place] ([address]) 5-325 MG per tablet 1 tablet oxyCODONE-acetaminophen (PERCOCET) 09-23-2019 Historical Pr [facility], .5-325 MG per tablet Take 1 tablet [place] ([address]) by mouth every 6 hours as needed for Pain. 0 09/23/2019 Discontinued (Stop Taking at Discharge) amLODIPine amLODIPine (NORVASC) 5 MG tablet 09-24-2019 [place], [place] ([address]) Take 1 tablet by mouth daily 30 tablet 3 09/24/2019 Active amLODIPine (NORVASC) 5 MG 09-24-2019 - 09-23-2019 Kevyn Diop [place], [place] tablet Take 1 tablet by (36322) mouth daily 30 tablet 3 09/24/2019 09/23/2019 Discontinued amLODIPine (NORVASC) tablet 09-22-2019 [place], [place] 5 mg (78492) Aspirin / Caffeine aspirin/caffeine (MIKA BACK [facility] Pr [facility] AND BODY ORAL) Take by mouth. (87529) 0 Active aspirin/caffeine (MIKA BACK AND BODY ORAL) [facility] Provider [facility] (99451) Take by mouth. 0 Active Comment: Take by mouth. Betamethasone betamethasone valerate 0.1 % 12-03-2019 [facility] Apply [place] ([address]) every Sunday,Sunday,Sunday. 45 g 1 12/03/2019 Active betamethasone dipropionate Historical Provider [facility] ([address]) (DIPROLENE) 0.05 % ointment Apply topically 2 times daily Apply topically 2 times daily. 0 Active Comment: Apply to affected area every Sunday,Sunday,Sunday. Betamethasone / clotrimazole-betamethasone 09-10-2019 Counts Include [facility] Clotrimazole (LOTRISONE) cream Apply to [facility], outside of vagina and crease of [place] ([address]) legs twice a day for 10-14 days. 45 g 2 09/10/2019 Active clotrimazole-betamethasone (LOTRISONE) Historica l Provider [facility]- [place], [place] 1-0.05 % cream Apply topically 2 times (86283) daily Apply topically 2 times daily. 0 Active Comment: Apply to outside of vagina a nd crease of legs twice a day for 10-14 days. Blood Pressure Blood Pressure Cuff - 09-27-2015 Khadar Richardson [facility] Cuff - Home Use Home Use Indications: (44 195) Elevated blood pressure reading without diagnosis of hypertension BLOOD PRESSURE CUFF FOR HOME USE. DX: LABILE BLOOD PRESSURE 1 Device 0 09/27/2015 Active Blood Pressure Cuff - Home Use 09-27-2015 Khadar Richardson [facility] (90649) Indications: Elevated blood pressure reading without diagnosis of hypertension BLOOD PRESSURE CUFF FOR HOME USE. DX: LABILE BLOOD PRESSURE 1 Device 0 09/27/2015 Active Comment: BLOOD PRESSURE CUFF FOR HOME USE. DX: LABILE BLOOD PRESSURE Cholecalciferol VITAMIN D3 50 MCG (2000 UT) 03-14-2016 [facility] Orthopaedic TABS take 2 tablets daily Ce nter - Orthopaedic [facility]CALCIFEROL [facility] (76973) [phone] Maggi Mcginnis RN FIRST ASSIST Cholecalciferol, Vitamin D3, 05-20-2013 Khadar Richardson [facility] 2,000 unit cap Take 1 tablet Ort [facility]edic Center - by mouth once daily. 0 Orthopaed ic Surgeons 05/20/2013 Active Clinic (79068) Vitamin D, Cholecalciferol, 10 Historical Provid er [facility] MCG (400 UNIT) TABS Take 1 Ortho paedic Center - tablet by mouth daily as Orthopa edic Surgeons needed 0 Active Clinic (13982) Comment: Take 1 tablet by mouth once daily. Dicyclomine DICYCLOMINE HCL 20 MG TABS [facility]-14-2016 [facility] 3 tablets three times C enter - Orthopaedic Surgeons daily DICYCLOMINE Clinic (90801) HCL [phone] Maggi Mcginnis LPN dicyclomine (BENTYL) 10 mg [facility] Provider Cryst al [facility] Orthopaedic capsule Take 10 mg by mouth Cent er - Orthopaedic Surgeons three times daily. 0 Active Clin ic (90021) dicyclomine (BENTYL) 10 MG Historical Provider C rystal [facility] Orthopaedic capsule Take 30 mg by mouth 3 Ce nter - Orthopaedic Surgeons times daily 0 Active Clinic (449 48) Comment: Take 10 mg by mouth three ti mes daily. Estrogens, conjugated 05-05-2019 - K[facility] Hall [facility] Conjugated (PENITENTIARY) estrogens 12-02-2019 [facility] (05680) (PREMARIN) vaginal cream Use 1 g vaginally two times a week. Also to the outside of the vagina. 45 g 3 12/02/2019 Active Comment: Use 1 g vaginally two times a week. Also to the outside of the vagina. Famotidine famotidine (PEPCID) 20 10-22-2015 Khadar Richardson C [facility] mg tablet Take 1 tablet Orth [facility] - by mouth twice daily. Orthop aedic Surgeons 180 tablet 3 10/22/2015 Clin ic (88256) Active PEPCID 20 MG TABS take 1 tablet once 08-16-2015 [facility] - daily FAMOTIDINE Orth [facility] (53573) [phone] Maggi Mcginnis LPN Comment: Take 1 tablet by mouth twice daily. Fluconazole fluconazole (DIFLUCAN) 09-25-2018 Kilo Bonds [facility] 150 mg tablet 1 pill (90920) now, repeat in 48 hours. 2 tablet 2 09/25/2018 Active Comment: 1 pill now, repeat in 48 peter rs. Lactobacillus Lactobacillus 08-16-2017 [place] [facility] acidophilus acidophilus (80108) (ACIDOPHILUS) cap Take 1-2 capsules by mouth twice daily with meals. 60 capsule 5 08/16/2017 Active Lactobacillus acidophilus 08-16-2017 Kilo Hall [facility] (67795) (ACIDOPHILUS) cap Take 1-2 capsules by mouth twice daily with meals. 60 capsule 5 08/16/2017 Active Comment: Take 1-2 capsules by mouth t wice daily with meals. Loperamide loperamide HCl (IMODIUM A-D ORAL) Ccf Pro vider [facility] (64899) Take by mouth. 0 Active loperamide HCl (IMODIUM A-D ORAL) Take by Ccf Pr ovider [facility] (51346) mouth. 0 Active Comment: Take by mouth. Naproxen NAPROXEN 500 MG TABS 06-17-2019 [facility] take 1 tablet once daily [facility] Orthopa edic Surgeons NAPROXEN [phone] [facility] (90549) Maggi Mcginnis LPN Nystatin nystatin (MYCOSTATIN) 03-27-2019 Kilo Ness [facility] (08072) powder Apply 1 application to affected area twice daily. Till Apr 09 (14 days) 60 g 3 03/27/2019 Active Comment: Apply 1 application to affec lenard area twice daily. Till Apr 09 (14 days) Omeprazole omeprazole (PRILOSEC) 20 mg [facility] Provider [facility] (96674) capsule Take 20 mg by mouth once daily. 0 Active Comment: Take 20 mg by mouth once antwan ly. OTC NUTRITIONAL OTC NUTRITIONAL Ccf Provider [facility] SUPPLEMENT SUPPLEMENT ensure 0 (43183) Active OTC NUTRITIONAL SUPPLEMENT ensure 0 Active Ccf P rovider [facility] (86263) Comment: ensure rosuvastatin rosuvastatin (CRESTOR) 5 02-27-2019 Kilo Bonds [facility] mg tablet Take 1 tablet (614 97) by mouth daily at bedtime. 0 02/27/2019 Active Comment: Take 1 tablet by mouth daily at bedtime. valACYclovir valACYclovir (VALTREX) 10-03-2018 Kilo Vicente [facility] 500 mg tablet Take 1 [facility] - tablet by mouth twice Orthop aedic Surgeons daily. 120 tablet 5 [facility] ( 45228) 10/03/2018 Active valACYclovir (VALTREX) 500 mg 08-16-2015 Kilo Vicente [facility] Orthopaedic tablet Take 1 tablet by mouth Ce nter - Orthopaedic once daily. 90 tablet 4 Surgeons [facility] (99164) 07/10/2018 Active Comment: Take 1 tablet by mouth twice daily. Take 1 tablet by mouth once daily. Problems Active Problems Category Problem Name Status Date Location Adjustment disorders Stress and adjustment Active 05-30-2012 - [facility] reaction (31552) Anxiety disorders Anxiety Active 04-21-2005 - [facility] [place]- [place] ([address]) Essential hypertension Hypertensive disorder Active [facility] (85235) Headache; including Headache [facility] migraine (26365) Hemorrhoids Hemorrhoids Active [facility] (91553) Inflammatory diseases Bacterial vaginosis Active [facility] of female pelvic (88412) organs Menopausal disorders Atrophic vaginitis Active 12-13-2011 - [facility] (14935) Mood disorders Depressive disorder Active 04-21-2005 - [facility] (15289) Other connective Trochanteric bursitis, Active 06-18-2019 - C [facility] Clinic tissue disease left hip Orthopaedic C enter - Orthopaedic [facility] (66778) Other connective Muscle pain Active [facility] tissue disease (99912) Other nervous system Acute postoperative [facility] [place] disorders pain (90459) Residual codes; Altered mental status Active 09-19-2019 - [facility] [place] unclassified (02183) Residual codes; Chronic pain Active 06-19-2013 - [facility] inic unclassified (91017) Residual codes; Delirium Active [facility] [place] un[place] (63090) Residual codes; Hallucinations [facility] [place] (25259) Residual codes; Decline in functional Active [facility] [place] un[place] status (25197) 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-15-2013 - [facility] [place] disorders withdrawal delirium (75247) Unclassified Positive measurement Active 05-26-2014 - [facility] finding (39686) Urinary tract Chronic interstitial Active 11-25-2009 - [facility] infections cystitis (48498) Viral infection Herpes simplex type 2 Active [facility] infection (69362) Past or Other Problems Category Problem Name Status Date Location Abdominal pain Pain in female pelvis Completed 11-25-2009 [facility] - (03509) Anal and rectal Rectal pain Completed 01-05-2012 [facility] inic conditions - (42090) Biliary tract disease Biliary calculus Com[facility] (35359[facility] Other and unspecified Tubular adenoma of Completed 10-31-2013 [facility] benign neoplasm colon - (76795) Other bone disease and Osteopenia Completed 06-22-2010 [facility] musculoskeletal - (81604) deformities Other connective tissue Fibromyalgia Completed 08-12-2011 [facility] disease - (03495) Other eye disorders Aponeurotic ptosis Completed 08-16-2015 Cr ystal [facility] - Orthopaedic [address] - [facility] (23809) Other gastrointestinal Constipation Completed 12-13-2011 [facility] disorders - (07551) Other inflammatory Pruritus of skin Completed 12-13-2011 [facility] condition of skin - (85583) Other lower respiratory Cough Completed 08-02-2010 [facility] disease - (29904) Other nervous system Burning sensation of Completed 06-05-2012 [facility] disorders vagina - (16966) Other nutritional; Weight gain Completed 11-24-2010 [facility] endocrine; and - (96619) metabolic disorders Other skin disorders Intrinsic aging of skin Completed 6 [facility] Orthopaedic [facility] (11854) Sexually transmitted Human papilloma virus Completed 12-08-2012 [facility] infections (not HIV or deoxyribonucleic acid - (21444) hepatitis) test positive, high risk on vaginal specimen Unclassified Problem [facility] Orthopaedic [facility] (52219) Results Result Name Value Range Unit Interpretation Flag Date Location [facility] Normal 12-02-2019 [facility] LÓPEZANGÉLICA Axel ([id number]) 1950 [facility] Time Provider Department (80876) 12/02/19 KILO BONDS During your visit today, [...] test positive [R87.81*12/08/2012 More... HPV test positive [JBU3246] 05/26/2014 More... Generalized abdominal pain [R10.84] 02/18/2015 Other cholelithiasis without obstruction [K80.8*02/18/2015 HTN (hypertension) [I10] BV (bacterial vaginosis) [N76.0, B96.89] HSV-2 (herpes simplex virus 2) infection [B00.9] Prescriptions ordered this encounter Disp Refills Start End BETAMETHASONE VALERATE 0.1 % TOPICAL* 45 g 1 12/03/2019 Route: TOPICAL Sig: Apply to affected area every Sunday,Sunday,Sunday. Encounter Status:Closed by KILO BONDS MD on 12/02/19 [facility] on 2019-12-01 [facility] ([facility]) Normal 12-01-2019 [facility] ANGÉLICA DAWN ([id number]) 1950 [facility] Date Time Provider Department (75612) 12/01/19 KILO BONDS During your visit today, [...] also recommends she follows up with her treatment plant mechanic in [place] for t he rash on her thighs. [...] - Fully Assessed Reason for Visit: Question [6436] Order(s):conjugated estrogens (PREMARIN) vaginal creamUse 1 g [...] test positive [R87.81*12/08/2012 More... HPV test positive [[id number]] 05/26/2014 More... Generalized abdominal pain [R10.84] 02/18/2015 [...] Patient name: ANGÉLICA DAWN MR#: Judy 10-02-2019 [facility] [id number] Hospital ([id number]) Location: [place] Acc#: [id number] Admit Date: 09/25/19 Discharge Date: 10/02/19 : 1950 Age: 69 Sex: F Dictated By: Chino Vail MD Signing Physician: DICTATED BY: Chino Vail M.D. SIGNING PHYSICIAN: DISCHARGE DATE: 10/02/19 DATE OF SERVICE: 10/02/2019 This is a 69-year-old female, admitted on a pink slip from [facility] Emergency Department for paranoid delusions and hallucinatio [...] bedtime. 7. Lisinopril 20 mg daily. 8. Bowie 1 tablet every 6 hours p.r.n. 9. Atenolol 25 mg b.i.d. 10. Norvasc 5 mg daily. DISPOSITION: The patient discharged home with her husb and with followup with [facility]. JAKE/YOVANY @ 16:52 @ 03:40 # [id number] Chino Vail M.D. Electronically Signed Date/T sheila: 10/05/191406 Electronically Signed Date/Time: 10/05/191406 mrpn on 2019-10-01 MRPN Patient Name:ANGÉLICA DAWN MR #: Judy 10-01-2019 [facility] [id number] [facility] (12163) Location: [place] Acc#: [id number] Date of Admit: 09/25/19 : 1950 Age: [...] t.i.d. JAYRO/YOVANY @ 12:01 @ 15:20 # [id number] Girish Martin M.D. Electronically Signed Date/Time: 10/01/191618 Electronically Signed Date/Time: 10/01/191618 [facility] Patient Name:ANGÉLICA DAWN MR #: Judy 10-01-2019 [facility] [id number] [facility] (31500) Location: [place] Acc#: [id number] Date of Admit: 09/25/19 : 1950 Age: [...] nd. MORALES/YOVANY @ 09:26 @ 10:10 # [id number] Ramesh Castro M.D. Electronically Signed Date/Time: 10/01/19 1133 Electronically Signed Date/Time: 10/01/19 1133 LALIT Patient Name:ANGÉLICA DAWN MR #: Judy 10-01-2019 [facility] [id number] [facility] (07717) Location: [place] Acc#: [id number] Date of Admit: 09/25/19 : 1950 Age: 69 Sex: F Dictated By: Chino Vail MD Signing Physician: DICTATED BY: Chino Vail M.D. SIGNING PHYSICIAN: PSYCHIATRIC FOLLOWUP NOTE SUBJECTIVE: This is a 69-year-old Caucas rachelle female, admitted as a referral fro [facility] Emergency Department for increased paranoia, delusi ons, [...] therapy. JAKE/YOVANY @ 23:00 @ 12:50 # [id number] Chino Vail M.D. Electronically Signed Date/Time: 10/02/19 1228 Electronically Signed Date/Time: 10/02/19 1228 rapid plasma reagin on 2019-09-29 RAPID PLASMA REAGIN NONREACTIVE NONREACTIVE Normal 2019 [facility] ( 74179) Comment: Performed By: #### VB12, FOL , LIPID, MG, T4, TSH #### [facility] [address] [place] [address] mrpn on 2019-09-29 MRPN Patient Name:ANGÉLICA DAWN MR #: Normal 09-29-2019 [facility] [id number] Hospital ([id number]) Location: [place] Acc#: [id number] Date of Admit: 09/25/19 : 1950 Age: 69 Sex: F Dictated By: Chino Vail MD Signing Physician: DICTATED BY: Chino Vail M.D. SIGNING PHYSICIAN: DATE OF SERVICE: 09/29/2019 SUBJECTIVE: This is a 69-year-old Caucas rachelle female, admitted as a referral fro [facility] on a pink slip for increased pa [...] therapy. JAKE/YOVANY @ 12:44 @ 16:50 # [id number] Chino Vail M.D. Electronically Signed Date/Time: 09/30/19 1147 Electronically Signed Date/Time: 09/30/19 [facility]:ANG[facility] MR #: Judy 09-29-2019 [facility] [id number] [facility] (97004) Location: [place] Acc#: [id number] Date of Admit: 09/25/19 : 1950 Age: [...] required. JAYRO/YOVANY @ 12:38 @ 17:10 # [id number] Girish Martin M.D. Electronically Signed Date/Time: 10/01/19800 Electronically Signed Date/Time: 10/01/19800 pn.pdoc on PN.PDOC ANGÉLICA DAWN Female [id number] Normal 09-28-2019 [facility] Attending provider: [place] [id number] [facility] ([id number]) Chino Vail 1950 69 DOS: Progress Note [...] normal bowel reynold nds Neurologic: speech clear/fluent, turning lathe tender II- XII grossly intact w/ no focal [...] Patient Name:ANGÉLICA DAWN MR #: Judy 09-28-2019 [facility] [id number] Hospital (08662) Location: [place] Acc#: [id number] Date of Admit: 09/25/19 : 1950 Age: 69 Sex: F Dictated By: Chino Vail MD Signing Physician: DICTATED BY: Chino Vail M.D. SIGNING PHYSICIAN: DATE OF SERVICE: 09/28/2019 SUBJECTIVE: This is a 69-year-old Caucas rachelle female, admitted as a referral fro [facility] on a pink slip for increased pa [...] therapy. PABLO @ 15:45 @ 17:40 # [id number] Chino Vail M.D. Electronically Signed Date/Time: 09/29/191102 Electronically Signed Date/Time: 09/29/191102 mrpn on 2019-09-27 MRPN Patient Name:ANGÉLICA DAWN MR #: Judy 09-27-2019 [facility] [id number] Hospital (97753) Location: [place] Acc#: [id number] Date of Admit: 09/25/19 : 1950 Age: [...] gathered by reviewing the chart, discussing w [facility] staff and interviewing the patient. Staff reports [...] ideation. She was aware she was in [facility] that it was September 2019 and Monica [...] encouraged. FLYNN/YOVANY @ 14:35 @ 15:20 # [id number] [place] Electronically Signed Date/Time: 09/28/192131 Electronically Signed Date/Time: 09/28/192131 vitamin b 12 on Cobalamin (Vitamin B12) 4993 271-4145 pg/mL High 2019 [facility] [Mass/Vol] [facility] (02465) Comment: Performed By: #### VB12, FOL , LIPID, MG, T4, TSH #### [facility] [address] [place] [address] thyroxine (t4) on 2 T4 [Mass/Vol] 13.4 4.8-13.9 ug/dl Normal 09-26-2019 [facility] (99748) Comment: Performed By: #### VB12, FOL , LIPID, MG, T4, TSH #### [facility] [address] [place] [address] thyroid stim hormone on 2019-09-26 THYROID STIM HORMONE 0.949 0.358-3.74 uIU/mL Normal 09-26-[address] [place] [address] ( [address]) Comment: Performed By: #### VB12, FOL , LIPID, MG, T4, TSH #### [facility] [address] [place] [address] sed rate on 2019-09 SED RATE 50 0-30 mm/hr High 09-26-2019 [facility] (39791) Comment: Performed By: #### [facility] #### [address] [address] pcm.cons on 2019-09 PCM.CONS ANGÉLICA DAWN [id number] Normal 09-26-2019 [facility] Attending provider: [place] [id number] Hospital ([id number]) Barrera Vaila 1950 69 DOS: Medical Consultation [...] at baseline. 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, has had several short prescriptions leading [...] 400 Units] 1 tab PO DAILY PRN ND N 09/25/19 [Confirmed 09/25/19] Clotrimazole W/ Betamethason e [Lotrisone] 1 applicaton T BID 09/25/19 [Confirmed 09/25/19] Dicyclomine [Bentyl] 30 mg PO TID 09/25/19 [Confirmed ] Hydrocodone-Acetaminophen [Bowie 7.5-325 mg] 1 tab PO Q6H ND N PRN 09/25/19 [Confirmed 09/25/19] Lisinopril 20 [...] Neurologic: no motor/sensory deficits, s peech clear/fluent, turning lathe tender II-XII grossly intact w/ no focal defects [...] Patient name: ANGÉLICA DAWN MR#: Normal 09-26-2019 [facility] [id number] [facility] ([id number]) Location: [place] Acc#: [id number] Admit Date: 09/25/19 : 1950 Age: 69 [...] current is actually her first . As ogdads-xc-ceao, she did call the deputy sheriff custody on her out of fear. She was [...] states that she saw a psychiatrist in [facility] many years ago for anxiety. Currently, her [...] workup. MORALES/YOVANY @ 10:32 @ 11:30 # [id number] Ramesh Castro M.D. Electronically Signed Date/T sheila: 10/01/19919 Electronically Signed Date/Time: 10/01/19919 magnesium on 09-25 Magnesium [Mass/Vol] 2.2 1.8-2.4 mg/dL Normal 0 [facility] (26248) Comment: Performed By: #### VB12, FOL , LIPID, MG, T4, TSH #### [address] [address] lipid profile (fasting) on 2019-09-26 Cholesterol [Mass/Vol] 173 0-200 mg/dL Normal 020 [facility] (86301) Comment: Performed By: #### VB12, FOL , LIPID, MG, T4, TSH #### [facility] [address] [place] [address] Cholesterol in HDL 48 40-60 mg/dL Normal 09-26-2019 [facility] [Mass/Vol] [facility] (09527) Comment: Performed By: #### VB12, FOL , LIPID, MG, T4, TSH #### [facility] [address] [place] [address] Cholesterol in LDL 94 0-130 mg/dL Normal 09-26-2019 [facility] [Mass/Vol] [facility] (27183) Comment: Performed By: #### VB12, FOL , LIPID, MG, T4, TSH #### [facility] [address] [place] [address] Cholesterol.total/Cholesterol in 3.6 3.7-5.6 mg/dl Normal 09-26-2019 [facility] HDL [Mass ratio] [facility] (93609) Comment: Performed By: #### VB12, FOL , LIPID, MG, T4, TSH #### [facility] [address] [place] [address] Triglyceride [Mass/Vol] 151 0-150 mg/dL High 2019 [facility] (10482) Comment: Performed By: #### VB12, FOL , LIPID, MG, T4, TSH #### [facility] [address] [place] [address] VLDL CALCULATION 30 5-40 mg/dl Normal 09-26-2019 [facility] (06256) Comment: Performed By: #### VB12, FOL , LIPID, MG, T4, TSH #### [facility] [address] [place] [address] glycohemoglobin (a1c) on 2019-09-26 Glucose [Mass/Vol] 103 mg/dL Normal 09-26-2019 [facility] (72990) Comment: Performed By: #### GLY #### [facility] [address] [place] [address] HbA1c (Bld) [Mass fraction] 5.2 % Normal [facility] (64066) Comment: Result Comment: Interpretati on of Hgb [...] BLOOD LOSS. Performed By: #### GLY #### [facility] [address] [place] [address] folic acid on 09-25 FOLIC ACID 15.5 3.1-17.5 ng/mL Normal 09-26-2019 [facility] (28965) Comment: Performed By: #### VB12, FOL , LIPID, MG, T4, TSH #### [facility] [address] [place] [address] cr chest portable o n 2019-09-20 CR Chest Portable Patient Name: ANGÉLICA DAWN 09-20-2019 [facility] (18249) Diagnostic Radiology Exam Date/Time 09/20/2019 08:30:20 EDT Exam CR Chest Portable Ordering Physician [id number] KEVYN JETER Accession Number [id number] CPT4 Codes 46263 () Reason For Exam ams; PNA? Report [...] Low lung volumes. Report Dictated on Workstation: [employer] Final Dictated: 09/20/2019 8:58 am Dictating Physician: MD HYATT JENNIFER R Signed Date and Time: 09/20/2019 8:59 am Signed by: MD HYATT JENNIFER R Transcribed Date and Time: 09/20/2019 8:58 No panel information on 2019-09-20 [facility] Incoming Radiology Results From [facility] - 2019 9:01 AM EDT 09-20-2019 [place] ([address]) Patient Name: ANGÉLICA DAWN ---Diagnostic Radiology--- Exam Date/Time 09/20/2019 08:30:20 EDT Exam CR Chest Portable Ordering Physician [id number] KEVYN JETER Accession Number [id number] CPT4 Codes 33994 () Reason For Exam ams; PNA? Report [...] Low lung volumes. Report Dictated on Workstation: [employer] --- Final --- Dictated: 09/20/2019 8:58 am Dictating Physician: MD HYATT JENNIFER R Signed Date and Time: 09/20/2019 8:59 am Signed by: MD HYATT JENNIFER R Transcribed Date and Time: 09/20/2019 8:58 Patient Name: [place] [address]) [id number] ---Diagnostic Radiology--- Exam Date/Time 09/20/2019 08:30:20 EDT Exam CR Chest Portable Ordering Physician [id number] KEVYN JETER Accession Number [id number] CPT4 Codes 95026 () Reason For Exam ams; PNA? Report [...] Low lung volumes. Report Dictated on Workstation: [employer] --- Final --- Dictated: 09/20/2019 8:58 am Dictating Physician: MD HYATT JENNIFER R Signed Date and Time: 09/20/2019 8:59 am Signed by: MD HYATT JENNIFER R Transcribed Date and Time: 09/20/2019 8:58 thyroid stim. hormone on 2019-09-19 Thyroid Stim. 0.941 0.465-4.680 u[IU]/mL Normal 09-19-2019 [facility] Hormone (52613) Comment: Performed By: #### HEMDF, CM P3, ETOH4, MG3, TSH5 #### [facility] [address] [place] [address] sars-cov-2 on 09-18 SARS-CoV-2 SARS-CoV-2 --> Status: F Normal 09-07 [facility] Not Detected (00456) Expected Result: Not Detected _ Real-time, RT-PCR performed on the [employer] by the [facility]. Negative results do not preclude SARS-CoV-2 infection and should not be used as the sole basis for treatment or other patient management decisions. This assay was developed by [employer] and distributed under an Emergency Use Authorization (EUA) granted by the FDA for the qualitative detection of SARS-CoV-2 nucleic acid. Expected Result: Not Detected _ Real-time, RT-PCR performed on the [employer] TORCH by the [facility]. Negative results do not preclude SARS-CoV-2 infection and should not be used as the sole basis for treatment or other patient management decisions. This assay was developed by [employer] and distributed under an Emergency Use Authorization (EUA) granted by the FDA for the qualitative detection of SARS-CoV-2 nucleic acid. Comment: Order Comment: Specimen Sour ce Comment:Nasopharyngeal Swab Performed By: #### COVID ### # [address] [place], [place] magnesium on 09-18 Magnesium [Mass/Vol] 1.9 1.6-2.3 mg/dL Normal 0 [facility] (03259) Comment: Performed By: #### HEMDF, CM P3, ETOH4, MG3, TSH5 #### [address] [place], [place] hemogram w/ autodiff on 2019-09-19 Abs Baso Cnt 0.1 0.0-0.2 10*3/uL Normal 09-19-2019 [facility] (35690) Comment: Performed By: #### HEMDF, CM P3, ETOH4, MG3, TSH5 #### [address] [place], [place] Abs Neutrophile Cnt 11.0 1.8-7.0 10*3/uL High 09-19-2019 [facility] (10677) Comment: Performed By: #### HEMDF, CM P3, ETOH4, MG3, TSH5 #### [address] [place], [place] Basophils/100 WBC (Bld) 0.4 0.0-2.0 % Normal 2019 [facility] (92070) Comment: Performed By: #### HEMDF, CM P3, ETOH4, MG3, TSH5 #### [address] [place], [place] Eosinophils (Bld) [#/Vol] 0.0 0.0-0.5 10*3/uL Normal 09-07 [facility] (27840) Comment: Performed By: #### HEMDF, CM P3, ETOH4, MG3, TSH5 #### [address] [place], [place] Eosinophils/100 WBC (Bld) 0.3 1.0-6.0 % Low 09-07 [facility] (79265) Comment: Performed By: #### HEMDF, CM P3, ETOH4, MG3, TSH5 #### [address] [place], [place] Erythrocyte distribution 12.8 11.5-14.5 % Normal 09-18 [facility] width (RBC) [Ratio] (16837) Comment: Performed By: #### HEMDF, CM P3, ETOH4, MG3, TSH5 #### [address] [place], [place] Granulocytes/100 WBC (Bld) 79.3 40.0-80.0 % Normal [facility] (63557) Comment: Performed By: #### HEMDF, CM P3, ETOH4, MG3, TSH5 #### [address] [place], [place] Hematocrit (Bld) [Volume 36.5 35.0-47.0 % Normal 09-18 [facility] fraction] (78482) Comment: Performed By: #### HEMDF, CM P3, ETOH4, MG3, TSH5 #### [address] [place] [place], [place] Hemoglobin (Bld) 12.8 11.7-16.0 g/dL Normal 09-19-2019 [facility] [Mass/Vol] (90205) Comment: Performed By: #### HEMDF, CM P3, ETOH4, MG3, TSH5 #### [address] [address] [place], [place] Lymphocytes (Bld) [#/Vol] 1.7 1.0-4.3 10*3/uL Normal 09-07 [facility] (92857) Comment: Performed By: #### HEMDF, CM P3, ETOH4, MG3, TSH5 #### [address] [place] [place], [place] Lymphocytes/100 WBC (Bld) 11.9 20.0-40.0 % Low 09-07 [facility] (45710) Comment: Performed By: #### HEMDF, CM P3, ETOH4, MG3, TSH5 #### [place] [place], [place] MCH (RBC) [Entitic mass] 33.3 26.0-34.0 pg Normal 09-18 [facility] (09467) Comment: Performed By: #### HEMDF, CM P3, ETOH4, MG3, TSH5 #### [address] MCHC (RBC) [Mass/Vol] 35.0 32.0-36.0 % Normal 09-19-19 [facility] (93020) Comment: Performed By: #### HEMDF, CM P3, ETOH4, MG3, TSH5 #### [address] [place], [place] MCV (RBC) [Entitic vol] 95.1 79.0-98.0 fL Normal 2019 [facility] (96445) Comment: Performed By: #### HEMDF, CM P3, ETOH4, MG3, TSH5 #### [address] Monocytes (Bld) [#/Vol] 1.1 0.0-0.8 10*3/uL High 2019 [facility] (08760) Comment: Performed By: #### HEMDF, CM P3, ETOH4, MG3, TSH5 #### [address] Monocytes/100 WBC (Bld) 8.1 2.0-10.0 % Normal 2019 [facility] (32325) Comment: Performed By: #### HEMDF, CM P3, ETOH4, MG3, TSH5 #### [facility] [address] [place], [place] Platelet mean volume (Bld) 8.6 7.4-10.4 fL Normal [facility] [Entitic vol] (22970 ) Comment: Performed By: #### HEMDF, CM P3, ETOH4, MG3, TSH5 #### [facility] [address] [place], [place] Platelets (Bld) [#/Vol] 313 140-440 10*3/uL Normal 2019 [facility] (69862) Comment: Performed By: #### HEMDF, CM P3, ETOH4, MG3, TSH5 #### [address] [place] [place], [place] RBC (Bld) [#/Vol] 3.84 3.80-5.20 10*6/uL Normal 09-19-2019 [facility] (97492) Comment: Performed By: #### HEMDF, CM P3, ETOH4, MG3, TSH5 #### [address] [place], [place] WBC (Bld) [#/Vol] 13.9 3.6-10.7 10*3/uL High 09-19-2019 [facility] (46878) Comment: Performed By: #### HEMDF, CM P3, ETOH4, MG3, TSH5 #### [facility] [address] [place], [place] ethanol serum/plasma on 2019-09-19 Ethanol-Serum/Plasma < 0.010 0.000-0.010 Normal 09-18- [facility] (92904) Comment: Result Comment: NOTE: This r esult is for medical treatment only. Analysis performed using non -forensic procedures. Performed By: #### HEMDF, CM P3, ETOH4, MG3, TSH5 #### [facility] [address] [place], [place] drugs of abuse on Phencyclidine (PCP), Ur Negative Normal 2019 [facility] (27872) Comment: Result Comment: The expected value for [...] Performed By: #### CUA2, DRG A4 #### [facility] [address] [place] [address] Methadone, Ur Negative Normal 09-19-2019 [facility] (06981) Comment: Performed By: #### CUA2, DRG A4 #### [facility] [address] [place] [address] Opiates, Ur Positive Normal 09-19-2019 [facility] (27364) Comment: Performed By: #### CUA2, DRG A4 #### [facility] [address] [facility] [address] [address] Cocaine, Ur Negative Normal 09-19-2019 [facility] (65497) Comment: Performed By: #### CUA2, DRG A4 #### [facility] [address] [facility] [place] [address] Amphetamines, Ur Negative Normal 09-19-2019 [facility] (96373) Comment: Performed By: #### CUA2, DRG A4 #### [facility] [address] [facility] [place] [address] Barbiturates, Ur Negative Normal 09-19-2019 [facility] (55676) Comment: Performed By: #### CUA2, DRG A4 #### [facility] [address] [facility] [address] Benzodiazepines, Ur Negative Normal 09-19-2019 [facility] (26339) Comment: Performed By: #### CUA2, DRG A4 #### [facility] [address] [place] [address] Oxycodone/Oxymorphine,Ur Positive Normal 09-18 [facility] (99675) Comment: Performed By: #### CUA2, DRG A4 #### [facility] [address] [place] [address] ct head or brain w/o contrast on 2019-09-19 CT Head or Brain Patient Name: ANGÉLICA DAWN al 09-19-2019 [facility] w/o Contrast Sys tem (13285) CT Exam Date/Time 09/19/2019 08:47:[address] Head or Brain w/o Contrast Ordering Physician KILO ELLSWORTH Accession Number [id number] CPT4 Codes 43405 () Reason For Exam altered mental status [...] 2019-09-19 Appearance (U) Clear Clear Normal 09-19-2019 [facility] (50595) Comment: Result Comment: . Performed By: #### CUA2, DRG A4 #### [facility] [address] [place] [address] Bilirubin,Urine Negative Negative Normal 09-19-2019 [facility] (52519) Comment: Result Comment: . Performed By: #### CUA2, DRG A4 #### [facility] [address] [place] [address] Color (U) Colorless Lt. Yellow Normal 09-19-2019 [facility] (78724) Comment: Result Comment: . Performed By: #### CUA2, DRG A4 #### [facility] [address] [place] [address] Glucose Ql (U) Normal Normal (<70) Normal 09-19-2019 [facility] (10748) Comment: Result Comment: . Performed By: #### CUA2, DRG A4 #### [facility] [address] [place] [address] Ketone,Urine Negative Negative Normal 09-19-2019 [facility] (01349) Comment: Result Comment: . Performed By: #### CUA2, DRG A4 #### [facility] [address] [place] [address] Leukocytes,Urine Negative Negative Normal 09-19-2019 [facility] (94462) Comment: Result Comment: . Performed By: #### CUA2, DRG A4 #### [facility] [address] [place] [address] Nitrites,Urine Negative Negative Normal 09-19-2019 [facility] (11209) Comment: Result Comment: . Performed By: #### CUA2, DRG A4 #### [facility] [address] [place] [address] Occult Blood,Urine Negative Negative Normal 09-19-2019 [facility] (30242) Comment: Result Comment: . Performed By: #### CUA2, DRG A4 #### [facility] [address] [place] [address] pH (U) 6.5 5.0-8.0 Normal 09-19-2019 [facility] (21553) Comment: Result Comment: . Performed By: #### CUA2, DRG A4 #### [facility] [address] [place], [place] Protein (U) [Mass/Vol] Negative Negative mg/dL Normal 020 [facility] (38991) Comment: Result Comment: . Performed By: #### CUA2, DRG A4 #### [facility] [address] [place], [place] Specific [place],Urine 1.007 1.005 - 1.030 Normal [facility] (16091) Comment: Result Comment: . Performed By: #### CUA2, DRG A4 #### [facility] [address] [place], [place] Urobilinogen,Urine Normal Normal (0-1) Normal 09-19-19 [facility] (69605) Comment: Result Comment: . Performed By: #### CUA2, DRG A4 #### [address] [place] [place], [place] comp metabolic panel on 2019-09-19 Calcium [Mass/Vol] 10.0 8.4-10.4 mg/dL Normal 09-19-2019 [facility] (78717) Comment: Performed By: #### HEMDF, CM P3, ETOH4, MG3, TSH5 #### [address] [address] [place], [place] ALP [Catalytic activity/Vol] 59 38-126 U/L Normal 0 09-19-2019 [facility] (77085) Comment: Performed By: #### HEMDF, CM P3, ETOH4, MG3, TSH5 #### [facility] [address] [place], [place] ALT [Catalytic activity/Vol] 14 0-34 U/L Normal 0 09-19-2019 [facility] (26563) Comment: Result Comment: The ALT test is performed by an updated assay method. Please note that the referen ce intervals have been changed and are now sex spec ific. Performed By: #### HEMDF, CM P3, ETOH4, MG3, TSH5 #### [address] [place], [place] Anion gap [Moles/Vol] 10 Normal 09-19-19 [facility] (73557) Comment: Performed By: #### HEMDF, CM P3, ETOH4, MG3, TSH5 #### [facility] [address] [place], [place] AST [Catalytic activity/Vol] 38 15-46 U/L Normal 0 09-19-2019 [facility] (54147) Comment: Performed By: #### HEMDF, CM P3, ETOH4, MG3, TSH5 #### [facility] [address] [place], [place] Bilirubin [Mass/Vol] 0.5 0.2-1.3 mg/dL Normal 0 [facility] (49405) Comment: Performed By: #### HEMDF, CM P3, ETOH4, MG3, TSH5 #### [address] [place] [place], [place] CO2 [Moles/Vol] 23 22-30 mmol/L Normal 09-19-2019 [facility] (19362) Comment: Performed By: #### HEMDF, CM P3, ETOH4, MG3, TSH5 #### [address] [place] [place], [place] Creatinine [Mass/Vol] 0.81 0.52-1.25 mg/dL Normal 09-19-19 20 [facility] (98928) Comment: Performed By: #### HEMDF, CM P3, ETOH4, MG3, TSH5 #### [address] [place], [place] GFR/1.73 sq M predicted 85.2 >60 mL/min Normal 2019 [facility] among blacks MDRD (S/P/Bld) (83390) [Vol rate/Area] Comment: Performed By: #### HEMDF, CM P3, ETOH4, MG3, TSH5 #### [facility] [address] [place], [place] GFR/1.73 sq M predicted 73.5 >60 mL/min Normal 2019 [facility] among non-blacks MDRD (99725) (S/P/Bld) [Vol rate/Area] Comment: Result Comment: KDIGO [...] HEMDF, CM P3, ETOH4, MG3, TSH5 #### [facility] [address] [place], [place] Glucose [Mass/Vol] 117 70-100 mg/dL High 09-19-2019 [facility] (59684) Comment: Performed By: #### HEMDF, CM P3, ETOH4, MG3, TSH5 #### [facility] [address] [place], [place] Protein [Mass/Vol] 7.0 6.3-8.2 g/dL Normal 09-19-2019 [facility] (00098) Comment: Performed By: #### HEMDF, CM P3, ETOH4, MG3, TSH5 #### [facility] [address] [place] [address] Urea nitrogen [Mass/Vol] 8 7-20 mg/dL Normal 09-18 [facility] (89579) Comment: Performed By: #### HEMDF, CM P3, ETOH4, MG3, TSH5 #### [facility] [address] [place], [place] Potassium [Moles/Vol] 3.8 3.5-5.1 mmol/L Normal 09-19-19 20 [facility] (88210) Comment: Performed By: #### HEMDF, CM P3, ETOH4, MG3, TSH5 #### [facility] [address] [place] [address] Sodium [Moles/Vol] 132 135-145 mmol/L Low 09-19-2019 [facility] (28789) Comment: Performed By: #### HEMDF, CM P3, ETOH4, MG3, TSH5 #### [facility] [address] [place] [address] Albumin [Mass/Vol] 4.4 3.5-5.0 g/dL Normal 09-19-2019 [facility] (23679) Comment: Performed By: #### HEMDF, CM P3, ETOH4, MG3, TSH5 #### [facility] [address] [place] [address] Chloride [Moles/Vol] 99 98-107 mmol/L Normal 0 [facility] (47753) Comment: Performed By: #### HEMDF, CM P3, ETOH4, MG3, TSH5 #### [facility] [address] [place] [address] No panel information on 2019-09-19 SARS-CoV-2 Not Detected 09-19-2019 [facility]- Expected Result: [place] Detected [place] ([address]) _ Real-time, RT-PCR performed on the [employer]ORCH by the [facility]. Negative results do not preclude SARS-CoV-2 infection and should not be used as the sole basis for treatment or other patient management decisions. This assay was developed by [employer] and distributed under an Emergency Use Authorization (EUA) granted by the FDA for the qualitative detection of SARS-CoV-2 nucleic acid. Test Performed by 09-19-2019 [facility], [place] ([address]) [address] [place] [address] Specimen Source Comment:Nasopharyngea l Swab TSH Qn 0.941 0.465 - u[IU]/m 09-19-2019 [facility] lth- 4.68 L [place] (23 185) Test Performed by 09-19-2019 [place] ([address]) [address] [place] [address] Amphetamines, urine Negative 09-19-2019 [place], [place] ([address]) Barbiturates, Ur Negative 09-19-2019 [place], [place] (45 [address]) Benzodiazepine Ur Qual Negative 020 [place], [place] (45 237) Cocaine Metabolites, Negative 0 [place], [place] (45 237) Methadone, Urine Negative 09-19-2019 [place], [place] (45 [address]) Opiates, Urine Positive 09-19-2019 [place], [place] ([address]) Oxycodone Screen, Ur Positive 0 [place], [place] (45 237) PCP, Urine Negative 09-19-2019 [place], [place] ([address]) Comment: The expected value [...] under separate order. Test Performed by 09-19-2019 [place] ([address]) [address] [place] [address] Albumin [Mass/Vol] 4.4 3.5 - 5 g/dL 09-19-2019 [place] ([address]) ALP [Catalytic 59 38 - 126 U/L 09-19-2019 [facility], activity/Vol] [place] (45 237) ALT [Catalytic 14 0 - 34 U/L 09-19-2019 [facility], activity/Vol] [place] (45 237) Comment: The ALT test is performed by an updated assay method. Please note that the referen ce intervals have been changed and are now sex spec ific. Anion gap [Moles/Vol] 10 mmol/L 09-19-19 20 [place] ([address]) AST [Catalytic 38 15 - 46 U/L 09-19-2019 [place], [place] activity/Vol] (73394 ) Bilirubin Ql (U) 0.5 0.2 - 1.3 mg/dL 09-19-2019 [place] ([address]) Calcium [Mass/Vol] 10.0 8.4 - 10.4 mg/dL 09-19-2019 [place] ([address]) Chloride [Moles/Vol] 99 98 - 107 mmol/L 0 [place] ([address]) CO2 [Moles/Vol] 23 22 - 30 mmol/L 09-19-2019 [place] ([address]) Creatinine [Mass/Vol] 0.81 0.52 - 1.25 mg/dL 2019 [place] ([address]) EGFR IF NonAfrican 73.5 >60 mL/min 09-19-2019 [place] [facility] ([address]19) Comment: KDIGO guidelines provide the following GFR [...] that affect ruthie l tubular creatinine secretion. Ethanol Lvl <0.010 0 - 0.01 09-19-2019 [place] ([address]) Comment: NOTE: This result is for med ical treatment only. Analysis performed using non -forensic procedures. GFR/1.73 sq M 85.2 >60 mL/min 09-19-2019 [facility] predicted among [facility], blacks MDRD LINDA (9442 7) (S/P/Bld) [Vol rate/Area] Glucose [Mass/Vol] 117 70 - 100 mg/dL High 09-19-2019 [place] ([address]) Interpretation and Abnormal 09-19-2019 [facility] review of laboratory [facility], [place] ([address]) Magnesium [Mass/Vol] 1.9 1.6 - 2.3 mg/dL 0 [place] ([id number]) Potassium 3.8 3.5 - 5.1 mmol/L 09-19-2019 [facility] [Moles/Vol] [place] ([id number]) Protein [Mass/Vol] 7.0 6.3 - 8.2 g/dL 09-19-2019 [place] ([id number]) Sodium [Moles/Vol] 132 135 - 145 mmol/L Low 09-19-2019 [place], [place] ([id number]) Urea nitrogen 8 7 - 20 mg/dL 09-19-2019 [facility] [Mass/Vol] [facility], [place] ([id number]) Test Performed by 09-19-2019 [facility] – [facility], System, [phone]) [place] [address] Patient Name: 09-19-2019 [facility] ANGÉLICA DAWN MRN: [facility], [id number] FIN: MT (4 [phone]) [id number] ---CT--- Exam Date/Time 09/19/2019 08:47:[address] Head or Brain w/o Contrast Ordering Physician KILO ELLSWORTH Accession Number [id number] CPT4 Codes 32932 () Reason For Exam altered mental status [...] 8:56 Suresh, [facility] Incoming Radiology Results From [facility] - 2019 8:59 AM EDT 09-19-2019 [place], [place] ([address]) Patient Name: ANGÉLICA DAWN ---CT--- Exam Date/Time 09/19/2019 08:47:[address] Head or Brain w/o Contrast Ordering Physician KILO ELLSWORTH Accession Number [id number] CPT4 Codes 31731 () Reason For Exam altered mental status [...] 0.1 0 - 0.2 10*3/uL 09-19-2019 [place] ([address]) Absolute Neut # 11.0 1.8 - 7 10*3/uL High 09-19-2019 [place] ([address]) Basophils/100 WBC 0.4 0 - 2 % 09-19-2019 [facility] (Bld) [place] ([address]) Eosinophils (Bld) 0.0 0 - 0.5 10*3/uL 09-19-2019 [facility] [#/Vol] [place] ([address]) Eosinophils/100 WBC 0.3 1 - 6 % Low 09-19-2019 [facility] (Bld) [place] ([address]) Erythrocyte 12.8 11.5 - % 09-19-2019 [facility] [Ratio] LINDA (45 237) Granulocytes/100 WBC 79.3 40 - 80 % 0 [facility] (Bld) [place] ([address]) Hematocrit (Bld) 36.5 35 - 47 % 09-19-2019 [facility] [Volume fraction] [place] ([address]) Hemoglobin (Bld) 12.8 11.7 - 16 g/dL 09-19-2019 [facility] [Mass/Vol] [place] ([address]) Interpretation and Abnormal 09-19-2019 [facility] review of laboratory [facility], results LINDA ([address]) Lymphocytes (Bld) 1.7 1 - 4.3 10*3/uL 09-19-2019 [facility] [#/Vol] [place] ([address]) Lymphocytes/100 WBC 11.9 20 - 40 % Low 09-19-2019 [facility] (Bld) [place] ([address]) MCH (RBC) [Entitic 33.3 26 - 34 pg 09-19-2019 [facility] mass] [place] ([address]) MCHC (RBC) 35.0 32 - 36 % 09-19-2019 [facility] [Mass/Vol] [place] ([address]) MCV (RBC) [Entitic 95.1 79 - 98 fL 09-19-2019 [facility] [place] ([address]) Monocytes (Bld) 1.1 0 - 0.8 10*3/uL High 09-19-2019 [facility] [#/Vol] [place] ([address]) Monocytes/100 WBC 8.1 2 - 10 % 09-19-2019 [facility] (Bld) [place] ([address]) Platelet mean volume 8.6 7.4 - 10.4 fL 09-19-19 20 [facility] (Bld) [Entitic vol] [place] ([address]) Platelets (Bld) 313 140 - 440 10*3/uL 09-19-2019 [facility] cy [#/Vol] [place] ([address]) RBC (Bld) [#/Vol] 3.84 3.8 - 5.2 10*6/uL 09-19-2019 [place] ([address]) WBC (Bld) [#/Vol] 13.9 3.6 - 10.7 10*3/uL High 09-19-2019 [place] ([address]) Test Performed by 09-19-2019 [facility], [facility], [address] 2911) [place] [address] Appearance (U) Clear Clear NA 09-19-2019 [place] ([address]) Comment: . Bilirubin Urine Negative Negative mg/dL 0 [place] ([address]) Comment: . Color (U) Colorless Lt. Yellow NA 09-19-2019 [place] ([address]) Comment: . Glucose, Ur Normal Normal (<70) mg/dL 0 [place] ([address]) Comment: . Ketones Ql (U) Negative Negative mg/dL 09-19-2019 [place] ([address]) Comment: . LEUKOCYTES, UA Negative Negative Janelle/uL 0 [place] ([address]) Comment: . Nitrite, Urine Negative Negative NA 09-19-2019 [place] ([address]) Comment: . Occult Blood,Urine Negative Negative mg/dL 2019 [place] ([address]) Comment: . pH (U) 6.5 OTH - OTH [pH] 09-19-2019 [facility] [place] ([address]) Comment: . Protein (U) [Mass/Vol] Negative Negative mg/dL mg/[place] ([address]) Comment: . Specific [place], Urine 1.007 OTH - OTH 2019 [place] ([address]) Comment: . Urobilinogen, Urine Normal Normal (0-1) mg/dL 0 09-19-2019 [place] ([address]) Comment: . Test Performed by [employer] 09-19-2019 [place] ([address]) [employer], [place] [address] obsolete on 2019-09 OBSOLETE Refill (OBGMEM) Normal 09-09-2019 [facility] ANGÉLICA [place] ([id number]) 1950 [facility] Time Provider Department ([address]) 09/09/19 KILO BONDS OBGMEM During your visit [...] test positive [R87.81*12/08/2012 More... HPV test positive [RRU1361] 05/26/2014 More... Generalized abdominal pain [R10.84] 02/18/2015 [...] 09/10/19 progress on 2019-08 PROGRESS HNO ID: [id number] Normal 08-25-2019 [facility] Author: Michelle (Rt) Na Bryson ([id number]) Service: ? Author Type: Compliance Program Manager Type: Progress Notes Filed: 08/25/2019 3:09 PM [...] * *Final Report* * * Normal 2019 [facility] SPINE WO IVCON DATE OF EXAM: Aug 25 2019 3:30PM [place] ([id number]) WRM 0303 - MRI LUMBAR SPINE WO [...] assume there are 5 lumbar-type vertebrae . Frit Mixer: PSCB Transcribe Date/Time: Aug 25 2019 4:21P Dictated by : REGINO ZACARIAS MD This examination was interpreted and the report reviewed and electronically signed by: REGINO ZACAIRAS MD on Aug 25 2019 4:42PM EST [id number] clinical summary: hmspatientid on 2019-06-18 OOP 06-18-2019 - 06-18-2019 [facility] - [facility]opaedi Surgeons [facility] ([address]) clinical lists update: preload extended on 2019-06-17 Tobacco smoking current everyday 020 - [facility] status NHIS smoker 06-17-2019 [facility] - Orthopaedi [facility] Surgeons [employer] (44 333) progress on 2019-05 PROGRESS HNO ID: [id number] Normal 05-21-2019 [place] Author: Phillip Early Queta [employer] Service: ? [place] Author Type: Physician ([id number]) Type: Progress Notes Filed: 05/21/2019 5:00 PM [...] She never has to splint her vag dnotae to facilitate passage of stool. She denies [...] Laterality Date - COLONOSCOP W/ OR W/O [facility] SPEC 11/27/2001 Colonoscopy - COLONOSCOPY [...] Diagnoses: (Z86.010) Personal history of colonic polyps ([facility] encounter diagnosis) (K64.8) Internal hemorrhoids (K62.89) Anal or rectal pain My findings have been communicated to Dr. Bonds via share d medical record. This note will be forwarded to Axel Collado. Return to Clinic: The patient is instructed to follow-up wit h me as needed. Phillip Birch MD Warehouse Team Member for exam offered to Angélica Dawn: accepted [...] for: and Incontinence or dribbling ENDOCRINE: None MOTORCYLES FINAL INSPECTOR:Positive for:, Incontinence or diribbling MOTORCYLES FINAL INSPECTOR: Age of first period: 12 Number of [...] 2019-05-21 CNOV Office Visit (OSCAR) Normal 05-21-[address] [place] [address] Clinic LÓPEZANGÉLICA ([id number]) 1950 [facility] Date Time Provider Department ([address]) 05/21/19 1:45 PM PHILLIP BIRCH During your [...] Diagnoses: (Z86.010) Personal history of colonic polyps ([facility] encounter diagnosis) (K64.8) Internal hemorrhoids (K62.89) Anal or rectal pain My findings have been communicated to Dr. Anatoliy garcia via shared medical record. This note will be forwarded to Dr. Regino Davey MD. Return to Clinic: The patient is instructed to follow-up w ith me as needed. Phillip Birch MD Warehouse Team Member for exam offered to Angélica Dawn: accepted [...] for: and Incontinence or dribbling ENDOCRINE: None MOTORCYLES FINAL INSPECTOR:Positive for:, Incontinence or diribbling MOTORCYLES FINAL INSPECTOR: Age of first period: 12 Number of [...] behaviors to ensure successful smoking cessation. RESOURCES [facility] Smoking Cessation Appointment Line [facility] Tobacco Treatment Center [facility] [place] [phone]. [place] Tobacco Quit line: National Cancer [place] at http://www.smokefree.gov [place] Lung Association at http://www.lungusa.org [place] Cancer Society at http://www.cancer.org STRATEGIES TOWARD SMOKING [...] desirable brand of cigarettes. ___ Discard your custody officer. Use matches. Carry your cigarett es in [...] trying to get people like yourself re-hooked. [facility] - LAB TEST INFORMATION HOURS: 7 am to 6 pm Sunday ? Sunday, 7 am -12 pm on Sunday . The lab is located in [facility] on the first floor. T here is a registration window at the lab, available 7 am to 3 pm Sunday ? Sunday. If lisa tration is unavailable at the lab, you may register at the patient re gistration office near the front lobby of the [facility]. ROUTINE ORDERS 60 days after they are [...] REFILL REQUESTS Request prescription refills through your [employer] (mytaxi) account or contact your Pharmacy. [employer] (mytaxi) Schedule My Appointment enables you to view yo established Primary Care Provider's open Security Scorecard e and book an appointment online in real-time. This feature is available in Internal Medicine, [facility], or Pediatrics at any of our [facility] locations and [facility] [place]. The following instructions are important for you related to your office visit today with the [facility]. INSTRUCTIONS FOR AN ANAL [...] you should contact our office immediately @ [phone] and ask to be transferred to the General Surgery department. Referring Provider: KILO BONDS [[id number]] Allergies As of Date: 05/21/2019 Noted Allergy [...] rectal pain [K62.89] Order(s):CONSULT TO GENERAL SURGERY [9094] Order #: [id number] 68Qty: 1 hydrocortisone (PREPARATION H HYDROCORTISONE) 1 [...] test positive [R87.81*12/08/2012 More... HPV test positive [TDO7099] 05/26/2014 More... Generalized abdominal pain [R10.84] 02/18/2015 [...] behaviors to ensure successful smoking cessation. RESOURCES [facility] Smoking Cessation Appointment Line [facility] Tobacco Treatment Center [facility] [phone]. [place] Tobacco Quit line: National Cancer [place] at http://www.smokefree.gov [place] Lung Association at http://www.lungusa.org [place] Cancer Society at http://www.cancer.org STRATEGIES TOWARD SMOKING [...] desirable brand of cigarettes. ___ Discard your custody officer. Use matches. Carry your cigarettes in a [...] why you quit. Also remember that a [employer] spends bill ions of dollars each year trying to get people like yourself harsha zamudio. [facility] - LAB TEST INFORMATION HOURS: 7 am to 6 pm Sunday ? Sunday, 7 am -12 pm on Sunday . The lab is located in [facility] on the first floor. There is a [...] REFILL REQUESTS Request prescription refills through your [employer] (mytaxi) account or contact your Pharmacy. [employer] (mytaxi) Schedule My Appointment enables you to view your est ablished Primary Care Provider's open schedule and book an appointmen t online in real-time. This feature is available in Internal Medicine, F amily Medicine, or Pediatrics at any of our [facility]. The following instructions are important for you related to your office visit today with the [facility] Hieuo emma. INSTRUCTIONS FOR AN [...] you should contact our office immediately @ [phone] and ask to be transferred to the [...] DNA Negative for Negative for Normal 0 [facility] Probe Mariola species Mariola species [place] ([address]) by DNA Probe by DNA Probe Comment: Performed By: #### VAGDNA ## ##[place] [address] [place], [place] [phone] Kierra vag DNA Negative for Negative for Normal 05-05-2019 [facility] Probe Gardnerella Gardnerella Clevel and vaginalis by DNA vaginalis by DNA (30363) Probe Probe Comment: Performed By: #### VAGDNA ## ##[place] [address] [address] [place], [place] [id number]- [phone] Trich vag DNA Negative for Negative for Normal 05-05-2019 [facility] Probe Trichomonas Trichomonas Clevel and vaginalis by DNA vaginalis by DNA (20508) Probe Probe Comment: Performed By: #### VAGDNA ## ##[address] [id number]- [phone] progress on 2019-04 PROGRESS HNO ID: [id number] Normal 05-05-2019 [facility] Author: Kilo Bonds [place] ([id number]) Service: ? Author Type: Physician Type: Progress [...] 2019-05-05 CNOV Office Visit (OBGMEM) Normal 05-05-[address] [place] [address] Clinic ANGÉLICA DAWN ([id number]) 1950 [facility] Date Time Provider Department ([id number]) 05/05/19 1:15 PM KILO BONDS OBEM During [...] Kilo Bonds MD Referring Provider: REGINO DAVEY [[id number]] Allergies As of Date: 05/05/2019 Noted Allergy [...] PATHOGENS DNA PROBES [SQVAGDNA] Order #: [id number]. #:[id number] CONSULT TO GENERAL SURGERY [7365] Order #: [id number]: 1 FUTURE conjugated estrogens (PREMARIN) vaginal creamUse [...] test positive [R87.81*12/08/2012 More... HPV test positive [ZUP2047] 05/26/2014 More... Generalized abdominal pain [R10.84] 02/18/2015 [...] 05/30/19 progress on 2019-04 PROGRESS HNO ID: [id number] Normal 04-28-2019 [facility] Author: Kilo Bonds [place] ([id number]) Service: ? Author Type: Physician Type: Progress [...] DNA Negative for Negative for Normal 9 [facility] Probe Mariola species Mariola species [place] ([address]) by DNA Probe by DNA Probe Comment: Performed By: #### VAGDNA ## ##[address] [phone]- [phone] Kierra vag Positive for Negative for Critically 03-27-2019 Cl gabriel DNA Probe Gardnerella Gardnerella abnormal Clinic vaginalis by DNA vaginalis by DNA [place] probe. Probe (31572) Comment: Result Comment: This is sugg estive, but not diagnostic of bacterial vaginosis, results should be interpreted in conjunction with other data such as pH, amine odor, clue cell s and vaginal discharge characteristics. Performed By: #### VAGDNA ## ##[address] [phone]- [phone] Trich vag DNA Negative for Negative for Normal 03-27-2019 [facility] Probe Trichomonas Trichomonas Clevel and vaginalis by DNA vaginalis by DNA (27530) Probe Probe Comment: Performed By: #### VAGDNA ## ##[address] [id number]- [phone] cnov on 2019-03-27 CNOV Office Visit (OBGMEM) Normal 03-27-20 [place] [facility] ANGÉLICA DAWN ([id number]) 1950 [facility] Date Time Provider Department ([id number]) 03/27/19 10:15 AM KILO BONDS During your [...] Laterality Date - COLONOSCOP W/ OR W/O [facility] SPEC 11/27/2001 Colonoscopy - COLONOSCOPY [...] VAGINAL PATHOGENS DNA PROBES [SQVAGDNA] Order #: [id number] pec. #:[id number] Clindamycin Phosphate (CLEOCIN) 100 mg vaginal suppositoryUs [...] test positive [R87.81*12/08/2012 More... HPV test positive [PSG9598] 05/26/2014 More... Generalized abdominal pain [R10.84] 02/18/2015 [...] and Disposition History Recorded Encounter Status:Closed by KILO BONDS MD on 04/28/19 vag pathogens dna o n 2019-02-27 Mariola sp DNA Negative for Negative for Normal 9 [facility] Probe Mariola species Mariola species [place] ([id number]) by DNA Probe by DNA Probe Comment: Performed By: #### VAGDNA ## ## [facility] Laboratorie s [address] [place] [id number] Kierra vag Positive for Negative for Critically 02-27-2019 Cl gabriel DNA Probe Gardnerella Gardnerella abnormal Clinic vaginalis by DNA vaginalis by DNA [place] probe. Probe (24782) Comment: Result Comment: This is sugg estive, but not diagnostic of bacterial vaginosis, results should be interpreted in conjunction with other data such as pH, amine odor, clue cell s and vaginal discharge characteristics. Performed By: #### VAGDNA ## ## [facility] [address] [place], [place] [address] Trich vag DNA Negative for Negative for Normal 02-27-2019 [facility] Probe Trichomonas Trichomonas Clevel and vaginalis by DNA vaginalis by DNA (90820) Probe Probe Comment: Performed By: #### VAGDNA ## ## [facility] Labor[facility] s [address] [place], [place] [address] progress on 2019-02 PROGRESS HNO ID: [id number] Normal 02-27-2019 [facility] Author: Kilo Bonds [place] ([id number]) Service: ? Author Type: Physician Type: Progress Notes Filed: 03/09/2019 11:14 AM Note Text: Angélica Dawn is a 68 year old post-menopausal femal e who presents for her annual gynecologic exam. Patient has been m enopausal for many. Patient has been on hormone replacement therapy. 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 [place] ([id number]) Comment: Result Comment: This test wa s developed and its performance characteristics determined by [facility]'s [facility] Pathology and Laboratory Medicine [place] ([facility] It has not been cleared or a pproved by the FDA. [facility] is regulated under CLIA as qualified to perform high-complexity testing. This test is used for clinical purposes. It should not be regarded as inv estigational or for research . Performed By: #### HPVHRR ## ##[place] [id number] [phone] HPV HighRisk Type 16 Negative for HPV DNA Normal 02-27-2019 [facility] high risk type 16 by [place] ([address]) PCR. Comment: Performed By: #### HPVHRR ## ##[place] [phone] HPV HighRisk Type 18 Negative for HPV DNA Normal 02-27-2019 [facility] high risk type 18 by [place] ([address]) PCR. Comment: Performed By: #### HPVHRR ## ##[place] [phone]- [phone] cytology on 2019-02 CYTOLOGY Normal 02-27-2019 [place] ADDITIONAL PROCEDURES PRESENT Clinic [place] ([id number]) Specimen originated from [facility] Specimen #: [id number] Submitting Physician: KILO BONDS MD SPECIMEN SUBMITTED [...] developed and its performance characteristics determined by [facility]'s [facility] Pathology and Laborator y Medicine [place] ([facility]). It has not been cleared or approved by the FDA. [facility] is r egulated under CLIA as qualified to perform high-complexity testing. This test is used for clinical purposes. It should not be regarded as investigatio nal or for research. CLINICAL DATA ROUTINE EXAM, HPV Testing: No Date of Last Menstrual Period: Hysterectomy Menstrual History: HYSTERECTOMY STAINS A: VAGINAL VAULT,SCREENING, FLUID THIN PREP MOTORCYLES FINAL INSPECTOR Liu Richardson M.D., College Associate Date of Report: 03/04/2019 Date of Procedure: 02/27/2019 Date of Receipt: 02/27/2019 Submitted by: KILO BONDS MD Location: [facility] Diagnostic interpretation performed at [facility], [address] [place] [address]. CLIA Number: [id number] The Pap Smear is a screening test for cervical cancer. False negative results occur with all screening tests, emphasizing the need for rescreening at recommended intervals, and clinical correlati on. cnov on 2019-02-27 CNOV Office Visit (OBGMEM) Normal 02-28-20 [place] [employer] LÓPEZANGÉLICA ([id number]) 1950 [facility] Time Provider Department ([address]) 02/27/19 2:00 PM KILO BONDS OBGMEM During your visit today, we recorded the following informati on about you: Blood pressure Weight 122/68 78.9 kg Kilo Bonds MD 03/09/2019 11:14 AM Signed Angélica Dawn is a 68 year old post-menopausal femal e who presents for her annual gynecologic exam. Patient has been menopausal for many. Patient has been on hormone replacement therapy. 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 #:[id number] VAGINAL PATHOGENS DNA PROBES [SQVAGDNA] Order #: [id number] pec. #:[id number] HPV W/GENOTYPE [SQHPVHRR] Order #: [id number]. #:[id number] Prescriptions as of 02/27/2019 Sig: CLOTRIMAZOLE-BETAMETHASONE [...] test positive [R87.81*12/08/2012 More... HPV test positive [MNR8405] 05/26/2014 More... Generalized abdominal pain [R10.84] 02/18/2015 [...] 03/09/19 progress on 2019-01 PROGRESS HNO ID: [id number] Normal 01-08-2019 [facility] Author: Deandra Castro [place] ([id number]) Service: ? Author Type: Physician Type: Progress Notes Filed: 01/09/2019 11:54 AM Note Text: Angélica Dawn 1950 REFERRING PHYSICIAN: MD Arturo CHIEF COMPLAINT: Established Patient (Discuss colonscopy) HPI: The patient is a 68 year old female presents for [facility] ons about her upcoming colonoscopy. She initially [...] one of the pain management physicians in [facility] a nd all he does is shots [...] she learned that I was not a outsole tacker or a co lorectal surgeon, she stated [...] examination and rec ommended referral to a outsole tacker for which the patient refus ed. PAST [...] file Gets together: Not on file Attends synagogue service: Not on file Active member of [...] [facility]. (I do not believe that there are any surgical options to offer the patient) Sh e states that she doesn't want to travel to [place]. I have explained th at the specialists [...] have confirmed and edited as necessary, the [facility] and HERMAN gonzales btained by others. MD naveen Cash on 2019-01-08 CNOV Office Visit (GENSWS) Normal 01-09-20 19 [place] [employer] ANGÉLICA DAWN ([id number]) 1950 [facility] Date Time Provider Department ([id number]) 01/08/19 3:30 PM DEANDRA CASTRO During your visit today, we recorded the following informati on about you: Deandra Castro MD 01/09/2019 11:54 AM Signed Angélica Dawn 1950 REFERRING PHYSICIAN: MD Arturo CHIEF COMPLAINT: Established Patient (Discuss colonscopy) HPI: The patient is a 68 year old female [facility] about [facility]. She initially began [...] one of the pain management physicians in [facility] and a ll he does is shots and they don't help and he won't give me pills. She states that she walked out. She refused referral to a pain clinic, because she states - all they do is shots. She states that she paid $300 to obtain a [employer] drug card and states that she went [...] examination and rec ommended referral to a outsole tacker for which the patient refused. PAST MEDICAL [...] Laterality Date - COLONOSCOP W/ OR W/O [facility] SPEC 11/27/2001 Colonoscopy - COLONOSCOPY [...] file Gets together: Not on file Attends synagogue service: Not on file Active member of [...] gastroent er[facility]who specializes in [facility]. (I do not believe that there are any surgical options to offer the patient) She sta irvin that she doesn't want to travel to [place]. I have expl ained that the specialists [...] positive [R87.81*INVALID FOR* More... HPV test positive [NTZ5120] INVALID FOR* More... 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 Author Type: Physician Puller Out Type: Progress Notes Filed: 01/06/2019 7:11 PM [...] has chronic vaginal pain as well, saw [employer] FINAL INSPECTOR and was diag nosed with vaginal atrophy. Patient had another colonoscopy which was done in [place] in 2013, scanned records reviewed in [facility]. She had polyps removed at that time, [...] Laterality Date - COLONOSCOP W/ OR W/O [facility] SPEC 11/27/2001 Colonoscopy - COLONOSCOPY [...] file Gets together: Not on file Attends synagogue service: Not on file Active member of [...] by the nurse and revi ewed by md Nursing Notes: J Luis Ivette ANDREW 01/01/2019 [...] CNOV Office Visit (SWS) Normal 01-02-20 19 [facility] [employer] ANGÉLICA DAWN ([id number]) 1950 [facility] Date Time Provider Department ([id number]) 01/01/19 2:30 PM KATE SHAVER During your [...] has chronic vaginal pain as well, saw [employer] FINAL INSPECTOR and was diagnosed with vaginal atrophy. Patient had another colonoscopy which was done in [facility] in 2013, scanned records reviewed in [facility]. She had polyps removed at that [facility], pathology report not available for review. She [...] Laterality Date - COLONOSCOP W/ OR W/O [facility] SPEC 11/27/2001 Colonoscopy - COLONOSCOPY [...] file Gets together: Not on file Attends synagogue service: Not on file Active member of [...] by the nurse and revi ewed by md Nursing Notes: J Luis Toro LPN 01/01/2019 [...] positive [R87.81*INVALID FOR* More... HPV test positive [[id number]] INVALID FOR* More... Generalized abdominal pain [R10.84] [...] 2019? Last Colonoscopy: 2013 J Luis Toro RN FIRST ASSIST Prescriptions ordered this encounter Disp Refills Start End PEG 3350-ELECTROLYTES 236 GRAM-22.74* 1 Seferino* 0 01/01/2019 Route: ORAL Sig: Take 4,000 mL by mouth one time only for 1 dose. Encounter Status:Closed by KATE SHAVER PA-C on 01/06/19 progress on 2018-12 PROGRESS HNO ID: [id number] Normal 12-23-2018 [facility] Author: Nadine Dallas Winger ([id number]) Service: ? Author Type: ? Type: Progress [...] * * *Final Report* * * Normal [facility] DATE OF EXAM: Dec 23 2018 2:53PM Winger ([id number]) [facility] 0581 - [facility] SCREENING / PROCEDURE REASON: Encounter for screening mammogram for kris gnant neoplasm of breast * * * * Physician Interpretation * * * * RESULT: #[id number] - [facility] SCREENING BILATERAL DIGITAL SCREENING MAMMOGRAM WITH [...] exams dated: 09/24/2017 mammogram and mammogram - [facility]. There are scatter ed fibroglandular elements in both breasts. No significant masses, calcifications, or other findings are seen in either breast. There has been no significant interval change. IMPRESSION: NEGATIVE There is no mammographic evidence of malignancy. A 1 year sc reening mammogram is recommended. Leeann Whitley M.D., lp/treva:12/23/2018 15:12:53 Covered Buckle Assembler(s): Nadine Otoole, RT(R)(M), [facility] letter sent: Normal over 40 Mammogram BI-RADS: [...] Health, Family Medicine, and Medical/Surgical Oncology, the [facility] has carefully reviewed the data and reached [...] providers when to sto p screening mammograms. Frit Mixer: Treva Transcribe Date/Time: Dec 23 2018 2:31P Dictated by: LEEANN WHITLEY MD This examination was interpreted and the report reviewed and electronically signed by: LEEANN WHITLEY MD on Dec 23 2018 3:12PM EST [id number] cnco on 2018-12-23 CNCO HNO ID: [id number] Normal 12-23-2018 [facility] Author: Mammography Coordinator ([id number]) Service: ? Author Type: Physician Type: Letter Filed: 12/24/2018 11:33 PM Note Text: December 23, 2018 PID: [id number] Angélica Dawn [address] [place] [address] Dear Ms. Dawn, We are pleased to [...] report will be kept on file at [facility] as part of your permanent medical record and are available f or your continuing care. Thank you for allowing us to help in meeting your health car e needs. Sincerely, Dr. Whitley Interpreting Radiologist [facility] Rust (Normal over 40) obsolete on 2018-12 OBSOLETE Refill (OBGMEM) Normal 12-16-2018 [facility] [employer] ANGÉLICA DAWN ([id number]) 1950 [facility] Time Provider Department ([id number]) 12/16/18 KILO BONDS OBEM During your visit [...] positive [R87.81*INVALID FOR* More... HPV test positive [[id number]] INVALID FOR* More... Generalized abdominal pain [R10.84] [...] * *Final Report* * * Normal 05- [facility] HAMMAD DATE OF EXAM: Sep 04 2018 2:33PM ([id number]) MDU 1005 - US DVT LOWER HAMMAD [...] ACUTE DVT IN THE LEFT LOWER EXTREMITY. Frit Mixer: [facility] Transcribe Date/Time: Sep 04 2018 2:36P Dictated by : ALETHEA SMYTH MD This examination was interpreted and the report reviewed and electronically signed by: ALETHEA SMYTH MD on Sep 04 2018 2:39PM EST [id number] nt pro bnp on 09-04 Protein mass conc 82 <125 pg/mL Normal 09-04-2018 [facility] ([id number]) Comment: Performed By: #### NTBNP ### # [facility] [address] [place] [address] magnesium on 09-04 Magnesium mass conc 1.8 1.7-2.3 mg/dL Normal 09-04-2018 [facility] ([id number]) Comment: Performed By: #### CBCDICinthia Naranjo MP, MG1 #### [facility] [address] [facility] [phone] ed prov note on 201 12-12-28 Protein mass HNO ID: [id number] Normal 09-05-19 [place] Author: Jonas Ortiz) [facility] Service: ? ([id number]) Author Type: Physician Puller Out Type: ED Provider Notes Filed: 09/04/2018 10:29 [...] History provided by: Patient and significant other bat boy/girl used: No PAST MEDICAL HISTORY Diagnosis Date [...] ACUTE DVT IN THE LEFT LOWER EXTREMITY. Frit Mixer: [facility] Transcribe Date/Time: Sep 04 2018 2:36P [...] ed note on ED NOTE HNO ID: [id number] Normal 09-04-2018 [facility] ([id number]) Author: Alejandrina StrongRn) CARMEL Zarate Service: ? Author Type: Registered Nurse Type: ED Notes Filed: 09/04/2018 3:06 PM Note Text: Pt was discharged home and will follow up with her family me gerardo anderson She was ambulatory with her discharge ED NOTE HNO ID: [id number] Normal 09-04-2018 [facility] ([id number]) Author: Bety StrongRn) CARMEL [place] Service: ? [...] TIME: 9:47 AM ED NOTE HNO ID: [id number] [place] 09-04-2018 [facility] ([id number]) Author: Alejandrina StrongRn) CARMEL Zarate Service: ? Author Type: Registered Nurse Type: ED Notes Filed: 09/04/2018 2:58 PM Note Text: Jonas poole rounds and the pt is discharged questions answere d ED NOTE HNO ID: [id number] [place] 09-04-2018 [facility] ([id number]) Author: Alejandrina StrongRn) CARMEL Zarate Service: ? Author Type: Registered Nurse Type: ED Notes Filed: 09/04/2018 2:53 PM Note Text: Pt is in a position of comfort Denies increase in her pain H er remains at the bedside ED NOTE HNO ID: [id number] [place] 09-04-2018 [facility] ([id number]) Author: Alejandrina Zarate RN Service: ? Author Type: Registered Nurse Type: ED Notes Filed: 09/04/2018 2:09 PM Note Text: is bedside ED NOTE HNO ID: [id number] [place] 09-04-2018 [facility] ([id number]) Author: Meg StrongRn) CARMEL Braun Service: Nursing Author Type: Registered Nurse Type: ED Notes Filed: 09/04/2018 1:13 PM Note Text: Patient presents to ED with bilat LE swelling. Patient has m ultiple vague complaints. States she called her [employer] FINAL INSPECTOR this a.m. About leg sw elling and was advised to go to ED to r/o DVT comp metabolic panel on 2018-09-04 Albumin mass conc 4.8 3.9-4.9 g/dL Normal 09-04-2018 [facility] ([id number]) Comment: Performed By: #### CBCDIF, C MP, MG1 #### [facility] [address] [facility] [phone] ALP enzyme act/vol 68 34-123 U/L Normal 09-04-2018 [facility] ([id number]) Comment: Performed By: #### CBCDIF, C MP, MG1 #### [facility] [address] [facility] [phone] ALT enzyme act/vol 22 7-38 U/L Normal 09-04-2018 [facility] ([id number]) Comment: Performed By: #### CBCDIF, C MP, MG1 #### [facility] [address] [facility] [phone] Anion gap molar conc 12 9-18 mmol/L Normal [address] [place] [address] ([id number]) Comment: Performed By: #### CBCDIF, C MP, MG1 #### [facility] [address] [place] [phone] AST enzyme act/vol 33 13-35 U/L Normal 09-04-2018 [facility] ([id number]) Comment: Performed By: #### CBCDIF, C MP, MG1 #### [facility] [address] [place] [address] Bilirubin mass conc 0.3 0.2-1.3 mg/dL Normal 09-04-2018 [facility] ([id number]) Comment: Performed By: #### CBCDIF, C MP, MG1 #### [facility] [address] [place] [address] Calcium mass conc 9.3 8.5-10.2 mg/dL Normal 09-04-2018 [facility] ([id number]) Comment: Performed By: #### CBCDIF, C MP, MG1 #### [facility] [address] [place] [address] Chloride molar conc 103 97-105 mmol/L Normal 09-04-2018 [facility] ([id number]) Comment: Performed By: #### CBCDIF, C MP, MG1 #### [facility] [address] [place] [address] CO2 molar conc 22 22-30 mmol/L Normal 09-04-2018 [facility] ([id number]) Comment: Performed By: #### CBCDIF C MP, MG1 #### [facility] [address] [facility] [phone] Creatinine mass conc 1.00 0.58-0.96 mg/dL High 9 [facility] (86014) Comment: Performed By: #### CBCDIF C MP, MG1 #### [facility] [address] [facility] [phone] eGFR- Amer. >60 Normal 09-04-2018 [facility] ([id number]) Comment: Performed By: #### CBCDIF C MP, MG1 #### [facility] [address] [place] [phone] GFR/1.73 sq M predicted among 55 . Normal 09-04-2018 [facility] (14553) non-blacks MDRD vol rate/area (S/P/Bld) Comment: Result [...] By: #### CBCDIF C MP, MG1 #### [facility] [address] [facility] [phone] Glucose mass conc 107 74-99 mg/dL High 09-04-2018 [facility] (94316) Comment: Result Comment: The [place] Diabetes Association (ADA) provides guidance for cutoff [...] for diagnosis of diabetes. Reference: Standards of [facility] Care in Diabetes 2016, [place] [employer] Association. Diabetes Care. 2016.39(Suppl 1). Performed By: #### CBCDIF, C MP, MG1 #### [facility] [address] [facility] [phone] Potassium molar conc 4.0 3.7-5.1 mmol/L Normal 9 [facility] (70769) Comment: Performed By: #### CBCDIF, C MP, MG1 #### [facility] [address] [place] [phone] Protein mass conc 7.7 6.3-8.0 g/dL Normal 09-04-2018 [facility] (03001) Comment: Performed By: #### CBCDIF, C MP, MG1 #### [facility] [address] [place], [place] [phone] Sodium molar conc 137 136-144 mmol/L Normal 09-04-2018 [facility] (85217) Comment: Performed By: #### CBCDIF, C MP, MG1 #### [facility] [address] Urea nitrogen mass conc 12 7-21 mg/dL Normal 2018 [facility] ([id number]) Comment: Performed By: #### CBCDIF, C MP, MG1 #### [facility] [address] [place] [address] cbc and differential on 2018-09-04 Abs Baso 0.04 <0.11 k/uL Normal 09-04-2018 [facility] (57274) Comment: Performed By: #### CBCDIF, C MP, MG1 #### [facility] [address] [place] [phone] Abs Jefferson 0.50 <0.87 k/uL Normal 09-04-2018 [facility] (76589) Comment: Performed By: #### CBCDIF, C MP, MG1 #### [facility] [address] [facility] [phone] Abs Neut 5.17 1.45-7.50 k/uL Normal 09-04-2018 [facility] (25657) Comment: Performed By: #### CBCDIF, C MP, MG1 #### [facility] [address] [place] [address] Basophils/100 WBC (Bld) 0.5 % Normal 2018 [facility] ([id number]) Comment: Performed By: #### CBCDIF, C MP, MG1 #### [facility] [address] [place] [address] Eosinophils #/vol (Bld) 0.22 <0.46 k/uL Normal 2018 [facility] ([id number]) Comment: Performed By: #### CBCDIF, C MP, MG1 #### [facility] [address] [place] [phone] Eosinophils/100 WBC (Bld) 2.8 % Normal - [facility] (67991) Comment: Performed By: #### CBCDIF, C MP, MG1 #### [facility] [address] [place], [place] [phone] Erythrocyte distribution 12.6 11.5-15.0 % Normal 09-04 [facility] (86208) width Ratio (RBC) Comment: Performed By: #### CBCDIF, C MP, MG1 #### [facility] [address] [place] [phone] Hematocrit Volume Fraction 41.1 36.0-46.0 % Normal [facility] (74714) (Bld) Comment: Performed By: #### CBCDIF, C MP, MG1 #### [facility] [address] [place] [phone] Hemoglobin mass conc 14.1 11.5-15.5 g/dL Normal [facility] (Bld) (46759) Comment: Performed By: #### CBCDIF, C MP, MG1 #### [facility] [address] [place] [phone] Lymphocytes #/vol (Bld) 1.83 1.00-4.00 k/uL Normal 2018 [facility] (69985) Comment: Performed By: #### CBCDIF, C MP, MG1 #### [facility] [address] [facility] [phone] Lymphocytes/100 WBC (Bld) 23.6 % Normal 08-08 [facility] (03240) Comment: Performed By: #### CBCDIF, C MP, MG1 #### [facility] [address] [facility] [phone] MCH Entitic mass (RBC) 34.0 26.0-34.0 pG Normal 019 [facility] (27703) Comment: Performed By: #### CBCDIF, C MP, MG1 #### [facility] [address] [facility] [phone] MCHC mass conc (RBC) 34.3 30.5-36.0 g/dL Normal [facility] (80004) Comment: Performed By: #### CBCDIF, C MP, MG1 #### [facility] [address] [place] [address] MCV Entitic volume (RBC) 99.0 80.0-100.0 fL Normal 08-08 [facility] (27617) Comment: Performed By: #### CBCDIF, C MP, MG1 #### [facility] [address] [place] [address] Monocytes/100 WBC (Bld) 6.4 % Normal 2018 [facility] (42607) Comment: Performed By: #### CBCDIF, C MP, MG1 #### [facility] [address] [facility] [phone] Neutrophils/100 WBC (Bld) 66.7 % Normal 08-08 [facility] (09825) Comment: Performed By: #### CBCDIF, C MP, MG1 #### [facility] [address] [place] [address] Platelet mean volume 9.8 9.0-12.7 fL Normal 9 [facility] (29316) Entitic volume (Bld) Comment: Performed By: #### CBCDIF, C MP, MG1 #### [facility] [address] [place] [address] Platelets #/vol (Bld) 356 150-400 k/uL Normal 09-05-19 19 [facility] (39290) Comment: Performed By: #### CBCDIF, C MP, MG1 #### [facility] [address] [place] [phone] RBC #/vol (Bld) 4.15 3.90-5.20 m/uL Normal 09-04-2018 [facility] (25866) Comment: Performed By: #### CBCDIF, C MP, MG1 #### [facility] [address] [place] [phone] WBC #/vol (Bld) 7.76 3.70-11.00 k/uL Normal 09-04-2018 [facility] (30478) Comment: Performed By: #### CBCDIF, C MP, MG1 #### [facility] [address] [place] [phone] Vital Signs Vital Sign Description Value / Unit Date Location The following section is limited to 5 en tries per type and includes entries from the following time range: [id number] - [id number] 2. BMI (Body Mass Index) 27.44 kg/m2 09-19-2019 [place], [place] ([address]) NEGATED: Highlighted 29.37 kg/m2 06-18-2019 - 06-18-2019 [facility] [employer] [employer] rowBMI (Body Mass Index) [facility] [employer] (60080) Body Temperature 97.5 [degF] 09-23-2019 [place], [place] ([address]) Body weight 68.04 kg 09-19-2019 [place], [place] ([address]) NEGATED: Highlighted 72.58 kg 06-18-2019 - 06-18-2019 [facility] (66168) NEGATED: Highlighted 73 kg 06-18-2019 - 06-18-2019 [facility] (81349) BP Diastolic 60 mm[Hg] 09-23-2019 [place] ([address]) NEGATED: Highlighted 82 mm[Hg] 06-18-2019 - 06-18-2019 [facility] rowBP Diastolic [facility] (87119) NEGATED: Highlighted 77 mm[Hg] 06-18-2019 - 06-18-2019 [facility] rowBP Diastolic [facility] (96303) BP Systolic 148 mm[Hg] 09-23-2019 [place], [place] ([address]) NEGATED: Highlighted 149 mm[Hg] 06-18-2019 - 06-18-2019 [facility] rowBP Systolic [facility] (11079) NEGATED: Highlighted 144 mm[Hg] 06-18-2019 - 06-18-2019 [facility] rowBP Systolic [facility] (95545) NEGATED: Highlighted 2+ 06-18-2019 - 06-18-2019 [facility] rowHeart rate [facility] (22552) Height 157.5 cm 09-19-2019 [place], [place] ([address]) NEGATED: Highlighted 157 cm 06-18-2019 - 06-18-2019 [facility] rowHeight [facility] (17761) NEGATED: Highlighted 157.48 cm 06-18-2019 - 06-18-2019 [facility] rowHeight [facility] (69681) Pulse (Heart Rate) 71 /min 09-23-2019 [place], [place] ([address]) NEGATED: Highlighted 67 /min 06-18-2019 - 06-18-2019 [facility] rowPulse (Heart Rate) [facility] (39144) Pulse Oximetry 96 % 09-23-2019 [place] ([address]) Respiratory Rate 20 /min 09-23-2019 [place] ([address]) Encounters Date Type Reason Provider Location 07-20-2017 - Ambulatory Farideh Edouard Farideh Facility:[facility] 07-21-2017 Edouard Farideh [facility] 05-28-2017 - Ambulatory Farideh Edouard Farideh Facility:[facility] 05-29-2017 [facility] 09-19-2019 - Evaluation and Altered mental Kilo Ellsworth [facility] 7W MED SURG 09-23-2019 management of status Kevyn Diop Comment: Altered mental status, unspe cified altered mental status type (Primary Dx); Hallucinations; Delirium 06-18-2019 - Patient encounter Manny Vicente [facility] 06-19-[address] - [facility] (45426) 12-02-2019 - Telephone encounter Kilo Bonds Obst etrics/Gynecology 12-02-2019 Comment: Hx Meds 12-01-2019 - 12-01-2019 Telephone encounter Kilo Pham Obstetrics/Gynecology Comment: Question Procedures Procedure Name Date Provider Location Radiologic exam chest 09-20-2019 Kevyn Diop [place], [place] single view ([address]17) COVID-19 09-19-2019 [place] ([address]) Ct head/brain w/o contrast 09-19-2019 Kilo Brookeowski [place], [place] material ([address]) Assay of ethanol 09-19-2019 [place] ([address]) Assay of magnesium 09-19-2019 Kilo Gloria [place], [place] ([address]) Assay of thyroid 09-19-2019 Kilo Juani [place] stimulating hormone tsh (27849) Blood count complete 09-19-2019 Kilo Ellsworth [place] auto&auto difrntl wbc (32862) Comprehensive metabolic 09-19-2019 Kilo Juani [place], [place] panel ([address]) Drug screen class list a 09-19-2019 [place] ([address]) Urnls dip stick/tablet rgnt 09-19-2019 Kilo Ellsworth [place], [place] auto w/o microscopy (32627) NEGATED: Highlighted 06-18-2019 - [facility] rowDocumentation of current 06-18-2019 [facility] (02100) NEGATED: Highlighted 06-18-2019 - [facility] rowSmoking cessation 06-18-2019 [facility] education [facility] (42568) Arthrocentesis aspir&/inj 06-18-2019 - Manny Allen [employer] major jt/bursa w/o us 06-19-2019 [facility] (47983) Blood pressure outside of 06-18-2019 - Manny Allen [facility] normal parameters - 06-19-2019 [place] [facility] [place] - follow-up not documented [facility] (95201) BMI documented as above 06-18-2019 - Manny Craven [facility] normal parameters - 06-19-2019 [place] [facility] - follow-up documented [facility] (89563) Documentation of current 06-18-2019 - Manny Vicente [facility]ystal Clinic medications 06-19-2019 [facility] (75348) Fall plan of care docd 06-18-2019 - Manny Sofia [facility] 06-19-2019 [facility] (07883) Fall risk assessment docd 06-18-2019 - Manny [facility] 06-19-2019 [facility] (67456) Injection - triamcinolone 06-18-2019 - Manny Allen [facility] acetonide 10 mg 06-19-2019 [facility] (11615) Pain assessment documented 06-18-2019 - Manny Allen [facility] as positive - follow-up 06-19-2019 [facility] - documented [facility] (33103) Pt tobacco screen rcvd tlk 06-18-2019 - Manny [facility] 06-19-2019 [facility] (22893) Ptfalls assess-docd ge2>/yr 06-18-2019 - Manny [facility] 06-19-2019 [facility] (22168) Radiologic examination 06-18-2019 - Manny Sofia [facility] pelvis 1/2 views 06-18-2019 [facility] - [facility] (45680) [facility]54783[facility] Colonoscopy 02-26-2012 - [facility] 02-26-2012 (90319) Plan of Treatment Plan Description Date Location COLONOSCOPY COLONOSCOPY 02-25-2022 - [facility] 02-25-2022 (43574) DIABETES SCREEN DIABETES SCREEN 09-04-2021 - [facility] 09-04-2021 (03688) Creatinine monitoring Creatinine monitoring 09-18-2020 [place] ([address]) Potassium monitoring Potassium monitoring 09-18-2020 [place], [place] ([address]) MAMMOGRAM MAMMOGRAM 12-24-2019 - [facility] 12-24-2019 (70895) Flu vaccine (Season no information 12-09-2019 - [place], [place] Ended) 12-09-2019 (65462) LIPID SCREEN LIPID SCREEN 01-21-2018 - [facility] 01-21-2018 (63144) ANNUAL PCP TEAM CHRONIC ANNUAL PCP TEAM CHRONIC 03-25-2017 - [facility] DISEASE VISIT DISEASE VISIT 03-25-2017 ([id number]) ADVANCE DIRECTIVE ADVANCE DIRECTIVE 2014 - [facility] inic DISCUSSION DISCUSSION 2014 ([id number]) SHINGRIX VACCINE (2 of SHINGRIX VACCINE (2 of 08-[facility]) 08-13-2012 ([id number]) DTAP,TDAP,TD (1 - Tdap) DTAP,TDAP,TD (1 - Tdap) 1968 - [facility] 1968 (61570) BP CONTROLLED (<130/80) BP CONTROLLED (<130/80) 07-05-1967 - [facility] 07-05-1967 ([id number]) HEPATITIS C SCREENING HEPATITIS C SCREENING 07-05-1967 - [facility] 07-05-1967 ([id number]) Basic Metabolic Panel Basic Metabolic Panel 09-23-2019 [place], [place] Lab Routine Tomorrow AM (68287) for 1 Occurrences starting 09/23/2019 until 09/23/2019 Comment: Tomorrow AM for 1 Occurrence s starting 09/23/2019 until 09/23/2019 CBC CBC Lab Routine Tomorrow AM for 1 09-23-2019 [place], [place] ([id number]) Occurrences starting 09/23/2019 until 09/23/2019 Comment: Tomorrow AM for 1 Occurrence s starting 09/23/2019 until 09/23/2019 Vitamin B12 Vitamin B12 Lab Routine Tomorrow 09-23-2019 [facility] LINDA FRIAS ([id number]) AM for 1 Occurrences starting 09/23/2019 until 09/23/2019 Comment: Tomorrow AM for 1 Occurrence s starting 09/23/2019 until 09/23/2019 Initiate Oxygen Therapy [facility]iate Oxygen [facility] Protocol Respiratory Care (55014 ) Routine Daily until discontinued starting 09/19/2019 Comment: Daily until discontinued sta rting 09/19/2019 Patient \cps-sql1\CPS_PtEducation\quitting_smoking_[id number] 013.pdf, [facility] education \cps-sql1\CPS_PtEducation\[facility]_FALL_PREVENTION.pd f [facility] (15368) Vitamin D 25 Vitamin D 25 Hydroxy Lab Routine Tomorrow AM for 1 06 [facility] Occurrences starting 09/23/2019 until 09/23/2019 -1 [place] LINDA 6- (35809) 01 20 Comment: Tomorrow AM for 1 Occurrence s starting 09/23/2019 until 09/23/2019 Immunizations Vaccine Notes Status Date Location Influenza Vaccine, influenza virus (completed) 01-06-2013 - [facility] Split-Non Spec vaccine, unspecified 01-06-2013 (4419 5) formulation Influenza Vaccine, influenza virus (completed) 01-08-2012 - [facility] Split-Non Spec vaccine, unspecified 01-08-2012 (4419 5) formulation Influenza Vaccine, influenza virus (completed) 02-04-2011 - [facility] Split-Non Spec vaccine, unspecified 02-04-2011 (4419 5) formulation Influenza Vaccine, influenza virus (completed) 02-11-2010 - [facility] Split-Non Spec vaccine, unspecified 02-11-2010 (4419 5) formulation Influenza Vaccine, influenza virus (completed) 02-14-2006 - [facility] Split-Non Spec vaccine, unspecified 02-14-2006 (4419 5) formulation Influenza Seasonal - influenza, high dose (completed) 01-04-2015 - [facility] High Dose - Age 65+ seasonal, 01-04-2015 (47196) preservative-free Influenza Seasonal influenza, injectable, (completed) 01-16-2018 - [facility] Inj Quadrivalent Age quadrivalent, contains 01-16-2018 (34058) 3+ preservative Influenza Seasonal influenza, injectable, (completed) 01-18-2016 - [facility] Inj Quadrivalent Age quadrivalent, contains 01-18-2016 (61643) 3+ preservative Influenza Seasonal influenza, seasonal, (completed) 01-06-2014 - [facility] Inj Age 3+ injectable 01-06-2014 (91219) Pneumovax pneumococcal (completed) 01-18-2016 - [facility] c polysaccharide vaccine, 01-18-2016 (441 [id number]) 23 valent Zostavax zoster vaccine, live (completed) 06-18-2012 - [facility] 06-18-2012 (09134) Payers Payer Name Policy Number Location 1500 MEDICARE PRIMARY [facility] ([id number]) [employer] MEDICARE [id number] [facility] (44 195) The following information is from [...] enter - exposure [facility] (80703) Assertion Unknown if ever smoked 06-19-2019 - [facility] (87346) Sex Assigned At Not on file Tashia [place], [place] ([address]) Exposure to SARS-CoV-2 Unable to assess Tashia Carlton [place], [place] (event) (25897) Tobacco smoking status Current some day smoker 01-01-1997 - [facility] NHIS 05-21-2019 (17919) History of tobacco use Cigarette Smoker 01-01-1997 [facility] (10282) Cigarettes smoked 05-21-2019 - [facility] ic current (pack per day) 05-21-2019 (77688) - Reported Tobacco use and Never used 05-21-2019 - [facility] exposure 05-21-2019 (28867) Alcohol intake Current non-drinker of 05-21-2019 [facility] alcohol (finding) 05-21-2019 (69132) Tobacco Comment 2 cig per day 02-18-2015 - [facility] 02-18-2015 (68151) The following information is from the original [...] Documents on File Type Date Recorded Patient Clinical Education Manager Explanati on Advance Directives and Living Will Power of Leak Inspector Latest Code Status on File Code Status Date Activated Date Inactivated Comments Full Code 09/19/2019 6:26 PM Documents on File Type Date Recorded Patient Clinical Education Manager Explanati on Advance Directive(s) 09/04/2018 1:43 PM [...] - VERONICA - 09/23/2019 10:22 AM EDT [facility] Geriatric Medicine Inpatient Consult Service Admission [...] follow up as needed outpatient at the [facility] if there are ongoing concerns about cognition. [...] year-old female admitted to acute care from [facility] for worsening confusion, hallucinations. Diagnosed with [...] TSH 0.941 09/19/2019 No results found for: [id number] No results found for: VITD25 Head CT neg Reviewed: active problem list, medication list, lab results Lab Results Component Value Date TSH 0.941 09/19/2019 No results found for: [id number] No results found for: FOLATE No results [...] Chief Complaint Patient presents with ? Delusional Aubrey slipped from [facility] she had back surgery 2 days ago. [...] not seen her. Kate on 7W at [facility] states she had a sitter last [...] file Gets together: Not on file Attends synagogue service: Not on file Active member of [...] questions or concerns. Please page myself or operations representative psychiatrist for emergent needs or follow up questions. Thank you for allowing me to participate in the care of this patient. Rosibel García RN - 09/22/2019 3:00 PM EDTNon-violent restraints removed at this time. Will continue to monitor. Kate Ambrose APRN - CNP - 09/22/2019 2:03 PM EDT [facility] Geriatric Medicine Inpatient Consult Service Admission [...] --Medication management per psych. --Wean restraints and chief accounting officer as able. --Monitor for constipation/urinary retention - [...] the doses get lower Discussed with RN, chief accounting officer Subjective Chief Complaint: delirium ? Geriatrics consulted for paranoid;delusional; delirium vs psych vs withdrawal HPI- The patient is new to me but seen by the Geriatric Inpatient Consult team. 69 y.o. year-old female admitted to acute care from [facility] for worsening confusion, hallucinations. Diagnosed with [...] TSH 0.941 09/19/2019 No results found for: [id number] No results found for: VITD25 Head CT neg Reviewed: active problem list, medication list, lab results Lab Results Component Value Date TSH 0.941 09/19/2019 No results found for: [id number] No results found for: FOLATE No results [...] 09/22/2019 10:10 AM EDT Physical Therapy Facility/Department: [facility] SUR[facility] Daily Treatment Note NAME: Angélica [...] recent lumbar sx--per spouse L4L5 done at [facility] Other position/activity restrictions: soft restraints, sitter present [...] Code Treatment Minutes: 34 Minutes(gait, FA) *This MILKER MACHINE wore N95, gloves and face shield during whole treatment session.* Betty Chapa PTA Amira Terry APRN - PAPERHANGER SUPERVISOR - 09/22/2019 8:36 AM EDT Department of Psychiatry Progress Note Reason for Consult/Chief Complaint: Chief Complaint Patient presents with ? Delusional Aubrey slipped from [facility] at [facility] she had back surgery 2 days ago. [...] not seen her. Kate on 7W at [facility] states she had a sitter last [...] file Gets together: Not on file Attends synagogue service: Not on file Active member of [...] effect and tolerability. Please page myself or operations representative psychiatrist for emergent needs or follow up [...] Date 09/21/19 0000 - 09/21/19 2359 Shift [id number] 0048-5087 24 Hour Total INTAKE P.O.(mL/kg/hr) 400(0.7) 400 [...] 09/21/2019 12:11 PM EDT Physical Therapy Facility/Department: [facility] Daily Treatment Note NAME: Angélica [...] For some reason pt did trust this MILKER MACHINE and would not let aide get vital signs. This MILKER MACHINE took vital signs at end of session [...] recent lumbar sx--per spouse L4L5 done at [facility] Other position/activity restrictions: soft restraints, sitter present in room Subjective General Chart Reviewed: Yes Additional Pertinent Hx: Pt transferred from [facility] where she had lumbar surgery after change [...] but stops several times and tells this MILKER MACHINE statements about delusions she is havingand paranoid [...] Treatment Minutes: 45 Minutes(gait x2, FA) *This MILKER MACHINE wore N95, gloves and face shield during [...] 5. Fluid Accumulation-No significant fluid accumulation, 6. Digital Content Coordinator Strength-Not measured Nutrition Risk Level: High Nutrient Needs: ? Estimated Daily Total Kcal: 5792-6252 ? Estimated Daily Protein (g): 50-70 ? Estimated Daily Total Fluid (ml/day): per MD Nutrition Diagnosis: ? Problem: Inadequate oral intake ? Etiology: related to Acute injury/trauma, Pain, Cognitive or neurological impairment ? Signs and symptoms: as evidenced by Intake 25-50%([facility]) Objective Information: ? Nutrition-Focused Physical Findings: No edema; no emesis ? Wound Type: Surgical Wound ? Current Nutrition Therapies: ? Oral Diet Orders: General ? Oral Diet intake: 26-50% ? Oral Nutrition Supplement (ONS) Orders: None ? Anthropometric Measures: ? Ht: 5' 2 (157.5 cm) ? Current Body Wt: 150 lb (68 kg)(stated) ? Usual Body Wt: 150 lb (68 kg)(per pt) ? [place] Body Wt: 110 lb (49.9 kg), % [place] Body 136% ? BMI Classification: BMI 25.0 - 29.9 Overweight Nutrition Interventions: Continue current diet Continued Inpatient Monitoring Nutrition Evaluation: ? Evaluation: Goals set ? Goals: Pt will consume >75% meals. ? Monitoring: Meal Intake, Diet Tolerance, Skin Integrity, Wound Healing, I&O, Mental Status/Confusion, Weight, Pertinent Labs, Chewing/Swallowing Contact Number: [phone] Mandie Willett PT - 09/20/2019 3:18 PM EDT Physical Therapy Facility/Department: [facility] 7 MED SURG Initial Assessment NAME: Angélica Dawn : 1950 Date of Service: 09/20/2019 Discharge Recommendations: Continue to assess pending progress PT Equipment Recommendations Other: pt has FWW at home Assessment Body structures, Functions, Activity limitations: Decreased functional mobility ;Decreased ROM;Decreased safe awareness;Decreased balance;Increased pain;Decreased strength;Decreased cognition Assessment: 69 y.o. female s/p lumbar surgery at [facility] presented to [facility] with change in mental status with delusions [...] recent lumbar sx--per spouse L4L5 done at [facility] Other position/activity restrictions: soft restraints per attending ok to remove for PT, sitter present in room Vision/Hearing Vision: Within Functional Limits Hearing: Within functional limits Subjective General Chart Reviewed: Yes Patient assessed for rehabilitation services?: Yes Additional Pertinent Hx: Pt transferred from [facility] where she had lumbar surgery after change [...] Ambulation Assistance: Independent Transfer Assistance: Independent Active Supervisor Brake Repair: Yes Additional Comments: community amb without AD, reports 2 falls tripping over dog and while at [facility] post surgery Cognition Objective Observation/Palpation Posture: Good [...] physical therapy POC supervision is transferred to [facility] Rehab Dept Physical Therapist. Plan to be [...] and need for restraints. He verbalized understanding. Jnaa Navarrete RN - 09/20/2019 8:12 AM EDTRN called to room by chief accounting officer. Pt in bathroom refusing to get back to bed pushing chief accounting officer. RN explained to Pt that she was [...] make him aware of the restraints. Vidya Murrayparamedic supervisor called and made aware of the [...] not limited to a N95. Kevyn Diop [facility] Hospitalist Tena Manzanares [facility] - 09/19/2019 3:37 PM [facility] MEDICATION RECONCILIATION Date: 09/19/19 Room:[address] [place] [address] Patient Name: Angélica Dawn Allergies: Patient has no allergy information on record. Age: 69 y.o. Sex: female Note: New information has been obtained regarding the patient?s medications. The medication reconciliation has been updated to reflect this. Please consider making these changes/additions if appropriate: Recommendations: 1. Home medications to restart if there is not a current contraindication: a. Bowie 7.5/325mg 1 tab q6h prn (ONLY stock Bowie 5/325mg tab @ [facility], so would have to do 1.5 tabs, [...] 3:37 PM Name: Tena Calhoun PharmD Pager: [phone] Jana Navarrete RN - 09/19/2019 3:04 PM EDTPt arrived to room via ER with and protective services. Italian Tutor at bedside, and room cleared. Pt oriented to room, bed alarm on, fall kit provided. Dr. Diop paged regarding admission. documented in this encounter Discharge Instructions Discharge Instr - Agata Rosenberg RN - 09/23/2019 10:55 AM EDT Your physician has ordered skilled home care services for you. Your home care will be provided by: [facility] [phone] Additional Tena Strauss [facility] - 09/19/2019 General Orthopedic Discharge Instructions The [...] may report side effects to FDA at 1-034-JAK-5584. What other drugs will affect amlodipine? Tell your doctor about all your other medicines, especially: ? nitroglycerin; ? simvastatin (Zocor, Simcor, Vytorin); or ? any other heart or blood pressure medications. This list is not complete. Other drugs may affect amlodipine, including prescription and godo-jfw-fkbaaui medicines, vitamins, and herbal products. Not all [...] to ensure that the information provided by [employer]. ('[employer]')is accurate, up-to-date, and complete, but no guarantee is made to that effect. Drug information contained herein may be time sensitive. [employer] information has been compiled for use by healthcare practitioners and consumers in the [place] and therefore [employer] does not warrant that uses outside of the [place] are appropriate, unless specifically indicated otherwise. [employer] drug information does not endorse drugs, diagnose patients or recommend therapy. [employer] drug information is an informational resource designed [...] effective or appropriate for any given patient. [employer] does not assume any responsibility for any aspect of healthcare administered with the aid of information [employer] provides. The information contained herein is not intended to cover all possible uses, directions, precautions, warnings, drug interactions, allergic reactions, or adverse effects. If you have questions about the drugs you are taking, check with your doctor, nurse or pharmacist. Copyright 0043-4903 [employer]. Version: 15.01. Revision date: 02/03/2019. Care instructions adapted under license by [employer]. If you have questions about a medical condition or this instruction, always ask your healthcare professional. [employer] disclaimsany warranty or liability for your [...] BE BASED ON THE PRIMARY CLINICAL RECORDS. [employer] provides no warranty or guarantee of the accuracy or completeness of information in this document. UNRECOGNIZED CONTENT PROVIDED BELOW FOR UNRECOGNIZED SECTION INFORMATION SOURCE DATE CREATED AUTHOR AUTHOR'S ORGANIZATIO N 09/27/2017 [facility] DATE CREATED AUTHOR AUTHOR'S ORGANIZATIO N 09/12/2018 [facility] DATE CREATED AUTHOR AUTHOR'S ORGANIZATIO N 09/20/2019 [facility] DATE CREATED AUTHOR AUTHOR'S ORGANIZATIO N 10/28/2019 [facility] DATE CREATED AUTHOR AUTHOR'S ORGANIZATIO N 12/03/2019 [facility] donaldo UNRECOGNIZED CONTENT PROVIDED BELOW FOR UNRECOGNIZED SECTION Reason for Visit Reason For Visit Description Start Date New/Est - 1st visit with physician Preliminary reason for visit data, not yet signed by the author as of left hip pain Reason Comments Delusional Aubrey slipped from [facility] she had back surgery 2 days ago. [...] not seen her. Kate on 7W at [facility] states she had a sitter last [...] or prosecute any alcohol or drug abuse patient.[facility] the event this information is protected by the Federal Confidentiality of Alcohol and Drug Abuse Patient Records regulations: The Federal rules restrict any use of the information to criminally investigate or prosecute any alcohol or drug abuse patient.[facility] UNRECOGNIZED CONTENT PROVIDED BELOW FOR UNRECOGNIZED SECTION [...] also recommends she follows up with her treatment plant mechanic in [place] for the rash on her thighs. I [...]
--- OUTSIDE RECORDS SUMMARY | 2020-01-25 15:19 | XMS RPT_ITS | CCD ---
:1950 External Reference #:[id number] Author Organization [facility] Care Team Providers Name Role Phone Edouard Unavailable Unavailable Edouard Unavailable Unavailable Edouard Unavailable Unavailable Edouard Unavailable Unavailable Edouard Unavailable Unavailable Joel PACHECO, Eulalio Unavailable Unavailable Primary Care Provider Unavailable Popeye Davey Primary Care Provider Allergies Reported Allergen Reaction(s) Severity Date of Location Onset buPROPion Intolerance 12-09-2009 - [facility] (75763) cloNIDine Intolerance 09-27-2015 - [facility] (83948) Desipramine Intolerance 12-09-2009 - [facility] (66617) Desvenlafaxine Mental Status 04-13-2011 - [facility] Change (94547) Doxycycline Hives 11-29-2011 - [facility] (75690) Erythromycin hives Critical, 08-16-2015 - [facility] Critical [facility] [address] [facility] (61887) FLUoxetine Mental Status 11-24-2010 - [facility] Change (39430) gabapentin Hives 03-13-2013 - [facility] (50371) Imipramine Hives 12-09-2009 - [facility] (78835) metroNIDAZOLE Hives, Itching 08-06-2012 - [facility] (90776) Misc. Anesthesia AOF Religious R egional Allergy Translations: Health System [ Misc. Anesthesia Repositor y Allergy] Mold Extract Critical, 06-17-2019 - [facility] Translations: [ MOLD] Critical Orthop [facility]edic [facility] - [facility] (48969) Sertraline Other: See 06-26-2011 - [facility] Comments (37214) Solifenacin Intolerance 11-09-2009 - [facility] (41546) SUMAtriptan Intolerance 12-09-2009 - [facility] (93365) traMADol GI Upset 02-14-2006 - [facility] (71232) Valproate Other: See 10-21-2010 - [facility] Comments (72937) venlafaxine Hives High 05-14-2012 - [facility] (70941) Medications Current Medications Medication Name Sig Date Prescriber Location Acetaminophen acetaminophen 09-21-2019 [facility], (TYLENOL) tablet [place] ([address]) 1,000 mg Acetaminophen / HYDROcodone-acetamin Historical [facility], HYDROcodone ophen (NORCO) Provider [place] ([address]) 7.5-325 MG per Historical tablet Take 1 tablet Provider by mouth every 6 hours as needed for Pain. 0 Active Atenolol 25 mg, Oral, 2 TIMES 09-19-2019 [facility] DAILY, First dose on Orthopa edic 09/19/19 at 2100 Center - [facility] (83709) atenolol (TENORMIN) 25 mg 08-16-2015 [facility] tablet Take 1 tablet by mouth [facility] - [facility] Surgeons three times daily. 90 tablet Cli amanda (18407) 11 03/25/2016 Active Comment: Take 1 tablet by mouth three times daily. atorvastatin 10 mg, Oral, DAILY, First dose 09-19-2019 [facility], [place] on Sun09/19/19 at 2200 (4523 7) Substituted for Simvastatin (ZOCOR). Comment: Take 10 mg by mouth once antwan ly. Docusate / sennosides-docusate sodium 09-22-2019 [facility]- sennosides, [facility] (SENOKOT-S) 8.6-50 MG [place] tablet 1 tablet (44407) Enoxaparin enoxaparin (LOVENOX) 09-19-2019 [facility] ealth- injection 40 [place] ([address]) Folic Acid folic acid (FOLVITE) 09-22-2019 Amira Mckee [facility]- tablet 1 mg [place] ([address]) haloperidol haloperidol lactate 09-20-2019 Reyna [facility] alth- lactate (HALDOL) (HALDOL) injection 1 mg [place], [place] injection 1 mg (89042) Labetalol labetalol 09-19-2019 [facility] (NORMODYNE;TRANDATE) [place] injection 10 mg (03286) Lisinopril lisinopril 09-23-2019 [employer]- (PRINIVIL;ZESTRIL) tablet [place] , [place] 40 mg (04042) 20 mg, Oral, DAILY, First dose 09-19-2019 - 09-22-2019 [employer] [place], [place] ([address]) on Sun09/19/19 at 1615 LORazepam LORazepam (ATIVAN) tablet 1.5 09-19-2019 [facility] Orthopaedic mg Center - [facility] (86773) LORazepam (ATIVAN) 2 mg tab 10-30-2016 [facility] Provider Ramona [facility] Orthopaedic Center - [facility] (43676) ATIVAN 1 MG TABS take 1 tablet 08-16-2015 C [facility] Orthopaedic three times a day [facility] - [facility]opaedic Surgeons LORAZEPAM [phone] [facility] (24083) Ras HERNANDEZN Multiple Multiple Historical [employer]- Vitamins-Minerals Vitamins-Minerals Provider [place], [place] (MULTIVITAMIN ADULT PO) (MULTIVITAMIN ADULT PO) Histor ical (36979) Take by mouth daily as Provider needed 0 Active Nutritional Supplements Nutritional Supplements Histor ical [employer]- (ENSURE ACTIVE) LIQD (ENSURE ACTIVE) LIQD Provider [place] Take by mouth daily as Historical (4523 7) needed 0 Active Provider oxyCODONE oxyCODONE (ROXICODONE) [employer]- immediate release tablet 020 [place], [place] 5 mg (29636) POLYETHYLENE GLYCOL 3350 polyethylene glycol [employer]- (GLYCOLAX) packet 17 g 020 [place], [place] (88741) Promethazine promethazine (PHENERGAN) [employer]- tablet 12.5 mg 020 [place] ([address]) Simvastatin simvastatin (ZOCOR) 5 MG Historical [employer]- tablet Take 5 mg by Provider [place] mouth nightly 0 Active Historical (4523 7) Provider Sodium Chloride sodium chloride flush [employer]- 0.9 % injection 10 mL 020 [place] ([address]) Thiamine vitamin B-1 (THIAMINE) [employer]- tablet 100 mg 020 [place] ([address]) Completed/Discontinuned Medications Medication Name Sig Date Prescriber Location Acetaminophen / oxyCODONE-acetami 09-20-2019 - [facility], oxyCODONE nophen (PERCOCET) 09-21-2019 [place] ([address]339) 5-325 MG per tablet 1 tablet oxyCODONE-acetaminophen (PERCOCET) 09-23-2019 Historical Pr [facility], .5-325 MG per tablet Take 1 tablet [place] ([address]71) by mouth every 6 hours as needed for Pain. 0 09/23/2019 Discontinued (Stop Taking at Discharge) amLODIPine amLODIPine (NORVASC) 5 MG tablet 09-24-2019 [place] ([address]) Take 1 tablet by mouth daily 30 tablet 3 09/24/2019 Active amLODIPine (NORVASC) 5 MG 09-24-2019 - 09-23-2019 [employer] [place] tablet Take 1 tablet by (56930) mouth daily 30 tablet 3 09/24/2019 09/23/2019 Discontinued amLODIPine (NORVASC) tablet 09-22-2019 [place], [place] 5 mg (46126) Aspirin / Caffeine aspirin/caffeine (MIKA BACK [facility] Pr [facility] AND BODY ORAL) Take by mouth. (00062) 0 Active aspirin/caffeine (MIKA BACK AND BODY ORAL) [facility] Provider [facility] (22045) Take by mouth. 0 Active Comment: Take by mouth. Betamethasone betamethasone valerate 0.1 % 12-03-2019 [facility] Apply [place] ([address]) every Sunday,Sunday,Sunday. 45 g 1 12/03/2019 Active betamethasone dipropionate Historical Provider [facility] ([address]) (DIPROLENE) 0.05 % ointment Apply topically 2 times daily Apply topically 2 times daily. 0 Active Comment: Apply to affected area every Sunday,Sunday,Sunday. Betamethasone / clotrimazole-betamethasone 09-10-2019 [facility] Clotrimazole (LOTRISONE) cream Apply to [facility], outside of vagina and crease of [place] ([address]11) legs twice a day for 10-14 days. 45 g 2 09/10/2019 Active clotrimazole-betamethasone (LOTRISONE) Historica l Provider [facility]- [place], [place] 1-0.05 % cream Apply topically 2 times (08015) daily Apply topically 2 times daily. 0 Active Comment: Apply to outside of vagina a nd crease of legs twice a day for 10-14 days. Blood Pressure Blood Pressure Cuff - 09-27-2015 Khadar Richardson [facility] Cuff - Home Use Home Use Indications: (44 195) Elevated blood pressure reading without diagnosis of hypertension BLOOD PRESSURE CUFF FOR HOME USE. DX: LABILE BLOOD PRESSURE 1 Device 0 09/27/2015 Active Blood Pressure Cuff - Home Use 09-27-2015 Khadar Richardson [facility] (99416) Indications: Elevated blood pressure reading without diagnosis of hypertension BLOOD PRESSURE CUFF FOR HOME USE. DX: LABILE BLOOD PRESSURE 1 Device 0 09/27/2015 Active Comment: BLOOD PRESSURE CUFF FOR HOME USE. DX: LABILE BLOOD PRESSURE Cholecalciferol VITAMIN D3 50 MCG (2000 UT) 03-14-2016 [facility] Orthopaedic TABS take 2 tablets daily Ce nter - Orthopaedic CHOLECALCIFEROL S urgeChan [facility] (12683) [phone] Maggi Mcginnis [employer] Cholecalciferol, Vitamin D3, 05-20-2013 Khadar Richardson [facility] 2,000 unit cap Take 1 tablet Ort hop[facility]edic Center - by mouth once daily. 0 Orthopaed ic Surgeons 05/20/2013 Active Clinic (99273) Vitamin D, Cholecalciferol, 10 Historical Provid er [facility] MCG (400 UNIT) TABS Take 1 Ortho paedic Center - tablet by mouth daily as Orthopa edic Surgeons needed 0 Active Clinic (83836) Comment: Take 1 tablet by mouth once daily. Dicyclomine DICYCLOMINE HCL 20 MG TABS 03-14-2016 [facility] 3 tablets three times C enter - Orthopaedic Surgeons daily DICYCLOMINE Clinic (06740) HCL [phone] Maggi Mcginnis LPN dicyclomine (BENTYL) 10 mg [facility] Provider Cryst al [facility] Orthopaedic capsule Take 10 mg by mouth Cent er - Orthopaedic Surgeons three times daily. 0 Active Clin ic (20552) dicyclomine (BENTYL) 10 MG Historical Provider C rystal [facility] Orthopaedic capsule Take 30 mg by mouth 3 Ce nter - Orthopaedic Surgeons times daily 0 Active Clinic (443 25) Comment: Take 10 mg by mouth three ti mes daily. Estrogens, conjugated 05-05-2019 - [facility] Conjugated ([facility]) estrogens 12-02-2019 [facility] (18866) (PREMARIN) vaginal cream Use 1 g vaginally two times a week. Also to the outside of the vagina. 45 g 3 12/02/2019 Active Comment: Use 1 g vaginally two times a week. Also to the outside of the vagina. Famotidine famotidine (PEPCID) 20 10-22-2015 Khadar Richardson [facility] mg tablet Take 1 tablet Orth [facility] - by mouth twice daily. Orthop aedic Surgeons 180 tablet 3 10/22/2015 Clin ic (78999) Active PEPCID 20 MG TABS take 1 tablet once 08-16-2015 [facility] - daily FAMOTIDINE Orth [facility] (24541) [phone] Maggi Mcginnis LPN Comment: Take 1 tablet by mouth twice daily. Fluconazole fluconazole (DIFLUCAN) 09-25-[address] [facility] 150 mg tablet 1 pill (65560) now, repeat in 48 hours. 2 tablet 2 09/25/2018 Active Comment: 1 pill now, repeat in 48 peter rs. Lactobacillus Lactobacillus 08-16-2017 Hillister Rafael [facility] acidophilus acidophilus (23988) (ACIDOPHILUS) cap Take 1-2 capsules by mouth twice daily with meals. 60 capsule 5 08/16/2017 Active Lactobacillus acidophilus 08-16-2017 Kilo Hall [facility] (11933) (ACIDOPHILUS) cap Take 1-2 capsules by mouth twice daily with meals. 60 capsule 5 08/16/2017 Active Comment: Take 1-2 capsules by mouth t wice daily with meals. Loperamide loperamide HCl (IMODIUM A-D ORAL) [facility]cf Pro vider [facility] (01718) Take by mouth. 0 Active loperamide HCl (IMODIUM A-D ORAL) Take by Ccf Pr ovider [facility] (60256) mouth. 0 Active Comment: Take by mouth. Naproxen NAPROXEN 500 MG TABS 06-17-2019 [facility] take 1 tablet once daily [facility] Orthopa edic Surgeons NAPROXEN [phone] [facility] (32911) Maggi Mcginnis LPN Nystatin nystatin (MYCOSTATIN) 03-27-2019 Kilo Ness [facility] (53725) powder Apply 1 application to affected area twice daily. Till Apr 09 (14 days) 60 g 3 03/27/2019 Active Comment: Apply 1 application to affec lenard area twice daily. Till Apr 09 (14 days) Omeprazole omeprazole (PRILOSEC) 20 mg [facility] Provider [facility] (25499) capsule Take 20 mg by mouth once daily. 0 Active Comment: Take 20 mg by mouth once antwan ly. OTC NUTRITIONAL OTC NUTRITIONAL [facility] Provider [facility] SUPPLEMENT SUPPLEMENT ensure 0 (75705) Active OTC NUTRITIONAL SUPPLEMENT ensure 0 Active [facility]cf P rovider [facility] (44730) Comment: ensure rosuvastatin rosuvastatin (CRESTOR) 5 02-27-2019 Kilo Bonds [facility] mg tablet Take 1 tablet (438 26) by mouth daily at bedtime. 0 02/27/2019 Active Comment: Take 1 tablet by mouth daily at bedtime. valACYclovir valACYclovir (VALTREX) 10-03-2018 Kilo Vicente [facility] 500 mg tablet Take 1 [facility] - tablet by mouth twice Orthop aedic Surgeons daily. 120 tablet 5 [facility] ( 99928) 10/03/2018 Active valACYclovir (VALTREX) 500 mg 08-16-2015 Kilo Vicente [facility] Orthopaedic tablet Take 1 tablet by mouth Ce nter - Orthopaedic once daily. 90 tablet 4 Surgeons [facility] (16180) 07/10/2018 Active Comment: Take 1 tablet by mouth twice daily. Take 1 tablet by mouth once daily. Problems Active Problems Category Problem Name Status Date Location Adjustment disorders Stress and adjustment Active 05-30-2012 - [facility] reaction (99509) Anxiety disorders Anxiety Active 04-21-2005 - [facility] [place] ([address]) Essential hypertension Hypertensive disorder Active [facility] (03258) Headache; including Headache [facility] migraine (37632) Hemorrhoids Hemorrhoids Active [facility] (43452) Inflammatory diseases Bacterial vaginosis Active [facility] of female pelvic (11805) organs Menopausal disorders Atrophic vaginitis Active 12-13-2011 - [facility] (45230) Mood disorders Depressive disorder Active 04-21-2005 - [facility] (94151) Other connective Trochanteric bursitis, Active 06-18-2019 - C [facility]ystal Clinic tissue disease left hip Orthopaedic C enter - Orthopaedic [facility] (86149) Other connective Muscle pain Active [facility] linic tissue disease (33853) Other nervous system Acute postoperative [facility] [place] disorders pain (38421) Residual codes; Altered mental status Active 09-19-2019 - [facility] [place] unclassified (87579) Residual codes; Chronic pain Active 06-19-2013 - [facility] inic unclassified (94508) Residual codes; Delirium Active [facility] [place] unclassified (03501) Residual codes; 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 [place] disorders withdrawal delirium (78211) Unclassified Positive measurement Active 05-26-2014 - [facility] finding (23545) Urinary tract Chronic interstitial Active 11-25-2009 - [facility] infections cystitis (56398) Viral infection Herpes simplex type 2 Active [facility] infection (50159) Past or Other Problems Category Problem Name Status Date Location Abdominal pain Pain in female pelvis Completed 11-25-2009 [facility] - (80486) Anal and rectal Rectal pain Completed 01-05-2012 [facility] inic conditions - (13562) Biliary tract disease Biliary calculus [facility] (56104[facility] Other and unspecified Tubular adenoma of Completed 10-31-2013 [facility] benign neoplasm colon - (43789) Other bone disease and Osteopenia Completed 06-22-2010 [facility] musculoskeletal - (82091) deformities Other connective tissue Fibromyalgia Completed 08-12-2011 [facility] disease - (47410) Other eye disorders Aponeurotic ptosis Completed 08-16-2015 Cr ystal [facility] - Orthopaedic [address] - [facility] (69284) Other gastrointestinal Constipation Completed 12-13-2011 [facility] disorders - (83576) Other inflammatory Pruritus of skin Completed 12-13-2011 [facility] condition of skin - (60116) Other lower respiratory Cough Completed 08-02-2010 [facility] disease - (86376) Other nervous system Burning sensation of Completed 06-05-2012 [facility] disorders vagina - (60907) Other nutritional; Weight gain Completed 11-24-2010 [facility] endocrine; and - (26952) metabolic disorders Other skin disorders Intrinsic aging of skin Completed 6 [facility] Orthopaedic [facility] (35599) Sexually transmitted Human papilloma virus Completed 12-08-2012 [facility] infections (not HIV or deoxyribonucleic acid - (79101) hepatitis) test positive, high risk on vaginal specimen Unclassified Problem [facility] Orthopaedic [facility] (08662) Results Result Name Value Range Unit Interpretation Flag Date Location [facility] Normal 12-02-2019 [facility] LÓPEZANGÉLICA Axel ([id number]) 1950 F [facility] Time Provider Department (77206) 12/02/19 KILO BONDS During your visit today, [...] test positive [R87.81*12/08/2012 More... HPV test positive [JNS8217] 05/26/2014 More... Generalized abdominal pain [R10.84] 02/18/2015 Other cholelithiasis without obstruction [K80.8*02/18/2015 HTN (hypertension) [I10] BV (bacterial vaginosis) [N76.0, B96.89] HSV-2 (herpes simplex virus 2) infection [B00.9] Prescriptions ordered this encounter Disp Refills Start End BETAMETHASONE VALERATE 0.1 % TOPICAL* 45 g 1 12/03/2019 Route: TOPICAL Sig: Apply to affected area every Sunday,Sunday,Sunday. Encounter Status:Closed by KILO BONDS MD on 12/02/19 [facility] Normal 12-01-2019 [facility] ANGÉLICA DAWN ([id number]) 1950 [facility] Date Time Provider Department (04997) 12/01/19 KILO BONDS During your visit today, [...] also recommends she follows up with her pie topper in [place] for t he rash on her thighs. [...] - Fully Assessed Reason for Visit: Question [2858] Order(s):conjugated estrogens (PREMARIN) vaginal creamUse 1 g [...] test positive [R87.81*12/08/2012 More... HPV test positive [ACR2722] 05/26/2014 More... Generalized abdominal pain [R10.84] 02/18/2015 [...] Patient name: ANGÉLICA DAWN MR#: Judy 10-02-[address] [facility] [id number] Hospital ([id number]) Location: [place] Acc#: [id number] Admit Date: 09/25/19 Discharge Date: 10/02/19 : 1950 Age: 69 Sex: F Dictated By: Chino Vail MD Signing Physician: DICTATED BY: Chino Vail M.D. SIGNING PHYSICIAN: DISCHARGE DATE: 10/02/19 DATE OF SERVICE: 10/02/2019 This is a 69-year-old female, admitted on a pink slip from [facility] Emergency Department for paranoid delusions [...] bedtime. 7. Lisinopril 20 mg daily. 8. Willcox 1 tablet every 6 hours p.r.n. 9. Atenolol 25 mg b.i.d. 10. Norvasc 5 mg daily. DISPOSITION: The patient discharged home with her husb and with followup with [facility]. JAKE/YOVANY @ 16:52 @ 03:40 # [id number] Chino Vail M.D. Electronically Signed Date/T sheila: 10/05/191406 Electronically Signed Date/Time: 10/05/191406 mrpn on 2019-10-01 MRPN Patient Name:ANGÉLICA DAWN MR #: Judy 10-01-[address] [facility] [id number] [facility] (76939) Location: [place] Acc#: [id number] Date of Admit: 09/25/19 : 1950 Age: [...] t.i.d. JAYRO/YOVANY @ 12:01 @ 15:20 # [id number] Girish Martin M.D. Electronically Signed Date/Time: 10/01/191618 Electronically Signed Date/Time: 10/01/191618 [facility] Patient Name:ANGÉLICA DAWN MR #: Judy 10-01-[address] [facility] [id number] [facility] ([id number]) Location: [place] Acc#: [id number] Date of Admit: 09/25/19 : 1950 Age: [...] nd. MORALES/YOVANY @ 09:26 @ 10:10 # [id number] Ramesh Castro M.D. Electronically Signed Date/Time: 10/01/19 1133 Electronically Signed Date/Time: 10/01/19 1133 LALIT Patient Name:ANGÉLICA DAWN MR #: Judy 10-01-[address] [facility] [id number] [facility] (05130) Location: [place] Acc#: [id number] Date of Admit: 09/25/19 : 1950 Age: 69 Sex: F Dictated By: Chino Vail MD Signing Physician: DICTATED BY: Chino Vail M.D. SIGNING PHYSICIAN: PSYCHIATRIC FOLLOWUP NOTE SUBJECTIVE: This is a 69-year-old Caucas rachelle female, admitted as a referral fro [facility] Emergency Department for increased paranoia, delusi [...] therapy. JAKE/YOVANY @ 23:00 @ 12:50 # [id number] Chino Vail M.D. Electronically Signed Date/Time: 10/02/19 1228 Electronically Signed Date/Time: 10/02/19 1228 rapid plasma reagin on 2019-09-29 RAPID PLASMA REAGIN NONREACTIVE NONREACTIVE Normal 2019 [facility] ( 35083) Comment: Performed By: #### VB12, FOL , LIPID, MG, T4, TSH #### [facility] [address] [place] [address] mrpn on 2019-09-29 MRPN Patient Name:ANGÉLICA DAWN MR #: Normal 09-29-[address] [facility] [id number] Hospital ([id number]) Location: [place] Acc#: [id number] Date of Admit: 09/25/19 : 1950 Age: 69 Sex: F Dictated By: Chino Vail MD Signing Physician: DICTATED BY: Chino Vail M.D. SIGNING PHYSICIAN: DATE OF SERVICE: 09/29/2019 SUBJECTIVE: This is a 69-year-old Caucas rachelle female, admitted as a referral fro [facility] on a pink slip for increased [...] therapy. JAKE/YOVANY @ 12:44 @ 16:50 # [id number] Chino Vail M.D. Electronically Signed Date/Time: 09/30/19 1147 Electronically Signed Date/Time: 09/30/19 1147 [facility] Patient Name:ANGÉLICA DAWN MR #: Judy 09-29-[address] [facility] [id number] [facility] (22790) Location: [place] Acc#: [id number] Date of Admit: 09/25/19 : 1950 Age: [...] required. JAYRO/YOVANY @ 12:38 @ 17:10 # [id number] Girish Martin M.D. Electronically Signed Date/Time: 10/01/19800 Electronically Signed Date/Time: 10/01/19800 pn.pdoc on PN.PDOC ANGÉLICA DAWN Female [id number] Normal 09-28-[address] [facility] Attending provider: [place]M [place] [id number] [facility] ([id number]) Chino Vail 1950 69 DOS: Progress Note [...] normal bowel reynold nds Neurologic: speech clear/fluent, package collector II- XII grossly intact w/ no focal [...] Patient Name:ANGÉLICA DAWN MR #: Judy 09-28-[address] [facility] [id number] Hospital ([id number]) Location: [place] Acc#: [id number] Date of Admit: 09/25/19 : 1950 Age: 69 Sex: F Dictated By: Chino Vail MD Signing Physician: DICTATED BY: Chino Vail M.D. SIGNING PHYSICIAN: DATE OF SERVICE: 09/28/2019 SUBJECTIVE: This is a 69-year-old Caucas rachelle female, admitted as a referral fro [facility] on a pink slip for increased [...] therapy. PABLO @ 15:45 @ 17:40 # [id number] Chino Vail M.D. Electronically Signed Date/Time: 09/29/191102 Electronically Signed Date/Time: 09/29/191102 mrpn on 2019-09-27 MRPN Patient Name:ANGÉLICA DAWN MR #: Judy 09-27-[address] [facility] [id number] Hospital (70569) Location: [place] Acc#: [id number] Date of Admit: 09/25/19 : 1950 Age: [...] gathered by reviewing the chart, discussing w [facility] staff and interviewing the patient. Staff reports [...] ideation. She was aware she was in [facility] that it was September 2019 and Monica [...] encouraged. FLYNN/YOVANY @ 14:35 @ 15:20 # [id number] SPRING Dennis Electronically Signed Date/Time: 09/28/192131 Electronically Signed Date/Time: 09/28/192131 vitamin b 12 on Cobalamin (Vitamin B12) 2122 588-8181 pg/mL High [address] [facility] [Mass/Vol] [facility] (80996) Comment: Performed By: #### VB12, FOL , LIPID, MG, T4, TSH #### [facility] [address] [place] [address] thyroxine (t4) on 2 T4 [Mass/Vol] 13.4 4.8-13.9 ug/dl Normal 09-26-2019 [facility] (19180) Comment: Performed By: #### VB12, FOL , LIPID, MG, T4, TSH #### [facility] [address] [place] [address] thyroid stim hormone on 2019-09-26 THYROID STIM HORMONE 0.949 0.358-3.74 uIU/mL Normal 09-26-[address] [place] [address] ( [id number]) Comment: Performed By: #### VB12, FOL , LIPID, MG, T4, TSH #### [facility] [address] [place] [address] sed rate on 2019-09 SED RATE 50 0-30 mm/hr High 09-26-2019 [facility] ([id number]) Comment: Performed By: #### [facility] #### [address] [address] pcm.cons on 2019-09 PCM.CONS ANGÉLICA DAWN [id number] Normal 09-26-[address] [facility] Attending provider: ADM [place] [id number] [facility] ([id number]) Barrera Vaila 1950 69 DOS: Medical Consultation [...] at baseline. 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 [id number] [facility] (82885) Location: [place] Acc#: [id number] Admit Date: 09/25/19 : 1950 Age: 69 [...] current is actually her first . As iscmiu-tf-xdoc, she did call the deputy chief sheriff on her out of fear. She was [...] that she saw a psychiatrist in [facility] many years ago for anxiety. Currently, [...] workup. MORALES/YOVANY @ 10:32 @ 11:30 # [id number] Ramesh Castro M.D. Electronically Signed Date/T sheila: 10/01/19919 Electronically Signed Date/Time: 10/01/19919 magnesium on 09-25 Magnesium [Mass/Vol] 2.2 1.8-2.4 mg/dL Normal 0 [facility] (72494) Comment: Performed By: #### VB12, FOL , LIPID, MG, T4, TSH #### [address] [address] lipid profile (fasting) on 2019-09-26 Cholesterol [Mass/Vol] 173 0-200 mg/dL Normal 020 [facility] (17830) Comment: Performed By: #### VB12, FOL , LIPID, MG, T4, TSH #### [facility] [address] [place] [address] Cholesterol in HDL 48 40-60 mg/dL Normal 09-26-[address] [facility] [Mass/Vol] [facility] (04067) Comment: Performed By: #### VB12, FOL , LIPID, MG, T4, TSH #### [facility] [address] [place] [address] Cholesterol in LDL 94 0-130 mg/dL Normal 09-26-[address] [facility] [Mass/Vol] [facility] (29890) Comment: Performed By: #### VB12, FOL , LIPID, MG, T4, TSH #### [facility] [address] [place] [address] Cholesterol.total/Cholesterol in 3.6 3.7-5.6 mg/dl Normal 09-26-2019 [place] HDL [Mass ratio] [facility] [place] [place] ([address]) Comment: Performed By: #### VB12, FOL , LIPID, MG, T4, TSH #### [facility] [address] [place] [address] Triglyceride [Mass/Vol] 151 0-150 mg/dL High 2019 [facility] (49933) Comment: Performed By: #### VB12, FOL , LIPID, MG, T4, TSH #### [facility] [address] [place] [address] VLDL CALCULATION 30 5-40 mg/dl Normal 09-26-2019 [facility] (58720) Comment: Performed By: #### VB12, FOL , LIPID, MG, T4, TSH #### [facility] [address] [place] [address] glycohemoglobin (a1c) on 2019-09-26 Glucose [Mass/Vol] 103 mg/dL Normal 09-26-2019 [facility] (74450) Comment: Performed By: #### GLY #### [facility] [address] [place] [address] HbA1c (Bld) [Mass fraction] 5.2 % Normal [facility] (54752) Comment: Result Comment: Interpretati on of Hgb [...] BLOOD LOSS. Performed By: #### GLY #### [facility] [address] [place] [address] folic acid on 09-25 FOLIC ACID 15.5 3.1-17.5 ng/mL Normal 09-26-2019 [facility] (99421) Comment: Performed By: #### VB12, FOL , LIPID, MG, T4, TSH #### [facility] [address] [place] [address] cr chest portable o n 2019-09-20 CR Chest Portable Patient Name: ANGÉLICA DAWN 09-20-2019 [facility] (58632) Diagnostic Radiology Exam Date/Time 09/20/2019 08:30:20 EDT Exam CR Chest Portable Ordering Physician [id number] KEVYN JETER Accession Number [id number] CPT4 Codes 20303 () Reason For Exam ams; PNA? Report [...] Low lung volumes. Report Dictated on Workstation: [id number] Final Dictated: 09/20/2019 8:58 am Dictating Physician: MD HYATT JENNIFER R Signed Date and Time: 09/20/2019 8:59 am Signed by: MD HYATT JENNIFER R Transcribed Date and Time: 09/20/2019 8:58 No panel information on 2019-09-20 [facility] Incoming Radiology Results From [facility] - 2019 9:01 AM EDT 09-20-2019 [place], [place] ([address]) Patient Name: ANGÉLICA DAWN ---Diagnostic Radiology--- Exam Date/Time 09/20/2019 08:30:20 EDT Exam CR Chest Portable Ordering Physician [id number] KEVYN JETER Accession Number [id number] CPT4 Codes 66097 () Reason For Exam ams; PNA? Report [...] Low lung volumes. Report Dictated on Workstation: [id number] DevicesRIDS --- Final --- Dictated: 09/20/2019 8:58 am Dictating Physician: MD HYATT JENNIFER R Signed Date and Time: 09/20/2019 8:59 am Signed by: MD HYATT JENNIFER R Transcribed Date and Time: 09/20/2019 8:58 Patient Name: [place] [address]) [id number] ---Diagnostic Radiology--- Exam Date/Time 09/20/2019 08:30:20 EDT Exam CR Chest Portable Ordering Physician [id number] KEVYN JETER Accession Number [id number] CPT4 Codes 67470 () Reason For Exam ams; PNA? Report [...] Low lung volumes. Report Dictated on Workstation: [email or web address] --- Final --- Dictated: 09/20/2019 8:58 am Dictating Physician: MD HYATT JENNIFER R Signed Date and Time: 09/20/2019 8:59 am Signed by: MD HYATT JENNIFER R Transcribed Date and Time: 09/20/2019 8:58 thyroid stim. hormone on 2019-09-19 Thyroid Stim. 0.941 0.465-4.680 u[IU]/mL Normal 09-19-2019 [facility] Hormone (40417) Comment: Performed By: #### HEMDF, CM P3, ETOH4, MG3, TSH5 #### [facility] [address] [place] [address] sars-cov-2 on 09-18 SARS-CoV-2 SARS-CoV-2 --> Status: F Normal 09-07 [facility] Not Detected (66419) Expected Result: Not Detected _ Real-time, RT-PCR performed on the [employer] TORCH by the [facility] Microbiology Service. Negative results do not preclude SARS-CoV-2 infection and should not be used as the sole basis for treatment or other patient management decisions. This assay was developed by [employer] and distributed under an Emergency Use Authorization (EUA) granted by the FDA for the qualitative detection of SARS-CoV-2 nucleic acid. Expected Result: Not Detected _ Real-time, RT-PCR performed on the [employer] TORCH by the [facility] Microbiology Service. Negative results do not preclude SARS-CoV-2 infection and should not be used as the sole basis for treatment or other patient management decisions. This assay was developed by [employer] and distributed under an Emergency Use Authorization (EUA) granted by the FDA for the qualitative detection of SARS-CoV-2 nucleic acid. Comment: Order Comment: Specimen Sour ce Comment:Nasopharyngeal Swab Performed By: #### COVID ### # [place] [address] [address] [place], [place] magnesium on 09-18 Magnesium [Mass/Vol] 1.9 1.6-2.3 mg/dL Normal 0 [facility] (62993) Comment: Performed By: #### HEMDF, CM P3, ETOH4, MG3, TSH5 #### [address] [place] [address] [address] [place], [place] hemogram w/ autodiff on 2019-09-19 Abs Baso Cnt 0.1 0.0-0.2 10*3/uL Normal 09-19-2019 [facility] (99231) Comment: Performed By: #### HEMDF, CM P3, ETOH4, MG3, TSH5 #### [address] [place] [address] [address] [place], [place] Abs Neutrophile Cnt 11.0 1.8-7.0 10*3/uL High 09-19-2019 [facility] (20646) Comment: Performed By: #### HEMDF, CM P3, ETOH4, MG3, TSH5 #### [place] [address] [address] [place], [place] Basophils/100 WBC (Bld) 0.4 0.0-2.0 % Normal 2019 [facility] (97347) Comment: Performed By: #### HEMDF, CM P3, ETOH4, MG3, TSH5 #### [address] [place] [address] [address] [place], [place] Eosinophils (Bld) [#/Vol] 0.0 0.0-0.5 10*3/uL Normal 09-07 [facility] (95507) Comment: Performed By: #### HEMDF, CM P3, ETOH4, MG3, TSH5 #### [place] [address] [address] [place], [place] Eosinophils/100 WBC (Bld) 0.3 1.0-6.0 % Low 09-07 [facility] (95498) Comment: Performed By: #### HEMDF, CM P3, ETOH4, MG3, TSH5 #### [place] [address] [address] [place], [place] Erythrocyte distribution 12.8 11.5-14.5 % Normal 09-18 [facility] width (RBC) [Ratio] (72899) Comment: Performed By: #### HEMDF, CM P3, ETOH4, MG3, TSH5 #### [place] [address] [address] [place], [place] Granulocytes/100 WBC (Bld) 79.3 40.0-80.0 % Normal [facility] (00334) Comment: Performed By: #### HEMDF, CM P3, ETOH4, MG3, TSH5 #### [address] [place] [address] [address] [place], [place] Hematocrit (Bld) [Volume 36.5 35.0-47.0 % Normal 09-18 [facility] fraction] (94272) Comment: Performed By: #### HEMDF, CM P3, ETOH4, MG3, TSH5 #### [address] [place] [address] [address] [place], [place] Hemoglobin (Bld) 12.8 11.7-16.0 g/dL Normal 09-19-2019 [facility] [Mass/Vol] (06538) Comment: Performed By: #### HEMDF, CM P3, ETOH4, MG3, TSH5 #### [address] [address] [place], [place] Lymphocytes (Bld) [#/Vol] 1.7 1.0-4.3 10*3/uL Normal 09-07 [facility] (50769) Comment: Performed By: #### HEMDF, CM P3, ETOH4, MG3, TSH5 #### [address] [place] [address] [address] [place], [place] Lymphocytes/100 WBC (Bld) 11.9 20.0-40.0 % Low 09-07 [facility] (73003) Comment: Performed By: #### HEMDF, CM P3, ETOH4, MG3, TSH5 #### [address] [place] [address] [address] [place], [place] MCH (RBC) [Entitic mass] 33.3 26.0-34.0 pg Normal 09-18 [facility] (86753) Comment: Performed By: #### HEMDF, CM P3, ETOH4, MG3, TSH5 #### [address] MCHC (RBC) [Mass/Vol] 35.0 32.0-36.0 % Normal 09-19-19 [facility] (31906) Comment: Performed By: #### HEMDF, CM P3, ETOH4, MG3, TSH5 #### [address] [place], [place] MCV (RBC) [Entitic vol] 95.1 79.0-98.0 fL Normal 2019 [facility] (08229) Comment: Performed By: #### HEMDF, CM P3, ETOH4, MG3, TSH5 #### [address] Monocytes (Bld) [#/Vol] 1.1 0.0-0.8 10*3/uL High 2019 [facility] (92013) Comment: Performed By: #### HEMDF, CM P3, ETOH4, MG3, TSH5 #### [address] Monocytes/100 WBC (Bld) 8.1 2.0-10.0 % Normal 2019 [facility] (68073) Comment: Performed By: #### HEMDF, CM P3, ETOH4, MG3, TSH5 #### [facility] [address] [place], [place] Platelet mean volume (Bld) 8.6 7.4-10.4 fL Normal [facility] [Entitic vol] (31577 ) Comment: Performed By: #### HEMDF, CM P3, ETOH4, MG3, TSH5 #### [facility] [address] [place], [place] Platelets (Bld) [#/Vol] 313 140-440 10*3/uL Normal 2019 [facility] (20281) Comment: Performed By: #### HEMDF, CM P3, ETOH4, MG3, TSH5 #### [place] [address] [address] [place], [place] RBC (Bld) [#/Vol] 3.84 3.80-5.20 10*6/uL Normal 09-19-2019 [facility] (39290) Comment: Performed By: #### HEMDF, CM P3, ETOH4, MG3, TSH5 #### [place] [address] [address] [place], [place] WBC (Bld) [#/Vol] 13.9 3.6-10.7 10*3/uL High 09-19-2019 [facility] (64421) Comment: Performed By: #### HEMDF, CM P3, ETOH4, MG3, TSH5 #### [facility] [address] [place], [place] ethanol serum/plasma on 2019-09-19 Ethanol-Serum/Plasma < 0.010 0.000-0.010 Normal 09-18- [facility] (11270) Comment: Result Comment: NOTE: This r esult is for medical treatment only. Analysis performed using non -forensic procedures. Performed By: #### HEMDF, CM P3, ETOH4, MG3, TSH5 #### [facility] [address] [place], [place] drugs of abuse on Phencyclidine (PCP), Ur Negative Normal 2019 [facility] (64511) Comment: Result Comment: The expected value for [...] Performed By: #### CUA2, DRG A4 #### [facility] [address] [facility] [address] Methadone, Ur Negative Normal 09-19-2019 [facility] (31971) Comment: Performed By: #### CUA2, DRG A4 #### [facility] [address] [facility] [address] Opiates, Ur Positive Normal 09-19-2019 [facility] (60924) Comment: Performed By: #### CUA2, DRG A4 #### [facility] [address] [place] [address] Cocaine, Ur Negative Normal 09-19-2019 [facility] (75560) Comment: Performed By: #### CUA2, DRG A4 #### [facility] [address] [place] [address] Amphetamines, Ur Negative Normal 09-19-2019 [facility] (14451) Comment: Performed By: #### CUA2, DRG A4 #### [facility] [address] [place] [address] Barbiturates, Ur Negative Normal 09-19-2019 [facility] (09833) Comment: Performed By: #### CUA2, DRG A4 #### [facility] [address] [place] [address] Benzodiazepines, Ur Negative Normal 09-19-2019 [facility] (15189) Comment: Performed By: #### CUA2, DRG A4 #### [facility] [address] [place] [address] Oxycodone/Oxymorphine,Ur Positive Normal 09-18 [facility] (28673) Comment: Performed By: #### CUA2, DRG A4 #### [facility] [address] [place] [address] ct head or brain w/o contrast on 2019-09-19 CT Head or Brain Patient Name: ANGÉLICA DAWN al 09-19-2019 [facility] w/o Contrast Sys tem (51382) CT Exam Date/Time 09/19/2019 08:47:[address] Head or Brain w/o Contrast Ordering Physician KILO ELLSWORTH Accession Number [id number] CPT4 Codes 71011 () Reason For Exam altered mental status [...] 2019-09-19 Appearance (U) Clear Clear Normal 09-19-2019 [facility] (82215) Comment: Result Comment: . Performed By: #### CUA2, DRG A4 #### [facility] [address] [place] [address] Bilirubin,Urine Negative Negative Normal 09-19-2019 [facility] (20221) Comment: Result Comment: . Performed By: #### CUA2, DRG A4 #### [facility] [address] [place] [address] Color (U) Colorless Lt. Yellow Normal 09-19-2019 [facility] (82171) Comment: Result Comment: . Performed By: #### CUA2, DRG A4 #### [facility] [address] [place] [address] Glucose Ql (U) Normal Normal (<70) Normal 09-19-2019 [facility] (11572) Comment: Result Comment: . Performed By: #### CUA2, DRG A4 #### [facility] [address] [place] [address] Ketone,Urine Negative Negative Normal 09-19-2019 [facility] (90683) Comment: Result Comment: . Performed By: #### CUA2, DRG A4 #### [facility] [address] [place] [address] Leukocytes,Urine Negative Negative Normal 09-19-2019 [facility] (20006) Comment: Result Comment: . Performed By: #### CUA2, DRG A4 #### [facility] [address] [place] [address] Nitrites,Urine Negative Negative Normal 09-19-2019 [facility] (01563) Comment: Result Comment: . Performed By: #### CUA2, DRG A4 #### [facility] [address] [place] [address] Occult Blood,Urine Negative Negative Normal 09-19-2019 [facility] (48010) Comment: Result Comment: . Performed By: #### CUA2, DRG A4 #### [facility] [address] [place] [address] pH (U) 6.5 5.0-8.0 Normal 09-19-2019 [facility] (67695) Comment: Result Comment: . Performed By: #### CUA2, DRG A4 #### [facility] [address] [place], [place] Protein (U) [Mass/Vol] Negative Negative mg/dL Normal 020 [facility] (65874) Comment: Result Comment: . Performed By: #### CUA2, DRG A4 #### [facility] [address] [place], [place] Specific [place],Urine 1.007 1.005 - 1.030 Normal [facility] (35297) Comment: Result Comment: . Performed By: #### CUA2, DRG A4 #### [facility] [address] [place], [place] Urobilinogen,Urine Normal Normal (0-1) Normal 09-19-19 [facility] (56107) Comment: Result Comment: . Performed By: #### CUA2, DRG A4 #### [address] [place] [address] [address] [place], [place] comp metabolic panel on 2019-09-19 Calcium [Mass/Vol] 10.0 8.4-10.4 mg/dL Normal 09-19-2019 [facility] (28934) Comment: Performed By: #### HEMDF, CM P3, ETOH4, MG3, TSH5 #### [address] [place] [address] [address] [place], [place] ALP [Catalytic activity/Vol] 59 38-126 U/L Normal 0 09-19-2019 [facility] (88805) Comment: Performed By: #### HEMDF, CM P3, ETOH4, MG3, TSH5 #### [facility] [address] [place], [place] ALT [Catalytic activity/Vol] 14 0-34 U/L Normal 0 09-19-2019 [facility] (64627) Comment: Result Comment: The ALT test is performed by an updated assay method. Please note that the referen ce intervals have been changed and are now sex spec ific. Performed By: #### HEMDF, CM P3, ETOH4, MG3, TSH5 #### [address] [place] [address] [address] [place], [place] Anion gap [Moles/Vol] 10 Normal 09-19-19 [facility] (75510) Comment: Performed By: #### HEMDF, CM P3, ETOH4, MG3, TSH5 #### [facility] [address] [place], [place] AST [Catalytic activity/Vol] 38 15-46 U/L Normal 0 09-19-2019 [facility] (65129) Comment: Performed By: #### HEMDF, CM P3, ETOH4, MG3, TSH5 #### [facility] [address] [place], [place] Bilirubin [Mass/Vol] 0.5 0.2-1.3 mg/dL Normal 0 [facility] (73635) Comment: Performed By: #### HEMDF, CM P3, ETOH4, MG3, TSH5 #### [address] [place] [address] [address] [place], [place] CO2 [Moles/Vol] 23 22-30 mmol/L Normal 09-19-2019 [facility] (72956) Comment: Performed By: #### HEMDF, CM P3, ETOH4, MG3, TSH5 #### [address] [place] [address] [address] [place], [place] Creatinine [Mass/Vol] 0.81 0.52-1.25 mg/dL Normal 09-19-19 20 [facility] (96651) Comment: Performed By: #### HEMDF, CM P3, ETOH4, MG3, TSH5 #### [address] [place] [address] [address] [place], [place] GFR/1.73 sq M predicted 85.2 >60 mL/min Normal 2019 [facility] among blacks MDRD (S/P/Bld) (82350) [Vol rate/Area] Comment: Performed By: #### HEMDF, CM P3, ETOH4, MG3, TSH5 #### [facility] [address] [place], [place] GFR/1.73 sq M predicted 73.5 >60 mL/min Normal 2019 [facility] among non-blacks MDRD (15872) (S/P/Bld) [Vol rate/Area] Comment: Result Comment: KDIGO [...] HEMDF, CM P3, ETOH4, MG3, TSH5 #### [facility] [address] [place], [place] Glucose [Mass/Vol] 117 70-100 mg/dL High 09-19-2019 [facility] (91145) Comment: Performed By: #### HEMDF, CM P3, ETOH4, MG3, TSH5 #### [facility] [address] [place], [place] Protein [Mass/Vol] 7.0 6.3-8.2 g/dL Normal 09-19-2019 [facility] (98210) Comment: Performed By: #### HEMDF, CM P3, ETOH4, MG3, TSH5 #### [facility] [address] [place] [address] Urea nitrogen [Mass/Vol] 8 7-20 mg/dL Normal 09-18 [facility] (14047) Comment: Performed By: #### HEMDF, CM P3, ETOH4, MG3, TSH5 #### [facility] [address] [place], [place] Potassium [Moles/Vol] 3.8 3.5-5.1 mmol/L Normal 09-19-19 20 [facility] (49319) Comment: Performed By: #### HEMDF, CM P3, ETOH4, MG3, TSH5 #### [facility] [address] [place] [address] Sodium [Moles/Vol] 132 135-145 mmol/L Low 09-19-2019 [facility] (46537) Comment: Performed By: #### HEMDF, CM P3, ETOH4, MG3, TSH5 #### [facility] [address] [place] [address] Albumin [Mass/Vol] 4.4 3.5-5.0 g/dL Normal 09-19-2019 [facility] (90847) Comment: Performed By: #### HEMDF, CM P3, ETOH4, MG3, TSH5 #### [facility] [address] [place] [address] Chloride [Moles/Vol] 99 98-107 mmol/L Normal 0 [facility] (21329) Comment: Performed By: #### HEMDF, CM P3, ETOH4, MG3, TSH5 #### [facility] [address] [place] [address] No panel information on 2019-09-19 SARS-CoV-2 Not Detected 09-19-2019 [facility]- Expected Result: Not Detected [place] ([address]708) _ Real-time, RT-PCR performed on the [employer] TORCH by the [facility] Service. Negative results do not preclude SARS-CoV-2 infection and should not be used as the sole basis for treatment or other patient management decisions. This assay was developed by [employer] and distributed under an Emergency Use Authorization (EUA) granted by the FDA for the qualitative detection of SARS-CoV-2 nucleic acid. Test Performed by 09-19-2019 [facility], [place] ([address]) [address] [place] [address] Specimen Source Comment:Nasopharyngea l Swab TSH Qn 0.941 0.465 - u[IU]/m 09-19-2019 [facility] lth- 4.68 L [place] (54 255) Test Performed by 09-19-2019 [place] ([address]) [address] [place] [address] Amphetamines, urine Negative 09-19-2019 [place], [place] ([address]) Barbiturates, Ur Negative 09-19-2019 [place], [place] ([address]) Benzodiazepine Ur Qual Negative 020 [place] (45 237) Cocaine Metabolites, Negative 0 [place], [place] (45 237) Methadone, Urine Negative 09-19-2019 [place] ([address]) Opiates, Urine Positive 09-19-2019 [place], [place] (45 [address]) Oxycodone Screen, Ur Positive 0 [place] (45 [address]) PCP, Urine Negative 09-19-2019 [place], [place] (45 237) Comment: The expected value [...] under separate order. Test Performed by 09-19-2019 [place] ([address]) [address] [place] [address] Albumin [Mass/Vol] 4.4 3.5 - 5 g/dL 09-19-2019 [place] ([address]) ALP [Catalytic 59 38 - 126 U/L 09-19-2019 [facility], activity/Vol] [place] (45 237) ALT [Catalytic 14 0 - 34 U/L 09-19-2019 [facility], activity/Vol] [place] (45 237) Comment: The ALT test is performed by an updated assay method. Please note that the referen ce intervals have been changed and are now sex spec ific. Anion gap [Moles/Vol] 10 mmol/L 09-19-19 20 [place] ([address]) AST [Catalytic 38 15 - 46 U/L 09-19-2019 [place] activity/Vol] (53340 ) Bilirubin Ql (U) 0.5 0.2 - 1.3 mg/dL 09-19-2019 [place] ([address]) Calcium [Mass/Vol] 10.0 8.4 - 10.4 mg/dL 09-19-2019 [place] ([address]) Chloride [Moles/Vol] 99 98 - 107 mmol/L 0 [place] ([address]) CO2 [Moles/Vol] 23 22 - 30 mmol/L 09-19-2019 [place] ([address]) Creatinine [Mass/Vol] 0.81 0.52 - 1.25 mg/dL 2019 [place] ([address]) EGFR IF NonAfrican 73.5 >60 mL/min 09-19-2019 [place] ([address]) Comment: KDIGO guidelines provide the following GFR [...] Ethanol Lvl <0.010 0 - 0.01 09-19-2019 [place] ([address]) Comment: NOTE: This result is for med ical treatment only. Analysis performed using non -forensic procedures. GFR/1.73 sq M 85.2 >60 mL/min 09-19-2019 [facility] predicted among [facility], blacks MDRD LINDA (6400 7) (S/P/Bld) [Vol rate/Area] Glucose [Mass/Vol] 117 70 - 100 mg/dL High 09-19-2019 [place] ([address]) Interpretation and Abnormal 09-19-2019 [facility] review of laboratory [facility], results [place] ([address]) Magnesium [Mass/Vol] 1.9 1.6 - 2.3 mg/dL 0 [place] ([address]) Potassium 3.8 3.5 - 5.1 mmol/L 09-19-2019 [facility] [Moles/Vol] [place] ([address]) Protein [Mass/Vol] 7.0 6.3 - 8.2 g/dL 09-19-2019 [place] ([address]) Sodium [Moles/Vol] 132 135 - 145 mmol/L Low 09-19-2019 [place] ([address]) Urea nitrogen 8 7 - 20 mg/dL 09-19-2019 [facility] [Mass/Vol] [facility] [place] ([address]) Test Performed by 09-19-2019 [facility], [address]) [place] [address] Patient Name: 09-19-2019 [facility] ANGÉLICA DAWN MRN: [facility], [id number] FIN: [place] (4 0733) [id number] ---CT--- Exam Date/Time 09/19/2019 08:47:[address] Head or Brain w/o Contrast Ordering Physician KILO ELLSWORTH Accession Number [id number] CPT4 Codes 36276 () Reason For Exam altered mental status [...] 8:56 [facility] Incoming Radiology Results From [facility] - 2019 8:59 AM EDT 09-19-2019 [place] ([address]) Patient Name: ANGÉLICA DAWN ---CT--- Exam Date/Time 09/19/2019 08:47:[address] Head or Brain w/o Contrast Ordering Physician KILO ELLSWORTH Accession Number [id number] CPT4 Codes 96308 () Reason For Exam altered mental status [...] 0.1 0 - 0.2 10*3/uL 09-19-2019 [place] ([address]) Absolute Neut # 11.0 1.8 - 7 10*3/uL High 09-19-2019 [place] ([address]) Basophils/100 WBC 0.4 0 - 2 % 09-19-2019 [facility] (Bld) [place] ([address]) Eosinophils (Bld) 0.0 0 - 0.5 10*3/uL 09-19-2019 [facility] [#/Vol] [place] ([id number]) Eosinophils/100 WBC 0.3 1 - 6 % Low 09-19-2019 [facility] (Bld[facility] [place] ([id number]) Erythrocyte 12.8 11.5 - % 09-19-2019 [facility] ([id number]) Granulocytes/100 WBC 79.3 40 - 80 % 0 [facility] (Bld) [place] ([id number]) Hematocrit (Bld) 36.5 35 - 47 % 09-19-2019 [facility] [Volume fraction] [place] ([id number]) Hemoglobin (Bld) 12.8 11.7 - 16 g/dL 09-19-2019 [facility] [Mass/Vol] [place] ([id number]) Interpretation and Abnormal 09-19-2019 [facility] review of laboratory [facility], results [place]DA ([id number]) Lymphocytes (Bld) 1.7 1 - 4.3 10*3/uL 09-19-2019 [facility] [#/Vol] [place] ([address]) Lymphocytes/100 WBC 11.9 20 - 40 % Low 09-19-2019 [facility] (Bld) [place] ([address]) MCH (RBC) [Entitic 33.3 26 - 34 pg 09-19-2019 [facility] mass] [place] ([address]) MCHC (RBC) 35.0 32 - 36 % 09-19-2019 [facility] [Mass/Vol] [place] ([address]) MCV (RBC) [Entitic 95.1 79 - 98 fL [facility] [place] ([address]) Monocytes (Bld) 1.1 0 - 0.8 10*3/uL High 09-19-2019 [facility] [#/Vol] [place] ([address]) Monocytes/100 WBC 8.1 2 - 10 % 09-19-2019 [facility] (Bld) [place] ([address]) Platelet mean volume 8.6 7.4 - 10.4 fL 09-19-19 20 [facility] (Bld) [Entitic vol] [place] ([address]) Platelets (Bld) 313 140 - 440 10*3/uL 09-19-2019 [facility] [#/Vol] [place] ([address]) RBC (Bld) [#/Vol] 3.84 3.8 - 5.2 10*6/uL 09-19-2019 [place], [place] ([address]) WBC (Bld) [#/Vol] 13.9 3.6 - 10.7 10*3/uL High 09-19-2019 [place] ([address]) Test Performed by 09-19-2019 [facility], [facility], [address] [place] [address] Appearance (U) Clear Clear NA 09-19-2019 [place] ([address]) Comment: . Bilirubin Urine Negative Negative mg/dL 0 [place] ([address]) Comment: . Color (U) Colorless Lt. Yellow NA 09-19-2019 [place] ([address]) Comment: . Glucose, Ur Normal Normal (<70) mg/dL 0 [place] ([address]) Comment: . Ketones Ql (U) Negative Negative mg/dL 09-19-2019 [place] ([address]) Comment: . LEUKOCYTES, UA Negative Negative Janelle/uL 0 [place] ([address]) Comment: . Nitrite, Urine Negative Negative NA 09-19-2019 [place] ([address]) Comment: . Occult Blood,Urine Negative Negative mg/dL 2019 [place] ([address]) Comment: . pH (U) 6.5 OTH - OTH [pH] 09-19-2019 [facility] [place] [place] ([address]) Comment: . Protein (U) [Mass/Vol] Negative Negative mg/dL mg/[place] ([address]) Comment: . Specific [place], Urine 1.007 OTH - OTH 2019 [place] ([address]) Comment: . Urobilinogen, Urine Normal Normal (0-1) mg/dL 0 09-19-2019 [place] ([address]) Comment: . Test Performed by [employer] Meaning 09-19-2019 [place] ([address]) [place], [place] [address] [place] [address] obsolete on 2019-09 OBSOLETE Refill (OBGMEM) Normal 09-09-2019 [facility] ANGÉLICA Sherwood ([id number]) 1950 [facility] Time Provider Department ([address]) 09/09/19 KILO BONDS OBGMEM During your visit [...] test positive [R87.81*12/08/2012 More... HPV test positive [MON7001] 05/26/2014 More... Generalized abdominal pain [R10.84] 02/18/2015 [...] 09/10/19 progress on 2019-08 PROGRESS HNO ID: [id number] Normal 08-25-2019 [facility] Author: Michelle (Rt) Na Bryson ([id number]) Service: ? Author Type: [employer] Supervisor Type: Progress Notes Filed: 08/25/2019 3:09 PM [...] * *Final Report* * * Normal 2019 [facility] SPINE WO IVCON DATE OF EXAM: Aug 25 2019 3:30PM [place] ([id number]) WRM 0303 - MRI LUMBAR SPINE WO [...] assume there are 5 lumbar-type vertebrae . Spareribs Trimmer: PSCB Transcribe Date/Time: Aug 25 2019 4:21P Dictated by : REGINO ZACARIAS MD This examination was interpreted and the report reviewed and electronically signed by: REGINO ZACARIAS MD on Aug 25 2019 4:42PM EST [id number] clinical summary: hmspatientid on 2019-06-18 OOP 06-18-2019 - 06-18-2019 [facility] ([id number]) clinical lists update: preload extended on 2019-06-17 Tobacco smoking current everyday 020 - [facility] status NHIS smoker 06-17-2019 [facility] (44 [address]) progress on 2019-05 PROGRESS HNO ID: [id number] Normal 05-21-2019 [place] Author: Phillip Early Queta [facility] Service: ? [place] Author Type: Physician ([id number]) Type: Progress Notes Filed: 05/21/2019 5:00 PM [...] Laterality Date - COLONOSCOP W/ OR W/O [facility] [[email or web address]] SPEC 11/27/2001 Colonoscopy - COLONOSCOPY 2013 - [...] Diagnoses: (Z86.010) Personal history of colonic polyps ([facility] encounter diagnosis) (K64.8) Internal hemorrhoids (K62.89) Anal or rectal pain My findings have been communicated to Dr. Bonds via share d medical record. This note will be forwarded to Axel Collado. Return to Clinic: The patient is instructed to follow-up wit h me as needed. Phillip Birch MD Tray Drier for exam offered to Angélica Dawn: accepted [...] for: and Incontinence or dribbling ENDOCRINE: None MOUNTER [employer]:Positive for:, Incontinence or diribbling MOUNTER AUTOMATIC: Age of first period: 12 Number of [...] 2019-05-21 CNOV Office Visit (OSCAR) Normal 05-21-[address] [place] [address] Clinic LÓPEZANGÉLICA ([id number]) 1950 [facility] Date Time Provider Department ([id number]) 05/21/19 1:45 PM PHILLIP BIRCH During your [...] Diagnoses: (Z86.010) Personal history of colonic polyps ([facility] encounter diagnosis) (K64.8) Internal hemorrhoids (K62.89) Anal or rectal pain My findings have been communicated to Dr. Anatoliy garcia via shared medical record. This note will be forwarded to Dr. Regino Davye MD. Return to Clinic: The patient is instructed to follow-up w ith me as needed. Phillip Birch MD Tray Drier for exam offered to Angélica Dawn: accepted [...] for: and Incontinence or dribbling ENDOCRINE: None MOUNTER [employer]OM[employer]:Positive for:, Incontinence or diribbling [employer]OUNTER [employer]: Age of first period: 12 Number of [...] behaviors to ensure successful smoking cessation. RESOURCES [facility] Smoking Cessation Appointment Line [facility] [place] [phone]. [place] Tobacco Quit line: National Cancer [place] at http://www.smokefree.gov [place] Lung Association at http://www.lungusa.org [place] Cancer Society at http://www.cancer.org STRATEGIES TOWARD SMOKING [...] desirable brand of cigarettes. ___ Discard your tub chucker. Use matches. Carry your cigarett es in [...] trying to get people like yourself re-hooked. [facility] LAB TEST INFORMATION HOURS: 7 am to 6 pm Sunday ? Sunday, 7 am -12 pm on Sunday . The lab is located in [facility] on the first floor. T here is a registration window at the lab, available 7 am to 3 pm Sunday ? Sunday. If lisa tration is unavailable at the lab, you may register at the patient re gistration office near the front lobby of the [facility]. ROUTINE ORDERS 60 days after they are [...] REFILL REQUESTS Request prescription refills through your [employer] account or contact your Pharmacy. [employer] Schedule My Appointment enables you to view yo established Primary Care Provider's open Pixelpipe e and book an appointment online in real-time. This feature is available in Internal Medicine, [facility], or Pediatrics at any of our [facility] locations and Main [place]. The following instructions are important for you related to your office visit today with the [facility] General Surgeons. INSTRUCTIONS FOR AN ANAL [...] General Surgery department. Referring Provider: KILO BONDS [[id number]] Allergies As of Date: 05/21/2019 Noted Allergy [...] rectal pain [K62.89] Order(s):CONSULT TO GENERAL SURGERY [9000] Order #: [id number]: 1 hydrocortisone (PREPARATION H HYDROCORTISONE) 1 [...] test positive [R87.81*12/08/2012 More... HPV test positive [XGB6754] 05/26/2014 More... Generalized abdominal pain [R10.84] 02/18/2015 [...] behaviors to ensure successful smoking cessation. RESOURCES [facility] Smoking Cessation Appointment Line [facility] [phone]. [place] Tobacco Quit line: National Cancer [place] at http://www.smokefree.gov [place] Lung Association at http://www.lungusa.org [place] Cancer Society at http://www.cancer.org STRATEGIES TOWARD SMOKING [...] desirable brand of cigarettes. ___ Discard your tub chucker. Use matches. Carry your cigarettes in a [...] why you quit. Also remember that a [employer] spends bill ions of dollars each year trying to get people like yourself harsha zamudio. [facility] LAB TEST INFORMATION HOURS: 7 am to 6 pm Sunday ? Sunday, 7 am -12 pm on Sunday . The lab is located in [facility] on the first floor. There is a [...] REFILL REQUESTS Request prescription refills through your [employer] account or contact your Pharmacy. [employer] Schedule My Appointment enables you to view your est ablished Primary Care Provider's open schedule and book an appointmen t online in real-time. This feature is available in Internal Medicine, [facility], or Pediatrics at any of our [facility] and [facility]. The following instructions are important for you related to your office visit today with the [facility] General Hieuo emma. INSTRUCTIONS FOR AN [...] you should contact our office immediately @ [phone] and ask to be transferred to the [...] DNA Negative for Negative for Normal 0 [facility] Probe Mariola species Mariola species [place] ([address]) by DNA Probe by DNA Probe Comment: Performed By: #### VAGDNA ## ##[place] [id number] [place], [place] [id number]- [phone] Kierra vag DNA Negative for Negative for Normal 05-05-2019 [facility] Probe Gardnerella Gardnerella Clevel and vaginalis by DNA vaginalis by DNA (76883) Probe Probe Comment: Performed By: #### VAGDNA ## ##[place] [address] [address] [place], [place] [id number]- [phone] Trich vag DNA Negative for Negative for Normal 05-05-2019 [facility] Probe Trichomonas Trichomonas Clevel and vaginalis by DNA vaginalis by DNA (77663) Probe Probe Comment: Performed By: #### VAGDNA ## ##[address] [id number]- [phone] progress on 2019-04 PROGRESS HNO ID: [id number] Normal 05-05-2019 [facility] Author: Kilo Bonds [place] ([id number]) Service: ? Author Type: Physician Type: Progress [...] 2019-05-05 CNOV Office Visit (OBGMEM) Normal 05-05-[address] [place] [address] Clinic ANGÉLICA DAWN ([id number]) 1950 [facility] Date Time Provider Department ([id number]) 05/05/19 1:15 PM KILO BONDS OBEM During [...] Kilo Bonds MD Referring Provider: REGINO DAVEY [[id number]] Allergies As of Date: 05/05/2019 Noted Allergy [...] PATHOGENS DNA PROBES [SQVAGDNA] Order #: [id number]. #:[id number] CONSULT TO GENERAL SURGERY [4402] Order #: [id number]: 1 FUTURE conjugated estrogens (PREMARIN) vaginal creamUse [...] test positive [R87.81*12/08/2012 More... HPV test positive [WZN2106] 05/26/2014 More... Generalized abdominal pain [R10.84] 02/18/2015 [...] 05/30/19 progress on 2019-04 PROGRESS HNO ID: [id number] Normal 04-28-2019 [facility] Author: Kilo Bonds [place] ([id number]) Service: ? Author Type: Physician Type: Progress [...] DNA Negative for Negative for Normal 9 [facility] Probe Mariola species Mariola species [place] ([address]) by DNA Probe by DNA Probe Comment: Performed By: #### VAGDNA ## ##[address] [id number]- [phone] Kierra vag Positive for Negative for Critically 03-27-2019 Cl gabriel DNA Probe Gardnerella Gardnerella abnormal Clinic vaginalis by DNA vaginalis by DNA [place] probe. Probe (88760) Comment: Result Comment: This is sugg estive, but not diagnostic of bacterial vaginosis, results should be interpreted in conjunction with other data such as pH, amine odor, clue cell s and vaginal discharge characteristics. Performed By: #### VAGDNA ## ##[address] [id number]- [phone] Trich vag DNA Negative for Negative for Normal 03-27-2019 [facility] Probe Trichomonas Trichomonas Clevel and vaginalis by DNA vaginalis by DNA (91235) Probe Probe Comment: Performed By: #### VAGDNA ## ##[address] [id number]- [phone] cnov on 2019-03-27 CNOV Office Visit (OBGMEM) Normal 03-27-20 [place] [facility] ANGÉLICA DAWN ([id number]) 1950 [facility] Date Time Provider Department (15059) 03/27/19 10:15 AM KILO BONDS During your [...] Laterality Date - COLONOSCOP W/ OR W/O [facility] [[email or web address]] SPEC 11/27/2001 Colonoscopy - COLONOSCOPY 2013 - [...] VAGINAL PATHOGENS DNA PROBES [SQVAGDNA] Order #: [id number] pec. #:[id number] Clindamycin Phosphate (CLEOCIN) 100 mg vaginal suppositoryUs [...] test positive [R87.81*12/08/2012 More... HPV test positive [IQW0576] 05/26/2014 More... Generalized abdominal pain [R10.84] 02/18/2015 [...] DNA Negative for Negative for Normal 9 [facility] Probe Mariola species Mariola species [place] ([address]) by DNA Probe by DNA Probe Comment: Performed By: #### VAGDNA ## ## [facility] [address] [place] [id number] Kierra vag Positive for Negative for Critically 02-27-2019 Cl gabriel DNA Probe Gardnerella Gardnerella abnormal Clinic vaginalis by DNA vaginalis by DNA [place] probe. Probe (66948) Comment: Result Comment: This is sugg estive, but not diagnostic of bacterial vaginosis, results should be interpreted in conjunction with other data such as pH, amine odor, clue cell s and vaginal discharge characteristics. Performed By: #### VAGDNA ## ## [facility] [address] [place], [place] [address] Trich vag DNA Negative for Negative for Normal 02-27-2019 [facility] Probe Trichomonas Trichomonas Clevel and vaginalis by DNA vaginalis by DNA ([id number]) Probe Probe Comment: Performed By: #### VAGDNA ## ## [facility] [address] [place], [place] [address] progress on 2019-02 PROGRESS HNO ID: [id number] Normal 02-27-2019 [facility] Author: Kilo Bonds [place] ([id number]) Service: ? Author Type: Physician Type: Progress Notes Filed: 03/09/2019 11:14 AM Note Text: Angélica Dawn is a 68 year old post-menopausal femal e who presents for her annual gynecologic exam. Patient has been m enopausal for many. Patient has been on hormone replacement therapy. Rn Rehabilitation c oncerns Nam early related to vulvar [...] Detailed workup and evaluation by Deandra Price [facility] Devaughn Is well known to me and [...] Laterality Date - COLONOSCOP W/ OR W/O [facility] [[email or web address]] SPEC 11/27/2001 Colonoscopy - COLONOSCOPY 2013 - [...] genitalia normal, normal Bartholin's glands , urethra, [place]'s glands, no vulvar lesions, no cervical lesions, [...] adnexal masses, no pelvic masses and uterus jain gically absent RECTAL: deferred. NEURO: alert and [...] HPV DNA high risk types: Normal 02-27-2019 [place] Other 31,33,35,39,45,51,52,56,58,59,66,68 by [facility] PCR. [place] ([address]) Comment: Result Comment: This test wa s developed and its performance characteristics determined by [facility]'s [facility] and Laboratory Medicine [place] ([facility]). It has not been cleared or a pproved by the FDA. [facility] is regulated under CLIA as qualified to perform high-complexity testing. This test is used for clinical purposes. It should not be regarded as inv estigational or for research . Performed By: #### HPVHRR ## ##[place] [id number] [phone] HPV HighRisk Type 16 Negative for HPV DNA Normal 02-27-2019 [facility] high risk type 16 by [place] ([address]) PCR. Comment: Performed By: #### HPVHRR ## ##[place] [id number]- [phone] HPV HighRisk Type 18 Negative for HPV DNA Normal 02-27-2019 [facility] high risk type 18 by [place] ([address]) PCR. Comment: Performed By: #### HPVHRR ## ##[place] [id number]- [phone] cytology on 2019-02 CYTOLOGY Normal 02-27-2019 [place] ADDITIONAL PROCEDURES PRESENT Clinic [place] ([id number]) Specimen originated from [facility] Specimen #: [id number] Submitting Physician: KILO BONDS MD SPECIMEN SUBMITTED [...] developed and its performance characteristics determined by [facility]'s [facility] Pathology and Laborator y Medicine [place] ([facility]). It has not been cleared or approved by the FDA. -[facility] is r egulated under CLIA as qualified to perform high-complexity testing. This test is used for clinical purposes. It should not be regarded as investigatio nal or for research. CLINICAL DATA ROUTINE EXAM, HPV Testing: No Date of Last Menstrual Period: Hysterectomy Menstrual History: HYSTERECTOMY STAINS A: VAGINAL VAULT,SCREENING, FLUID THIN PREP [employer] Liu Richardson M.D., Senior Credit Officer Date of Report: 03/04/2019 Date of Procedure: 02/27/2019 Date of Receipt: 02/27/2019 Submitted by: KILO BONDS MD Location: [facility] Diagnostic interpretation performed at [facility], [address] [place] [address]. CLIA Number: [id number] The Pap Smear is a screening test for cervical cancer. False negative results occur with all screening tests, emphasizing the need for rescreening at recommended intervals, and clinical correlati on. cnov on 2019-02-27 CNOV Office Visit (OBGMEM) Normal 02-28-20 [place] [facility] LÓPEZANGÉLICA ([id number]) 1950 [facility] Time Provider Department ([id number]) 02/27/19 2:00 PM KILO BONDS OBGMEM During your visit today, we recorded the following informati on about you: Blood pressure Weight 122/68 78.9 kg Kilo Bonds MD 03/09/2019 11:14 AM Signed Angélica Dawn is a 68 year old post-menopausal femal e who presents for her annual gynecologic exam. Patient has been menopausal for many. Patient has been on hormone replacement therapy. 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 #:[id number] VAGINAL PATHOGENS DNA PROBES [SQVAGDNA] Order #: [id number] pec. #:[id number] HPV W/GENOTYPE [SQHPVHRR] Order #: [id number]. #:[id number] Prescriptions as of 02/27/2019 Sig: CLOTRIMAZOLE-BETAMETHASONE [...] test positive [R87.81*12/08/2012 More... HPV test positive [VFG6815] 05/26/2014 More... Generalized abdominal pain [R10.84] 02/18/2015 [...] 03/09/19 progress on 2019-01 PROGRESS HNO ID: [id number] Normal 01-08-2019 [facility] Author: Deandra Castro [place] ([id number]) Service: ? Author Type: Physician Type: Progress Notes Filed: 01/09/2019 11:54 AM Note Text: Angélica Dawn 1950 REFERRING PHYSICIAN: MD Arturo CHIEF COMPLAINT: Established Patient (Discuss colonscopy) HPI: The patient is a 68 year old female presents [facility] ons about her upcoming colonoscopy. She [...] one of the pain management physicians in [facility] a nd all he does is shots [...] she learned that I was not a rack cleaner or a co lorectal surgeon, she stated [...] examination and rec ommended referral to a rack cleaner for which the patient refus ed. PAST [...] file Gets together: Not on file Attends evangelical service: Not on file Active member of [...] gastroent erologist (who specializes in IBS) at [facility] may be of benefit. (I do not believe that there are any surgical options to offer the patient) Sh e states that she doesn't want to travel to [place]. I have explained th at the specialists [...] have confirmed and edited as necessary, the [facility] and HERMAN gonzales btained by others. MD naveen Cash on 2019-01-08 CNOV Office Visit (GENSWS) Normal 01-09-20 19 [place] [facility] ANGÉLICA DAWN ([id number]) 1950 [facility] Date Time Provider Department ([address]507) 01/08/19 3:30 PM DEANDRA CASTRO During your visit today, we recorded the following informati on about you: Deandra Castro MD 01/09/2019 11:54 AM Signed Angélica Dawn 1950 REFERRING PHYSICIAN: MD Arturo CHIEF COMPLAINT: Established Patient (Discuss colonscopy) HPI: The patient is a 68 [facility] old female [facility]. She initially [...] one of the pain management physicians in [facility] and a ll he does is shots and they don't help and he won't give me pills. She states that she walked out. She refused referral to a pain clinic, because she states - all they do is shots. She states that she paid $300 to obtain a [employer] drug card and states that she went [...] examination and rec ommended referral to a rack cleaner for which the patient refused. PAST MEDICAL [...] Laterality Date - COLONOSCOP W/ OR W/O [facility] [[email or web address]] SPEC 11/27/2001 Colonoscopy - COLONOSCOPY 2013 - [...] file Gets together: Not on file Attends evangelical service: Not on file Active member of [...] gastroent erologist (who specializes in IBS) at [facility] may be of benefit. (I do not believe that there are any surgical options to offer the patient) She sta irvin that she doesn't want to travel to [place]. I have expl ained that the specialists [...] positive [R87.81*INVALID FOR* More... HPV test positive [ABU2611] INVALID FOR* More... 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 Author Type: Physician Occupational Therapy Assistant Type: Progress Notes Filed: 01/06/2019 7:11 PM [...] has chronic vaginal pain as well, saw [employer] and was diag nosed with vaginal atrophy. Patient had another colonoscopy which was done in [place] in 2013, scanned records reviewed in [facility]. She had polyps removed at that time, [...] Laterality Date - COLONOSCOP W/ OR W/O [facility] [[email or web address]] SPEC 11/27/2001 Colonoscopy - COLONOSCOPY 2013 - [...] file Gets together: Not on file Attends evangelical service: Not on file Active member of [...] by the nurse and revi ewed by al Nursing Notes: J Luis Ivette ANDREW 01/01/2019 [...] CNOV Office Visit (SWS) Normal 01-02-20 19 [place] [facility] ANGÉLICA DAWN ([id number]) 1950 [facility] Date Time Provider Department ([id number]) 01/01/19 2:30 PM KATE SHAVER During your [...] has chronic vaginal pain as well, saw [employer] and was diagnosed with vaginal atrophy. Patient had another colonoscopy which was done in [facility] in 2013, scanned records reviewed in [facility]. She had polyps removed at that [facility], pathology report not available for review. She [...] Laterality Date - COLONOSCOP W/ OR W/O [facility] [[email or web address]] SPEC 11/27/2001 Colonoscopy - COLONOSCOPY 2013 - [...] file Gets together: Not on file Attends evangelical service: Not on file Active member of [...] by the nurse and revi ewed by al Nursing Notes: J Luis Toro LPN 01/01/2019 [...] positive [R87.81*INVALID FOR* More... HPV test positive [RTY3020] INVALID FOR* More... Generalized abdominal pain [R10.84] [...] 2019? Last Colonoscopy: 2013 J Luis Toro [employer] Prescriptions ordered this encounter Disp Refills Start End PEG 3350-ELECTROLYTES 236 GRAM-22.74* 1 Seferino* 0 01/01/2019 Route: ORAL Sig: Take 4,000 mL by mouth one time only for 1 dose. Encounter Status:Closed by KATE SHAVER PA-C on 01/06/19 progress on 2018-12 PROGRESS HNO ID: [id number] Normal 12-23-2018 [facility] Author: Nadine Dallas [place] ([id number]) Service: ? Author Type: ? Type: Progress [...] * * *Final Report* * * Normal [facility] DATE OF EXAM: Dec 23 2018 2:53PM [place] ([id number]) [facility] 0581 - [facility] SCREENING / PROCEDURE REASON: Encounter for screening mammogram for kris gnant neoplasm of breast * * * * Physician Interpretation * * * * RESULT: #[id number] - [facility] SCREENING BILATERAL DIGITAL SCREENING MAMMOGRAM WITH CAD: [...] exams dated: 09/24/2017 mammogram and mammogram - [facility]. There are scatter ed fibroglandular elements in both breasts. No significant masses, calcifications, or other findings are seen in either breast. There has been no significant interval change. IMPRESSION: NEGATIVE There is no mammographic evidence of malignancy. A 1 year sc reening mammogram is recommended. Leeann Whitley M.D., lp/treva:12/23/2018 15:12:53 Paint Stockman(s): Nadine Otoole, RT(R)(M), [facility] letter sent: Normal over 40 Mammogram BI-RADS: [...] Health, Family Medicine, and Medical/Surgical Oncology, the [facility] has carefully reviewed the data [...] providers when to sto p screening mammograms. Spareribs Trimmer: Treva Transcribe Date/Time: Dec 23 2018 2:31P Dictated by: LEEANN WHITLEY MD This examination was interpreted and the report reviewed and electronically signed by: LEEANN WHITLEY MD on Dec 23 2018 3:12PM EST [id number] cnco on 2018-12-23 CNCO HNO ID: [id number] Normal 12-23-2018 [facility] Author: Mammography Coordinator ([id number]) Service: ? Author Type: Physician Type: Letter Filed: 12/24/2018 11:33 PM Note Text: December 23, 2018 PID: [id number] Angélica Dawn [address] [place] [address] Dear Ms. Dawn, We are pleased to [...] report will be kept on file at [facility] as part of your permanent medical record and are available f or your continuing care. Thank you for allowing us to help in meeting your health car e needs. Sincerely, Dr. Whitley Interpreting Radiologist [facility] (Normal over 40) obsolete on 2018-12 OBSOLETE Refill (OBGMEM) Normal 12-16-2018 [facility] ANGÉLICA DAWN ([id number]) 1950 [address] [facility] Time Provider Department ([id number]) 12/16/18 KILO BONDS OBEM During your visit [...] positive [R87.81*INVALID FOR* More... HPV test positive [[id number]] INVALID FOR* More... Generalized abdominal pain [R10.84] [...] * *Final Report* * * Normal 05- [facility] HAMMAD DATE OF EXAM: Sep 04 2018 2:33PM ([id number]) MDU 1005 - US DVT LOWER HAMMAD [...] ACUTE DVT IN THE LEFT LOWER EXTREMITY. Spareribs Trimmer: [facility] Transcribe Date/Time: Sep 04 2018 2:36P Dictated by : ALETHEA SMYTH MD This examination was interpreted and the report reviewed and electronically signed by: ALETHEA SMYTH MD on Sep 04 2018 2:39PM EST [id number] nt pro bnp on 09-04 Protein mass conc 82 <125 pg/mL Normal 09-04-2018 [facility] (90874) Comment: Performed By: #### NTBNP ### # [facility] [address] [place] [address] magnesium on 09-04 Magnesium mass conc 1.8 1.7-2.3 mg/dL Normal 09-04-2018 [facility] ([id number]) Comment: Performed By: #### CBCDICinthia Naranjo MP, MG1 #### [facility] [address] [facility] [phone] ed prov note on 201 12-12-28 Protein mass HNO ID: [id number] Normal 09-05-19 [place] [facility] Author: Jonas Ortiz) [facility] Service: ? ([id number]) Author Type: Physician Occupational Therapy Assistant Type: ED Provider Notes Filed: 09/04/2018 10:29 [...] History provided by: Patient and significant other emergency specialist used: No PAST MEDICAL HISTORY Diagnosis Date [...] ACUTE DVT IN THE LEFT LOWER EXTREMITY. Spareribs Trimmer: PSCB Transcribe Date/Time: Sep 04 2018 2:36P [...] ed note on ED NOTE HNO ID: [id number] Normal 09-04-2018 [facility] ([id number]) Author: Alejandrina StrongRn) CARMEL Zarate Service: ? Author Type: Registered Nurse Type: ED Notes Filed: 09/04/2018 3:06 PM Note Text: Pt was discharged home and will follow up with her family me gerardo anderson She was ambulatory with her discharge ED NOTE HNO ID: [id number] Normal 09-04-2018 [facility] ([id number]) Author: Bety StrongRn) CARMEL Francisco Service: ? [...] TIME: 9:47 AM ED NOTE HNO ID: [id number] [place] 09-04-2018 [facility] ([id number]) Author: Alejandrina StrongRn) CARMEL Zarate Service: ? Author Type: Registered Nurse Type: ED Notes Filed: 09/04/2018 2:58 PM Note Text: Jonas poole rounds and the pt is discharged questions answere d ED NOTE HNO ID: [id number] [place] 09-04-2018 [facility] ([id number]) Author: Alejandrina StrongRn) CARMEL Zarate Service: ? Author Type: Registered Nurse Type: ED Notes Filed: 09/04/2018 2:53 PM Note Text: Pt is in a position of comfort Denies increase in her pain H er remains at the bedside ED NOTE HNO ID: [id number] [place] 09-04-2018 [facility] ([id number]) Author: Alejandrina Zarate RN Service: ? Author Type: Registered Nurse Type: ED Notes Filed: 09/04/2018 2:09 PM Note Text: is bedside ED NOTE HNO ID: [id number] [place] 09-04-2018 [facility] ([id number]) Author: Meg StrongRn) CARMEL Braun Service: Nursing Author Type: Registered Nurse Type: ED Notes Filed: 09/04/2018 1:13 PM Note Text: Patient presents to ED with bilat LE swelling. Patient has m ultiple vague complaints. States she called her [employer] this a.m. About leg sw elling and was advised to go to ED to r/o DVT comp metabolic panel on 2018-09-04 Albumin mass conc 4.8 3.9-4.9 g/dL Normal 09-04-2018 [facility] (17055) Comment: Performed By: #### CBCDIF, C MP, MG1 #### [facility] [address] [facility] [phone] ALP enzyme act/vol 68 34-123 U/L Normal 09-04-2018 [facility] (07578) Comment: Performed By: #### CBCDIF, C MP, MG1 #### [facility] [address] [facility] [phone] ALT enzyme act/vol 22 7-38 U/L Normal 09-04-2018 [facility] (61748) Comment: Performed By: #### CBCDIF, C MP, MG1 #### [facility] [address] [facility] [phone] Anion gap molar conc 12 9-18 mmol/L Normal [address] [place] [address] ([id number]) Comment: Performed By: #### CBCDIF, C MP, MG1 #### [facility] [address] [place] [phone] AST enzyme act/vol 33 13-35 U/L Normal 09-04-2018 [facility] ([id number]) Comment: Performed By: #### CBCDIF, C MP, MG1 #### [facility] [address] [place] [address] Bilirubin mass conc 0.3 0.2-1.3 mg/dL Normal 09-04-2018 [facility] ([id number]) Comment: Performed By: #### CBCDIF, C MP, MG1 #### [facility] [address] [place] [address] Calcium mass conc 9.3 8.5-10.2 mg/dL Normal 09-04-2018 [facility] (07285) Comment: Performed By: #### CBCDIF, C MP, MG1 #### [facility] [address] [place] [address] Chloride molar conc 103 97-105 mmol/L Normal 09-04-2018 [facility] (88386) Comment: Performed By: #### CBCDIF, C MP, MG1 #### [facility] [address] [place] [address] CO2 molar conc 22 22-30 mmol/L Normal 09-04-2018 [facility] (69352) Comment: Performed By: #### CBCDIF C MP, MG1 #### [facility] [address] [facility] [phone] Creatinine mass conc 1.00 0.58-0.96 mg/dL High 9 [facility] (07676) Comment: Performed By: #### CBCDIF C MP, MG1 #### [facility] [address] [facility] [phone] eGFR- Amer. >60 Normal 09-04-2018 [facility] (39787) Comment: Performed By: #### CBCDIF C MP, MG1 #### [facility] [address] [place] [phone] GFR/1.73 sq M predicted among 55 . Normal 09-04-2018 [facility] (98484) non-blacks MDRD vol rate/area (S/P/Bld) Comment: Result [...] By: #### CBCDIF C MP, MG1 #### [facility] [address] [facility] [phone] Glucose mass conc 107 74-99 mg/dL High 09-04-2018 [facility] (49729) Comment: Result Comment: The [place] Diabetes Association (ADA) provides guidance for cutoff [...] for diagnosis of diabetes. Reference: Standards of [facility] Care in Diabetes 2016, [place] [employer]. Diabetes Care. 2016.39(Suppl 1). Performed By: #### CBCDIF, C MP, MG1 #### [facility] [address] [facility] [phone] Potassium molar conc 4.0 3.7-5.1 mmol/L Normal 9 [facility] (74126) Comment: Performed By: #### CBCDIF, C MP, MG1 #### [facility] [address] [place] [phone] Protein mass conc 7.7 6.3-8.0 g/dL Normal 09-04-2018 [facility] (30080) Comment: Performed By: #### CBCDIF, C MP, MG1 #### [facility] [address] [place], [place] [phone] Sodium molar conc 137 136-144 mmol/L Normal 09-04-2018 [facility] (28009) Comment: Performed By: #### CBCDIF, C MP, MG1 #### [facility] [address] Urea nitrogen mass conc 12 7-21 mg/dL Normal 2018 [facility] (99490) Comment: Performed By: #### CBCDIF, C MP, MG1 #### [facility] [address] [place] [address] cbc and differential on 2018-09-04 Abs Baso 0.04 <0.11 k/uL Normal 09-04-2018 [facility] (97874) Comment: Performed By: #### CBCDIF, C MP, MG1 #### [facility] [address] [place] [phone] Abs Whitfield 0.50 <0.87 k/uL Normal 09-04-2018 [facility] (69286) Comment: Performed By: #### CBCDIF, C MP, MG1 #### [facility] [address] [facility] [phone] Abs Neut 5.17 1.45-7.50 k/uL Normal 09-04-2018 [facility] (03563) Comment: Performed By: #### CBCDIF, C MP, MG1 #### [facility] [address] [place] [address] Basophils/100 WBC (Bld) 0.5 % Normal 2018 [facility] (68105) Comment: Performed By: #### CBCDIF, C MP, MG1 #### [facility] [address] [place] [address] Eosinophils #/vol (Bld) 0.22 <0.46 k/uL Normal 2018 [facility] (94048) Comment: Performed By: #### CBCDIF, C MP, MG1 #### [facility] [address] [place] [phone] Eosinophils/100 WBC (Bld) 2.8 % Normal - [facility] (89888) Comment: Performed By: #### CBCDIF, C MP, MG1 #### [facility] [address] [place], [place] [phone] Erythrocyte distribution 12.6 11.5-15.0 % Normal 09-04 [facility] (04873) width Ratio (RBC) Comment: Performed By: #### CBCDIF, C MP, MG1 #### [facility] [address] [place] [phone] Hematocrit Volume Fraction 41.1 36.0-46.0 % Normal [facility] (16486) (Bld) Comment: Performed By: #### CBCDIF, C MP, MG1 #### [facility] [address] [place] [phone] Hemoglobin mass conc 14.1 11.5-15.5 g/dL Normal [facility] (Bld) (32862) Comment: Performed By: #### CBCDIF, C MP, MG1 #### [facility] [address] [place] [phone] Lymphocytes #/vol (Bld) 1.83 1.00-4.00 k/uL Normal 2018 [facility] (75094) Comment: Performed By: #### CBCDIF, C MP, MG1 #### [facility] [address] [facility] [phone] Lymphocytes/100 WBC (Bld) 23.6 % Normal 08-08 [facility] (31346) Comment: Performed By: #### CBCDIF, C MP, MG1 #### [facility] [address] [facility] [phone] MCH Entitic mass (RBC) 34.0 26.0-34.0 pG Normal 019 [facility] (61026) Comment: Performed By: #### CBCDIF, C MP, MG1 #### [facility] [address] [facility] [phone] MCHC mass conc (RBC) 34.3 30.5-36.0 g/dL Normal [facility] (29164) Comment: Performed By: #### CBCDIF, C MP, MG1 #### [facility] [address] [place] [address] MCV Entitic volume (RBC) 99.0 80.0-100.0 fL Normal 08-08 [facility] (46206) Comment: Performed By: #### CBCDIF, C MP, MG1 #### [facility] [address] [place] [address] Monocytes/100 WBC (Bld) 6.4 % Normal 2018 [facility] (31828) Comment: Performed By: #### CBCDIF, C MP, MG1 #### [facility] [address] [facility] [phone] Neutrophils/100 WBC (Bld) 66.7 % Normal 08-08 [facility] (73031) Comment: Performed By: #### CBCDIF, C MP, MG1 #### [facility] [address] [place] [address] Platelet mean volume 9.8 9.0-12.7 fL Normal 9 [facility] (99329) Entitic volume (Bld) Comment: Performed By: #### CBCDIF, C MP, MG1 #### [facility] [address] [place] [address] Platelets #/vol (Bld) 356 150-400 k/uL Normal 09-05-19 19 [facility] (83446) Comment: Performed By: #### CBCDIF, C MP, MG1 #### [facility] [address] [place] [phone] RBC #/vol (Bld) 4.15 3.90-5.20 m/uL Normal 09-04-2018 [facility] (66104) Comment: Performed By: #### CBCDIF, C MP, MG1 #### [facility] [address] [place] [phone] WBC #/vol (Bld) 7.76 3.70-11.00 k/uL Normal 09-04-[address] [facility] (24402) Comment: Performed By: #### CBCDIF, C MP, MG1 #### [facility] [address] [place] [phone] Vital Signs Vital Sign Description Value / Unit Date Location The following section is limited to 5 en tries per type and includes entries from the following time range: 20190923 - [id number] 2. BMI (Body Mass Index) 27.44 kg/m2 09-19-2019 [place], [place] ([address]) NEGATED: Highlighted 29.37 kg/m2 06-18-2019 - 06-18-2019 [facility] rowBMI (Body Mass Index) [facility] (80090) Body Temperature 97.5 [degF] 09-23-2019 [place] ([address]) Body weight 68.04 kg 09-19-2019 [place], [place] ([address]) NEGATED: Highlighted 72.58 kg 06-18-2019 - 06-18-2019 [facility] (49707) NEGATED: Highlighted 73 kg 06-18-2019 - 06-18-2019 [facility] row[facility] weight [facility] (08788) BP Diastolic 60 mm[Hg] 09-23-2019 [place], [place] ([address]) NEGATED: Highlighted 82 mm[Hg] 06-18-2019 - 06-18-2019 [facility] rowBP Diastolic [facility] (37585) NEGATED: Highlighted 77 mm[Hg] 06-18-2019 - 06-18-2019 [facility] rowBP Diastolic [facility] (97672) BP Systolic 148 mm[Hg] 09-23-2019 [place] ([address]) NEGATED: Highlighted 149 mm[Hg] 06-18-2019 - 06-18-2019 [facility] rowBP Systolic [facility] (49499) NEGATED: Highlighted 144 mm[Hg] 06-18-2019 - 06-18-2019 [facility] rowBP Systolic [facility] (09697) NEGATED: Highlighted 2+ 06-18-2019 - 06-18-2019 [facility] rowHeart rate [facility] (60656) Height 157.5 cm 09-19-2019 [place], [place] ([address]) NEGATED: Highlighted 157 cm 06-18-2019 - 06-18-2019 [facility] rowHeight [facility] (59189) NEGATED: Highlighted 157.48 cm 06-18-2019 - 06-18-2019 [facility] rowHeight [facility] er - [facility] (57088) Pulse (Heart Rate) 71 /min 09-23-2019 [place], [place] ([address]) NEGATED: Highlighted 67 /min 06-18-2019 - 06-18-2019 [facility] rowPulse (Heart Rate) [facility] (06087) Pulse Oximetry 96 % 09-23-2019 [place] ([address]) Respiratory Rate 20 /min 09-23-2019 [place] ([address]) Encounters Date Type Reason Provider Location 07-20-2017 - Ambulatory Farideh Edouard Farideh Facility:[facility] 07-21-2017 Edouard Farideh [facility] 05-28-2017 - Ambulatory Fardieh Edouard Farideh Facility:[facility] 05-29-2017 [facility] 09-19-2019 - Evaluation and Altered mental Kilo Ellsworth [facility] 7W MED SURG 09-23-2019 management of status Kevyn Diop Comment: Altered mental status, unspe cified altered mental status type (Primary Dx); Hallucinations; Delirium 06-18-2019 - Patient encounter Manny Vicente [facility] 06-19-[address] - [facility]opaedic [facility] (70992) 12-02-2019 - Telephone encounter Kilo Bonds Obst etrics/Gynecology 12-02-2019 Comment: Hx Meds 12-01-2019 - 12-01-2019 Telephone encounter Kilo Pham Obstetrics/Gynecology Comment: Question Procedures Procedure Name Date Provider Location Radiologic exam chest 09-20-2019 Kevyn Diop [place], [place] single view ([address]) COVID-19 09-19-2019 [place] ([address]) Ct head/brain w/o contrast 09-19-2019 Kilo Brookeowski [place], [place] material ([address]659) Assay of ethanol 09-19-2019 [place] ([address]) Assay of magnesium 09-19-2019 [place] ([address]) Assay of thyroid 09-19-2019 Kilo Juani [place], [place] stimulating hormone tsh ([address]91) Blood count complete 09-19-2019 Kilo Ellsworth [place] auto&auto difrntl wbc (46372) Comprehensive metabolic 09-19-2019 Kilo Juani [place] panel ([address]) Drug screen class list a 09-19-2019 [place] ([address]) Urnls dip stick/tablet rgnt 09-19-2019 Kilo Ellsworth [place] auto w/o microscopy ([address]131) NEGATED: Highlighted 06-18-2019 - [facility] rowDocumentation of current 06-18-2019 [facility] medications [facility] (66947) NEGATED: Highlighted 06-18-2019 - [facility] rowSmoking cessation 06-18-2019 [facility] - education [facility] (34383) Arthrocentesis aspir&/inj 06-18-2019 - Manny Allen [facility] major jt/bursa w/o us 06-19-2019 [facility] (45226) Blood pressure outside of 06-18-2019 - Manny Allen [facility] normal parameters - 06-19-2019 [place] [facility] [place] - follow-up not documented [facility] (42761) BMI documented as above 06-18-2019 - Manny Craven [facility] normal parameters - 06-19-2019 [place] [facility] [place] - follow-up documented [facility] (06524) Documentation of current 06-18-2019 - Manny Vicente [facility]yst[facility] Clinic medications 06-19-2019 [facility] er - [facility] (05814) Fall plan of care docd 06-18-2019 - Manny Sofia [facility] 06-19-2019 [facility] er - [facility] (47401) Fall risk assessment docd 06-18-2019 - Manny [facility] 06-19-2019 [facility] er - [facility] (95760) Injection - triamcinolone 06-18-2019 - Manny Allen [facility] acetonide 10 mg 06-19-2019 [facility] er - [facility] (19604) Pain assessment documented 06-18-2019 - Manny Allen [facility] as positive - follow-up 06-19-2019 [facility] - documented [facility] (68111) Pt tobacco screen rcvd tlk 06-18-2019 - Manny [facility] 06-19-2019 [facility] er - [facility] (01644) Ptfalls assess-docd ge2>/yr 06-18-2019 - Manny [facility] 06-19-2019 [facility] er - [facility] (99103) Radiologic examination 06-18-2019 - Manny Sofia [facility] pelvis 1/2 views 06-18-[address] [facility] [facility] ter - [facility] (29242) [facility]47281[facility] Colonoscopy 02-26-2012 - [facility] 02-26-2012 (72595) Plan of Treatment Plan Description Date Location COLONOSCOPY COLONOSCOPY 02-25-2022 - [facility] 02-25-2022 (34726) DIABETES SCREEN DIABETES SCREEN 09-04-2021 - [facility] 09-04-2021 (68896) Creatinine monitoring Creatinine monitoring 09-18-2020 [place], [place] ([address]) Potassium monitoring Potassium monitoring 09-18-2020 [place], [place] ([address]) MAMMOGRAM MAMMOGRAM 12-24-2019 - [facility] 12-24-2019 (01284) Flu vaccine (Season no information 12-09-2019 - [place], [place] Ended) 12-09-2019 (40401) LIPID SCREEN LIPID SCREEN 01-21-2018 - [facility] 01-21-2018 (60611) ANNUAL PCP TEAM CHRONIC ANNUAL PCP TEAM CHRONIC 03-25-2017 - [facility] DISEASE VISIT DISEASE VISIT 03-25-2017 (27026) ADVANCE DIRECTIVE ADVANCE DIRECTIVE 2014 - [facility] DISCUSSION DISCUSSION 2014 (49651) SHINGRIX VACCINE (2 of SHINGRIX VACCINE (2 [facility] 3) 08-13-2012 (69216) DTAP,TDAP,TD (1 - Tdap) DTAP,TDAP,TD (1 - Tdap) 1968 - [facility] 1968 (48978) BP CONTROLLED (<130/80) BP CONTROLLED (<130/80) 07-05-1967 - [facility] 07-05-1967 (62482) HEPATITIS C SCREENING HEPATITIS C SCREENING 07-05-1967 - [facility] 07-05-1967 (01823) Basic Metabolic Panel Basic Metabolic Panel 09-23-2019 [place], [place] Lab Routine Tomorrow AM (47375) for 1 Occurrences starting 09/23/2019 until 09/23/2019 Comment: Tomorrow AM for 1 Occurrence s starting 09/23/2019 until 09/23/2019 CBC CBC Lab Routine Tomorrow AM for 1 09-23-2019 [place], [place] ([address]) Occurrences starting 09/23/2019 until 09/23/2019 Comment: Tomorrow AM for 1 Occurrence s starting 09/23/2019 until 09/23/2019 Vitamin B12 Vitamin B12 Lab Routine Tomorrow 09-23-2019 [facility] LINDA FRIAS (52970) AM for 1 Occurrences starting 09/23/2019 until 09/23/2019 Comment: Tomorrow AM for 1 Occurrence s starting 09/23/2019 until 09/23/2019 Initiate Oxygen Therapy [facility] (22089 ) Routine Daily until discontinued starting 09/19/2019 Comment: Daily until discontinued sta rting 09/19/2019 Patient \cps-sql1\CPS_PtEducation\quitting_smoking_[id number] 013.pdf, Crystal education \cps-sql1\CPS_PtEducation\[facility]_FALL_PREVENTION.pd f [facility] (32833) Vitamin D 25 Vitamin D 25 Hydroxy Lab Routine Tomorrow AM for 1 06 [facility] Occurrences starting 09/23/2019 until 09/23/2019 -1 [place] LINDA 6- (40370) 37 20 Comment: Tomorrow AM for 1 Occurrence s starting 09/23/2019 until 09/23/2019 Immunizations Vaccine Notes Status Date Location Influenza Vaccine, influenza virus (completed) 01-06-2013 - [facility] Split-Non Spec vaccine, unspecified 01-06-2013 (4419 5) formulation Influenza Vaccine, influenza virus (completed) 01-08-2012 - [facility] Split-Non Spec vaccine, unspecified 01-08-2012 (4419 5) formulation Influenza Vaccine, influenza virus (completed) 02-04-2011 - [facility] Split-Non Spec vaccine, unspecified 02-04-2011 (4419 5) formulation Influenza Vaccine, influenza virus (completed) 02-11-2010 - [facility] Split-Non Spec vaccine, unspecified 02-11-2010 (4419 5) formulation Influenza Vaccine, influenza virus (completed) 02-14-2006 - [facility] Split-Non Spec vaccine, unspecified 02-14-2006 (4419 5) formulation Influenza Seasonal - influenza, high dose (completed) 01-04-2015 - [facility] High Dose - Age 65+ seasonal, 01-04-2015 (86898) preservative-free Influenza Seasonal influenza, injectable, (completed) 01-16-2018 - [facility] Inj Quadrivalent Age quadrivalent, contains 01-16-2018 (82707) 3+ preservative Influenza Seasonal influenza, injectable, (completed) 01-18-2016 - [facility] Inj Quadrivalent Age quadrivalent, contains 01-18-2016 (49065) 3+ preservative Influenza Seasonal influenza, seasonal, (completed) 01-06-2014 - [facility] Inj Age 3+ injectable 01-06-2014 (50544) Pneumovax pneumococcal (completed) 01-18-2016 - [facility] c polysaccharide vaccine, 01-18-2016 ([id number]) 23 valent Zostavax zoster vaccine, live (completed) 06-18-2012 - [facility] 06-18-2012 ([id number]) Payers Payer Name Policy Number Location 1500 MEDICARE PRIMARY [facility] ([id number]) [employer] MEDICARE [id number] [facility] ([id number] 195) The following information is from [...] enter - exposure [facility] ([id number]) Assertion Unknown if ever smoked 06-19-2019 - [facility] ([id number]) Sex Assigned At Not on file [place], [place] ([id number]) Exposure to SARS-CoV-2 Unable to assess Tashia Carlton [place], [place] (event) ([id number]) Tobacco smoking status Current some day smoker 01-01-1997 - [facility] NHIS 05-21-2019 (37262) History of tobacco use Cigarette Smoker 01-01-1997 [facility] ([id number]) Cigarettes smoked 05-21-2019 - [facility] ic current (pack per day) 05-21-2019 (85627) - Reported Tobacco use and Never used 05-21-2019 - [facility] exposure 05-21-2019 (71444) Alcohol intake Current non-drinker of 05-21-2019 [facility] alcohol (finding) 05-21-2019 (49226) Tobacco Comment 2 cig per day 02-18-2015 - [facility] 02-18-2015 (46523) The following information is from the original [...] Documents on File Type Date Recorded Patient Hat Binder Explanati on Advance Directives and Living Will Power of Japanese Tutor Latest Code Status on File Code Status Date Activated Date Inactivated Comments Full Code 09/19/2019 6:26 PM Documents on File Type Date Recorded Patient Hat Binder Explanati on Advance Directive(s) 09/04/2018 1:43 PM [...] - VERONICA - 09/23/2019 10:22 AM EDT [facility] Geriatric Medicine Inpatient Consult Service Admission [...] follow up as needed outpatient at the [facility] if there are ongoing concerns [...] year-old female admitted to acute care from [facility] for worsening confusion, hallucinations. Diagnosed with [...] TSH 0.941 09/19/2019 No results found for: [id number] No results found for: VITD25 Head CT neg Reviewed: active problem list, medication list, lab results Lab Results Component Value Date TSH 0.941 09/19/2019 No results found for: [id number] No results found for: FOLATE No results [...] Chief Complaint Patient presents with ? Delusional Struble slipped from [facility] at [facility] she had back surgery 2 days ago. [...] not seen her. Kate on 7W at [facility] states she had a sitter last night [...] file Gets together: Not on file Attends evangelical service: Not on file Active member of [...] questions or concerns. Please page myself or disability liaison officer psychiatrist for emergent needs or follow up questions. Thank you for allowing me to participate in the care of this patient. Rosibel García RN - 09/22/2019 3:00 PM EDTNon-violent restraints removed at this time. Will continue to monitor. Kate Ambrose APRN - CNP - 09/22/2019 2:03 PM EDT [facility] Geriatric Medicine Inpatient Consult Service Admission [...] --Medication management per psych. --Wean restraints and fence making machine operator as able. --Monitor for constipation/urinary retention - [...] the doses get lower Discussed with RN, fence making machine operator Subjective Chief Complaint: delirium ? Geriatrics consulted for paranoid;delusional; delirium vs psych vs withdrawal HPI- The patient is new to me but seen by the Geriatric Inpatient Consult team. 69 y.o. year-old female admitted to acute care from [facility] for worsening confusion, hallucinations. Diagnosed with [...] TSH 0.941 09/19/2019 No results found for: [id number] No results found for: VITD25 Head CT neg Reviewed: active problem list, medication list, lab results Lab Results Component Value Date TSH 0.941 09/19/2019 No results found for: [id number] No results found for: FOLATE No results [...] 09/22/2019 10:10 AM EDT Physical Therapy Facility/Department: [facility] MED SURG Daily Treatment Note NAME: Angélica [...] recent lumbar sx--per spouse L4L5 done at [facility] Other position/activity restrictions: soft restraints, sitter present [...] Code Treatment Minutes: 34 Minutes(gait, FA) *This CODING COMPLIANCE AUDITOR wore N95, gloves and face shield during whole treatment session.* Betty Chapa PTA Amira Terry APRN - MARINE DIESEL MECHANIC - 09/22/2019 8:36 AM EDT Department of Psychiatry Progress Note Reason for Consult/Chief Complaint: Chief Complaint Patient presents with ? Delusional Struble slipped from [facility] at [facility] she had back surgery 2 days ago. [...] not seen her. Kate on 7W at [facility] states she had a sitter last night [...] file Gets together: Not on file Attends evangelical service: Not on file Active member of [...] effect and tolerability. Please page myself or disability liaison officer psychiatrist for emergent needs or follow up [...] Date 09/21/19 0000 - 09/21/19 2359 Shift [id number] [id number] 24 Hour Total INTAKE P.O.(mL/kg/hr) 400(0.7) 400 [...] 09/21/2019 12:11 PM EDT Physical Therapy Facility/Department: [facility] MED SUR[facility] Daily Treatment Note NAME: Angélica [...] For some reason pt did trust this CODING COMPLIANCE AUDITOR and would not let aide get vital signs. This CODING COMPLIANCE AUDITOR took vital signs at end of session [...] recent lumbar sx--per spouse L4L5 done at [facility] Other position/activity restrictions: soft restraints, sitter present in room Subjective General Chart Reviewed: Yes Additional Pertinent Hx: Pt transferred from [facility] where she had lumbar surgery after change [...] but stops several times and tells this CODING COMPLIANCE AUDITOR statements about delusions she is havingand paranoid [...] Treatment Minutes: 45 Minutes(gait x2, FA) *This CODING COMPLIANCE AUDITOR wore N95, gloves and face shield during [...] 5. Fluid Accumulation-No significant fluid accumulation, 6. Verse Writer Strength-Not measured Nutrition Risk Level: High Nutrient Needs: ? Estimated Daily Total Kcal: 0732-6899 ? Estimated Daily Protein (g): 50-70 ? Estimated Daily Total Fluid (ml/day): per MD Nutrition Diagnosis: ? Problem: Inadequate oral intake ? Etiology: related to Acute injury/trauma, Pain, Cognitive or neurological impairment ? Signs and symptoms: as evidenced by Intake 25-50%([facility]) Objective Information: ? Nutrition-Focused Physical Findings: [...] Wt: 150 lb (68 kg)(per pt) ? [place] Body Wt: 110 lb (49.9 kg), % [place] Body 136% ? BMI Classification: BMI 25.0 - 29.9 Overweight Nutrition Interventions: Continue current diet Continued Inpatient Monitoring Nutrition Evaluation: ? Evaluation: Goals set ? Goals: Pt will consume >75% meals. ? Monitoring: Meal Intake, Diet Tolerance, Skin Integrity, Wound Healing, I&O, Mental Status/Confusion, Weight, Pertinent Labs, Chewing/Swallowing Contact Number: [phone] Mandie Willett PT - 09/20/2019 3:18 PM EDT Physical Therapy Facility/Department: [facility] 7 MED SURG Initial Assessment NAME: Angélica Dawn : 1950 Date of Service: 09/20/2019 Discharge Recommendations: Continue to assess pending progress PT Equipment Recommendations Other: pt has FWW at home Assessment Body structures, Functions, Activity limitations: Decreased functional mobility ;Decreased ROM;Decreased safe awareness;Decreased balance;Increased pain;Decreased strength;Decreased cognition Assessment: 69 y.o. female s/p lumbar surgery at [facility] presented to [facility] with change in mental status with delusions [...] recent lumbar sx--per spouse L4L5 done at [facility] Other position/activity restrictions: soft restraints per attending ok to remove for PT, sitter present in room Vision/Hearing Vision: Within Functional Limits Hearing: Within functional limits Subjective General Chart Reviewed: Yes Patient assessed for rehabilitation services?: Yes Additional Pertinent Hx: Pt transferred from [facility] where she had lumbar surgery after change [...] Ambulation Assistance: Independent Transfer Assistance: Independent Active Crop Research Scientist: Yes Additional Comments: community amb without AD, reports 2 falls tripping over dog and while at [facility] post surgery Cognition Objective Observation/Palpation Posture: Good [...] physical therapy POC supervision is transferred to [facility] Rehab Dept Physical Therapist. Plan to [...] need for restraints. He verbalized understanding. Jana Navrarete RN - 09/20/2019 8:12 AM EDTRN called to room by fence making machine operator. Pt in bathroom refusing to get back to bed pushing fence making machine operator. RN explained to Pt that she was [...] make him aware of the restraints. Vidya Murrayoffice machine service supervisor called and made aware of the [...] not limited to a N95. Kevyn Diop [facility] Hospitalist Tena Manzanares [facility] - 09/19/2019 3:37 PM [facility] MEDICATION RECONCILIATION Date: 09/19/19 Room:[address] [place] [address] Patient Name: Angélica Dawn Allergies: Patient has no allergy information on record. Age: 69 y.o. Sex: female Note: New information has been obtained regarding the patient?s medications. The medication reconciliation has been updated to reflect this. Please consider making these changes/additions if appropriate: Recommendations: 1. Home medications to restart if there is not a current contraindication: a. Willcox 7.5/325mg 1 tab q6h prn (ONLY stock Willcox 5/325mg tab @ [facility], so would have to do 1.5 tabs, [...] 3:37 PM Name: Tena Calhoun PharmD Pager: [phone] Jana Navarrete RN - 09/19/2019 3:04 PM EDTPt arrived to room via ER with and protective services. Medical Assistant Dermatology at bedside, and room cleared. Pt oriented to room, bed alarm on, fall kit provided. Dr. Diop paged regarding admission. documented in this encounter Discharge Instructions Discharge Instr - Agata Rosenberg RN - 09/23/2019 10:55 AM EDT Your physician has ordered skilled home care services for you. Your home care will be provided by: [facility] [phone] Additional Tena Strauss [facility] - 09/19/2019 General Orthopedic Discharge [...] may report side effects to FDA at [phone]. What other drugs will affect amlodipine? Tell your doctor about all your other medicines, especially: ? nitroglycerin; ? simvastatin (Zocor, Simcor, Vytorin); or ? any other heart or blood pressure medications. This list is not complete. Other drugs may affect amlodipine, including prescription and bapr-xff-svhcmet medicines, vitamins, and herbal products. Not all [...] to ensure that the information provided by [employer]. ('[employer]')is accurate, up-to-date, and complete, but no guarantee is made to that effect. Drug information contained herein may be time sensitive. [employer] information has been compiled for use by healthcare practitioners and consumers in the [place] and therefore [employer] does not warrant that uses outside of the [place] are appropriate, unless specifically indicated otherwise. [employer] drug information does not endorse drugs, diagnose patients or recommend therapy. [employer] drug information is an informational resource designed [...] effective or appropriate for any given patient. [employer] does not assume any responsibility for any aspect of healthcare administered with the aid of information [employer] provides. The information contained herein is not intended to cover all possible uses, directions, precautions, warnings, drug interactions, allergic reactions, or adverse effects. If you have questions about the drugs you are taking, check with your doctor, nurse or pharmacist. Copyright 4117-2141 [employer]. Version: 15.01. Revision date: 02/03/2019. Care instructions adapted under license by [employer]. If you have questions about a medical condition or this instruction, always ask your healthcare professional. [employer] disclaimsany warranty or liability for your [...] BE BASED ON THE PRIMARY CLINICAL RECORDS. [employer] provides no warranty or guarantee of the accuracy or completeness of information in this document. UNRECOGNIZED CONTENT PROVIDED BELOW FOR UNRECOGNIZED SECTION INFORMATION SOURCE DATE CREATED AUTHOR AUTHOR'S ORGANIZATIO N 09/27/2017 [facility] DATE CREATED AUTHOR AUTHOR'S ORGANIZATIO N 09/12/2018 [facility] DATE CREATED AUTHOR AUTHOR'S ORGANIZATIO N 09/20/2019 [facility] DATE CREATED AUTHOR AUTHOR'S ORGANIZATIO N 10/28/2019 [facility] DATE CREATED AUTHOR AUTHOR'S ORGANIZATIO N 12/03/2019 [facility] donaldo UNRECOGNIZED CONTENT PROVIDED BELOW FOR UNRECOGNIZED SECTION Reason for Visit Reason For Visit Description Start Date New/Est - 1st visit with physician Preliminary reason for visit data, not yet signed by the author as of left hip pain Reason Comments Delusional Struble slipped [facility] she had back surgery 2 days ago. [...] not seen her. Kate on 7W at [facility] states she had a sitter [...] or prosecute any alcohol or drug abuse patient.[facility] the event this information is protected by the Federal Confidentiality of Alcohol and Drug Abuse Patient Records regulations: The Federal rules restrict any use of the information to criminally investigate or prosecute any alcohol or drug abuse patient.[facility] UNRECOGNIZED CONTENT PROVIDED BELOW FOR UNRECOGNIZED SECTION [...] also recommends she follows up with her pie topper in [place] for the rash on her thighs. I [...]
== END 2019-09-25 20:02 ==
PROVIDERS: Emergency Medicine; Emergency Provider Emergency Medicine; PCP Family Medicine
DX: R41.0 Disorientation, unspecified (principal); F22 Delusional disorders; F60.0 Paranoid personality disorder; F17.200 Nicotine dependence, unspecified, uncomplicated; Z88.1 Allergy status to other antibiotic agents; Z90.49 Acquired absence of other specified parts of digestive tract; Z90.710 Acquired absence of both cervix and uterus; R20.0 Anesthesia of skin; Z79.899 Other long term (current) drug therapy
CPT/HCPCS: 70450; 80053; 80307; 80320; 81001; 85025; 87635; 96360; 96361; 99285; G2023; J7030; P9612; A4216; G0480; U0003

== ENCOUNTER 2021-07-15 11:37 | Outpatient (CLI) | payer MEDICARE, SELFPAY ==
[2021-07-15 15:17] LABS: Anion Gap 6 (5-15); BUN 16 mg/dL (7-18); BUN/Creat Ratio 16.2 RATIO (10-20); Calcium,Total 9.1 mg/dL (8.5-10.1); Chloride 98 mmol/L (98-107); Cholesterol 163 mg/dL (200); Creatinine, Serum 0.99 mg/dL (0.55-1.02); EST Glomerular Filtration Rate 59 mL/min (>60); Est Glom Filt Rate - Afr Amer 71 mL/min (>60); Glucose 104 mg/dL (74-106); High Density Lipoprotein 46 mg/dL; Potassium 4.8 mmol/L (3.5-5.1); Sodium Level 128 mmol/L (136-145); Triglycerides 142 mg/dL; Very Low Density Lipoprotein 28 mg/dL (5-40)
== END 2021-07-15 23:59 | disposition home or self-care (01) ==
LOC: MFPLAB 11:41
PROVIDERS: PCP Family Medicine; Referring Provider Family Medicine; Visit Provider Family Medicine
DX: I10 Essential (primary) hypertension (principal)
CPT/HCPCS: 36415; 80048; 80061

== ENCOUNTER 2021-12-19 22:49 | Emergency (ER) | payer MEDICARE, SELFPAY ==
[2021-12-19 22:50] VITALS: BP 152/81; PULSE 59; RESP 14; TEMP 35.6; O2SAT 97; BMI 30.4
--- NOTE | 2021-12-19 23:50 | EX.ED.DYSGE1 ---
HPI History of Present Illness Chief Complaint: General Illness Detail of Chief Complaint: Dehydration Informant: patient Narrative Narrative: Patient presents with concerns that she is dehydrated. She states that she feels like her skin and mouth are very dry and she believes she is dehydrated. She recently had a cataract surgery is scheduled to have another 1 done in 2 days. She wanted to have this figured out before her next surgery. She had symptoms of been ongoing for about a month. She has had some intermittent diarrhea but no vomiting. She states she has been eating and drinking well. [facility] Medical History Anxiety Back pain Fibromyalgia GERD (gastroesophageal reflux disease) HTN (hypertension) IBS (irritable bowel syndrome) Osteoarthritis Home Medications atenolol 25 mg tablet 25 mg PO BID heart 09/01/16 [History Last Taken Unknown] lorazepam 2 mg tablet 2 mg PO TID anxiety 09/01/16 [History Last Taken Unknown] cholecalciferol (vitamin D3) 125 mcg (5,000 unit) capsule 5,000 unit PO DAILY 02/24/19 [History Last Taken Unknown] amlodipine 5 mg tablet 5 mg PO DAILY bp 09/24/19 [History Last Taken Unknown] dicyclomine 10 mg capsule 10 mg PO TIDAC stomach 09/24/19 [History Last Taken Unknown] lisinopril 20 mg tablet 20 mg PO DAILY bp 09/24/19 [History Last Taken Unknown] omeprazole 20 mg capsule,delayed release 20 mg PO DAILY gerd 09/24/19 [History Last Taken Unknown] simvastatin 5 mg tablet 5 mg PO DAILY cholesterol 09/24/19 [History Last Taken Unknown] Allergy/AdvReac Type Severity Reaction Status Date / Time bupropion HCl Allergy Rash Verified 12/19/21 22:50 [From Wellbutrin] desipramine Allergy Hives Verified 12/19/21 22:50 doxycycline Allergy Rash Verified 12/19/21 22:50 fluoxetine HCl [From Prozac] Allergy Hives Verified 12/19/21 22:50 imipramine Allergy Rash Verified 12/19/21 22:50 metronidazole [From Flagyl] Allergy Rash Verified 12/19/21 22:50 solifenacin succinate Allergy Hives Verified 12/19/21 22:50 [From Vesicare] sumatriptan [From Imitrex] Allergy Rash Verified 12/19/21 22:50 sumatriptan succinate Allergy Rash Verified 12/19/21 22:50 [From Imitrex] tramadol HCl [From Ultram] Allergy Rash Verified 12/19/21 22:50 MOST ANTIBIOTICS Allergy Hives Uncoded 12/19/21 22:50 Family History Sister Diabetes Father Heart disease Mother Alzheimer disease Surgical History History of cholecystectomy History of colonoscopy History of partial hysterectomy History of tubal ligation Social History Smoking Status: Current every day smoker tobacco type: cigarettes ROS ROS ED Constitutional Constitutional ED: Denies chills or fever(s) Eyes Eyes: Denies change in vision or discharge from eye(s) ENT ENT ED: Denies discharge from eye(s), rhinorrhea or sore throat Cardiovascular Cardiovascular: Denies chest pain or palpitations Respiratory/Chest Respiratory/Chest: Denies cough or dyspnea Gastrointestinal Gastrointestinal: Reports diarrhea; Denies abdominal pain, nausea or vomiting Genitourinary Genitourinary ED: Denies difficulty urinating or dysuria Musculoskeletal Musculoskeletal: Denies back pain or extremity pain Integumentary Denies Abrasions or rash Neurologic Neurologic: Denies headache(s) or weakness Allergic/Immunologic Allergic/Immunologic ED: Denies lip swelling or urticaria EXAM Physical Exam Const Vital Signs: 12/19/21 22:50 12/20/21 00:13 Temperature 96.1 F L Temperature Source Temporal Pulse Rate 59 L Respiratory Rate 14 Respiratory Effort Normal Non-Labored Respiratory Pattern Normal Blood Pressure 152/81 H Blood Pressure Mean 104 Pulse Ox 97 Oxygen Delivery Method Room Air Positive well nourished and well developed General Appearance ED: well developed HEENT Reports normocephalic and head/scalp atraumatic HEENT Narrative: Mildly dry mucous membranes Eyes PERRL and EOMs intact bilaterally Neck supple Chest Wall inspection of chest normal and palpation of chest normal Resp normal respiratory effort and clear to auscultation bilaterally Cardio regular rate and regular rhythm GI normal to inspection, nondistended, normoactive bowel sounds Palpation: soft Extremity normal to inspection Neuro oriented x3 and no sensory deficits noted Sensorium / Orientation: alert Motor Exam: strength 5/5 throughout Psych mental status grossly normal Skin no rashes or lesions noted MDM MDM MDM Narrative Medical decision making narrative: Patient given a liter IV fluids. Lab work and urinalysis obtained. Lab Data Labs: Laboratory Results - last 24 hr 12/20/21 12/20/21 12/20/21 00:11 00:11 00:17 WBC 11.1 H RBC 4.12 L Hgb 13.3 Hct 38.1 MCV 92.5 MCH 32.3 H MCHC 34.9 RDW Std Deviation 44.1 H RDW Coeff of Micky 13.0 Plt Count 355 MPV 10.1 Immature Gran % (Auto) 0.400 Neut % (Auto) 59.2 Lymph % (Auto) 27.0 [place] % (Auto) 6.8 Eos % (Auto) 5.8 H Baso % (Auto) 0.8 Absolute Neuts (auto) 6.6 Absolute Lymphs (auto) 3.00 Nucleated RBC % 0 Sodium 131 L Potassium 5.0 Chloride 100 Carbon Dioxide 25.0 Anion Gap 6 BUN 14 Creatinine 0.95 Estim Creat Clear Calc 42.34 Est GFR (MDRD) Af Amer 74 Est GFR (MDRD) Non-Af 61 BUN/Creatinine Ratio 14.7 Glucose 108 H Calcium 9.3 Urine Color Yellow Urine Clarity Clear Urine pH 6.0 Ur Specific [place] 1.010 Urine Protein Negative Urine Glucose (UA) Normal Urine Ketones Negative Urine Occult Blood Negative Urine Nitrite Negative Urine Bilirubin Negative Urine Urobilinogen Normal Ur Leukocyte Esterase Negative Urine RBC 0 SEEN Urine WBC 0 SEEN Ur Squamous Epith Cells 0-5 SEEN Urine Bacteria 0 SEEN Urine Mucus 0 SEEN Treatment and Re-Evaluation Narrative: White count is mildly elevated 11.1. No left shift noted. Hemoglobin is 13.3. Chemistry studies remarkable for a low sodium at 131, however this appears consistent with her baseline from multiple prior lab draws. Urinalysis is normal with no sign of infection. No ketones are noted. Patient be discharged home to continue supportive care. Discharge Plan Triage Chief Complaint: General Illness ED Provider: Martha Lindsay Dx/Rx/DC Orders Clinical Impression: Throat dryness Prescriptions: No Action cholecalciferol (vitamin D3) 5,000 unit capsule 5,000 unit PO DAILY atenolol 25 MG tablet 25 mg PO BID lorazepam 2 MG tablet 2 mg PO TID lisinopril 20 MG tablet 20 mg PO DAILY amlodipine 5 MG tablet 5 mg PO DAILY simvastatin 5 MG tablet 5 mg PO DAILY omeprazole 20 MG capsule,delayed release(DR/EC) 20 mg PO DAILY dicyclomine 10 MG capsule 10 mg PO TIDAC Primary Care Provider: Regino Davey Referrals: Regino Davey MD [Primary Care Provider] - 1 Week if not improving Activity Restrictions/Additional Instructions: Your lab work and urinalysis tonight did not indicate any sign of dehydration. You were given a liter of IV fluids. Please continue supportive care measures at home and follow-up with your primary care physician if not improving. Disposition Disposition: Home, Self Care
[2021-12-20 00:17] LABS: Absolute Neutrophil Count 6.6 X10^3/uL (2.0-7.7); Basophil# 0.09 X10^3/uL; Basophil% 0.8 % (0-1); Eosinophil# 0.64 X10^3/uL; Eosinophils% 5.8 % (0-5); Hematocrit 38.1 % (37-47); Hemoglobin 13.3 g/dL (12.0-15.0); Mean Corp Hgb Conc 34.9 g/dL (32-36); Mean Corpuscular Hgb 32.3 pg (27.0-32.0); Mean Corpuscular Volume 92.5 fL (81-99); Mean Platelet Vol. 10.1 fl (6.2-12.0); Monocyte# 0.75 X10^3/uL; Monocyte% 6.8 % (0-10); NRBC Flagged by Analyzer 0 % (0-5); Neutrophil # 6.58 X10^3/uL (2.7-7.7); Neutrophil % 59.2 % (47-70); Platelet Count 355 K/mm3 (150-450); RBC Distribution Width SD 44.1 fl (35.1-43.9); Red Blood Count 4.12 M/mm3 (4.2-5.4); White Blood Count 11.1 K/mm3 (4.4-11.0)
[2021-12-20 00:24] LABS: Bacteria 0 SEEN /hpf (None Seen); Mucous, Urine 0 SEEN /hpf (<or=2+); Red Blood Cells-Urine 0 SEEN /hpf (0-5); White Blood Cells 0 SEEN /hpf (0-5)
[2021-12-20] MEDS: 0.9% Normal Saline 1,000 ML 1000 ML IV (00:24)
[2021-12-20 00:25] LABS: Color, Urine Yellow (Yellow); Glucose, Dipstick Normal (Normal); Ketone-Dipstick Negative (Negative); Leukocyte Esterase-Dipstick Negative /ul (Negative); Nitrite-Dipstick Negative (Negative); Occult Blood-Urine Negative /ul (Negative); Protein-Dipstick Negative (Negative); Urine Bilirubin Dipstick Negative (Negative); Urine Clarity Clear (Clear); Urine Urobilinogen Normal (Normal)
[2021-12-20 00:39] LABS: Squamous Epithelial Cells - UA 0-5 SEEN /hpf (5-10)
[2021-12-20 00:41] LABS: Anion Gap 6 (5-15); BUN 14 mg/dL (7-18); BUN/Creat Ratio 14.7 RATIO (10-20); Calcium,Total 9.3 mg/dL (8.5-10.1); Chloride 100 mmol/L (98-107); Creatinine, Serum 0.95 mg/dL (0.55-1.02); EST Glomerular Filtration Rate 61 mL/min (>60); Est Glom Filt Rate - Afr Amer 74 mL/min (>60); Estimated Creatinine Clearance 42.34 ml/min; Glucose 108 mg/dL (74-106); Sodium Level 131 mmol/L (136-145)
[2021-12-20 01:18] VITALS: BP 137/81; PULSE 76; RESP 16; O2SAT 99
== END 2021-12-20 01:35 | disposition home or self-care (01) ==
LOC: ED 12-20 00:52
PROVIDERS: Emergency Provider Emergency Medicine; PCP Family Medicine; Visit Provider Emergency Medicine
DX: J39.2 Other diseases of pharynx (principal); E86.0 Dehydration; I10 Essential (primary) hypertension; R19.7 Diarrhea, unspecified; F17.210 Nicotine dependence, cigarettes, uncomplicated; K21.9 Gastro-esophageal reflux disease without esophagitis; M79.7 Fibromyalgia
CPT/HCPCS: 80048; 81001; 85025; 99282; J7030; A4216

== ENCOUNTER → 2022-02-06 | Outpatient (CLI) | payer MEDICARE, SELFPAY ==
[2022-02-06 19:17] LABS: Anion Gap 6 (5-15); BUN 14 mg/dL (7-18); BUN/Creat Ratio 10.9 RATIO (10-20); Calcium,Total 9.1 mg/dL (8.5-10.1); Chloride 109 mmol/L (98-107); Cholesterol 187 mg/dL (200); Creatinine, Serum 1.29 mg/dL (0.55-1.02); EST Glomerular Filtration Rate 43 mL/min (>60); Est Glom Filt Rate - Afr Amer 52 mL/min (>60); Glucose 105 mg/dL (74-106); High Density Lipoprotein 51 mg/dL; Potassium 4.2 mmol/L (3.5-5.1); Sodium Level 142 mmol/L (136-145); Triglycerides 189 mg/dL; Very Low Density Lipoprotein 38 mg/dL (5-40)
== END | disposition home or self-care (01) ==
LOC: MFPLAB 16:17
PROVIDERS: PCP Family Medicine; Visit Provider Family Medicine
DX: I10 Essential (primary) hypertension (principal)
CPT/HCPCS: 36415; 80048; 80061

== ENCOUNTER → 2022-06-21 | Outpatient (CLI) | payer MEDICARE, SELFPAY ==
[2022-06-21 18:05] LABS: Anion Gap 8 (5-15); BUN 15 mg/dL (7-18); BUN/Creat Ratio 12.8 RATIO (10-20); Calcium,Total 9.1 mg/dL (8.5-10.1); Chloride 100 mmol/L (98-107); Creatinine, Serum 1.17 mg/dL (0.55-1.02); EST Glomerular Filtration Rate 48 mL/min (>60); Est Glom Filt Rate - Afr Amer 58 mL/min (>60); Glucose 110 mg/dL (74-106); Potassium 4.5 mmol/L (3.5-5.1); Sodium Level 134 mmol/L (136-145)
== END | disposition home or self-care (01) ==
LOC: MFPLAB 16:30
PROVIDERS: PCP Family Medicine; Referring Provider Family Medicine; Visit Provider Family Medicine
DX: I10 Essential (primary) hypertension (principal)
CPT/HCPCS: 36415; 80048

== ENCOUNTER → 2022-11-01 | Outpatient (CLI) | payer MEDICARE, SELFPAY ==
[2022-11-01 18:32] LABS: Anion Gap 4 (5-15); BUN 11 mg/dL (7-18); BUN/Creat Ratio 8.8 RATIO (10-20); Calcium,Total 9.4 mg/dL (8.5-10.1); Chloride 106 mmol/L (98-107); Creatinine, Serum 1.25 mg/dL (0.55-1.02); EST Glomerular Filtration Rate 45 mL/min (>60); Est Glom Filt Rate - Afr Amer 54 mL/min (>60); Glucose 100 mg/dL (74-106); Potassium 5.1 mmol/L (3.5-5.1); Sodium Level 137 mmol/L (136-145)
== END | disposition home or self-care (01) ==
LOC: MFPLAB 15:29
PROVIDERS: PCP Family Medicine; Visit Provider Family Medicine
DX: I10 Essential (primary) hypertension (principal)
CPT/HCPCS: 36415; 80048

== ENCOUNTER → 2023-02-14 | Outpatient (CLI) | payer MEDICARE, SELFPAY ==
[2023-02-14 18:22] LABS: Anion Gap 8 (5-15); BUN 13 mg/dL (7-18); BUN/Creat Ratio 11.6 RATIO (10-20); Chloride 109 mmol/L (98-107); Cholesterol 181 mg/dL (200); Creatinine, Serum 1.12 mg/dL (0.55-1.02); EST Glomerular Filtration Rate 51 mL/min (>60); Est Glom Filt Rate - Afr Amer 61 mL/min (>60); Glucose 108 mg/dL (74-106); High Density Lipoprotein 48 mg/dL; Sodium Level 139 mmol/L (136-145); Triglycerides 131 mg/dL; Very Low Density Lipoprotein 26 mg/dL (5-40)
== END | disposition home or self-care (01) ==
LOC: MFPLAB 15:26
PROVIDERS: PCP Family Medicine; Visit Provider Family Medicine
DX: I10 Essential (primary) hypertension (principal)
CPT/HCPCS: 36415; 80048; 80061

== ENCOUNTER → 2023-11-28 | Outpatient (CLI) | payer MEDICARE, SELFPAY ==
[2023-11-28 15:45] LABS: Anion Gap 7 (5-15); BUN 20 mg/dL (7-18); Chloride 102 mmol/L (98-107); Cholesterol 184 mg/dL (200); Creatinine, Serum 1.25 mg/dL (0.55-1.02); EST Glomerular Filtration Rate 45 mL/min (>60); Est Glom Filt Rate - Afr Amer 54 mL/min (>60); Glucose 92 mg/dL (74-106); High Density Lipoprotein 53 mg/dL; Potassium 4.7 mmol/L (3.5-5.1); Sodium Level 132 mmol/L (136-145); Triglycerides 105 mg/dL; Very Low Density Lipoprotein 21 mg/dL (5-40)
== END | disposition home or self-care (01) ==
LOC: MFPLAB 12:08
PROVIDERS: PCP Family Medicine; Visit Provider Family Medicine
DX: I10 Essential (primary) hypertension (principal)
CPT/HCPCS: 36415; 80048; 80061

== ENCOUNTER → 2024-03-12 | Outpatient (CLI) | payer MEDICARE, SELFPAY ==
[2024-03-12 12:56] LABS: Anion Gap 8 (5-15); BUN 14 mg/dL (7-18); BUN/Creat Ratio 12.8 RATIO (10-20); Calcium,Total 9.2 mg/dL (8.5-10.1); Chloride 104 mmol/L (98-107); Cholesterol 172 mg/dL (200); Creatinine, Serum 1.09 mg/dL (0.55-1.02); EST Glomerular Filtration Rate 52 mL/min (>60); Est Glom Filt Rate - Afr Amer 63 mL/min (>60); Glucose 106 mg/dL (74-106); High Density Lipoprotein 57 mg/dL; Potassium 4.9 mmol/L (3.5-5.1); Sodium Level 136 mmol/L (136-145); Triglycerides 94 mg/dL; Very Low Density Lipoprotein 19 mg/dL (5-40)
== END | disposition home or self-care (01) ==
LOC: MFPLAB 09:41
PROVIDERS: PCP Family Medicine; Referring Provider Family Medicine; Visit Provider Family Medicine
DX: I10 Essential (primary) hypertension (principal)
CPT/HCPCS: 36415; 80048; 80061

== ENCOUNTER → 2024-07-16 | Outpatient (CLI) | payer MEDICARE, SELFPAY ==
[2024-07-16 18:19] LABS: Anion Gap 13 (5-15); BUN 15 mg/dL (4-19); BUN/Creat Ratio 12.5 RATIO (10-20); Calcium,Total 9.2 mg/dL (7.6-11.0); Carbon Dioxide 20.3 mmol/L (21.0-32.0); Chloride 99 mmol/L (98-108); Creatinine, Serum 1.22 mg/dL (0.70-1.20); EST Glomerular Filtration Rate 46 (>60); Glucose 105 mg/dL (70-99); Potassium 4.4 mmol/L (3.3-5.1); Sodium Level 132 mmol/L (133-145)
== END | disposition home or self-care (01) ==
LOC: MTLAB 15:52
PROVIDERS: PCP Family Medicine; Referring Provider Family Medicine; Visit Provider Family Medicine
DX: R25.2 Cramp and spasm (principal); I10 Essential (primary) hypertension
CPT/HCPCS: 36415; 80048; 83735

== ENCOUNTER → 2024-08-15 | Outpatient (CLI) | payer MEDICARE, SELFPAY ==
[2024-08-15 16:51] LABS: Anion Gap 11 (5-15); BUN 12 mg/dL (4-19); BUN/Creat Ratio 10.6 RATIO (10-20); Calcium,Total 9.4 mg/dL (7.6-11.0); Carbon Dioxide 22.4 mmol/L (21.0-32.0); Chloride 102 mmol/L (98-108); Creatinine, Serum 1.08 mg/dL (0.70-1.20); EST Glomerular Filtration Rate 54 (>60); Glucose 99 mg/dL (70-99); Potassium 4.6 mmol/L (3.3-5.1); Sodium Level 135 mmol/L (133-145)
== END | disposition home or self-care (01) ==
LOC: MFPLAB 11:37
PROVIDERS: PCP Family Medicine; Referring Provider Family Medicine; Visit Provider Family Medicine
DX: E87.1 Hypo-osmolality and hyponatremia (principal)
CPT/HCPCS: 36415; 80048

== ENCOUNTER 2024-09-04 04:13 | Emergency (ER) | payer MEDICARE, SELFPAY ==
[2024-09-04 04:15] VITALS: BP 198/98; PULSE 71; RESP 16; TEMP 37.1; O2SAT 97; BMI 27.1
--- NOTE | 2024-09-04 04:38 | CT_ITS ---
PROCEDURE: BRAIN/HEAD WITHOUT CONTRAST 09/04/2024 REASON FOR EXAM: HEADACHE TECHNIQUE: Head CT without intravenous contrast. Coronal and Sagittal reconstruction series were provided. One or more dose reduction techniques were used (e.g., Automated exposure control, adjustment of the mA and/or kV according to patient size, use of iterative reconstruction technique. RADIATION DOSE SUMMARY: CTDlvol: 44.99 mGy DLP: 846.73 mGycm COMPARISON: 09/24/2019 FINDINGS: No intracranial hemorrhage, mass effect or CT evidence of large vascular territory acute infarct. The ventricles are unchanged in size and remain midline. Convexity volume loss again noted. The paranasal sinuses, mastoids and orbits appear within limits. CT/Brain/Head without Contrast IMPRESSION: No intracranial hemorrhage, mass effect or CT evidence of large vascular territ ory acute infarct. Reading Location: [id number]
--- NOTE | 2024-09-04 04:38 | EKG12_ITS ---
Test Reason : HTN Blood Pressure : */* mmHG Vent. Rate : 65 BPM Atrial Rate : 65 BPM P-R Int : 176 ms QRS Dur : 88 ms QT Int : 434 ms P-R-T Axes : 57 19 43 degrees QTcB Int : 451 ms Normal sinus rhythm Normal ECG Confirmed by ISA LANE ([id number]), purchasing expeditor ASDAF LIZAMA ([id number]) on 09/08/2024 7:25:51 AM Referred By: FRANKIE Confirmed By: ISA LANE
[2024-09-04] MEDS: 0.9% Normal Saline (1000mL) 1,000 ML 999 ML IV (04:45)
[2024-09-04] MEDS: hydrALAZINE 20 MG/ML Vial 10 MG IV (04:46)
[2024-09-04] MEDS: cloNIDine HCl 0.1 MG Tablet PO (04:46)
[2024-09-04 04:57] LABS: Absolute Lymphocyte Count 2.31 X10^3/uL (0.83-4.51); Absolute Neutrophil Count 3.6 X10^3/uL (2.0-7.7); Basophil# 0.06 X10^3/uL; Basophil% 0.9 % (0-1); Eosinophils% 5.8 % (0-5); Hematocrit 37.7 % (37-47); Hemoglobin 13.3 g/dL (12.0-15.0); Lymphocyte # 2.31 X10^3/ul (0.83-4.51); Lymphocyte % 33.6 % (19-41); Mean Corp Hgb Conc 35.3 g/dL (32-36); Mean Corpuscular Hgb 31.3 pg (27.0-32.0); Mean Corpuscular Volume 88.7 fL (81-99); Mean Platelet Vol. 11.4 fl (6.2-12.0); Monocyte# 0.48 X10^3/uL; NRBC Flagged by Analyzer 0 % (0-5); Neutrophil % 52.4 % (47-70); Platelet Count 256 K/mm3 (150-450); RBC Distribution Width CV 12.1 % (11.6-14.6); RBC Distribution Width SD 39.5 fl (35.1-43.9); Red Blood Count 4.25 M/mm3 (4.2-5.4); White Blood Count 6.9 K/mm3 (4.4-11.0)
[2024-09-04 05:21] LABS: Magnesium 2.3 mg/dL (1.5-2.2)
[2024-09-04 05:32] LABS: Anion Gap 12 (5-15); BUN 10 mg/dL (4-19); BUN/Creat Ratio 10.6 RATIO (10-20); Calcium,Total 9.7 mg/dL (7.6-11.0); Carbon Dioxide 21.2 mmol/L (21.0-32.0); Chloride 99 mmol/L (98-108); Creatinine, Serum 0.97 mg/dL (0.70-1.20); EST Glomerular Filtration Rate 61 (>60); Estimated Creatinine Clearance 48.65 ml/min (50-250); Glucose 109 mg/dL (70-99); Potassium 4.7 mmol/L (3.3-5.1); Sodium Level 133 mmol/L (133-145)
--- NOTE | 2024-09-04 05:40 | EX.ED.DYSGE1 ---
HPI History of Present Illness Chief Complaint: Hypertension Informant: patient and spouse/S.O. Narrative Narrative: Patient is a 74-year-old female with past medical history of hypertension hyperlipidemia and anxiety. She states that she has been taking her medications as directed. She reports that she has had a few episodes of loose stool/diarrhea over the last 2 days. She denies any fevers or chills or known sick contacts. She denies any recent antibiotic use or travel outside the country. She states that this morning she was feeling dizzy and therefore checked her blood pressure and it was elevated which concerned her and therefore EMS was called and she was brought in for evaluation. She states she has a headache associated with the hypertension. She denies any chest pain or shortness of breath. She states that there has been no excessive stimulant use or illicit drug use either [facility] Medical History (Updated 09/04/24 @ 06:[address] Jesse Bueno, DO) Hyperlipidemia Essential hypertension IBS (irritable bowel syndrome) GERD (gastroesophageal reflux disease) Fibromyalgia Anxiety Osteoarthritis Back pain Home Medications ?Medication ?Instructions ?Recorded ?Last Taken ?Type cholecalciferol (vitamin D3) 125 5,000 unit PO DAILY 02/24/19 Unknown History mcg (5,000 unit) capsule dicyclomine 10 mg capsule 10 mg PO DAILY stomach 09/24/19 Unknown History omeprazole 20 mg capsule,delayed 20 mg PO DAILY gerd 09/24/19 Unknown History release simvastatin 5 mg tablet 5 mg PO DAILY cholesterol 09/24/19 Unknown History atenolol 25 mg tablet 50 mg PO BID heart 11/07/22 Unknown History lorazepam 1 mg tablet 1 mg PO TID 11/07/22 Unknown History meloxicam 15 mg tablet 15 mg PO DAILY 09/04/24 Unknown History Allergy/AdvReac Type Severity Reaction Status Date / Time Cephalosporins Allergy Unknown unknown Verified 11/07/22 16:44 losartan Allergy Unknown Headache, Verified 11/07/22 16:44 chest pain bupropion HCl (From Allergy Rash Verified 12/19/21 22:50 Wellbutrin) desipramine Allergy Hives Verified 12/19/21 22:50 doxycycline Allergy Rash Verified 12/19/21 22:50 fluoxetine HCl (From Prozac) Allergy Hives Verified 12/19/21 22:50 imipramine Allergy Rash Verified 12/19/21 22:50 metronidazole (From Flagyl) Allergy Rash Verified 12/19/21 22:50 solifenacin succinate (From Allergy Hives Verified 12/19/21 22:50 Vesicare) sumatriptan (From Imitrex) Allergy Rash Verified 12/19/21 22:50 sumatriptan succinate (From Allergy Rash Verified 12/19/21 22:50 Imitrex) tramadol HCl (From Ultram) Allergy Rash Verified 12/19/21 22:50 Family History (Updated 02/15/22 @ 15:14 by Mona Sotelo) Sister Diabetes Alcoholism Obesity Father Heart disease Alcoholism CAD (coronary artery disease) Mother Alzheimers disease Arthritis Grandfather Lung cancer Aunt Alzheimers disease Cancer Uncle Alzheimers disease maternal Alcoholism paternal Surgical History History of colonoscopy History of partial hysterectomy History of tubal ligation History of cholecystectomy Social History Smoking Status: Current every day smoker tobacco type: cigarettes ROS ROS ED Constitutional Constitutional ED: Denies chills or fever(s) Eyes Eyes: Denies blurry vision or change in vision ENT ENT ED: Denies sore throat Cardiovascular Cardiovascular: Denies chest pain, palpitations or racing heartbeat Respiratory/Chest Respiratory/Chest: Denies cough or dyspnea Gastrointestinal Gastrointestinal: Reports diarrhea; Denies abdominal pain, melena, nausea or vomiting Genitourinary Genitourinary ED: Denies dysuria Musculoskeletal Musculoskeletal: Denies back pain or neck pain Integumentary Denies rash Neurologic Neurologic: Reports headache(s) and other Details: Positive dizziness ; Denies paresthesias or weakness Psychiatric Psychiatric: Reports anxiety Hematologic/Lymphatic Hematologic/Lymphatic: Denies easy bleeding or easy bruising EXAM Physical Exam Const Vital Signs: 09/04/24 04:15 09/04/24 05:45 Temperature 98.7 F 98.2 F Temperature Source Oral Pulse Rate 71 68 Respiratory Rate 16 16 Blood Pressure 198/98 H 157/82 H Blood Pressure Mean 131 107 Pulse Ox 97 98 Oxygen Delivery Method Room Air Positive well nourished and well developed General Appearance ED: well developed; Negative for pallor HEENT Reports moist mucous membranes HEENT Narrative: Normocephalic atraumatic No tongue or lip swelling no oral lesions no airway edema or compromise No secondary findings in the posterior pharynx to suggest infection Eyes PERRL and EOMs intact bilaterally General Eye ED: Negative for scleral icterus Neck supple Neck Narrative: No nuchal rigidity or meningeal signs noted Resp normal respiratory effort and clear to auscultation bilaterally Cardio regular rate and regular rhythm Rate: other Other Details: Heart is regular rate and rhythm without murmurs rubs or gallop No carotid bruit noted Radial and carotid pulses are equal and symmetric GI non-tender, non-distended and no masses GI Narrative: Abdomen is soft nontender nondistended with hyperactive bowel sounds No voluntary guarding or rigidity or pulsatile mass Auscultation: hyperactive bowel sounds Palpation: soft Extremity normal to inspection Extremity Narrative: No asymmetric edema no pitting edema negative Homans' sign bilaterally Neuro oriented x3, CN's II-XII intact bilaterally and no sensory deficits noted Neuro Narrative: GCS of 15 Cranial nerves II through XII are grossly intact without focal neurologic deficit No pronator drift no dysmetria no truncal ataxia NIH stroke scale score of 0 There is mild horizontal nystagmus noted Negative Hallpike [place] exam Sensorium / Orientation: alert Motor Exam: strength 5/5 throughout Psych mental status grossly normal Skin no rashes or lesions noted and No skin turgor normal Skin Narrative: Skin turgor is slightly increased General Skin Exam: Negative for jaundice or pallor MDM MDM MDM Narrative Medical decision making narrative: Patient arrived to the ER hypertensive but otherwise with stable vitals. She was complaining of a generalized headache and therefore there is concern for a spontaneous subarachnoid or subdural hemorrhage. Her NIH stroke scale score is 0 but with her reported dizziness at home there is concern potential posterior circulation issue versus brain mass. With the hypertension and diarrhea there is also concern for acute kidney injury or electrolyte abnormality. In order to rule out signs of ACS a EKG was obtained. This revealed no acute findings and laboratory studies revealed no clinically significant values. Head CT also revealed no acute changes. After receiving IV fluids hydralazine and clonidine the patient's blood pressure improved to approximately 155/80 which is in the 15 to 25% reduction range which is the goal for the ER. On reevaluation she reports feeling much better after fluid hydration and improvement of her blood pressure. Her neurologic exam remains normal and she is able to stand without any dizziness/truncal ataxia. Therefore at this time as workup does not reveal any acute findings such as brain bleed/mass acute coronary syndrome acute kidney injury or intractable dizziness I do not feel there is need for further evaluation in the hospital and she is otherwise safe for discharge History & Record Review Discussion w/independent historian: Patient Lab Data Attestation: I reviewed the patient's lab results. Labs: Laboratory Results - last 24 hr 09/04/24 04:37 WBC 6.9 RBC 4.25 Hgb 13.3 Hct 37.7 MCV 88.7 MCH 31.3 MCHC 35.3 RDW Std Deviation 39.5 RDW Coeff of Micky 12.1 Plt Count 256 MPV 11.4 Immature Gran % (Auto) 0.300 Neut % (Auto) 52.4 Lymph % (Auto) 33.6 [place] % (Auto) 7.0 Eos % (Auto) 5.8 H Baso % (Auto) 0.9 Absolute Neuts (auto) 3.6 Absolute Lymphs (auto) 2.31 Nucleated RBC % 0 Sodium 133 Potassium 4.7 Chloride 99 Carbon Dioxide 21.2 Anion Gap 12 BUN 10 Creatinine 0.97 Estim Creat Clear Calc 48.65 L Est GFR (MDRD) Non-Af 61 BUN/Creatinine Ratio 10.6 Glucose 109 H Calcium 9.7 Magnesium 2.3 H Radiography Diagnostic Testing: Clinical Impression(s) from Imaging Studies Brain CT 09/04/24 04:38 IMPRESSION: No intracranial hemorrhage, mass effect or CT evidence of large vascular territory acute infarct. Reading Location: [facility] Discharge Plan Triage Chief Complaint: Hypertension ED Provider: Jesse Bueno Dx/Rx/DC Orders Clinical Impression: Accelerated hypertension, Hyperlipidemia, Mild dehydration, Anxiety Instructions: ED Hypertension, Established Prescriptions: No Action cholecalciferol (vitamin D3) 5,000 unit capsule 5,000 unit PO DAILY lorazepam 1 mg tablet 1 mg PO TID atenolol 25 mg tablet 50 mg PO BID simvastatin 5 MG tablet 5 mg PO DAILY omeprazole 20 MG capsule,delayed release(DR/EC) 20 mg PO DAILY dicyclomine 10 MG capsule 10 mg PO DAILY meloxicam 15 mg tablet 15 mg PO DAILY Primary Care Provider: Regino Davey Referrals: Regino Davey MD [Primary Care Provider] - Activity Restrictions/Additional Instructions: Your workup today showed no sign of endorgan damage such as heart damage or kidney damage and your head CT showed no sign of bleed or mass. Please continue all of your blood pressure medications as directed by your doctor and return to the ER should you have any further concerns Print Language: Welsh Disposition Disposition: Home, Self Care Discharge Date/Time: 09/04/24 05:46
[2024-09-04 05:45] VITALS: BP 157/82; PULSE 68; RESP 16; TEMP 36.8; O2SAT 98
== END 2024-09-04 05:46 | disposition home or self-care (01) ==
PROVIDERS: Emergency Provider Emergency Medicine; PCP Family Medicine; Visit Provider Emergency Medicine
DX: I10 Essential (primary) hypertension (principal); F41.9 Anxiety disorder, unspecified; R51.9 Headache, unspecified; R19.7 Diarrhea, unspecified; E78.5 Hyperlipidemia, unspecified; E86.0 Dehydration; F17.210 Nicotine dependence, cigarettes, uncomplicated; Z90.49 Acquired absence of other specified parts of digestive tract; Z98.51 Tubal ligation status; Z90.710 Acquired absence of both cervix and uterus; K21.9 Gastro-esophageal reflux disease without esophagitis
CPT/HCPCS: 70450; 80048; 83735; 85025; 93005; 96361; 96374; 99283; A4216

== ENCOUNTER → 2024-12-15 | Outpatient (CLI) | payer MEDICARE, SELFPAY ==
[2024-12-15 19:01] LABS: AST(SGOT) 28 U/L (<=31); Alanine Aminotransfer ALT/SGPT 16 U/L (<=34); Albumin, Serum 4.2 g/dL (3.4-4.8); Alkaline Phosphatase 67 U/L (35-104); Anion Gap 11 (5-15); BUN 15 mg/dL (4-19); BUN/Creat Ratio 12.1 RATIO (10-20); Calcium,Total 9.2 mg/dL (7.6-11.0); Carbon Dioxide 23.4 mmol/L (21.0-32.0); Chloride 103 mmol/L (98-108); Cholesterol 172 mg/dL (<=200); Globulin 2.2 g/dL (2.2-4.2); Glucose 98 mg/dL (70-99); Low Density Lipoprotein Calc. 102 mg/dL; Potassium 4.5 mmol/L (3.3-5.1); Triglycerides 98 mg/dL; Very Low Density Lipoprotein 20 mg/dL (5-40); cholesterol:hdl ratio screen 3.39
--- OUTSIDE RECORDS SUMMARY | 2024-12-15 22:05 | XMS RPT_ITS | CCD ---
Author Organization [facility] Care Team Providers Care Community Chest Officer Name Role Phone Edouard, Farideh Unavailable Unavailable Edouard, Farideh Unavailable Unavailable Edouard, Farideh Unavailable Unavailable Edouard, Farideh Unavailable Unavailable Edouard, Farideh Unavailable Unavailable Joel PACHECO, Manny Tsai Unavailable Unavailable Primary Care Provider Unavailyumiko Davey MD, Regino Nye Primary Care Provider Tamica PACHECO, Regino Nye Primary Care Provider [phone] Tamica PACHECO, Dr. Lacy Primary Care Provider Tamica PACHECO, Dr. Lacy Attending Provider Tamica PACHECO, Dr. Lacy Referring Provider Dr. Jesse Bueno DO Emergency Provider Regino Davey Referring Unavailable Davey, Regino Attending Unavailable Davey, Regino Primary Care Unavailable Davey, Regino Referring Unavailable Davey, Regino Attending Unavailable Davey, Regino Primary Care Unavailable Davey, Regino Primary Care Unavailable Jesse Bueno Attending Unavailable Davey, Regino Referring Unavailable Davey, Regino Attending Unavailable Davey, Regino Primary Care Unavailable Davey, Regino Attending Unavailable Davey, Regino Primary Care Unavailable Allergies Allergy Classification Reported Allergen(s) Allergy Type Date of Onset Reaction(s) Facility (1 source) Misc. Anesthesia Allergy; Translations: [Misc. Anesthesia Allergy] Propensity to adverse reactions to drug (disorder) [facility] Repository (1 source) Erythromycin Drug Allergy 08-16-[address] [facility] [place] [facility] Work Phone: (1 source) Mold Extract; Translations: [MOLD] Drug Allergy 06-17-19 20 [facility] Work Phone: (10 sources) buPROPion Drug Allergy 12-10-19 10 Intolerance [facility] (4 sources) cloNIDine Drug Allergy 09-27-[address] [facility] (10 sources) Desipramine Drug Allergy 12-10-[address] [facility] (4 sources) Desvenlafaxine Drug Allergy 04-13-19 12 Mental Status Change [facility] (10 sources) Doxycycline Drug Allergy 11-29-19 12 [facility] Work Phone: (10 sources) FLUoxetine Drug Allergy 11-25-19 11 Mental Status Change [facility] (4 sources) gabapentin Drug Allergy 03-13-20 13 [facility] Work Phone: (10 sources) Imipramine Drug Allergy 12-10-19 10 [facility] (4 sources) metroNIDAZOLE Drug Allergy 08-07-19 13 Hives, Itching [facility] (4 sources) Sertraline Drug Allergy 06-26-19 12 Other: See Comments [facility] (10 sources) Solifenacin Drug Allergy 11-10-[address] [facility] (10 sources) SUMAtriptan Drug Allergy 12-10-[address] [facility] (10 sources) traMADol Drug Allergy 02-15-20 06 GI Upset [facility] (4 sources) Valproate Drug Allergy 10-22-19 11 Other: See Comments [facility] (4 sources) venlafaxine Drug Allergy 05-14-19 13 [facility] Work Phone: (6 sources) metroNIDAZOLE Drug Allergy 09-24-19 20 Rash [facility] (6 sources) SUMAtriptan Drug Allergy 09-24-19 20 Rash [facility] (2 sources) MOST ANTIBIOTICS Allergy to substance 09-24-19 20 [facility] Work Phone: (4 sources) Cephalosporins (Antibiotic) Allergy to substance 11-08-19 23 unknown [facility] (4 sources) Losartan Drug Allergy 11-08-19 23 Headache, chest pain [facility] (1 source) buPROPion Drug Allergy 12-20-19 22 [facility] Repository (1 source) Cephalosporins (Antibiotic) Drug allergy (disorder) 11-08-19 23 [facility] Repository (1 source) Desipramine Drug Allergy 12-20-19 22 [facility] Repository (1 source) Doxycycline Drug Allergy 12-20-19 [facility] Repository (1 source) FLUoxetine Drug Allergy 12-20-19 [facility] Repository (1 source) Imipramine Drug Allergy 12-20-19 [facility] Repository (1 source) Losartan Drug Allergy 11-08-19 [facility] Repository (1 source) metroNIDAZOLE Drug Allergy 12-20-19 [facility] Repository (1 source) Solifenacin Drug Allergy 12-20-19 [facility] Repository (1 source) SUMAtriptan Drug Allergy 12-20-19 [facility] Repository (1 source) SUMAtriptan Drug Allergy 12-20-19 [facility] Repository (1 source) traMADol Drug Allergy 12-20-19 [facility] Repository Medications Current Medications Medication Drug Class(es) Dates Sig (Normalized) Sig (Original) acetaminophen 500 mg oral tablet (1 source) Start: 09-21-2019 acetaminophen (TYLENOL) tablet 1,000 mg acetaminophen 325 mg / HYDROcodone bitartrate 7.5 mg oral tablet (1 source) Opioid Agonist take 1 tablet by mouth every six hours as needed for pain HYDROcodone-acetam inophen (NORCO) 7.5-325 MG per tablet Take 1 tablet by mouth every 6 hours as needed for Pain. 0 Active amLODIPine 5 mg oral tablet (9 sources) Dihydropyridine Calcium Channel Tracey Start: 09-24-2019 take 5 mg by mouth once daily Amlodipine Active 5 MG PO DAILY September 24, 2019 3:44pm Start: 09-24-2019 take 1 tablet by satnos once daily amLODIPine (NORVASC) 5 MG tablet Take 1 tablet by mouth daily 30 tablet 3 09/24/2019 Active Start: 09-24-2019 End: 09-23-2019 take 1 tablet by mouth once daily amLODIPine (NORVASC) 5 MG tablet Take 1 tablet by mouth daily 30 tablet 3 09/24/2019 09/23/2019 Discontinued Start: 09-22-2019 End: 09-04-2024 take 1 tablet by mouth once daily Amlodipine 5 MG tablet Discontinued 5 mg PO DAILY September 24, 2019 12:00am September 04, 2024 4:49am atenolol 25 mg oral tablet (17 sources) beta-Adrenergic Tracey Start: 11-07-2022 take 2 tablets by mouth twice daily Atenolol 25 mg tablet Active 50 mg PO TWICE A DAY November 07, 2022 4:45pm Start: 11-07-2022 take 1 tablet by santos th three times daily Atenolol 25 mg tablet Active 25 mg PO THREE TIMES A DAY November 07, 2022 4:45pm Start: 09-01-2016 End: 11-07-2022 take 1 tablet by mouth twice daily Atenolol 25 MG tablet Discontinued 25 mg PO TWICE A DAY September 01, 2016 12:00am November 07, 2022 4:48pm Start: 08-16-2015 take 1 tablet by santos th three times daily atenolol (TENORMIN) 25 mg tablet Take 1 tablet by mouth three times daily. 90 tablet 11 03/25/2016 Active Comment on above: Take 1 tablet by santos th three times daily. atorvastatin 10 mg oral tablet (5 sources) HMG-CoA Reductase Inhibitor Start: 09-19-19 take 10 mg by mouth once daily 10 mg, Oral, DAILY, First dose on Sun09/19/19 at 2200 Substituted for Simvastatin (ZOCOR). Comment on above: Take 10 mg by mouth once daily. cholecalciferol 0.125 mg oral capsule (12 sources) Vitamin D Start: 02-25-20 19 take 1 capsule by mouth once daily Cholecalciferol (Vitamin D3) 5,000 unit capsule Active 5000 U PO DAILY February 24, 2019 1:00am Start: 03-14-2016 VITAMIN D3 50 MCG (2000 UT) TABS take 2 tablets daily CHOLECALCIFEROL [id number] Maggi Mcginins LPN Start: 05-20-2013 take 1 tablet by santos th once daily Cholecalciferol, Vitamin D3, 2,000 unit cap Take 1 tablet by mouth once daily. 0 05/20/2013 Active take 1 tablet by santos th once daily as needed Vitamin D, Cholecalciferol, 10 MCG (400 UNIT) TABS Take 1 tablet by mouth daily as needed 0 Active Comment on above: Take 1 tablet by santos th once daily. dicyclomine hydrochloride 10 mg oral capsule (12 sources) Anticholinergic Start: 09-24-19 20 take 1 capsule by mouth once daily Dicyclomine 10 MG capsule Active 10 mg PO DAILY September 24, 2019 12:00am Start: 09-24-2019 take 1 capsule by mo uth three times daily before mealtime Dicyclomine 10 MG capsule Active 10 mg PO THREE TIMES DAILY BEFORE MEALS September 24, 2019 12:00am Start: 03-14-2016 DICYCLOMINE HC L 20 MG TABS take 3 tablets three times daily DICYCLOMINE HCL [id number] Maggi Mcginnis LPN take 3 capsules by m outh three times daily dicyclomine (BENTYL) 10 MG capsule Take 30 mg by mouth 3 times daily 0 Active Comment on above: Take 10 mg by mouth three times daily. docusate sodium 50 mg / sennosides, skilled nursing 8.6 mg oral tablet (1 source) Start: 09-22-19 sennosides-docusate sodium (SENOKOT-S) 8.6-50 MG tablet 1 tablet 0.4 ml enoxaparin sodium 100 mg/ml prefilled syringe (1 source) Low Molecular Weight Heparin Start: 09-19-19 enoxaparin (LOVENOX) injection 40 mg folic acid 1 mg oral tablet (1 source) Start: 09-22-19 folic acid (FOLVITE) tablet 1 mg haloperidol lactate (HALDOL) injection 1 mg (1 source) Start: 09-20-19 haloperidol lactate (HALDOL) injection 1 mg 4 ml labetalol hydrochloride 5 mg/ml cartridge (1 source) beta-Adrenergic Tracey Start: 09-19-19 labetalol (NORMODYNE;TRANDATE ) injection 10 mg LORazepam 1 mg oral tablet (17 sources) Benzodiazepine Start: 11-08-19 take 1 tablet by mouth three times daily Lorazepam 1 mg tablet Active 1 mg PO THREE TIMES A DAY November 07, 2022 12:00am Start: 09-19-2019 LORazepam (ATI VAN) tablet 1.5 mg Start: 09-01-2016 End: 11-07-2022 take 1 tablet by mouth three times daily Lorazepam 2 MG tablet Discontinued 2 mg PO THREE TIMES A DAY September 01, 2016 12:00am November 07, 2022 4:46pm Start: 08-16-2015 ATIVAN 1 MG TA BS take 1 tablet three times a day LORAZEPAM [id number] Maggi Mcginnis LPN meloxicam 15 mg oral tablet (1 source) Nonsteroidal Anti-inflammatory Drug Start: 09-04-2024 take 1 tablet by mouth once daily Meloxicam 15 mg tablet Active 15 mg PO DAILY September 04, 2024 12:00am Multiple Vitamins-Minerals (MULTIVITAMIN ADULT PO) (1 source) Multiple Vitamins-Minerals (MULTIVITAMIN ADULT PO) Take by mouth daily as needed 0 Active Nutritional Supplements (ENSURE ACTIVE) LIQD (1 source) Nutritional Supplements (ENSURE ACTIVE) LIQD Take by mouth daily as needed 0 Active omeprazole 20 mg delayed release oral capsule (10 sources) Proton Pump Inhibitor Start: 09-24-2019 take 1 capsule by mouth once daily Omeprazole 20 MG capsule,delayed release(DR/EC) Active 20 mg PO DAILY September 24, 2019 12:00am Comment on above: Take 20 mg by mouth once daily. oxyCODONE hydrochloride 5 mg oral tablet (1 source) Opioid Agonist Start: 09-21-2019 oxyCODONE (ROXICODONE) immediate release tablet 5 mg polyethylene glycol [id number] mg powder for oral solution (1 source) Osmotic Laxative Start: 09-19-2019 polyethylene glycol (GLYCOLAX) packet 17 g Promethazine (1 source) Phenothiazine Start: 09-19-2019 promethazine (PHENERGAN) tablet 12.5 mg simvastatin 5 mg oral tablet (7 sources) HMG-CoA Reductase Inhibitor Start: 09-24-2019 take 1 tablet by mouth once daily Simvastatin 5 MG tablet Active 5 mg PO DAILY September 24, 2019 12:00am 3 ml sodium chloride 9 mg/ml injection (2 sources) Start: 09-19-2019 sodium chloride flush 0.9 % injection 10 mL thiamine 100 mg oral tablet (1 source) Start: 09-22-2019 vitamin B-1 (THIAMINE) tablet 100 mg Completed/Discontinued Medications Medication Drug Class(es) Dates Sig (Normalized) Sig (Original) acetaminophen 325 mg / oxyCODONE hydrochloride 5 mg oral tablet (2 sources) Opioid Agonist Start: 09-20-2019 End: 09-21-2019 oxyCODONE-acetamin ophen (PERCOCET) 5-325 MG per tablet 1 tablet End: 09-23-2019 take 1 tablet by mouth every six hours as needed for pain oxyCODONE-acetaminophen (PERCOCET) 7.5-3 25 MG per tablet Take 1 tablet by mouth every 6 hours as needed for Pain. 0 09/23/2019 Discontinued (Stop Taking at Discharge) Aspirin / Caffeine (4 sources) Platelet Aggregation Inhibitor, Nonsteroidal Anti-inflammatory Drug, Central Nervous System Stimulant, Methylxanthine aspirin/caffei ne (MIKA BACK AND BODY ORAL) Take by mouth. 0 Active Comment on above: Take by mouth. betamethasone 1 mg/ml topical cream (5 sources) Corticosteroid Start: 0 betamethasone valerate 0.1 % cream Apply to affected area every Sunday,Sunday,Sunday. 45 g 1 12/03/2019 Active betamethasone di propionate (DIPROLENE) 0.05 % ointment Apply topically 2 times daily Apply topically 2 times daily. 0 Active Comment on above: Apply to affected ar ea every Sunday,Sunday,Sunday. betamethasone 0.5 mg/ml / clotrimazole 10 mg/ml topical cream (6 sources) Azole Antifungal, Corticosteroid Start: 03-21-2021 End: 10-26-2021 clotrimazole-bet amethasone (LOTRISONE) cream Apply to outside of vagina and crease of legs twice a day for 10-14 days when needed. 45 g 4 10/26/2021 Active clotrimazole-bet amethasone (LOTRISONE) 1-0.05 % cream Apply topically 2 times daily Apply topically 2 times daily. 0 Active Comment on above: Apply to outside of vagina and crease of legs twice a day for 10-14 days when needed. Blood Pressure Cuff - Home Use (4 sources) Start: 6 Blood Pressure Cuff - Home Use Indications: Elevated blood pressure reading without diagnosis of hypertension BLOOD PRESSURE CUFF FOR HOME USE. DX: LABILE BLOOD PRESSURE 1 Device 0 09/27/2015 Active Comment on above: BLOOD PRESSURE CUFF FOR HOME USE. DX: LABILE BLOOD PRESSURE estradiol 0.1 mg/ml vaginal cream (5 sources) Estrogen Start: 1 End: 2 estradiol (ESTRACE) 0.01 % (0.1 mg/gram) vaginal cream Indications: Vaginal atrophy Use 2 g vaginally two times a week. Also apply to the outside of the vulva. 45 g 6 07/06/2021 Active Comment on above: Use 2 g vaginally tw o times a week. Also apply to the outside of the vulva. famotidine 20 mg oral tablet (5 sources) Histamine-2 Receptor Antagonist Start: 6 take 1 tablet by mouth twice daily famotidine (PEPCID) 20 mg tablet Take 1 tablet by mouth twice daily. 180 tablet 3 10/22/2015 Active Start: 08-16-2015 PEPCID 20 MG T ABS take 1 tablet once daily FAMOTIDINE [id number] Maggi Mcginnis LPN Comment on above: Take 1 tablet by santos th twice daily. fluconazole 150 mg oral tablet (5 sources) Azole Antifungal Start: 03-21-20 21 End: 10-27-19 22 take 1 tablet by mouth once daily fluconazole (DIFLUCAN) 150 mg tablet Take one tablet by mouth once daily for 7 days 7 tablet 0 10/26/2021 Active Comment on above: Take one tablet by m outh once daily for 7 days Hydrocortisone 2.5%/lidocaine 5% suppository (cmpd) (3 sources) Start: 02-25-20 19 End: 03-10-20 19 Hydrocortisone 2.5%/lidocaine 5% suppository (cmpd) Discontinued 0 .ROUTE .MEDSUPPLY February 24, 2019 4:40pm March 10, 2019 1:07am As directed-Per rectum twice daily Start: 02-24-2019 End: 03-10-2019 Hydrocortisone 2.5%/lidocain e 5% suppository (cmpd) Discontinued 0 .ROUTE .MEDSUPPLY February 24, 2019 12:00am March 10, 2019 12:07am As directed-Per rectum twice daily Start: 02-24-2019 End: 03-10-2019 Hydrocortisone 2.5%/lidocain e 5% suppository (cmpd) Discontinued 0 .ROUTE .MEDSUPPLY February 24, 2019 1:00am March 10, 2019 1:07am As directed-Per rectum twice daily Hydrocortisone 2.5%/Lidocaine 5% Suppository (Cmpd) [Hydrocortisone 2.5%/Lidocaine 5% Suppository (Compound)] (Hydrocortisone ) suppository (3 sources) Start: 02-24-2019 End: 03-10-2019 Hydrocortisone 2.5%/Lidocaine 5% Suppository (Cmpd) [Hydrocortisone 2.5%/Lidocaine 5% Suppository (Compound)] (Hydrocortisone ) suppository Discontinued 0 .ROUTE .MEDSUPPLY February 24, 2019 1:00am March 09, 2019 1:00am March 10, 2019 1:07am As directed-Per rectum twice daily Lactobacillus acidophilus (4 sources) Start: 08-16-2017 take 1-2 capsules by mouth twice daily at mealtime Lactobacillus acidophilus (ACIDOPHILUS) cap Take 1-2 capsules by mouth twice daily with meals. 60 capsule 5 08/16/2017 Active Comment on above: Take 1-2 capsules by mouth twice daily with meals. lisinopril 20 mg oral tablet (9 sources) Angiotensin Converting Enzyme Inhibitor Start: 09-24-2019 End: 09-04-2024 take 1 tablet by mouth once daily Lisinopril 20 MG tablet Discontinued 20 mg PO DAILY September 24, 2019 12:00am September 04, 2024 4:50am Start: 09-23-2019 lisinopril (WA INIVIL;ZESTRIL) tablet 40 mg Start: 09-19-2019 End: 09-22-2019 take 20 mg by mouth once daily 20 mg, Oral, DAILY, First dose on Sun09/19/19 at 1615 Loperamide (4 sources) Opioid Agonist loperamide HCl (IMODIUM A-D ORAL) Take by mouth. 0 Active Comment on above: Take by mouth. naproxen 500 mg oral tablet (5 sources) Nonsteroidal Anti-inflammatory Drug Start: 3 End: 5 take 1 tablet by mouth twice daily Naproxen 500 mg tablet Discontinued 500 mg PO TWICE A DAY November 07, 2022 12:00am September 04, 2024 4:50am Start: 06-17-2019 NAPROXEN 500 M G TABS take 1 tablet once daily as needed NAPROXEN [id number] Maggi Mcginnis LPN nystatin 100 unt/mg topical powder (4 sources) Polyene Antifungal Start: 03-27-2019 nystatin (MYCOSTATIN) powder Apply 1 application to affected area twice daily. Till Apr 09 (14 days) 60 g 3 03/27/2019 Active Comment on above: Apply 1 application to affected area twice daily. Till Apr 09 (14 days) OTC NUTRITIONAL SUPPLEMENT (4 sources) OTC NUTRITIONAL SUPPLEMENT ensure 0 Active Comment on above: ensure rosuvastatin calcium 5 mg oral tablet (4 sources) HMG-CoA Reductase Inhibitor Start: 02-27-2019 take 1 tablet by mouth once daily at bedtime rosuvastatin (CRESTOR) 5 mg tablet Take 1 tablet by mouth daily at bedtime. 0 02/27/2019 Active Comment on above: Take 1 tablet by santos th daily at bedtime. valACYclovir 500 mg oral tablet (16 sources) Herpesvirus Nucleoside Analog DNA Polymerase Inhibitor, Herpes Simplex Virus Nucleoside Analog DNA Polymerase Inhibitor, Herpes Zoster Virus Nucleoside Analog DNA Polymerase Inhibitor Start: 05-04-2020 End: 11-03-2021 take 1 tablet by mouth twice daily valACYclovir (VALTREX) 500 mg tablet Take 1 tablet by mouth twice daily. 120 tablet 5 11/03/2021 Active Start: 08-16-2015 End: 02-24-2019 take 1 tablet by mouth once daily Valacyclovir 500 MG tablet Discontinued 500 mg PO DAILY September 01, 2016 12:00am February 24, 2019 4:14pm Comment on above: Take 1 tablet by santos th once daily. Take 1 tablet by santos th twice daily. Problems Active Problems Problem Classification Problem Date Documented Date Episodic/Chronic Adjustment disorders (8 sources) Adjustment disorder with mixed anxiety and depressed mood; Translations: [Adjustment disorder with mixed anxiety and depressed mood] Onset: 05-30-2012 05-30-2012 Chronic Anxiety disorders (10 sources) Anxiety; Translations: [Generalized anxiety disorder] Onset: 04-21-2005 09-21-2019 Chronic Disorders of lipid metabolism (4 sources) Hyperlipidemia; Translations: [Hyperlipidemia, unspecified] 11-07-2022 Chronic Essential hypertension (10 sources) Hypertensive disorder; Translations: [Essential (primary) hypertension] Onset: 09-11-2024 03-25-2016 Chronic Fluid and electrolyte disorders (1 source) Hypo-osmolality and hyponatremia; Translations: [Hypo-osmolality and hyponatremia] Onset: 08-20-2024 Episodic Headache; including migraine (4 sources) Migraine without aura; Translations: [Migraine without aura, not intractable, without status migrainosus] Onset: 10-30-2005 10-30-2005 Chronic Hemorrhoids (4 sources) Hemorrhoids; Translations: [Unspecified hemorrhoids] 10-27-2005 Episodic Inflammatory diseases of female pelvic organs (4 sources) Bacterial vaginosis; Translations: [Acute vaginitis] 01-16-2018 Episodic Menopausal disorders (5 sources) Atrophy of vagina; Translations: [Postmenopausal atrophic vaginitis] Onset: 12-13-2011 Chronic Mood disorders (4 sources) Depressive disorder; Translations: [Other specified depressive episodes] Onset: 04-21-2005 04-21-2005 Chronic Other connective tissue disease (1 source) Trochanteric bursitis, left hip; Translations: [Trochanteric bursitis, left hip] Onset: 06-18-2019 06-18-2019 Episodic Other connective tissue disease (4 sources) Muscle pain; Translations: [Myalgia, unspecified site] 02-22-2016 Episodic Other connective tissue disease (10 sources) Fibromyalgia; Translations: [Fibromyalgia] Onset: 08-12-2011 08-12-2011 Episodic Other connective tissue disease (1 source) Cramp and spasm; Translations: [Cramp and spasm] Onset: 07-22-2024 Episodic Other nervous system disorders (4 sources) Chronic pain; Translations: [Other chronic pain] Onset: 06-19-2013 06-19-2013 Chronic Other nervous system disorders (2 sources) Acute postoperative pain; Translations: [Acute postoperative pain] 09-22-2019 Episodic Other skin disorders (1 source) Eruption; Translations: [Rash and other nonspecific skin eruption] Episodic Other upper respiratory disease (5 sources) Pharyngeal dryness; Translations: [Other diseases of pharynx] 12-28-2021 Episodic Residual codes; unclassified (1 source) Delirium; Translations: [Delirium] Episodic Residual codes; unclassified (1 source) Hallucinations; Translations: [Hallucinations] Episodic Residual codes; unclassified (8 sources) Altered mental status; Translations: [Altered mental status, unspecified] Onset: 09-19-2019 09-19-2019 Episodic Residual codes; unclassified (2 sources) Decline in functional status; Translations: [Declining functional status] 09-21-2019 Schizophrenia and other psychotic disorders (12 sources) Paranoid ideation; Translations: [Delusional disorders] 09-26-2019 Chronic Substance-related disorders (4 sources) Opioid dependence; Translations: [Opioid dependence, uncomplicated] Onset: 12-15-2013 12-15-2013 Chronic Substance-related disorders (2 sources) Benzodiazepine withdrawal delirium; Translations: [Benzodiazepine withdrawal with delirium (HCC)] 09-21-2019 Episodic Urinary tract infections (4 sources) Chronic interstitial cystitis; Translations: [Interstitial cystitis (chronic) without hematuria] Onset: 11-25-2009 11-25-2009 Chronic Viral infection (4 sources) Herpes simplex type 2 infection; Translations: [Herpesviral infection, unspecified] 01-16-2018 Episodic Past or Other Problems Problem Classification Problem Date Documented Da te Episodic/Chronic Abdominal pain (16 sources) Pain in female pelvis; Translations: [Pelvic and perineal pain] Onset: 0 11-25-2009 Episodic Anal and rectal conditions (4 sources) Rectal pain; Translations: [Other specified diseases of anus and rectum] Onset: 2 01-05-2012 Episodic Biliary tract disease (4 sources) Biliary calculus; Translations: [Other cholelithiasis without obstruction] Onset: 5 02-18-2015 Episodic Headache; including migraine (4 sources) Headache; Translations: [Headache] Onset: 6 04-21-2005 Episodic Other and unspecified benign neoplasm (4 sources) Tubular adenoma of colon; Translations: [Benign neoplasm of colon, unspecified] Onset: 4 10-31-2013 Episodic Other bone disease and musculoskeletal deformities (4 sources) Osteopenia; Translations: [Other specified disorders of bone density and structure, unspecified site] Onset: 1 04-04-2021 Episodic Other eye disorders (1 source) Aponeurotic ptosis; Translations: [Other atrophic disorders of skin] Onset: 6 08-16-2015 Episodic Other female genital disorders (4 sources) Burning sensation of vagina; Translations: [Unspecified condition associated with female genital organs and menstrual cycle] Onset: 3 06-05-2012 Episodic Other gastrointestinal disorders (8 sources) Constipation; Translations: [Constipation, unspecified] Onset: 2 12-13-2011 Episodic Other inflammatory condition of skin (4 sources) Pruritus of skin; Translations: [Pruritus, unspecified] Onset: 2 12-13-2011 Episodic Other lower respiratory disease (4 sources) Cough; Translations: [Cough] Onset: 1 08-02-2010 Episodic Other nutritional; endocrine; and metabolic disorders (4 sources) Weight gain; Translations: [Abnormal weight gain] Onset: 1 11-24-2010 Episodic Other skin disorders (1 source) Intrinsic aging of skin; Translations: [Other skin changes] Onset: 6 08-16-2015 Episodic Residual codes; unclassified (4 sources) Positive measurement finding; Translations: [HPV test positive] Onset: 5 04-04-2021 Episodic Sexually transmitted infections (not HIV or hepatitis) (4 sources) Human papilloma virus deoxyribonucleic acid test positive, high risk on vaginal specimen; Translations: [Vaginal high risk human papillomavirus (HPV) DNA test positive] Onset: 3 04-04-2021 Episodic Unclassified (1 source) Problem Urinary tract infections (4 sources) Cystitis; Translations: [Cystitis, unspecified without hematuria] Onset: 1 08-02-2010 Episodic Results Test Name Value Interpretation Reference Range Facility 12 Lead EKGon 09-04-2024 12 Lead EKG [facility] Cardiovascular Services [address] [place] [address] 12 Lead EKG 09/04/24 0453 MR#: [id number] Acct: [id number] Name: ANGÉLICA DAWN Rep #: [id number] : 1950 74 From: Isa Shankar MD Attending Dr: Status: DEP ER Ordering Dr: Jesse Bueno DO Date: 09/04/24 Location: ED Sex: F C Admitted: Test Reason : HTN Blood Pressure : */* mmHG Vent. Rate : 65 BPM Atrial Rate : 65 BPM P-R Int : 176 ms QRS Dur : 88 ms QT Int : 434 ms P-R-T Axes : 57 19 43 degrees QTcB Int : 451 ms Normal sinus rhythm Normal ECG Confirmed by ISA SHANKAR ([id number]), newspaper editor managing KATE LIZAMA ([id number]) on 09/08/2024 7:25:51 AM Referred By: FRANKIE Confirmed By: ISA SHANKAR 09/08/24 0725 Date Isa Shankar MD CC: Dr. Regino Davey MD; Jesse Bueno DO Signed Normal [facility] Absolute lymphocyte countOrd ered By: Jesse Bueno on 09-04-2024 Lymphocytes Auto (Unsp spec) [#/Vol] 2.31 10*3/uL 0.83-4.51 [facility] Absolute neutrophil countOrd ered By: Jesse Bueno on 09-04-2024 Neutrophils (Bld) [#/Vol] 3.6 10*3/uL 2.0-7.7 [facility] Anion gap in Serum or Plasma Ordered By: Jesse Bueno on 09-04-2024 Anion gap [Moles/Vol] 12 mmol/L 5- [facility] Automated lymphocyte count a s percentage of total leukocytesOrdered By: Jeses Bueno on 09-04-2024 Lymphocytes/100 WBC Auto (Unsp spec) 33.6 % -41 [facility] BUN/creatinine ratioOrdered By: Jesse Bueno on 09-04-2024 Urea nitrogen/Creatinine [Mass ratio] 10.6 mg/mg 10- [facility] Basic Metabolic Profile (BMP )on 09-04-2024 BUN/CRE 10.6 RATIO Normal - [facility] Comment on above: Performed By: #### L 500.2500, L500.4100 #### [facility] Laboratory [address] [place], [address] Calcium [Mass/Vol] 9.7 mg/dL Normal 7.6-11.0 [facility] Comment on above: Performed By: #### L 500.2500, L500.4100 #### [facility] Laboratory [address] [place], [address] Chloride [Moles/Vol] 99 mmol/L Normal 98-108 [facility] Comment on above: Performed By: #### L 500.2500, L500.4100 #### [facility] Laboratory [address] [place], [address] CO2 [Moles/Vol] 21.2 mmol/L Normal 21.0-32.0 [facility] Comment on above: Performed By: #### L 500.2500, L500.4100 #### [facility] Laboratory [address] [place], [address] Creatinine [Mass/Vol] 0.97 mg/dL Normal 0.70-1.20 [facility] Comment on above: Performed By: #### L 500.2500, L500.4100 #### [facility] Laboratory [address] [place], [address] ECRCL 48.65 ml/min Low 50-250 [facility] Comment on above: Performed By: #### L 500.2500, L500.4100 #### [facility] Laboratory [address] [place], [address] GAP 12 Normal 5-15 [facility] Comment on above: Performed By: #### L 500.2500, L500.4100 #### [facility] Laboratory [address] [place], [address] GFR/1.73 sq M.predicted among non-blacks MDRD (S/P/Bld) [Vol rate/Area] 61 mL/min/{1.73_m2} Normal >60 [facility] Comment on above: Result Comment: mL/m in/1.73m2 CKD-EPI Creatinine Equation (2020) Performed By: #### L 500.2500, L500.4100 #### [facility] Laboratory [address] [place], [address] Glucose [Mass/Vol] 109 mg/dL High 70-99 [facility] Comment on above: Performed By: #### L 500.2500, L500.4100 #### [facility] Laboratory [address] [place], [address] Potassium [Moles/Vol] 4.7 mmol/L Normal 3.3-5.1 [facility] Comment on above: Result Comment: Hemo lysis present, Results??could be affected. ?? Performed By: #### L 500.2500, L500.4100 #### [facility] Laboratory [address] [place], [address] Sodium [Moles/Vol] 133 mmol/L Normal 133-145 [facility] Comment on above: Performed By: #### L 500.2500, L500.4100 #### [facility] Laboratory [address] [place], [address] Urea nitrogen [Mass/Vol] 10 mg/dL Normal 4-19 [facility] Comment on above: Performed By: #### L 500.2500, L500.4100 #### [facility] Laboratory [address] [place], [address] Basophil percentageOrdered B y: Jesse Bueno on 09-04-2024 Basophils/100 WBC (Bld) 0.9 % 0-1 [facility] Brain/Head without Contrasto n 09-04-2024 Brain/Head without Contrast [facility] Imaging Services [address] [place] [address] Brain/Head without Contrast MR#: [id number] Acct: [id number] Name: ANGÉLICA DAWN Rep #: [id number] : 1950 F 74 From: Popeye Olea MD PCP: Dr. Regino Davey MD Status: REG ER Study: Brain/Head without Contrast Date of Exam: 08/08 01/01 Exam# [id number] Ordering Dr: Jesse Bueno DO PROCEDURE: BRAIN/HEAD WITHOUT CONTRAST 09/04/2024 REASON FOR EXAM: HEADACHE TECHNIQUE: Head CT without intravenous contrast. Coronal and Sagittal reconstruction series were provided. One or more dose reduction techniques were used (e.g., Automated exposure control, adjustment of the mA and/or kV according to patient size, use of iterative reconstruction technique. RADIATION DOSE SUMMARY: CTDlvol: 44.99 mGy DLP: 846.73 mGycm COMPARISON: 09/24/2019 FINDINGS: No intracranial hemorrhage, mass effect or CT evidence of large vascular territory acute infarct. The ventricles are unchanged in size and remain midline. Convexity volume loss again noted. The paranasal sinuses, mastoids and orbits appear within limits. CT/Brain/Head without Contrast IMPRESSION: No intracranial hemorrhage, mass effect or CT evidence of large vascular territory acute infarct. Reading Location: [id number] CC: Dr. Regino Davey MD; Jesse Bueno DO Manufacturing Engineer Paint: Signed Normal [facility] CBC W/Diff, Automatedon 05- Absolute Lymph 2.31 X10 3/uL Normal 0.83-4.51 [facility] Comment on above: Performed By: #### L 100.0100, L501.5200, L500.2500 #### [facility] Laboratory [address] [place], [address] Absolute Neut 3.6 X10 3/uL Normal 2.0-7.7 [facility] Comment on above: Performed By: #### L 100.0100, L501.5200, L500.2500 #### [facility] Laboratory [address] [place], [address] Basophils/100 WBC (Bld) 0.9 % Normal 0-1 [facility] Comment on above: Performed By: #### L 100.0100, L501.5200, L500.2500 #### [facility] Laboratory [address] [place], [address] Eosinophils/100 WBC (Bld) 5.8 % High 0-5 [facility] Comment on above: Performed By: #### L 100.0100, L501.5200, L500.2500 #### [facility] Laboratory [address] [place], [address] Erythrocyte distribution width (RBC) [Ratio] 12.1 % Normal 11.6-14.6 [facility] Comment on above: Performed By: #### L 100.0100, L501.5200, L500.2500 #### [facility] Laboratory [address] [place], [address] Hematocrit (Bld) [Volume fraction] 37.7 % Normal 37-47 [facility] Comment on above: Performed By: #### L 100.0100, L501.5200, L500.2500 #### [facility] Laboratory [address] [place], [address] Hemoglobin (Bld) [Mass/Vol] 13.3 g/dL Normal 12.0-15.0 [facility] Comment on above: Performed By: #### L 100.0100, L501.5200, L500.2500 #### [facility] Laboratory [address] [place], [address] IG% 0.300 Normal 0.0-0.9 [facility] Comment on above: Result Comment: IG% - Immature Granulocytes (promyelocytes, myelocytes and metamyelocytes) > 1% indicates that a LEFT SHIFT is Present. Performed By: #### L 100.0100, L501.5200, L500.2500 #### [facility] Laboratory [address] [place], [address] Lymphocytes/100 WBC (Bld) 33.6 % Normal 19-41 [facility] Comment on above: Performed By: #### L 100.0100, L501.5200, L500.2500 #### [facility] Laboratory [address] [place], [address] MCH (RBC) [Entitic mass] 31.3 pg Normal 27.0-32.0 [facility] Comment on above: Performed By: #### L 100.0100, L501.5200, L500.2500 #### [facility] Laboratory [address] [place], [address] MCHC (RBC) [Mass/Vol] 35.3 g/dL Normal 32-36 [facility] Comment on above: Performed By: #### L 100.0100, L501.5200, L500.2500 #### [facility] Laboratory [address] [place], [address] MCV (RBC) [Entitic vol] 88.7 fL Normal 81-99 [facility] Comment on above: Performed By: #### L 100.0100, L501.5200, L500.2500 #### [facility] Laboratory [address] [place], [address] Monocytes/100 WBC (Bld) 7.0 % Normal 0-10 [facility] Comment on above: Performed By: #### L 100.0100, L501.5200, L500.2500 #### [facility] Laboratory [address] [place], [address] Neutrophils/100 WBC (Bld) 52.4 % Normal 47-70 [facility] Comment on above: Performed By: #### L 100.0100, L501.5200, L500.2500 #### [facility] Laboratory [address] [place], [address] Nucleated RBC (Bld) [#/Vol] 0 10*3/uL Normal 0-5 [facility] Comment on above: Performed By: #### L 100.0100, L501.5200, L500.2500 #### [facility] Laboratory [address] [place], [address] Platelet mean volume (Bld) [Entitic vol] 11.4 fL Normal 6.2-12.0 [facility] Comment on above: Performed By: #### L 100.0100, L501.5200, L500.2500 #### [facility] Laboratory [address] [place], [address] Platelets (Bld) [#/Vol] 256 10*3/uL Normal 150-450 [facility] Comment on above: Performed By: #### L 100.0100, L501.5200, L500.2500 #### [facility] Laboratory [address] [place], [address] RBC (Bld) [#/Vol] 4.25 10*6/uL Normal 4.2-5.4 [facility] Comment on above: Performed By: #### L 100.0100, L501.5200, L500.2500 #### [facility] Laboratory [address] [place], [address] RDW SD 39.5 fl Normal 35.1-43.9 [facility] Comment on above: Performed By: #### L 100.0100, L501.5200, L500.2500 #### [facility] Laboratory [address] [place], [address] WBC (Bld) [#/Vol] 6.9 10*3/uL Normal 4.4-11.0 [facility] Comment on above: Performed By: #### L 100.0100, L501.5200, L500.2500 #### [facility] Laboratory [address] [place], [address] Carbon dioxide, total [Moles /volume] in Central venous bloodOrdered By: Jesse Bueno on 09-04-2024 CO2 [Moles/Vol] 21.2 mmol/L 21.0-32.0 [facility] Chloride assayOrdered By: Alla Bueno on 09-04-2024 Chloride [Moles/Vol] 99 mmol/L 98-108 [facility] Emergency Department Summary on 09-04-2024 Emergency Department Summary [facility] Medical Records Department [address] [place] [address] Emergency Department Summary 09/04/24 MR#: [id number] Acct: [id number] Name: ANGÉLICA DAWN Rep #: [id number] : 1950 74 From: Jesse Bueno DO PCP: Dr. Regino Davey MD Status:DEP ER Location: ED HPI History of Present Illness Chief Complaint: Hypertension Informant: patient and spouse/S.O. Narrative Narrative: Patient is a 74-year-old female with past medical history of hypertension hyperlipidemia and anxiety. She states that she has been taking her medications as directed. She reports that she has had a few episodes of loose stool/diarrhea over the last 2 days. She denies any fevers or chills or known sick contacts. She denies any recent antibiotic use or travel outside the country. She states that this morning she was feeling dizzy and therefore checked her blood pressure and it was elevated which concerned her and therefore EMS was called and she was brought in for evaluation. She states she has a headache associated with the hypertension. She denies any chest pain or shortness of breath. She states that there has been no excessive stimulant use or illicit drug use either [facility] Medical History (Updated 09/04/24 @ 06:[address] Jesse Bueno, ) Hyperlipidemia Essential hypertension IBS (irritable bowel syndrome) GERD (gastroesophageal reflux disease) Fibromyalgia Anxiety Osteoarthritis Back pain Home Medications ???Medication ???Instructions ???Recorded ???Last Taken ???Type cholecalciferol (vitamin D3) 125 5,000 unit PO DAILY 02/24/19 Unkno wn History mcg (5,000 unit) capsule dicyclomine 10 mg capsule 10 mg PO DAILY stomach 09/24/19 Un known History omeprazole 20 mg capsule,delayed 20 mg PO DAILY gerd 09/24/19 Unkno wn History release simvastatin 5 mg tablet 5 mg PO DAILY cholesterol 09/24/19 Unknown History atenolol 25 mg tablet 50 mg PO BID heart 11/07/22 Unknow n History lorazepam 1 mg tablet 1 mg PO TID 11/07/22 Unknown Histo ry meloxicam 15 mg tablet 15 mg PO DAILY 09/04/24 Unknown Hi story Allergy/AdvReac Type Severity Reaction Status Date / Time Cephalosporins Allergy Unknown unknown Verified 11/07/22 16:44 losartan Allergy Unknown Headache, Verified 11/07/22 16:44 chest pain bupropion HCl (From Allergy Rash Verified 12/19/21 22:50 Wellbutrin) desipramine Allergy Hives Verified 12/19/21 22:50 doxycycline Allergy Rash Verified 12/19/21 22:50 fluoxetine HCl (From Prozac) Allergy Hives Verified 12/19/21 22:50 imipramine Allergy Rash Verified 12/19/21 22:50 metronidazole (From Flagyl) Allergy Rash Verified 12/19/21 22:50 solifenacin succinate (From Allergy Hives Verified 12/19/21 22:50 Vesicare) sumatriptan (From Imitrex) Allergy Rash Verified 12/19/21 22:50 sumatriptan succinate (From Allergy Rash Verified 12/19/21 22:50 Imitrex) tramadol HCl (From Ultram) Allergy Rash Verified 12/19/21 22:50 Family History (Updated 02/15/22 @ 15:14 by Mona Sotelo) Sister Diabetes Alcoholism Obesity Father Heart disease Alcoholism CAD (coronary artery disease) Mother Alzheimers disease Arthritis Grandfather Lung cancer Aunt Alzheimers disease Cancer Uncle Alzheimers disease maternal Alcoholism paternal Surgical History History of colonoscopy History of partial hysterectomy History of tubal ligation History of cholecystectomy Social History Smoking Status: Current every day smoker tobacco type: cigarettes ROS ROS ED Constitutional Constitutional ED: Denies chills or fever(s) Eyes Eyes: Denies blurry vision or change in vision ENT ENT ED: Denies sore throat Cardiovascular Cardiovascular: Denies chest pain, palpitations or racing heartbeat Respiratory/Chest Respiratory/Chest: Denies cough or dyspnea Gastrointestinal Gastrointestinal: Reports diarrhea; Denies abdominal pain, melena, nausea or vomiting Genitourinary Genitourinary ED: Denies dysuria Musculoskeletal Musculoskeletal: Denies back pain or neck pain Integumentary Denies rash Neurologic Neurologic: Reports headache(s) and other Details: Positive dizziness ; Denies paresthesias or weakness Psychiatric Psychiatric: Reports anxiety Hematologic/Lympha tic Hematologic/Lympha tic: Denies easy bleeding or easy bruising EXAM Physical Exam Const Vital Signs: 09/04/24 04:15 09/04/24 05:45 Temperature 98.7 F 98.2 F Temperature Source Oral Pulse Rate 71 68 Respiratory Rate 16 16 Blood Pressure 198/98 H 157/82 H Blood Pressure Mean 131 107 Pulse Ox 97 98 Oxygen Delivery Method Room Air Positive well nourished and well developed General Appearance E (more content not included)... Normal [facility] Eosinophil percentageOrdered By: Jesse Bueno on 09-04-2024 Eosinophils/100 WBC (Bld) 5.8 % High 0-5 [facility] Erythrocyte distribution wid th ratioOrdered By: Jesse Bueno on 09-04-2024 Erythrocyte distribution width (RBC) [Ratio] 12.1 % 11.6-14.6 [facility] Erythrocyte distribution wid th standard deviationOrdered By: Jeses Bueno on 09-04-2024 Erythrocyte distribution width (RBC) [Ratio] 39.5 fl 35.1-43.9 [facility] Glomerular filtration rate ( GFR) estimation/1.73 sq m using serum, plasma, or whole bOrdered By: Jesse Bueno on 09-04-2024 GFR/1.73 sq M.predicted among non-blacks MDRD (S/P/Bld) [Vol rate/Area] 61 mL/min/{1.73_m2} >60 [facility] Comment on above: mL/min/1.73m2 CKD-EP I Creatinine Equation (2020) Hematocrit Auto (Bld) [Volum e fraction]Ordered By: Jesse Bueno on 09-04-2024 Hematocrit (Bld) [Volume fraction] 37.7 % 37-47 [facility] Hemoglobin measurementOrdere d By: Jesse Bueno on 09-04-2024 Hemoglobin (Bld) [Mass/Vol] 13.3 g/dL 12.0-15.0 [facility] Immature granulocytes/100 WB C Auto (Bld)Ordered By: Jesse Bueno on 09-04-2024 Immature granulocytes/100 WBC (Bld) 0.300 % 0.0-0.9 [facility] Comment on above: IG% - Immature Granu locytes (promyelocytes, myelocytes and metamyelocytes) > 1% indicates that a LEFT SHIFT is Present. MCV (mean corpuscular volume ) determinationOrdered By: Jesse Bueno on 09-04-2024 MCV (RBC) [Entitic vol] 88.7 fL 81-99 [facility] Magnesiumon 09-04-2024 Magnesium [Mass/Vol] 2.3 mg/dL High 1.5-2.2 [facility] Comment on above: Performed By: #### L 100.0100, L501.5200, L500.2500 #### [facility] Laboratory [address] [place], [address] Magnesium measurement (mass/ volume)Ordered By: Jesse Bueno on 09-04-2024 Magnesium (Unsp spec) [Mass/Vol] 2.3 mg/dL High 1.5-2.2 [facility] Mean corpuscular hemoglobin (MCH) determinationOrdered By: Jesse Bueno on 09-04-2024 MCH (RBC) [Entitic mass] 31.3 pg 27.0-32.0 [facility] Mean corpuscular hemoglobin concentration (MCHC) determinationOrdered By: Jesse Bueno on 09-04-2024 MCHC (RBC) [Mass/Vol] 35.3 g/dL 32-36 [facility] Mean platelet volume determi nationOrdered By: Jesse Bueno on 09-04-2024 Platelet mean volume (Bld) [Entitic vol] 11.4 fL 6.2-12.0 [facility] Monocyte percentageOrdered B y: Jesse Bueno on 09-04-2024 Monocytes/100 WBC (Bld) 7.0 % 0-10 [facility] Neutrophil percentageOrdered By: Jesse Bueno on 09-04-2024 Neutrophils/100 WBC (Bld) 52.4 % 47-70 [facility] Nucleated red blood cell per centageOrdered By: Jesse Bueno on 09-04-2024 Nucleated RBC/100 WBC (Bld) [Ratio] 0 % 0-5 [facility] Platelet countOrdered By: Alla Bueno on 09-04-2024 Platelets (Bld) [#/Vol] 256 10*3/uL 150-450 [facility] Potassium measurement (mass/ volume)Ordered By: Jesse Bueno on 09-04-2024 Potassium (Unsp spec) [Mass/Vol] 4.7 mmol/L 3.3-5.1 [facility] Comment on above: Hemolysis present, R esults could be affected. RBC Auto (Bld) [#/Vol]Ordere d By: Jesse Bueno on 09-04-2024 RBC (Bld) [#/Vol] 4.25 10*6/uL 4.2-5.4 [facility] Serum creatinine measurement (mass/volume)Ordered By: Jesse Bueno on 09-04-2024 Creatinine [Mass/Vol] 0.97 mg/dL 0.70-1.20 [facility] Serum glucose measurement (m ass/volume)Ordered By: Jesse Bueno on 09-04-2024 Glucose [Mass/Vol] 109 mg/dL High 70-99 [facility] Serum or plasma calcium margi urement (mass/volume)Ordered By: Jesse Bueno on 09-04-2024 Calcium [Mass/Vol] 9.7 mg/dL 7.6-11.0 [facility] Serum or plasma urea nitroge n measurement (mass/volume)Ordered By: Jesse Bueno on 09-04-2024 Urea nitrogen [Mass/Vol] 10 mg/dL 4-19 [facility] Sodium levelOrdered By: Nnamdi Bueno on 09-04-2024 Sodium [Moles/Vol] 133 mmol/L 133-145 [facility] White blood cell (WBC) count Ordered By: Jesse Bueno on 09-04-2024 WBC (Bld) [#/Vol] 6.9 10*3/uL 4.4-11.0 [facility] Anion gap in Serum or Plasma Ordered By: Regino Davey on 08-15-2024 Anion gap [Moles/Vol] 11 mmol/L 5-15 [facility] BUN/creatinine ratioOrdered By: Regino Davey on 08-15-2024 Urea nitrogen/Creatinine [Mass ratio] 10.6 mg/mg 10- [facility] Basic Metabolic Profile (BMP )on 08-15-2024 BUN/CRE 10.6 RATIO Normal - [facility] [place] Comment on above: Performed By: #### L 500.2500 #### [facility] [place] Laboratory [address] [place], [address] Calcium [Mass/Vol] 9.4 mg/dL Normal 7.6-11.0 [facility] Comment on above: Performed By: #### L 500.2500 #### [facility] [place] Laboratory [address] [place], [address] Chloride [Moles/Vol] 102 mmol/L Normal 98-108 [facility] Comment on above: Performed By: #### L 500.2500 #### [facility] [place] Laboratory [address] [place], [address] CO2 [Moles/Vol] 22.4 mmol/L Normal 21.0-32.0 [facility] [place] Comment on above: Performed By: #### L 500.2500 #### [facility] [place] Laboratory [address] [place], [address] Creatinine [Mass/Vol] 1.08 mg/dL Normal 0.70-1.20 [facility] Comment on above: Performed By: #### L 500.2500 #### [facility] [place] Laboratory [address] [place], [address] GAP 11 Normal 5-15 [facility] [place] Comment on above: Performed By: #### L 500.2500 #### [facility] [place] Laboratory [address] [place], [address] GFR/1.73 sq M.predicted among non-blacks MDRD (S/P/Bld) [Vol rate/Area] 54 mL/min/{1.73_m2} Low >60 [facility] [place] Comment on above: Result Comment: mL/m in/1.73m2 CKD-EPI Creatinine Equation (2020) Performed By: #### L 500.2500 #### [facility] [place] Laboratory [address] [place], [address] Glucose [Mass/Vol] 99 mg/dL Normal 70-99 [facility] Comment on above: Performed By: #### L 500.2500 #### [facility] [place] Laboratory [address] [place], [address] Potassium [Moles/Vol] 4.6 mmol/L Normal 3.3-5.1 [facility] Comment on above: Performed By: #### L 500.2500 #### [facility] [place] Laboratory [address] [place], [address] Sodium [Moles/Vol] 135 mmol/L Normal 133-145 [facility] Comment on above: Performed By: #### L 500.2500 #### [facility] [place] Laboratory [address] [place], [place], [id number] Urea nitrogen [Mass/Vol] 12 mg/dL Normal 4-19 [facility] [place] Comment on above: Performed By: #### L 500.2500 #### [facility] [place] Laboratory [address] [place], [place], [id number] Carbon dioxide, total [Moles /volume] in Central venous bloodOrdered By: Regino Davey on 08-15-2024 CO2 [Moles/Vol] 22.4 mmol/L 21.0-32.0 [facility] [place] Chloride assayOrdered By: Candido Davey on 08-15-2024 Chloride [Moles/Vol] 102 mmol/L 98-108 [facility] Glomerular filtration rate ( GFR) estimation/1.73 sq m using serum, plasma, or whole bOrdered By: Regino Davey on 08-15-2024 GFR/1.73 sq M.predicted among non-blacks MDRD (S/P/Bld) [Vol rate/Area] 54 mL/min/{1.73_m2} Low >60 [facility] [place] Comment on above: mL/min/1.73m2 CKD-EP I Creatinine Equation (2020) Potassium measurement (mass/ volume)Ordered By: Regino Davey on 08-15-2024 Potassium (Unsp spec) [Mass/Vol] 4.6 mmol/L 3.3-5.1 [facility] [place] Serum creatinine measurement (mass/volume)Ordered By: Regino Davey on 08-15-2024 Creatinine [Mass/Vol] 1.08 mg/dL 0.70-1.20 [facility] Serum glucose measurement (m ass/volume)Ordered By: Regino Davey on 08-15-2024 Glucose [Mass/Vol] 99 mg/dL 70-99 [facility] Serum or plasma calcium margi urement (mass/volume)Ordered By: Regino Davey on 08-15-2024 Calcium [Mass/Vol] 9.4 mg/dL 7.6-11.0 [facility] Serum or plasma urea nitroge n measurement (mass/volume)Ordered By: Regino Davey on 08-15-2024 Urea nitrogen [Mass/Vol] 12 mg/dL - [facility] [place] Sodium levelOrdered By: Regino Davey on 08-15-2024 Sodium [Moles/Vol] 135 mmol/L 133-145 [facility] Anion gap in Serum or Plasma Ordered By: Regino Davey on 07-16-2024 Anion gap [Moles/Vol] 13 mmol/L 5- [facility] BUN/creatinine ratioOrdered By: Regino Davey on 07-16-2024 Urea nitrogen/Creatinine [Mass ratio] 12.5 mg/mg - [facility] [place] Basic Metabolic Profile (BMP )on 07-16-2024 BUN/CRE 12.5 RATIO Normal 01-26 [facility] [place] Comment on above: Performed By: #### L 501.5200, L500.2500 #### [facility] [place] Laboratory [address] [place], [address] Calcium [Mass/Vol] 9.2 mg/dL Normal 7.6-11.0 [facility] Comment on above: Performed By: #### L 501.5200, L500.2500 #### [facility] [place] Laboratory [address] [place], [address] Chloride [Moles/Vol] 99 mmol/L Normal 98-108 [facility] Comment on above: Performed By: #### L 501.5200, L500.2500 #### [facility] [place] Laboratory [address] [place], [address] CO2 [Moles/Vol] 20.3 mmol/L Low 21.0-32.0 [facility] [place] Comment on above: Performed By: #### L 501.5200, L500.2500 #### [facility] [place] Laboratory [address] [place], [address] Creatinine [Mass/Vol] 1.22 mg/dL High 0.70-1.20 [facility] Comment on above: Performed By: #### L 501.5200, L500.2500 #### [facility] [place] Laboratory [address] [place], [address] GAP 13 Normal 5-15 [facility] [place] Comment on above: Performed By: #### L 501.5200, L500.2500 #### [facility] [place] Laboratory [address] [place], [address] GFR/1.73 sq M.predicted among non-blacks MDRD (S/P/Bld) [Vol rate/Area] 46 mL/min/{1.73_m2} Low >60 [facility] [place] Comment on above: Result Comment: mL/m in/1.73m2 CKD-EPI Creatinine Equation (2020) Performed By: #### L 501.5200, L500.2500 #### [facility] [place] Laboratory [address] [place], [address] Glucose [Mass/Vol] 105 mg/dL High 70-99 [facility] Comment on above: Performed By: #### L 501.5200, L500.2500 #### [facility] [place] Laboratory [address] [place], [address] Potassium [Moles/Vol] 4.4 mmol/L Normal 3.3-5.1 [facility] Comment on above: Performed By: #### L 501.5200, L500.2500 #### [facility] [place] Laboratory [address] [place], [address] Sodium [Moles/Vol] 132 mmol/L Low 133-145 [facility] Comment on above: Performed By: #### L 501.5200, L500.2500 #### [facility] [place] Laboratory [address] [place], [address] Urea nitrogen [Mass/Vol] 15 mg/dL Normal 4-19 [facility] [place] Comment on above: Performed By: #### L 501.5200, L500.2500 #### [facility] [place] Laboratory [address] [place], [address] Carbon dioxide, total [Moles /volume] in Central venous bloodOrdered By: Regino Davey on 07-16-2024 CO2 [Moles/Vol] 20.3 mmol/L Low 21.0-32.0 [facility] [place] Chloride assayOrdered By: Candido Davey on 07-16-2024 Chloride [Moles/Vol] 99 mmol/L 98-108 [facility] GFR/1.73 sq M.predicted mimi g non-blacks MDRD (S/P/Bld) [Vol rate/Area]Ordered By: Regino Davey on 07-16-2024 Estimated GFR (MDRD) Non-Af Amer 46 Low >60 [facility] [place] Comment on above: mL/min/1.73m2 CKD-EP I Creatinine Equation (2020) Glomerular filtration rate ( GFR) estimation/1.73 sq m using serum, plasma, or whole bOrdered By: Regino Davey on 07-16-2024 GFR/1.73 sq M.predicted among non-blacks MDRD (S/P/Bld) [Vol rate/Area] 46 mL/min/{1.73_m2} Low >60 [facility] [place] Comment on above: mL/min/1.73m2 CKD-EP I Creatinine Equation (2020) Magnesiumon 07-16-2024 Magnesium [Mass/Vol] 2.0 mg/dL Normal 1.5-2.2 [facility] Comment on above: Performed By: #### L 501.5200, L500.2500 #### [facility] [place] Laboratory [address] [facility] [place], [place], [id number] Magnesium (Unsp spec) [Mass/ Vol]Ordered By: Regino Davey on 07-16-2024 Magnesium [Mass/Vol] 2.0 mg/dL 1.5-2.2 [facility] Magnesium measurement (mass/ volume)Ordered By: Regino Davey on 07-16-2024 Magnesium (Unsp spec) [Mass/Vol] 2.0 mg/dL 1.5-2.2 [facility] [place] Potassium (Unsp spec) [Mass/ Vol]Ordered By: Regino Davey on 07-16-2024 Potassium [Moles/Vol] 4.4 mmol/L 3.3-5.1 [facility] Potassium measurement (mass/ volume)Ordered By: Regino Davey on 07-16-2024 Potassium (Unsp spec) [Mass/Vol] 4.4 mmol/L 3.3-5.1 [facility] [place] Serum creatinine measurement (mass/volume)Ordered By: Regino Davey on 07-16-2024 Creatinine [Mass/Vol] 1.22 mg/dL High 0.70-1.20 [facility] Serum glucose measurement (m ass/volume)Ordered By: Regino Davey on 07-16-2024 Glucose [Mass/Vol] 105 mg/dL High 70-99 [facility] Serum or plasma calcium margi urement (mass/volume)Ordered By: Regino Davey on 07-16-2024 Calcium [Mass/Vol] 9.2 mg/dL 7.6-11.0 [facility] Serum or plasma urea nitroge n measurement (mass/volume)Ordered By: Regino Davey on 07-16-2024 Urea nitrogen [Mass/Vol] 15 mg/dL 4-19 [facility] [place] Sodium levelOrdered By: Regino Davey on 07-16-2024 Sodium [Moles/Vol] 132 mmol/L Low 133-145 [facility] Basic Metabolic Profile (BMP )on 03-12-2024 BUN/CRE 12.8 RATIO Normal 10-20 [facility] [place] Comment on above: Performed By: #### L 500.2500, L500.4100 #### [facility] [place] Laboratory [address] [place], [address] CA,Total 9.2 mg/dL Normal 8.5-10.1 [facility] [place] Comment on above: Performed By: #### L 500.2500, L500.4100 #### [facility] [place] Laboratory [address] [place], [address] Chloride [Moles/Vol] 104 mmol/L Normal 98-107 [facility] Comment on above: Performed By: #### L 500.2500, L500.4100 #### [facility] [place] Laboratory [address] [place], [address] CO2 [Moles/Vol] 24.0 mmol/L Normal 21.0-32.0 [facility] [place] Comment on above: Performed By: #### L 500.2500, L500.4100 #### [facility] [place] Laboratory [address] [place], [address] Creatinine [Mass/Vol] 1.09 mg/dL High 0.55-1.02 [facility] Comment on above: Result Comment: The validity of the calculated GFR GFRAA in patients over 70 years has not been determined. Clinical correlation is essential. Performed By: #### L 500.2500, L500.4100 #### [facility] [place] Laboratory [address] [place], [address] EST GFR - AA 63 mL/min Normal >60 [facility] [place] Comment on above: Result Comment: Afri can Guinean GFR Calc Performed By: #### L 500.2500, L500.4100 #### [facility] [place] Laboratory [address] [place], [address] GAP 8 Normal 5-15 [facility] [place] Comment on above: Performed By: #### L 500.2500, L500.4100 #### [facility] [place] Laboratory [address] [place], [address] GFR/1.73 sq M.predicted among non-blacks MDRD (S/P/Bld) [Vol rate/Area] 52 mL/min/{1.73_m2} Low >60 [facility] [place] Comment on above: Result Comment: Non- GFR Calc Performed By: #### L 500.2500, L500.4100 #### [facility] [place] Laboratory [address] [place], [address] Glucose [Mass/Vol] 106 mg/dL Normal 74-106 [facility] Comment on above: Result Comment: Fast ing Glucose result from 100 to 125 mg/dL suggests IMPAIRED HOMEOSTASIS per A.D.A. criteria. Performed By: #### L 500.2500, L500.4100 #### [facility] [place] Laboratory [address] [place], [address] Potassium [Moles/Vol] 4.9 mmol/L Normal 3.5-5.1 [facility] Comment on above: Performed By: #### L 500.2500, L500.4100 #### [facility] [place] Laboratory [address] [place], [address] Sodium [Moles/Vol] 136 mmol/L Normal 136-145 [facility] Comment on above: Performed By: #### L 500.2500, L500.4100 #### [facility] [place] Laboratory [address] [place], [address] Urea nitrogen [Mass/Vol] 14 mg/dL Normal 7-18 [facility] [place] Comment on above: Performed By: #### L 500.2500, L500.4100 #### [facility] [place] Laboratory [address] [place], [address] Lipid Profileon 03-12-2024 Cholesterol [Mass/Vol] 172 mg/dL Normal 200 [facility] Comment on above: Result Comment: <200 mg/dL Desirable 200-240 mg/dL Borderline >240 mg/dL High Risk Performed By: #### L 500.2500, L500.4100 #### [facility] [place] Laboratory [address] [place], [address] Cholesterol in HDL [Mass/Vol] 57 mg/dL Normal [facility] [place] Comment on above: Result Comment: The drugs N-Acetylcysteine and Metamizole may falsely depress this assay. Reference Range HDL <40 mg/dL Low HDL Cholesterol HDL >or= 60 mg/dL High HDL Cholesterol Performed By: #### L 500.2500, L500.4100 #### [facility] [place] Laboratory [address] [place], [address] Cholesterol in LDL [Mass/Vol] 96 mg/dL Normal 0-130 [facility] [place] Comment on above: Performed By: #### L 500.2500, L500.4100 #### [facility] [place] Laboratory [address] [place], [address] Cholesterol in VLDL [Mass/Vol] 19 mg/dL Normal 5-40 [facility] [place] Comment on above: Performed By: #### L 500.2500, L500.4100 #### [facility] [place] Laboratory [address] [place], [address] Triglyceride [Mass/Vol] 94 mg/dL Normal [facility] Comment on above: Result Comment: The drugs N-Acetylcysteine and Metamizole may falsely depress this assay. Serum Triglycerides Reference Interval Normal <150 mg/dL Borderline high 150 - 199 mg/dL High 200 - 499 mg/dL Very High > or = 500 mg/dL Performed By: #### L 500.2500, L500.4100 #### [facility] [place] Laboratory [address] [place], [address] Basic Metabolic Profile (BMP )on 11-28-2023 BUN/CRE 16.0 RATIO Normal 10-20 [facility] [place] Comment on above: Performed By: #### L 500.2500, L500.4100 #### [facility] [place] Laboratory [address] [place], [address] CA,Total 9.0 mg/dL Normal 8.5-10.1 [facility] [place] Comment on above: Performed By: #### L 500.2500, L500.4100 #### [facility] [place] Laboratory [address] [place], [address] Chloride [Moles/Vol] 102 mmol/L Normal 98-107 [facility] Comment on above: Performed By: #### L 500.2500, L500.4100 #### [facility] [place] Laboratory [address] [place], [address] CO2 [Moles/Vol] 23.0 mmol/L Normal 21.0-32.0 [facility] [place] Comment on above: Performed By: #### L 500.2500, L500.4100 #### [facility] [place] Laboratory [address] [place], [address] Creatinine [Mass/Vol] 1.25 mg/dL High 0.55-1.02 [facility] Comment on above: Result Comment: The validity of the calculated GFR GFRAA in patients over 70 years has not been determined. Clinical correlation is essential. Performed By: #### L 500.2500, L500.4100 #### [facility] [place] Laboratory [address] [place], [address] EST GFR - AA 54 mL/min Low >60 [facility] [place] Comment on above: Result Comment: Afri can Guinean GFR Calc Performed By: #### L 500.2500, L500.4100 #### [facility] [place] Laboratory [address] [place], [address] GAP 7 Normal 5-15 [facility] [place] Comment on above: Performed By: #### L 500.2500, L500.4100 #### [facility] [place] Laboratory [address] [place], [address] GFR/1.73 sq M.predicted among non-blacks MDRD (S/P/Bld) [Vol rate/Area] 45 mL/min/{1.73_m2} Low >60 [facility] [place] Comment on above: Result Comment: Non- GFR Calc Performed By: #### L 500.2500, L500.4100 #### [facility] [place] Laboratory [address] [place], [address] Glucose [Mass/Vol] 92 mg/dL Normal 74-106 [facility] Comment on above: Performed By: #### L 500.2500, L500.4100 #### [facility] [place] Laboratory [address] [place], [address] Potassium [Moles/Vol] 4.7 mmol/L Normal 3.5-5.1 [facility] Comment on above: Performed By: #### L 500.2500, L500.4100 #### [facility] [place] Laboratory [address] [place], [address] Sodium [Moles/Vol] 132 mmol/L Low 136-145 [facility] Comment on above: Performed By: #### L 500.2500, L500.4100 #### [facility] [place] Laboratory [address] [place], [address] Urea nitrogen [Mass/Vol] 20 mg/dL High 7-18 [facility] [place] Comment on above: Performed By: #### L 500.2500, L500.4100 #### [facility] [place] Laboratory [address] [place], [address] Lipid Profileon 11-28-2023 Cholesterol [Mass/Vol] 184 mg/dL Normal 200 [facility] Comment on above: Result Comment: <200 mg/dL Desirable 200-240 mg/dL Borderline >240 mg/dL High Risk Performed By: #### L 500.2500, L500.4100 #### [facility] [place] Laboratory [address] [place], [address] Cholesterol in HDL [Mass/Vol] 53 mg/dL Normal [facility] [place] Comment on above: Result Comment: The drugs N-Acetylcysteine and Metamizole may falsely depress this assay. Reference Range HDL <40 mg/dL Low HDL Cholesterol HDL >or= 60 mg/dL High HDL Cholesterol Performed By: #### L 500.2500, L500.4100 #### [facility] [place] Laboratory [address] [place], [address] Cholesterol in LDL [Mass/Vol] 110 mg/dL Normal 0-130 [facility] [place] Comment on above: Performed By: #### L 500.2500, L500.4100 #### [facility] [place] Laboratory [address] [place], [address] Cholesterol in VLDL [Mass/Vol] 21 mg/dL Normal 5-40 [facility] [place] Comment on above: Performed By: #### L 500.2500, L500.4100 #### [facility] Laboratory [address] [place], [address] Triglyceride [Mass/Vol] 105 mg/dL Normal [facility] Comment on above: Result Comment: The drugs N-Acetylcysteine and Metamizole may falsely depress this assay. Serum Triglycerides Reference Interval Normal <150 mg/dL Borderline high 150 - 199 mg/dL High 200 - 499 mg/dL Very High > or = 500 mg/dL Performed By: #### L 500.2500, L500.4100 #### [facility] [place] Laboratory [address] [place], [address] Basophil percentageOrdered B y: Regino Davey on 02-14-2023 Chloride [Moles/Vol] 109 mmol/L 98-107 [facility] Cholesterol [Mass/Vol] 181 mg/dL <200 [facility] Comment on above: <200 mg/dL Desirable 200-240 mg/dL Borderline >240 mg/dL High Risk Glucose [Mass/Vol] 108 mg/dL 74-106 [facility] Comment on above: Fasting Glucose resu lt from 100 to 125 mg/dL suggests IMPAIRED HOMEOSTASIS per A.D.A. criteria. Potassium [Moles/Vol] 4.0 mmol/L 3.5-5.1 [facility] Sodium [Moles/Vol] 139 mmol/L 136-145 [facility] Triglyceride [Mass/Vol] 131 mg/dL <199 [facility] Comment on above: The drugs N-Acetylcy steine and Metamizole may falsely depress this assay.Serum Triglycerides Reference Interval Normal <150 mg/dL Borderline high 150 - 199 mg/dL High 200 - 499 mg/dL Very High > or = 500 mg/dL Laboratory - Chemistry and C hemistry - challengeOrdered By: Regino Davey on 02-14-2023 CO2 [Moles/Vol] 22.0 mmol/L 21.0-32.0 [facility] [place] Urea nitrogen/Creatinine [Mass ratio] 11.6 mg/mg 10-20 [facility] No Panel InformationOrdered By: Regino Davey on 02-14-2023 Estimated GFR (MDRD) Amer 61 mL/min >60 [facility] Comment on above: GFR Calc Estimated GFR (MDRD) Non-Af Amer 51 mL/min >60 [facility] [place] Comment on above: Non- GFR Calc Serum or plasma calcium margi urement (mass/volume)Ordered By: Regino Davey on 02-14-2023 Calcium [Mass/Vol] 9.0 mg/dL 8.5-10.1 [facility] Serum or plasma cholesterol in HDL measurement (mass/volume)Ordered By: Regino Davey on 02-14-2023 Cholesterol in HDL [Mass/Vol] 48 mg/dL >40 [facility] [place] Comment on above: The drugs N-Acetylcy steine and Metamizole may falsely depress this assay. Reference Range HDL <40 mg/dL Low HDL Cholesterol HDL >or= 60 mg/dL High HDL Cholesterol Serum or plasma cholesterol in VLDL measurement (mass/volume)Ordered By: Regino Davey on 02-14-2023 Cholesterol in VLDL [Mass/Vol] 26 mg/dL 5-40 [facility] [place] Serum or plasma creatinine m easurement (mass/volume)Ordered By: Regino Davey on 02-14-2023 Creatinine [Mass/Vol] 1.12 mg/dL 0.55-1.02 [facility] Comment on above: The validity of the calculated GFR & GFRAA in patients over 70 years has not been determined. Clinical correlation is essential. Serum or plasma low density lipoprotein (LDL) cholesterol measurement (mass/volume)Ordered By: Regino Davey on 02-14-2023 Cholesterol in LDL [Mass/Vol] 107 mg/dL 0-130 [facility] [place] Serum or plasma urea nitroge n measurement (mass/volume)Ordered By: Regino Davey on 02-14-2023 Urea nitrogen [Mass/Vol] 13 mg/dL 7-18 [facility] [place] Thin prep Papanicolaou smear with manual screeningOrdered By: Regino Davey on 02-14-2023 Thin prep Papanicolaou smear with manual screening 8 5-15 [facility] [place] Basophil percentageOrdered B y: Regino Davey on 11-01-2022 Chloride [Moles/Vol] 106 mmol/L 98-107 [facility] Glucose [Mass/Vol] 100 mg/dL 74-106 [facility] Comment on above: Fasting Glucose resu lt from 100 to 125 mg/dL suggests IMPAIRED HOMEOSTASIS per A.D.A. criteria. Potassium [Moles/Vol] 5.1 mmol/L 3.5-5.1 [facility] Sodium [Moles/Vol] 137 mmol/L 136-145 [facility] Laboratory - Chemistry and C hemistry - challengeOrdered By: Regino Davey on 11-01-2022 CO2 [Moles/Vol] 27.0 mmol/L 21.0-32.0 [facility] [place] Urea nitrogen/Creatinine [Mass ratio] 8.8 mg/mg 10-20 [facility] [place] No Panel InformationOrdered By: Regino Davey on 11-01-2022 Estimated GFR (MDRD) Amer 54 mL/min >60 [facility] [place] Comment on above: GFR Calc Estimated GFR (MDRD) Non-Af Amer 45 mL/min >60 [facility] [place] Comment on above: Non- GFR Calc Serum or plasma calcium margi urement (mass/volume)Ordered By: Regino Davey on 11-01-2022 Calcium [Mass/Vol] 9.4 mg/dL 8.5-10.1 [facility] Serum or plasma creatinine m easurement (mass/volume)Ordered By: Regino Davey on 11-01-2022 Creatinine [Mass/Vol] 1.25 mg/dL 0.55-1.02 [facility] Comment on above: The validity of the calculated GFR & GFRAA in patients over 70 years has not been determined. Clinical correlation is essential. Serum or plasma urea nitroge n measurement (mass/volume)Ordered By: Regino Davey on 11-01-2022 Urea nitrogen [Mass/Vol] 11 mg/dL 7-18 [facility] [place] Thin prep Papanicolaou smear with manual screeningOrdered By: Regino Davey on 11-01-2022 Thin prep Papanicolaou smear with manual screening 4 5-15 [facility] [place] Absolute lymphocyte counton 12-20-2021 Lymphocytes Auto (Unsp spec) [#/Vol] 3.00 10*3/uL 0.83-4.51 [facility] [place] Work Phone: Basophil percentageon 2021 Basophil percentage 0 SEEN /hpf 0-5 [facility] Work Phone: Basophils/100 WBC (Bld) 0.8 % 0-1 [facility] Work Phone: Chloride [Moles/Vol] 100 mmol/L 98-107 [facility] Work Phone: Eosinophils/100 WBC (Bld) 5.8 % 0-5 [facility] [place] Work Phone: Glucose [Mass/Vol] 108 mg/dL 74-106 [facility] Work Phone: Comment on above: Fasting Glucose resu lt from 100 to 125 mg/dL suggests IMPAIRED HOMEOSTASIS per A.D.A. criteria. Neutrophils (Bld) [#/Vol] 6.6 10*3/uL 2.0-7.7 [facility] [place] Work Phone: Neutrophils/100 WBC (Bld) 59.2 % 47-70 [facility] [place] Work Phone: Potassium [Moles/Vol] 5.0 mmol/L 3.5-5.1 [facility] Work Phone: Comment on above: Moderate Hemolysis, Result may be falsely increased. Sodium [Moles/Vol] 131 mmol/L 136-145 [facility] Work Phone: WBC (Bld) [#/Vol] 11.1 10*3/uL 4.4-11.0 [facility] Work Phone: Bilirubin Test strip Ql (U)o n 12-20-2021 Bilirubin Ql (U) Negative Negative [facility] [place] Work Phone: Blood erythrocytes count (nu mber/volume)on 12-20-2021 RBC (Bld) [#/Vol] 4.12 10*6/uL 4.2-5.4 [facility] Work Phone: Blood hemoglobin measurement (mass/volume)on 12-20-2021 Hemoglobin (Bld) [Mass/Vol] 13.3 g/dL 12.0-15.0 [facility] [place] Work Phone: Blood lymphocytes/100 leukoc yteson 12-20-2021 Lymphocytes/100 WBC (Bld) 27.0 % 19-41 [facility] [place] Work Phone: Blood monocytes/100 leukocyt eson 12-20-2021 Monocytes/100 WBC (Bld) 6.8 % 0-10 [facility] Work Phone: Blood platelet mean volumeon 12-20-2021 Platelet mean volume (Bld) [Entitic vol] 10.1 fL 6.2-12.0 [facility] [place] Work Phone: Determination of erythrocyte mean corpuscular volume (MCV)on 12-20-2021 MCV (RBC) [Entitic vol] 92.5 fL 81-99 [facility] Work Phone: Hematocrit Auto (Bld) [Volum e fraction]on 12-20-2021 Hematocrit (Bld) [Volume fraction] 38.1 % 37-47 [facility] [place] Work Phone: Ketones Test strip Ql (U)on 12-20-2021 Ketones Ql (U) Negative Negative [facility] [place] Work Phone: Laboratory - Chemistry and C hemistry - challengeon 12-20-2021 CO2 [Moles/Vol] 25.0 mmol/L 21.0-32.0 [facility] [place] Work Phone: Urea nitrogen/Creatinine [Mass ratio] 14.7 mg/mg 10-20 [facility] [place] Work Phone: Laboratory - Hematology and Cell countson 12-20-2021 Erythrocyte distribution width (RBC) [Entitic vol] 44.1 fL 35.1-43.9 [facility] [place] Work Phone: Erythrocyte distribution width (RBC) [Ratio] 13.0 % 11.6-14.6 [facility] [place] Work Phone: Immature granulocytes/100 WBC (Bld) 0.400 % 0.0-0.9 [facility] [place] Work Phone: Comment on above: IG% - Immature Granu locytes (promyelocytes, myelocytes and metamyelocytes) > 1% indicates that a LEFT SHIFT is Present. MCH (RBC) [Entitic mass] 32.3 pg 27.0-32.0 [facility] [place] Work Phone: Nucleated RBC/100 WBC (Bld) [Ratio] 0 % 0-5 [facility] [place] Work Phone: MCHC Auto (RBC) [Mass/Vol]on 12-20-2021 MCHC (RBC) [Mass/Vol] 34.9 g/dL 32-36 [facility] Work Phone: Mucus LM Ql (Urine sed)on Mucus Ql (Urine sed) 0 SEEN /hpf [facility] Work Phone: Nitrite Test strip Ql (U)on 12-20-2021 Nitrite Ql (U) Negative Negative [facility] [place] Work Phone: No Panel Informationon 12-20 Estimated Creatinine Clearance Calc 42.34 ml/min [facility] [place] Work Phone: Estimated GFR (MDRD) Amer 74 mL/min >60 [facility] [place] Work Phone: Comment on above: GFR Calc Estimated GFR (MDRD) Non-Af Amer 61 mL/min >60 [facility] [place] Work Phone: Comment on above: Non- GFR Calc Platelets bldon 12-20-2021 Platelets (Bld) [#/Vol] 355 10*3/uL 150-450 [facility] [place] Work Phone: Protein Test strip Ql (U)on 12-20-2021 Protein Ql (U) Negative Negative [facility] [place] Work Phone: Serum or plasma calcium margi urement (mass/volume)on 12-20-2021 Calcium [Mass/Vol] 9.3 mg/dL 8.5-10.1 [facility] Work Phone: Serum or plasma creatinine m easurement (mass/volume)on 12-20-2021 Creatinine [Mass/Vol] 0.95 mg/dL 0.55-1.02 [facility] Work Phone: Comment on above: The validity of the calculated GFR & GFRAA in patients over 70 years has not been determined. Clinical correlation is essential. Serum or plasma urea nitroge n measurement (mass/volume)on 12-20-2021 Urea nitrogen [Mass/Vol] 14 mg/dL 7-18 [facility] [place] Work Phone: Squamous epithelial cells de tection in urine sediment by light microscopyon 12-20-2021 Epithelial cells.squamous LM Ql (Urine sed) 0-5 SEEN /hpf 5-10 [facility] [place] Work Phone: Thin prep Papanicolaou smear with manual screeningon 12-20-2021 Thin prep Papanicolaou smear with manual screening 6 5-15 [facility] [place] Work Phone: Urine blood detectionon 12-08 RBC Ql (U) Negative Negative [facility] [place] Work Phone: RBC Ql (U) 0 SEEN /hpf 0-5 [facility] [place] Work Phone: Urine clarityon 12-20-2021 Clarity (U) Clear Clear [facility] [place] Work Phone: Urine color determinationon 12-20-2021 Color (U) Yellow Yellow [facility] [place] Work Phone: Urine glucose detectionon Glucose Ql (U) Normal mg/dl Normal [facility] [place] Work Phone: Urine leukocyte esterase det ection by dipstickon 12-20-2021 Leukocyte esterase Test strip Ql (U) Negative Negative [facility] [place] Work Phone: Urine pHon 12-20-2021 pH (U) 6.0 [pH] 5.0 - 8.0 [facility] [place] Work Phone: Urine sediment bacteria coun t by microscopy (number/high power field)on 12-20-2021 Bacteria LM.HPF (Urine sed) [#/Area] 0 /[HPF] None Seen [facility] [place] Work Phone: Urine specific gravity measu rementon 12-20-2021 Specific gravity (U) [Rel density] 1.010 1.002-1.030 [facility] [place] Work Phone: Urobilinogen Auto test strip Ql (U)on 12-20-2021 Urobilinogen Ql (U) Normal mg/dl Normal [facility] Work Phone: CNPNon 10-26-2021 CNPN Telephone (OBGMEM) -------- ANGÉLCIA DAWN ([id number]) 1950 F Date Time Provider Department 10/26/21 KILO BONDS OBBILL During your visit today, we recorded the following information about you: Nancie Patino RN 10/26/2021 3:30 PM Signed Patient calls requesting medication for a yeast infection. Kilo Bonds MD 10/26/2021 5:24 PM Signed The following approved medication requests have been transmitted electronically. Signed Prescriptions Disp Refills clotrimazole-betam ethasone (LOTRISONE) cream 45 g 4 Sig: Apply to outside of vagina and crease of legs twice a day for 10-14 days when needed. HERMELINDO: No Authorizing Provider: KILO BONDS fluconazole (DIFLUCAN) 150 mg tablet 7 tablet 0 Sig: Take one tablet by mouth once daily for 7 days HERMELINDO: No Authorizing Provider: KILO BONDS MD Allergies As of Date: 10/26/2021 Noted Allergy Reaction VENLAFAXINE 05/14/2012 4 - Hives CLONIDINE 09/27/2015 5 - Intolerance Comments: pain all over DEPAKOTE (DIVALPROEX SODIUM) 10/21/2010 14 - Other: See Comments Comments: body jerks DESIPRAMINE 12/09/2009 5 - [...] anxiety, sob Date Reviewed: 05/21/2019 Reviewed by: Bhavesh Birch - Fully Assessed Reason for Visit: Patient Question [8347] Order(s):clotrimaz ole-betamethasone (LOTRISONE) creamApply to outside of vagina and crease of legs twice a day for 10-14 days when needed.Disp: 45 gRfl: 4 fluconazole (DIFLUCAN) 150 mg tabletTake one tablet by mouth once daily for 7 daysDisp: 7 tabletRfl: 0 Prescriptions as of 10/27/2021 - clotrimazole-betam ethasone (LOTRISONE) cream Apply to outside of vagina and crease of legs twice a day for 10-14 days when needed. - fluconazole (DIFLUCAN) 150 mg tablet Take one tablet by mouth once daily for 7 days - estradiol (ESTRACE) 0.01 % (0.1 mg/gram) vaginal cream Use 2 g vaginally two times a week. Also apply to the outside of the vulva. - valACYclovir (VALTREX) 500 mg tablet Take 1 tablet by mouth twice daily. - betamethasone valerate 0.1 % cream Apply to affected area every Sunday,Sunday,F . - omeprazole (PRILOSEC) 20 mg capsule Take 20 mg by mouth once daily. - atorvastatin (LIPITOR) 10 mg tablet Take 10 mg by mouth once daily. - nystatin (MYCOSTATIN) powder Apply 1 application to affected area twice daily. Till Apr 09 (14 days) - rosuvastatin (CRESTOR) 5 mg tablet Take 1 tablet by mouth daily at bedtime. - OTC NUTRITIONAL SUPPLEMENT ensure - loperamide HCl (IMODIUM A-D ORAL) Take by mouth. - aspirin/caffeine (MIKA BACK AND BODY ORAL) Take by mouth. - valACYclovir (VALTREX) 500 mg tablet Take 1 tablet by mouth once daily. - dicyclomine (BENTYL) 10 mg capsule Take 10 mg by mouth three times daily. - Lactobacillus acidophilus (ACIDOPHILUS) cap Take 1-2 capsules by mouth twice daily with meals. - LORazepam (ATIVAN) 2 mg tab - atenolol (TENORMIN) 25 mg tablet Take 1 tablet by mouth three times daily. - famotidine (PEPCID) 20 mg tablet Take 1 tablet by mouth twice daily. - Blood Pressure Cuff - Home Use BLOOD PRESSURE CUFF FOR HOME USE. DX: LABILE BLOOD PRESSURE - Cholecalciferol, Vitamin D3, 2,000 unit cap Take 1 tablet by mouth once daily. Problem List As Of Date 10/26/2021 Noted Resolved DEPRESSIVE DISORDER NEC [F32.89] 04/21/2005 GABRIELLA (generalized anxiety disorder) [F41.1] 04/21/2005 HEADACHE [R51] 04/21/2005 HEMORRHOIDS NOS [K64.9] Myalgia [M79.10] COMMON MIGRAINE W/O MENTN INTRACT [G43.009] 10/30/2005 Chronic Interstitial Cystitis [N30.10] 11/25/2009 Pelvic Pain in Female [R10.2] 11/25/2009 Osteopenia [M85.80] 06/22/2010 Cystitis [N30.90] 08/02/2010 Cough [R05.9] 08/02/2010 Weight gain [R63.5] 11/24/2010 Fibromyalgia [M79.7] 08/12/2011 Anxiety [F41.9] 10/06/2011 Unspecified pruritic disorder [L29.9] 12/13/2011 Postmenopausal atrophic vaginitis [N95.2] 12/13/2011 Unspecified constipation [K59.00] 12/13/2011 Vaginal pain [R10.2] 01/05/2012 Rectal pain [K62.89] 01/05/2012 Adjustment disorder with mixed anxiety and depr*05/30/2012 Vaginal burni (more content not included)... Normal [facility] CNPNon 08-24-2021 CNPN Telephone (OBGMEM) -------- ANGÉLICA DAWN ([id number]) 1950 F Date Time Provider Department 08/24/21 KILO BONDS OBGMEM During your visit today, we recorded the following information about you: Allergies As of Date: 08/24/2021 Noted Allergy Reaction VENLAFAXINE 05/14/2012 4 - Hives CLONIDINE 09/27/2015 5 - Intolerance Comments: pain all over DEPAKOTE (DIVALPROEX SODIUM) 10/21/2010 14 - Other: See Comments Comments: body jerks DESIPRAMINE 12/09/2009 5 - [...] anxiety, sob Date Reviewed: 05/21/2019 Reviewed by: Bhavesh Birch - Fully Assessed Reason for Visit: needs consult for dermatology [Other] Primary Visit Diagnosis:Rash and other nonspecific skin eruption [R21] Order(s):CONSULT TO DERMATOLOGY [9006] Order #: [id number]: 1 FUTURE Prescriptions as of 08/24/2021 - estradiol (ESTRACE) 0.01 % (0.1 mg/gram) vaginal cream Use 2 g vaginally two times a week. Also apply to the outside of the vulva. - clotrimazole-betam ethasone (LOTRISONE) cream Apply to outside of vagina and crease of legs twice a day for 10-14 days when needed. - fluconazole (DIFLUCAN) 150 mg tablet Take one tablet by mouth once daily for 7 days - valACYclovir (VALTREX) 500 mg tablet Take 1 tablet by mouth twice daily. - betamethasone valerate 0.1 % cream Apply to affected area every Sunday,Sunday,F . - omeprazole (PRILOSEC) 20 mg capsule Take 20 mg by mouth once daily. - atorvastatin (LIPITOR) 10 mg tablet Take 10 mg by mouth once daily. - nystatin (MYCOSTATIN) powder Apply 1 application to affected area twice daily. Till Apr 09 (14 days) - rosuvastatin (CRESTOR) 5 mg tablet Take 1 tablet by mouth daily at bedtime. - OTC NUTRITIONAL SUPPLEMENT ensure - loperamide HCl (IMODIUM A-D ORAL) Take by mouth. - aspirin/caffeine (MIKA BACK AND BODY ORAL) Take by mouth. - valACYclovir (VALTREX) 500 mg tablet Take 1 tablet by mouth once daily. - dicyclomine (BENTYL) 10 mg capsule Take 10 mg by mouth three times daily. - Lactobacillus acidophilus (ACIDOPHILUS) cap Take 1-2 capsules by mouth twice daily with meals. - LORazepam (ATIVAN) 2 mg tab - atenolol (TENORMIN) 25 mg tablet Take 1 tablet by mouth three times daily. - famotidine (PEPCID) 20 mg tablet Take 1 tablet by mouth twice daily. - Blood Pressure Cuff - Home Use BLOOD PRESSURE CUFF FOR HOME USE. DX: LABILE BLOOD PRESSURE - Cholecalciferol, Vitamin D3, 2,000 unit cap Take 1 tablet by mouth once daily. Problem List As Of Date 08/24/2021 Noted Resolved DEPRESSIVE DISORDER NEC [F32.89] 04/21/2005 GABRIELLA (generalized anxiety disorder) [F41.1] 04/21/2005 HEADACHE [R51] 04/21/2005 HEMORRHOIDS NOS [K64.9] Myalgia [M79.10] COMMON MIGRAINE W/O MENTN INTRACT [G43.009] 10/30/2005 Chronic Interstitial Cystitis [N30.10] 11/25/2009 Pelvic Pain in Female [R10.2] 11/25/2009 Osteopenia [M85.80] 06/22/2010 Cystitis [N30.90] 08/02/2010 Cough [R05.9] 08/02/2010 Weight gain [R63.5] 11/24/2010 Fibromyalgia [M79.7] 08/12/2011 Anxiety [F41.9] 10/06/2011 Unspecified pruritic disorder [L29.9] 12/13/2011 Postmenopausal atrophic vaginitis [N95.2] 12/13/2011 Unspecified constipation [K59.00] 12/13/2011 Vaginal pain [R10.2] 01/05/2012 Rectal pain [K62.89] 01/05/2012 Adjustment disorder with mixed anxiety and depr*05/30/2012 Vaginal burning [N94.9] 06/05/2012 Chronic pain [G89.29] 06/19/2013 Perineal pain in female [R10.2] 09/18/2013 Constipation [K59.00] 09/18/2013 Stress and adjustment reaction [F43.29] 10/31/2013 Tubular adenoma of colon [D12.6] 10/31/2013 Opiate dependence (HCC) [F11.20] 12/15/2013 Vaginal high risk HPV DNA test positive [R87.81*12/08/2012 HPV test positive [[id number]] 05/26/2014 Generalized abdominal pain [R10.84] 02/18/2015 Other cholelithiasis without obstruction [K80.8*02/18/2015 HTN (hypertension) [I10] BV (bacterial vaginosis) [N76.0, B96.89] 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 criteria. Potassium [Moles/Vol] 4.8 mmol/L 3.5-5.1 [facility] Work Phone: Sodium [Moles/Vol] 128 mmol/L 136-145 [facility] Work Phone: Triglyceride [Mass/Vol] 142 mg/dL [facility] Work Phone: Comment on above: The drugs N-Acetylcy steine and Metamizole may falsely depress this assay.Serum Triglycerides Reference Interval Normal <150 mg/dL Borderline high 150 - 199 mg/dL High 200 - 499 mg/dL Very High > or = 500 mg/dL Laboratory - Chemistry and C hemistry - challengeon 07-15-2021 CO2 [Moles/Vol] 24.0 mmol/L 21.0-32.0 [facility] [place] Work Phone: Urea nitrogen/Creatinine [Mass ratio] 16.2 mg/mg 10-20 [facility] [place] Work Phone: No Panel Informationon 07-15 Estimated GFR (MDRD) Amer 71 mL/min >60 [facility] [place] Work Phone: Comment on above: GFR Calc Estimated GFR (MDRD) Non-Af Amer 59 mL/min >60 [facility] [place] Work Phone: Comment on above: Non- GFR Calc Serum or plasma calcium margi urement (mass/volume)on 07-15-2021 Calcium [Mass/Vol] 9.1 mg/dL 8.5-10.1 [facility] Work Phone: Serum or plasma cholesterol in HDL measurement (mass/volume)on 07-15-2021 Cholesterol in HDL [Mass/Vol] 46 mg/dL [facility] [place] Work Phone: Comment on above: The drugs N-Acetylcy steine and Metamizole may falsely depress this assay. Reference Range HDL <40 mg/dL Low HDL Cholesterol HDL >or= 60 mg/dL High HDL Cholesterol Serum or plasma cholesterol in VLDL measurement (mass/volume)on 07-15-2021 Cholesterol in VLDL [Mass/Vol] 28 mg/dL 5-40 [facility] [place] Work Phone: Serum or plasma creatinine m easurement (mass/volume)on 07-15-2021 Creatinine [Mass/Vol] 0.99 mg/dL 0.55-1.02 [facility] Work Phone: Comment on above: The validity of the calculated GFR & GFRAA in patients over 70 years has not been determined. Clinical correlation is essential. Serum or plasma low density lipoprotein (LDL) cholesterol measurement (mass/volume)on 07-15-2021 Cholesterol in LDL [Mass/Vol] 89 mg/dL 0-130 [facility] [place] Work Phone: Serum or plasma urea nitroge n measurement (mass/volume)on 07-15-2021 Urea nitrogen [Mass/Vol] 16 mg/dL 7-18 [facility] [place] Work Phone: Thin prep Papanicolaou smear with manual screeningon 07-15-2021 Thin prep Papanicolaou smear with manual screening 6 5-15 [facility] Work Phone: CNPTiffanie 07-06-2021 [facility] Telephone ([employer]) -------- ANGÉLICA DAWN ([id number]) 1950 F Date Time Provider Department 07/06/21 KILO BONDS During your visit today, we recorded the following information about you: Cathie Baker 07/06/2021 10:31 AM Signed Patient called in that her insurance has changed to [employer]are. Her insurance is not covering it and it will cost 250. Please send another similar medication that will be covered better. Thank you Shanika Sofia RN 07/06/2021 11:13 AM Signed Script sent to [facility] in [place] noting that patient will be utilizing [facility] and paying out of pocket in the stated amount of 25.59. Called patient and left detailed message on regarding above information and pharmacy script was sent to. Shanika Sofia RN Allergies As of Date: 07/06/2021 Noted Allergy Reaction VENLAFAXINE 05/14/2012 4 - Hives CLONIDINE 09/27/2015 5 - Intolerance Comments: pain all over DEPAKOTE (DIVALPROEX SODIUM) 10/21/2010 14 - Other: See Comments Comments: body jerks DESIPRAMINE 12/09/2009 5 - [...] anxiety, sob Date Reviewed: 05/21/2019 Reviewed by: Bhavesh Birch - Fully Assessed Reason for Visit: Medication Problem [65] Visit Diagnosis:Vaginal atrophy [N95.2] Order(s):estradiol (ESTRACE) 0.01 % (0.1 mg/gram) vaginal creamUse 2 g vaginally two times a week. Also apply to the outside of the vulva.Disp: 45 gRfl: 6 Prescriptions as of 07/06/2021 - estradiol (ESTRACE) 0.01 % (0.1 mg/gram) vaginal cream Use 2 g vaginally two times a week. Also apply to the outside of the vulva. - clotrimazole-betam ethasone (LOTRISONE) cream Apply to outside of vagina and crease of legs twice a day for 10-14 days when needed. - fluconazole (DIFLUCAN) 150 mg tablet Take one tablet by mouth once daily for 7 days - valACYclovir (VALTREX) 500 mg tablet Take 1 tablet by mouth twice daily. - betamethasone valerate 0.1 % cream Apply to affected area every Sunday,Sunday,F . - omeprazole (PRILOSEC) 20 mg capsule Take 20 mg by mouth once daily. - atorvastatin (LIPITOR) 10 mg tablet Take 10 mg by mouth once daily. - nystatin (MYCOSTATIN) powder Apply 1 application to affected area twice daily. Till Apr 09 (14 days) - rosuvastatin (CRESTOR) 5 mg tablet Take 1 tablet by mouth daily at bedtime. - OTC NUTRITIONAL SUPPLEMENT ensure - loperamide HCl (IMODIUM A-D ORAL) Take by mouth. - aspirin/caffeine (MIKA BACK AND BODY ORAL) Take by mouth. - valACYclovir (VALTREX) 500 mg tablet Take 1 tablet by mouth once daily. - dicyclomine (BENTYL) 10 mg capsule Take 10 mg by mouth three times daily. - Lactobacillus acidophilus (ACIDOPHILUS) cap Take 1-2 capsules by mouth twice daily with meals. - LORazepam (ATIVAN) 2 mg tab - atenolol (TENORMIN) 25 mg tablet Take 1 tablet by mouth three times daily. - famotidine (PEPCID) 20 mg tablet Take 1 tablet by mouth twice daily. - Blood Pressure Cuff - Home Use BLOOD PRESSURE CUFF FOR HOME USE. DX: LABILE BLOOD PRESSURE - Cholecalciferol, Vitamin D3, 2,000 unit cap Take 1 tablet by mouth once daily. Problem List As Of Date 07/06/2021 Noted Resolved DEPRESSIVE DISORDER NEC [F32.89] 04/21/2005 GABRIELLA (generalized anxiety disorder) [F41.1] 04/21/2005 HEADACHE [R51] 04/21/2005 HEMORRHOIDS NOS [K64.9] Myalgia [M79.10] COMMON MIGRAINE W/O MENTN INTRACT [G43.009] 10/30/2005 Chronic Interstitial Cystitis [N30.10] 11/25/2009 Pelvic Pain in Female [R10.2] 11/25/2009 Osteopenia [M85.80] 06/22/2010 Cystitis [N30.90] 08/02/2010 Cough [R05.9] 08/02/2010 Weight gain [R63.5] 11/24/2010 Fibromyalgia [M79.7] 08/12/2011 Anxiety [F41.9] 10/06/2011 Unspecified pruritic disorder [L29.9] 12/13/2011 Postmenopausal atrophic vaginitis [N95.2] 12/13/2011 Unspecified constipation [K59.00] 12/13/2011 Vaginal pain [R10.2] 01/05/2012 Rectal pain [K62.89] 01/05/2012 Adjustment disorder with mixed anxiety and depr*05/30/2012 Vaginal burning [N94.9] 06/05/2012 Chronic pain [G89.29] 06/19/2013 Perineal pain in female [R10.2] 09/18/2013 Constipation [K59.00] 09/18/2013 (more content not included)... Normal [facility] 03[facility]21[facility]2021 [facility] ANGÉLICA DAWN ([id number]) 1950 F Date Time Provider Department 03/21/21 [facility] During your visit today, we recorded the following information about you: Allergies As of Date: 03/21/2021 Noted Allergy Reaction VENLAFAXINE 05/14/2012 4 - Hives CLONIDINE 09/27/2015 5 - Intolerance Comments: pain all over DEPAKOTE (DIVALPROEX SODIUM) 10/21/2010 14 - Other: See Comments Comments: body jerks DESIPRAMINE 12/09/2009 5 - [...] anxiety, sob Date Reviewed: 05/21/2019 Reviewed by: Bhavesh Birch - Fully Assessed Reason for Visit: Rx Refills [128] Order(s):clotrimaz ole-betamethasone (LOTRISONE) creamApply to outside of vagina and crease of legs twice a day for 10-14 days when needed.Disp: 45 gRfl: 4 fluconazole (DIFLUCAN) 150 mg tabletTake one tablet by mouth once daily for 7 daysDisp: 7 tabletRfl: 3 Prescriptions as of 03/26/2021 - clotrimazole-betam ethasone (LOTRISONE) cream Apply to outside of vagina and crease of legs twice a day for 10-14 days when needed. - fluconazole (DIFLUCAN) 150 mg tablet Take one tablet by mouth once daily for 7 days - estradiol (ESTRACE) 0.01 % (0.1 mg/gram) vaginal cream Use 2 g vaginally two times a week. Also apply to the outside of the vulva. - valACYclovir (VALTREX) 500 mg tablet Take 1 tablet by mouth twice daily. - betamethasone valerate 0.1 % cream Apply to affected area every Sunday,Sunday,. - omeprazole (PRILOSEC) 20 mg capsule Take 20 mg by mouth once daily. - atorvastatin (LIPITOR) 10 mg tablet Take 10 mg by mouth once daily. - nystatin (MYCOSTATIN) powder Apply 1 application to affected area twice daily. Till Apr 09 (14 days) - rosuvastatin (CRESTOR) 5 mg tablet Take 1 tablet by mouth daily at bedtime. - OTC NUTRITIONAL SUPPLEMENT ensure - loperamide HCl (IMODIUM A-D ORAL) Take by mouth. - aspirin/caffeine (MIKA BACK AND BODY ORAL) Take by mouth. - valACYclovir (VALTREX) 500 mg tablet Take 1 tablet by mouth once daily. - dicyclomine (BENTYL) 10 mg capsule Take 10 mg by mouth three times daily. - Lactobacillus acidophilus (ACIDOPHILUS) cap Take 1-2 capsules by mouth twice daily with meals. - LORazepam (ATIVAN) 2 mg tab - atenolol (TENORMIN) 25 mg tablet Take 1 tablet by mouth three times daily. - famotidine (PEPCID) 20 mg tablet Take 1 tablet by mouth twice daily. - Blood Pressure Cuff - Home Use BLOOD PRESSURE CUFF FOR HOME USE. DX: LABILE BLOOD PRESSURE - Cholecalciferol, Vitamin D3, 2,000 unit cap Take 1 tablet by mouth once daily. Problem List As Of Date 03/21/2021 Noted Resolved DEPRESSIVE DISORDER NEC [F32.89] 04/21/2005 GABRIELLA (generalized anxiety disorder) [F41.1] 04/21/2005 HEADACHE [R51] 04/21/2005 HEMORRHOIDS NOS [K64.9] Myalgia [M79.10] COMMON MIGRAINE W/O MENTN INTRACT [G43.009] 10/30/2005 Chronic Interstitial Cystitis [N30.10] 11/25/2009 Pelvic Pain in Female [R10.2] 11/25/2009 Osteopenia [M85.80] 06/22/2010 Cystitis [N30.90] 08/02/2010 Cough [R05.9] 08/02/2010 Weight gain [R63.5] 11/24/2010 Fibromyalgia [M79.7] [...] high risk HPV DNA test positive [R87.81*12/08/2012 HPV test positive [[id number]] 05/26/2014 Generalized abdominal pain [R10.84] 02/18/2015 Other cholelithiasis without obstruction [K80.8*02/18/2015 HTN (hypertension) [I10] BV (bacterial vaginosis) [N76.0, B96.89] 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 Normal [facility] CNNURSEon 07-07-2020 CNNURSE Nurse Visit ([facility]) -------- ANGÉLICA DAWN ([id number]) 1950 F PUBVAXEST Date Time Provider Department 07/07/20 YASEMIN JASSO ([employer]) COVAMJuani During your visit today, we recorded the following information about you: Allergies As of Date: 07/07/2020 Noted Allergy Reaction VENLAFAXINE 05/14/2012 4 - Hives CLONIDINE 09/27/2015 5 - Intolerance Comments: pain all over DEPAKOTE (DIVALPROEX SODIUM) 10/21/2010 14 - Other: See Comments Comments: body jerks DESIPRAMINE 12/09/2009 5 - [...] anxiety, sob Date Reviewed: 05/21/2019 Reviewed by: Bhavesh Birch - Fully Assessed Order(s):[employer] SARS-COV-2 VACCINE 2D DOSE APPT [[id number]] Order #: [id number] Prescriptions as of 07/07/2020 Sig: FLUCONAZOLE 150 MG TABLET Take one tablet by mouth once* ESTRADIOL 0.01% (0.1 MG/GRAM)* Use 2 g vaginally two times a* CLOTRIMAZOLE-BETAM ETHASONE 1 * Apply to outside of vagina an* VALACYCLOVIR 500 MG TABLET Take 1 tablet by mouth twice * BETAMETHASONE VALERATE 0.1 % * Apply to affected area every * OMEPRAZOLE 20 MG CAPSULE,LAURA* Take 20 mg by mouth once magalie* ATORVASTATIN 10 MG TABLET Take 10 mg by mouth once magalie* NYSTATIN 100,000 UNIT/GRAM TO* Apply 1 application to affect* Patient not taking: Reported on 05/05/2019 ROSUVASTATIN [...] (BENTYL* Take 10 mg by mouth three bhavya* LACTOBACILLUS ACIDOPHILUS CAP* Take 1-2 capsules by mouth tw* Patient not taking: Reported on 02/27/2019 LORAZEPAM 2 MG TABLET ATENOLOL 25 MG TABLET Take 1 tablet by mouth three * FAMOTIDINE 20 MG TABLET Take 1 tablet by mouth twice * COMPOUNDED PRESCRIPTION BLOOD PRESSURE CUFF FOR HOME * CHOLECALCIFEROL (VITAMIN D3) * Take 1 tablet by mouth once d* Problem List As Of Date 07/07/2020 Noted Resolved DEPRESSIVE DISORDER NEC [F32.9] 04/21/2005 GABRIELLA (generalized anxiety disorder) [F41.1] 04/21/2005 HEADACHE [R51] 04/21/2005 HEMORRHOIDS NOS [K64.9] Myalgia [M79.10] COMMON MIGRAINE W/O MENTN INTRACT [G43.009] 10/30/2005 Chronic Interstitial Cystitis [N30.10] 11/25/2009 Pelvic Pain in Female [R10.2] 11/25/2009 Osteopenia [M85.80] 06/22/2010 Cystitis [N30.90] 08/02/2010 Cough [R05] 08/02/2010 Weight [...] high risk HPV DNA test positive [R87.81*12/08/2012 HPV test positive [[id number]] 05/26/2014 Generalized abdominal pain [R10.84] 02/18/2015 Other cholelithiasis without obstruction [K80.8*02/18/2015 HTN (hypertension) [I10] BV (bacterial vaginosis) [N76.0, B96.89] 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 SIGNING PHYSICIAN: DISCHARGE DATE: 10/02/19 DATE OF SERVICE: 10/02/2019 This is a 69-year-old female, admitted on a pink slip from [facility] Emergency Department for paranoid delusions and hallucinations. Chief Complaint: Paranoia, delusions, and hallucinations. History of Present Illness: Please refer to initial psychiatric evaluation. HOSPITAL COURSE: During this hospital stay, the patient was treated with Rispedal 0.25 mg b.i.d., lorazepam 2 mg t.i.d., Remeron 7.5 mg at bedtime, trazodone 25 mg at bedtime p.r.n. Overall, the patient showed significant improvement. She consistently denied any hallucinations. Did not exhibit any dangerous behavior to self or others. Able to participate in groups and activities with a lot of encouragement. During this hospitalization, her laboratory data, hemoglobin A1c 5.2, triglycerides 151. Vitamin B12, folate level, TSH within normal range. RPR was nonreactive. DISCHARGE CONDITION: This is a 69-year-old female, pleasant, cooperaive, alert, oriented to day, month, year, place, and person. Mood is feeling better. Affect is bright. Denies any hallucinations. Denies suicidal ideations. Did not discuss any paranoid ideations. Concentration is poor. Insight superficial. Impulse control and judgment improved. DISCHARGE DIAGNOSES: AXIS I: 1. Major depression, severe, recurrent with psychosis. 2. Generalized anxiety disorder. 3. Delirium secondary to medical condition. AXIS II: Deferred. AXIS III: 1. Hypertension. 2. Hypercholesterolem ia. 3. Status post cervical fusion. AXIS IV: Moderate, suffering with chronic depression. AXIS V: Global Assessment of Functioning at the time of discharge 55. DISCHARGE MEDICATIONS: 1. Risperdal 0.25 mg b.i.d. 2. Remeron 7.5 mg at bedtime. 3. Lorazepam 2 mg t.i.d. 4. Trazodone 25 mg at bedtime p.r.n. 5. Flexeril 5 mg t.i.d. 6. Simvastatin 5 mg before bedtime. 7. Lisinopril 20 mg daily. 8. [place] 1 tablet every 6 hours p.r.n. 9. Atenolol 25 mg b.i.d. 10. Norvasc 5 mg daily. DISPOSITION: The patient discharged home with her with followup with [facility]. JAKE/YOVANY @ 16:52 @ 03:40 # [id number] Chino Vail M.D. Electronically Signed Date/Time: 10/05/191406 Electronically Signed Date/Time: 10/05/19 1407 [facility] 10-01-2019 [facility] Patient Name:ANGÉLICA DAWN MR #: [id number] Location: [place] Acc#: [id number] Date of Admit: 09/25/19 : 1950 Age: 69 Sex: F Dictated By: Girish Martin MD Signing Physician: DICTATED BY: Girish Martin M.D. SIGNING PHYSICIAN: DATE OF SERVICE: 10/01/2019 REASON FOR VISIT: Medical management. SUBJECTIVE: The patient is seen and evaluated. Discussed with nurse, Katherine charles patient. Has back spine spasm since she has recent surgery. Decided to put on Flexeril 10 mg p.o. t.i.d. The patient denies any chest pain, cough, phlegm, fever, chills, nausea, vomiting. Started her on physical therapy. OBJECTIVE: VITAL SIGNS: Temperature 37.2, pulse 89, respirations 20, blood prssure 137/56, oxygen saturation 95% on room air. HEENT: Pupils are equal, round, reactive to light and accommodation. NECK: Supple. No goiter, lymphadenopathy. CHEST: Symmetrical. LUNGS: Clinically clear. No rhonchi, rub, or rales. CARDIOVASCULAR: S1, S2 normal. No murmur, rub, or gallop. ABDOMEN: Soft, nontender. No distention. Bowel sounds present. EXTREMITIES: Has no edema, clubbing, cyanosis. SKIN: Warm, dry. PSYCHOLOGICAL: Affect normal, mood normal. CENTRAL NERVOUS SYSTEM: Moving all 4 extremities. No focal deficit. Looked on her back wound, that is healing. No obvious infection. VASCULAR: Radial pulse 2+, dorsalis pedis 2+. No new lab work today. ASSESSMENT AND PLAN: 1. The patient has generalized anxiety, major depression, psychosis. Treatmentper Dr. Castro. 2. Hypertension. Continue with lisinopril, atenolol, Norvasc. 3. Hyperlipidemia. Continue with statin. 4. Recent back surgery. Now has spasm. Start Flexeril 10 mg p.o. t.i.d. JAYRO/YOVANY @ 12:01 @ 15:20 # [id number] Girish Martin M.D. Electronically Signed Date/Time: 10/01/191618 Electronically Signed Date/Time: 10/01/191618 [facility] Patient Name:ANGÉLICA DAWN MR #: [id number] Location: [place] Acc#: [id number] Date of Admit: 09/25/19 : 1950 Age: 69 Sex: F Dictated By: Ramesh Castro MD Signing Physician: DICTATED BY: Ramesh Castro M.D. SIGNING PHYSICIAN: DATE OF SERVICE: 10/01/2019 Chief Complaint: Change in mental status including paranoia, delusions, and visual hallucinations. SUBJECTIVE: This is a 69-year-old female with no significant past psychiatric history, who was admitted with an abrupt change in mental status, which included paranoia, delusions and visual hallu cinations. This patient underwent spinal fusion September 18 of this year and soon after surgery began exhibiting the previously described symptomatology. Her symptoms were most consistent with delirium. I evaluated her on the time of admission to this unit and again today. I found her to be significantly improved with no signs of active psychosis as of this dictation. This morning, she is pleasant, cooperative and relaxed. She is not manic or psychotic. She has insight into her recent change in mental status, stating my mind was all mixed up and I thought my was somebody else, but I do not think that now. The patient states that she is eager to be discharged home back to her . She was alert and oriented in all spheres. She denied feeling depressed. She was not anxious. She adamantly denied suicidal thoughts. She is tolerating medication well with no side effects. She did have poor sleep last night. Her appetite is erratic and that she eats anywhere between 25% and 75% of her meals. At times, she is somewhat attention seeking including being irritable _and____ tearful with staff. But again her psychosis has resolved. OBJECTIVE: Mental Status Exam: At the time of this evaluation, she was alert and oriented in all 3 spheres. Memory was intact in all spheres as well. Mood is described as okay. Her affect is somewhat dull. She is currently not psychotic. There is no evidence of auditory or visual hallucinations. She is not paranoid or delusional. She denies suicidal and homicidal thoughts. Her judgment is theoretically intact. Insight is good. Speech is presented in a normal tone as well as normal pace. DIAGNOSTIC ASSESSMENT: Delirium, improved. TREATMENT PLAN: 1. No change in psychiatric medication as this patient is showing definite signs of improvement. 2. Continue supportive therapy, activity therapy and group therapy. 3. Likely to be discharged tomorrow back home with her . MORALES/YOVANY @ 09:26 @ 10:10 # [id number] Ramesh Castro M.D. Electronically Signed Date/Time: 10/01/19 1133 Electronically Signed Date/Time: 10/01/19 1133 [facility] MRPN Patient Name:ANGÉLICA DAWN MR #: [id number] Location: [place] Acc#: [id number] Date of Admit: 09/25/19 : 1950 Age: 69 Sex: F Dictated By: Chino Vail MD Signing Physician: DICTATED BY: Chino Vail M.D. SIGNING PHYSICIAN: PSYCHIATRIC FOLLOWUP NOTE SUBJECTIVE: This is a 69-year-old female, admitted as a referral fro [facility] Emergency Department for increased paranoia, delusions, and hallucinations. Information gathered by reviewing the chart, discussing with staff, interviewin with patient. The patient reports to not sleeping well and reports she is having pain in her back and keeping her up at night. She is eating up to 75% of her meals. Last night, she did receive repeat trazodone. Staff reports the patient is somewhat anxious, irritable, wanting staff to do things for her own. During this interview, the patient able to comprehend and respond appropriately, able to maintain conversation. No observation of any hallucinations. The patient reports she did talk to her and they had a good conversation. She does not think that he is her ex-. She continues to believe that her has been into drugs and he is acting strange. The patient reports she would like to go home, so that she can walk around the house and spent time to dog. Most recent labs, vital signs, and medical followup reviewed. The patient tolerating medications fairly well. Review Of Systems: Denies nausea, diarrhea, or constipation. Gait unsteady. OBJECTIVE: Vital signs: Blood pressure 152/67, pulse 96, respirations 20, andtemperature 36.4. Denies feeling dizzy or lightheaded. No falls reported. Cooperative, alert, and oriented to time, place, and person. Mood feeling bettr. Affect is anxious. Denies hallucinations. Remains delusional. Denies suicidal ideations. Concentration is poor. Insight superficial. Impulse control improved. Judgment improved. ASSESSMENT: AXIS I: 1. Generalized anxiety disorder. 2. Major depression, recurrent with psychosis. AXIS III: 1. Hypertension. 2. Hypercholesterolem ia. 3. Status post cervical fusion. TREATMENT PLAN: 1.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 intervals have been changed and are now sex specific. Performed By: #### H EMDF, CMP3, ETOH4, MG3, TSH5 #### [facility] [address], [place] Anion gap [Moles/Vol] 10 Normal [facility] Comment on above: Performed By: #### H EMDF, CMP3, ETOH4, MG3, TSH5 #### [facility] [address], [place] AST [Catalytic activity/Vol] 38 U/L Normal 15-46 [facility] Comment on above: Performed By: #### H EMDF, CMP3, ETOH4, MG3, TSH5 #### [place] [address] [place], [place] Bilirubin [Mass/Vol] 0.5 mg/dL Normal 0.2-1.3 [facility] Comment on above: Performed By: #### H EMDF, CMP3, ETOH4, MG3, TSH5 #### [address] [address] CO2 [Moles/Vol] 23 mmol/L Normal 22-30 [facility] Comment on above: Performed By: #### H EMDF, CMP3, ETOH4, MG3, TSH5 #### [address] [address] Creatinine [Mass/Vol] 0.81 mg/dL Normal 0.52-1.25 [facility] Comment on above: Performed By: #### H EMDF, CMP3, ETOH4, MG3, TSH5 #### [address] [address] GFR/1.73 sq M predicted among blacks MDRD (S/P/Bld) [Vol rate/Area] 85.2 mL/min/{1.73_m2} Normal >60 [facility] Comment on above: Performed By: #### H EMDF, CMP3, ETOH4, MG3, TSH5 #### [address] [address] GFR/1.73 sq M predicted among non-blacks MDRD (S/P/Bld) [Vol rate/Area] 73.5 mL/min/{1.73_m2} Normal >60 [facility] Comment on above: Result Comment: KDIG O guidelines provide the following GFR categories: Stage GFR(ml/min/1.73 m2) Terms G1 >=90 Normal or high G2 60-89 Mildly decreased* G3a 45-59 Mildly to moderately decreased G3b 30-44 Moderately to severely decreased G4 15-29 Severely decreased G5 <15 Kidney failure *Relative to young adult level. In the absence of evidence of kidney damage, neither GFR category G1 nor G2 fulfill the criteria for CKD. The CKD-EPI equation is validated in individuals 18 years of age and older. Currently the best equation for estimating glomerular filtration rate (GFR) from serum creatinine in children is the Bedside Mckay equation. It is less accurate in patients with extremes of muscle mass, restriction of dietary protein, ingestion of creatine, extra-renal metabolism of creatinine, or treatment with medications that affect renal tubular creatinine secretion. Performed By: #### H EMDF, CMP3, ETOH4, MG3, TSH5 #### [place] [address] [address] [place], [place] Glucose [Mass/Vol] 117 mg/dL High 70-100 [facility] Comment on above: Performed By: #### H EMDF, CMP3, ETOH4, MG3, TSH5 #### [place] [address] [address] [place], [place] Protein [Mass/Vol] 7.0 g/dL Normal 6.3-8.2 [facility] Comment on above: Performed By: #### H EMDF, CMP3, ETOH4, MG3, TSH5 #### [place] [address] [place], [place] Urea nitrogen [Mass/Vol] 8 mg/dL Normal 7-20 [facility] Comment on above: Performed By: #### H EMDF, CMP3, ETOH4, MG3, TSH5 #### [place] [address] [place], [place] Potassium [Moles/Vol] 3.8 mmol/L Normal 3.5-5.1 [facility] Comment on above: Performed By: #### H EMDF, CMP3, ETOH4, MG3, TSH5 #### [address] Sodium [Moles/Vol] 132 mmol/L Low 135-145 [facility] Comment on above: Performed By: #### H EMDF, CMP3, ETOH4, MG3, TSH5 #### [place] [address] [address] [place], [place] Albumin [Mass/Vol] 4.4 g/dL Normal 3.5-5.0 [facility] Comment on above: Performed By: #### H EMDF, CMP3, ETOH4, MG3, TSH5 #### [address] Chloride [Moles/Vol] 99 mmol/L Normal 98-107 [facility] Comment on above: Performed By: #### H EMDF, CMP3, ETOH4, MG3, TSH5 #### [facility] [address], [place] Complete Urinalysison 2019 Appearance (U) Clear Normal Clear [facility] Comment on above: Result Comment: . Performed By: #### C UA2, DRGA4 #### [place] [address] [address] [place], [place] Bilirubin,Urine Negative Normal Negative [facility] Comment on above: Result Comment: . Performed By: #### C UA2, DRGA4 #### [place] [address] [address] [place], [place] Color (U) Colorless Normal Lt. Yellow [facility] Comment on above: Result Comment: . Performed By: #### C UA2, DRGA4 #### [place] [address] [address] [place], [place] Glucose Ql (U) Normal Normal Normal (<70) [facility] Comment on above: Result Comment: . Performed By: #### C UA2, DRGA4 #### [place] [address] [address] [place], [place] Ketone,Urine Negative Normal Negative [facility] Comment on above: Result Comment: . Performed By: #### C UA2, DRGA4 #### [place] [address] [address] [place], [place] Leukocytes,Urine Negative Normal Negative [facility] Comment on above: Result Comment: . Performed By: #### C UA2, DRGA4 #### [place] [address] [address] [place], [place] Nitrites,Urine Negative Normal Negative [facility] Comment on above: Result Comment: . Performed By: #### C UA2, DRGA4 #### [place] [address] [address] [place], [place] Occult Blood,Urine Negative Normal Negative [facility] Comment on above: Result Comment: . Performed By: #### C UA2, DRGA4 #### [place] [address] [address] [place], [place] pH (U) 6.5 Normal 5.0-8.0 [facility] Comment on above: Result Comment: . Performed By: #### C UA2, DRGA4 #### [facility] [address], [place] Protein (U) [Mass/Vol] Negative Normal Negative [facility] Comment on above: Result Comment: . Performed By: #### C UA2, DRGA4 #### [facility] [address], [place] Specific [place],Urine 1.007 Normal 1.005 - 1.030 [facility] Comment on above: Result Comment: . Performed By: #### C UA2, DRGA4 #### [facility] [address], [place] Urobilinogen,Urine Normal Normal Normal (0-1) [facility] Comment on above: Result Comment: . Performed By: #### C UA2, DRGA4 #### [facility] [address], [place] Comprehensive Metabolic Pane zeenat 09-19-2019 Albumin [Mass/Vol] 4.4 g/dL 3.5 - 5 g/dL [place], [place] ALP [Catalytic activity/Vol] 59 U/L 38 - 126 U/L [place], [place] ALT [Catalytic activity/Vol] 14 U/L 0 - 34 U/L [place] Comment on above: The ALT test is perf ormed by an updated assay method. Please note that the reference intervals have been changed and are now sex specific. Anion gap [Moles/Vol] 10 mmol/L [place], [place] AST [Catalytic activity/Vol] 38 U/L 15 - 46 U/L [place] Bilirubin Ql (U) 0.5 mg/dL 0.2 - 1.3 mg/dL [place] Calcium [Mass/Vol] 10.0 mg/dL 8.4 - 10. 4 mg/dL [place] Chloride [Moles/Vol] 99 mmol/L 98 - 10 7 mmol/L [place] CO2 [Moles/Vol] 23 mmol/L 22 - 30 mmol/L [place] Creatinine [Mass/Vol] 0.81 mg/dL 0.52 - 1.25 mg/dL [place] EGFR IF NonAfrican [place]inean 73.5 mL/min >60 [place], [place] Comment on above: KDIGO guidelines pro vide the following GFR categories: Stage GFR(ml/min/1.73 m2) Terms G1 >=90 Normal or high G2 60-89 Mildly decreased* G3a 45-59 Mildly to moderately decreased G3b 30-44 Moderately to severely decreased G4 15-29 Severely decreased G5 <15 Kidney failure *Relative to young adult level. In the absence of evidence of kidney damage, neither GFR category G1 nor G2 fulfill the criteria for CKD. The CKD-EPI equation is validated in individuals 18 years of age and older. Currently the best equation for estimating glomerular filtration rate (GFR) from serum creatinine in children is the Bedside Mckay equation. It is less accurate in patients with extremes of muscle mass, restriction of dietary protein, ingestion of creatine, extra-renal metabolism of creatinine, or treatment with medications that affect renal tubular creatinine secretion. GFR/1.73 sq M predicted among blacks MDRD (S/P/Bld) [Vol rate/Area] 85.2 mL/min/{1.73_m2} >60 [place] Glucose [Mass/Vol] 117 mg/dL High 70 - 100 mg/dL [place], [place] Interpretation and review of laboratory results Abnormal [place] Potassium [Moles/Vol] 3.8 mmol/L 3.5 - 5.1 mmol/L [place] Protein [Mass/Vol] 7.0 g/dL 6.3 - 8.2 g/dL [place], [place] Sodium [Moles/Vol] 132 mmol/L Low 135 - 145 mmol/L [place] Urea nitrogen [Mass/Vol] 8 mg/dL 7 - 20 mg/d L [place] Drugs of Abuseon 09-19-2019 Phencyclidine (PCP), Ur Negative Normal [facility] Comment on above: Result Comment: The expected value for all of the drugs listed above is Negative. The following drugs or drug groups have been screened for by Immunoassay at the following thresholds: Amphetamine class (1000 ng/mL), Barbiturates (200 ng/mL), Benzodiazepines (200 ng/mL), Cocaine (300 ng/mL), Methadone (300 ng/mL), Opiates (300 ng/mL), Oxycodone (100 ng/mL), and PCP (25 ng/mL). NOTE: These results are for medical treatment only. Analysis performed using non-forensic procedures. POSITIVE results are NOT confirmed by a more specific alternative method unless requested. If confirmation is needed, request confirmation under separate order. Performed By: #### C UA2, DRGA4 #### [place] [address] [address] [facility], [place] Methadone, Ur Negative Normal [facility] Comment on above: Performed By: #### C UA2, DRGA4 #### [place] [address] [address] [facility], [place] Opiates, Ur Positive Normal [facility] Comment on above: Performed By: #### C UA2, DRGA4 #### [place] [address] [address] [facility], [place] Cocaine, Ur Negative Normal [facility] Comment on above: Performed By: #### C UA2, DRGA4 #### [place] [address] [address] [facility], [place] Amphetamines, Ur Negative Normal [facility] Comment on above: Performed By: #### C UA2, DRGA4 #### [place] [address] [address] [facility] [place] Barbiturates, Ur Negative Normal [facility] Comment on above: Performed By: #### C UA2, DRGA4 #### [place] [address] [address] [facility] [place] Benzodiazepines, Ur Negative Normal [facility] Comment on above: Performed By: #### C UA2, DRGA4 #### [place] [address] [address] [facility] [place] Oxycodone/Oxymorphine,Ur Positive Normal [facility] Comment on above: Performed By: #### C UA2, DRGA4 #### [place] [address] [address] [facility], [place] Ethanolon 09-19-2019 Ethanol Lvl <0.010 0 - 0.01 g/dL [place], [place] Comment on above: NOTE: This result is for medical treatment only. Analysis performed using non-forensic procedures. Ethanol Serum/Plasmaon 09-18 Ethanol-Serum/Plasma < 0.010 Normal 0.000-0.010 [facility] Comment on above: Result Comment: NOTE : This result is for medical treatment only. Analysis performed using non-forensic procedures. Performed By: #### H EMDF, CMP3, ETOH4, MG3, TSH5 #### [facility] [address] [place] [address] Hemogram (CBC) w/Auto Diffon 09-19-2019 Absolute Baso # 0.1 10*3/uL 0 - 0.2 10*3/uL [place], [place] Absolute Neut # 11.0 10*3/uL High 1.8 - 7 10*3/uL [place], [place] Basophils/100 WBC (Bld) 0.4 % 0 - 2 % [place], [place] Eosinophils (Bld) [#/Vol] 0.0 10*3/uL 0 - 0.5 10*3/uL [place] Eosinophils/100 WBC (Bld) 0.3 % Low 1 - 6 % [place] Erythrocyte distribution width (RBC) [Ratio] 12.8 % 11.5 - 14.5 % [place], [place] Granulocytes/100 WBC (Bld) 79.3 % 40 - 80 % [place] Hematocrit (Bld) [Volume fraction] 36.5 % 35 - 47 % [place] Hemoglobin (Bld) [Mass/Vol] 12.8 g/dL 11.7 - 16 g/dL [place] Interpretation and review of laboratory results Abnormal [place] Lymphocytes (Bld) [#/Vol] 1.7 10*3/uL 1 - 4.3 10*3/uL [place] Lymphocytes/100 WBC (Bld) 11.9 % Low 20 - 40 % [place] MCH (RBC) [Entitic mass] 33.3 pg 26 - 34 pg [place] MCHC (RBC) [Mass/Vol] 35.0 % 32 - 36 % [place] MCV (RBC) [Entitic vol] 95.1 fL 79 - 98 fL [place], [place] Monocytes (Bld) [#/Vol] 1.1 10*3/uL High 0 - 0.8 10*3/uL [place], [place] Monocytes/100 WBC (Bld) 8.1 % 2 - 10 % [place] Platelet mean volume (Bld) [Entitic vol] 8.6 fL 7.4 - 10.4 fL [place], [place] Platelets (Bld) [#/Vol] 313 10*3/uL 140 - 440 10*3/uL [place] RBC (Bld) [#/Vol] 3.84 10*6/uL 3.8 - 5.2 10*6/uL [place] WBC (Bld) [#/Vol] 13.9 10*3/uL High 3.6 - 10.7 10*3/uL [place] Test Performed by [facility] [employer] [facility], [address] [place] [id number] [place] [address] Hemogram w/ Autodiffon 09-18 Abs Baso Cnt 0.1 10*3/uL Normal 0.0-0.2 [facility] Comment on above: Performed By: #### H EMDF, CMP3, ETOH4, MG3, TSH5 #### [address] Abs Neutrophile Cnt 11.0 10*3/uL High 1.8-7.0 [facility] Comment on above: Performed By: #### H EMDF, CMP3, ETOH4, MG3, TSH5 #### [address] Basophils/100 WBC (Bld) 0.4 % Normal 0.0-2.0 [facility] Comment on above: Performed By: #### H EMDF, CMP3, ETOH4, MG3, TSH5 #### [address] Eosinophils (Bld) [#/Vol] 0.0 10*3/uL Normal 0.0-0.5 [facility] Comment on above: Performed By: #### H EMDF, CMP3, ETOH4, MG3, TSH5 #### [address] Eosinophils/100 WBC (Bld) 0.3 % Low 1.0-6.0 [facility] Comment on above: Performed By: #### H EMDF, CMP3, ETOH4, MG3, TSH5 #### [address] Erythrocyte distribution width (RBC) [Ratio] 12.8 % Normal 11.5-14.5 [facility] Comment on above: Performed By: #### H EMDF, CMP3, ETOH4, MG3, TSH5 #### [address] Granulocytes/100 WBC (Bld) 79.3 % Normal 40.0-80.0 [facility] Comment on above: Performed By: #### H EMDF, CMP3, ETOH4, MG3, TSH5 #### [address] Hematocrit (Bld) [Volume fraction] 36.5 % Normal 35.0-47.0 [facility] Comment on above: Performed By: #### H EMDF, CMP3, ETOH4, MG3, TSH5 #### [address] Hemoglobin (Bld) [Mass/Vol] 12.8 g/dL Normal 11.7-16.0 [facility] Comment on above: Performed By: #### H EMDF, CMP3, ETOH4, MG3, TSH5 #### [address] Lymphocytes (Bld) [#/Vol] 1.7 10*3/uL Normal 1.0-4.3 [facility] Comment on above: Performed By: #### H EMDF, CMP3, ETOH4, MG3, TSH5 #### [address] Lymphocytes/100 WBC (Bld) 11.9 % Low 20.0-40.0 [facility] Comment on above: Performed By: #### H EMDF, CMP3, ETOH4, MG3, TSH5 #### [address] MCH (RBC) [Entitic mass] 33.3 pg Normal 26.0-34.0 [facility] Comment on above: Performed By: #### H EMDF, CMP3, ETOH4, MG3, TSH5 #### [address] MCHC (RBC) [Mass/Vol] 35.0 % Normal 32.0-36.0 [facility] Comment on above: Performed By: #### H EMDF, CMP3, ETOH4, MG3, TSH5 #### [address] MCV (RBC) [Entitic vol] 95.1 fL Normal 79.0-98.0 [facility] Comment on above: Performed By: #### H EMDF, CMP3, ETOH4, MG3, TSH5 #### [address] Monocytes (Bld) [#/Vol] 1.1 10*3/uL High 0.0-0.8 [facility] Comment on above: Performed By: #### H EMDF, CMP3, ETOH4, MG3, TSH5 #### [address] Monocytes/100 WBC (Bld) 8.1 % Normal 2.0-10.0 [facility] Comment on above: Performed By: #### H EMDF, CMP3, ETOH4, MG3, TSH5 #### [address] Platelet mean volume (Bld) [Entitic vol] 8.6 fL Normal 7.4-10.4 [facility] Comment on above: Performed By: #### H EMDF, CMP3, ETOH4, MG3, TSH5 #### [facility] [address] [place] [address] Platelets (Bld) [#/Vol] 313 10*3/uL Normal 140-440 [facility] Comment on above: Performed By: #### H EMDF, CMP3, ETOH4, MG3, TSH5 #### [place] [address] [address], [place] RBC (Bld) [#/Vol] 3.84 10*6/uL Normal 3.80-5.20 [facility] Comment on above: Performed By: #### H EMDF, CMP3, ETOH4, MG3, TSH5 #### [place] [address] [address], [place] WBC (Bld) [#/Vol] 13.9 10*3/uL High 3.6-10.7 [facility] Comment on above: Performed By: #### H EMDF, CMP3, ETOH4, MG3, TSH5 #### [place] [address] [place] [address] Magnesiumon 09-19-2019 Magnesium [Mass/Vol] 1.9 mg/dL Normal 1.6-2.3 [facility] Comment on above: Performed By: #### H EMDF, CMP3, ETOH4, MG3, TSH5 #### [place] [address] [address] [place], [place] Magnesium [Mass/Vol] 1.9 mg/dL 1.6 - 2 .3 mg/dL [place], [place] Otheron 09-19-2019 Test Performed by [facility], [place] [address] [place], [place] [id number] 09-19-2019 SARS-CoV-2 SARS-CoV-2 --> Status: F Not Detected Expected Result: Not Detected _ Real-time, RT-PCR performed on the [employer] by the [facility]. Negative results do not preclude SARS-CoV-2 infection and should not be used as the sole basis for treatment or other patient management decisions. This assay was developed by [employer] and distributed under an Emergency Use Authorization (EUA) granted by the FDA for the qualitative detection of SARS-CoV-2 nucleic acid. Expected Result: Not Detected _ Real-time, RT-PCR performed on the [employer] TORCH by the [facility]. Negative results do not preclude SARS-CoV-2 infection and should not be used as the sole basis for treatment or other patient management decisions. This assay was developed by [employer] and distributed under an Emergency Use Authorization (EUA) granted by the FDA for the qualitative detection of SARS-CoV-2 nucleic acid. Normal [facility] Comment on above: Order Comment: Speci men Source Comment:Nasopharyngeal Swab Performed By: #### C OVID #### [place] [address] TSH without Reflexon 020 TSH Qn 0.941 u[IU]/mL 0.465 - 4.68 u[IU]/mL [place], [place] Test Performed by [facility], [address] [place] [address] Thyroid Stim. Hormoneon 09-07 Thyroid Stim. Hormone 0.941 u[IU]/mL Normal 0.465-4.68 0 [facility] Comment on above: Performed By: #### H EMDF, CMP3, ETOH4, MG3, TSH5 #### [address] [address] Urinalysison 09-19-2019 Appearance (U) Clear Clear [place], [place] Comment on above: . Bilirubin Urine Negative Negative mg/dL [place] Comment on above: . Color (U) Colorless Lt. Yellow NA [place], [place] Comment on above: . Glucose, Ur Normal Normal (<70) mg/dL [place] Comment on above: . Ketones Ql (U) Negative Negative mg/dL [place], [place] Comment on above: . LEUKOCYTES, UA Negative Negative Janelle/uL [place] Comment on above: . Nitrite, Urine Negative Negative NA [place], [place] Comment on above: . Occult Blood,Urine Negative Negative mg/dL [facility] [place] [place] Comment on above: . pH (U) 6.5 [pH] [place], [place] Comment on above: . Protein (U) [Mass/Vol] Negative Negative mg/d L [place], [place] Comment on above: . Specific [place], Urine 1.007 M [place], [place] Comment on above: . Urobilinogen, Urine Normal Normal ( 0-1) mg/dL [place], [place] Comment on above: . Test Performed by [facility], [address] [place] [address] [place], [place] Urine Drug Screenon 09-19-19 20 Amphetamines, urine Negative [place], [place] Barbiturates, Ur [facility] [place] Benzodiazepine Ur Qual Negative [place], [place] Cocaine Metabolites, Ur Negative [place], [place] Methadone, Urine Negative [facility] [place] Opiates, Urine Positive [place], [place] Oxycodone Screen, Ur Positive [place], [place] PCP, Urine Negative [place], [place] Comment on above: The expected value f or all of the drugs listed above is Negative. The following drugs or drug groups have been screened for by Immunoassay at the following thresholds: Amphetamine class (1000 ng/mL), Barbiturates (200 ng/mL), Benzodiazepines (200 ng/mL), Cocaine (300 ng/mL), Methadone (300 ng/mL), Opiates (300 ng/mL), Oxycodone (100 ng/mL), and PCP (25 ng/mL). NOTE: These results are for medical treatment only. Analysis performed using non-forensic procedures. POSITIVE results are NOT confirmed by a more specific alternative method unless requested. If confirmation is needed, request confirmation under separate order. Test Performed by [address] [address] [place], [place] Clinical Summary: HMSPatient IDon 06-18-[address] [facility] Work Phone: Clinical Lists Update: Prelo ad Extendedon 06-17-2019 Tobacco smoking status NHIS current everyday smoker [facility] Work Phone: Vital Signs Date Time Vital Sign Value Performing Clinician Facility 09-04-2024 05:45-0400 Body temperature 98.2 [degF] Dr. Regino Davey MD Work Phone: [facility] 09-04-2024 05:45-0400 Diastolic blood pressure 82 mm[Hg] Dr. Regino Davey MD Work Phone: [facility] 09-04-2024 05:45-0400 Heart rate 68 /min Dr. Regino Davey MD Work Phone: [facility] 09-04-2024 05:45-0400 Respiratory rate 16 /min Dr. Regino Davey MD Work Phone: [facility] 09-04-2024 05:45-0400 SaO2% (BldA) [Mass fraction] 98 % Dr. Regino Davey MD Work Phone: [facility] 09-04-2024 05:45-0400 Systolic blood pressure 157 mm[Hg] Dr. Regino Davey MD Work Phone: [facility] 09-04-2024 04:15-0400 Body height 162.[address] Regino Davey MD Work Phone: [facility] 09-04-2024 04:15-0400 Body mass index (BMI) [Ratio] 27.1 kg/m2 Dr. Regino Davey MD Work Phone: [facility] 09-04-2024 04:15-0400 Body weight 71.[address] Regino Davey MD Work Phone: [facility] 12-20-2021 01:18-0400 Diastolic blood pressure 81 mm[Hg] [facility] Work Phone: 12-20-2021 01:18-0400 Heart rate 76 /min [facility] Work Phone: 12-20-2021 01:18-0400 Respiratory rate 16 /min [facility] Work Phone: 12-20-2021 01:18-0400 SaO2% (BldA) [Mass fraction] 99 % [facility] Work Phone: 12-20-2021 01:18-0400 Systolic blood pressure 137 mm[Hg] [facility] Work Phone: 12-19-2021 22:50-0400 Body height 157.48 cm [facility] Work Phone: 12-19-2021 22:50-0400 Body mass index (BMI) [Ratio] 30.4 kg/m2 [facility] Work Phone: 12-19-2021 22:50-0400 Body temperature 96.1 [degF] [facility] Work Phone: 12-19-2021 22:50-0400 Body weight 75.6 kg [facility] Work Phone: 07-15-2021 11:37-0400 Body height 160.02 cm [facility] Work Phone: 09-23-2019 06:46-0400 Body Temperature 97.5 [degF] [employer], [place] 09-23-2019 06:46-0400 BP Diastolic 60 mm[Hg] [facility] [place] 09-23-2019 06:46-0400 BP Systolic 148 mm[Hg] [facility] [place] 09-23-2019 06:46-0400 Pulse (Heart Rate) 71 /min [facility] [place] 09-23-2019 06:46-0400 Pulse Oximetry 96 % [facility] [place] 09-23-2019 06:46-0400 Respiratory Rate 20 /min [facility], [place] 09-19-2019 08:16-0400 BMI (Body Mass Index) 27.44 kg/m2 [facility] [place] 09-19-2019 08:16-0400 Body weight 68.04 kg [employer] [place] , [place] 09-19-2019 08:16-0400 Height 157.5 cm Kilo Ellsworth [place], [place] NEGATED: Highlighted [id number] 12:52-0400 BMI (Body Mass Index) 29.37 kg/m2 Leatha Bougher [employer] [facility] Work Phone: NEGATED: Highlighted [id number] 12:52-0400 Body weight 72.58 kg Leatha Bougher [employer] [facility] [place] [facility] Work Phone: NEGATED: Highlighted [id number] 12:52-0400 Body weight 73 kg Leatha Bougher [employer] [facility] Work Phone: NEGATED: Highlighted [id number] 12:52-0400 BP Diastolic 82 mm[Hg] Leatha Bougher [employer] [facility] [place] [facility] Work Phone: NEGATED: Highlighted [id number] 12:52-0400 BP Diastolic 77 mm[Hg] Leatha Bougher [employer] [facility] [place] [facility] Work Phone: NEGATED: Highlighted [id number] 12:52-0400 BP Systolic 149 mm[Hg] Leatha Bougher [employer] [facility] [place] [facility] Work Phone: NEGATED: Highlighted [id number] 12:52-0400 BP Systolic 144 mm[Hg] Leatha Bougher [employer] [facility] Work Phone: NEGATED: Highlighted [id number] 12:52-0400 Heart rate 2+ Leatha Bougher [employer] [facility] Work Phone: NEGATED: Highlighted [id number] 12:52-0400 Height 157.48 cm Leatha Bougher [employer] [facility] Work Phone: NEGATED: Highlighted [id number] 12:52-0400 Height 157 cm Leatha Bougher LORRIE [facility] Work Phone: NEGATED: Highlighted [id number] 12:52-0400 Pulse (Heart Rate) 67 /min Leatha Peña LPN [facility] Work Phone: Encounters Encounter Date Encounter Type Care Provider Facility Start: 09-04-2024 End: 09-04-2024 Emergency department patient visit Dr. Regino Davey MD Work Phone: -Emergency Department Work Phone: Start: 08-15-2024 End: 08-15-[address] Regino Davey MD Work Phone: [facility] Work Phone: Start: 08-15-2024 End: 08-15-[address] Regino Davey MD -Laboratory [facility] Start: 08-15-2024 End: 08-15-2024 ambulatory Regino Davey Facility:[facility] Start: 07-16-2024 End: 07-16-[address] Regino Davey MD Work Phone: [facility] Work Phone: Start: 07-16-2024 End: 07-16-[address] Regino Davey MD -[facility] Work Phone: Start: 07-16-2024 End: 07-16-2024 ambulatory Regino Davey Facility:[facility] Start: 03-12-2024 End: 03-12-2024 ambulatory Regino Davey Facility:[facility] Start: 11-28-2023 End: 11-28-2023 ambulatory Regino Davey Facility:[facility] Start: 02-14-2023 End: 02-14-2023 ambulatory [facility] Work Phone: Start: 02-14-2023 End: 02-14-2023 Patient encounter procedure [facility] Start: 11-01-2022 End: 11-01-2022 Patient encounter procedure [facility] Start: 12-19-2021 End: 12-20-2021 Emergency department patient visit [facility]-Emergency Department Start: 11-03-2021 Refill Kilo garcia MD Work Phone: Obstetrics/Gynecology Comment on above: Refill Request Start: 10-26-2021 Telephone encounter Kilo Pham MD Work Phone: Obstetrics/Gynecology Comment on above: Patient Question Start: 08-24-2021 Telephone encounter Kilo Pham MD Work Phone: Obstetrics/Gynecology Comment on above: needs consult for de rmatology Start: 07-15-2021 End: 07-15-2021 Patient encounter procedure [facility] Start: 07-06-2021 Telephone encounter Kilo Pham MD Work Phone: Obstetrics/Gynecology Comment on above: Medication Problem Start: 09-19-2019 End: 09-23-2019 Evaluation and management of inpatient Kilo Juani Ellsworth Work Phone: [facility] Comment on above: Altered mental statu s, unspecified altered mental status type (Primary Dx); Hallucinations; Delirium Start: 06-18-2019 End: 06-19-2019 Patient encounter procedure Manny Maldonado MD Work Phone: [facility] [place] [facility] Work Phone: Start: 07-20-2017 End: 07-21-2017 Ambulatory Farideh Edouard Facility:[facility] Start: 05-28-2017 End: 05-29-2017 Ambulatory Farideh Edouard Facility:[facility] Procedures Date Procedure Procedure Detail Performing Clinician Start: 09-04-2024 CT of head without contrast Dr. Regino Davey MD Work Phone: Start: 09-04-[address] Regino Davey MD Work Phone: Start: 09-20-2019 Radiologic exam ches t single view Kevyn A Diop Work Phone: Start: 09-19-2019 COVID-19 Kilohilary mansfield Work Phone: Start: 09-19-2019 Ct head/brain w/o contrast material Kilo Ellsworth Work Phone: Start: 09-19-2019 Assay of ethanol Kilo Ellsworth Work Phone: Start: 09-19-2019 Assay of magnesium Jacintoi n Juani Ellsworth Work Phone: Start: 09-19-2019 Assay of thyroid stimulating hormone tsh Kilo Ellsworth Work Phone: Start: 09-19-2019 Blood count complete auto&auto difrntl wbc Kilo Juani Erika Work Phone: Start: 09-19-2019 Comprehensive metabo lic panel Kilo Ellsworth Work Phone: Start: 09-19-2019 Drug screen class list a Kilohilary Brookeowski Work Phone: Start: 09-19-2019 Urnls dip stick/tabl et rgnt auto w/o microscopy Kilo Ellsworth Work Phone: Start: 06-18-2019 End: 06-19-2019 Arthrocentesis aspir&/inj major jt/bursa w/o us Manny Maldonado MD Work Phone: Start: 06-18-2019 End: 06-19-2019 Blood pressure outside of normal parameters - follow-up not documented Manny Maldonado MD Work Phone: Start: 06-18-2019 End: 06-19-2019 BMI documented as above normal parameters - follow-up documented Manny Maldonado MD Work Phone: Start: 06-18-2019 End: 06-19-2019 Documentation of current medications Manny Maldonado MD Work Phone: Start: 06-18-2019 End: 06-19-2019 Fall plan of care docjuani ernandez MD Work Phone: Start: 06-18-2019 End: 06-19-2019 Fall risk assessment docd Manny ames MD Work Phone: Start: 06-18-2019 End: 06-19-2019 Injection - triamcinolone acetonide 10 mg Manny Maldonado MD Work Phone: Start: 06-18-2019 End: 06-19-2019 Pain assessment documented as positive - follow-up documented Manny Maldonado MD Work Phone: Start: 06-18-2019 End: 06-19-2019 Pt tobacco screen rcvd tlk Manny Maldonado MD Work Phone: Start: 06-18-2019 End: 06-19-2019 Ptfalls assess-docd ge2>/yr Manny Maldonado MD Work Phone: Start: 06-18-2019 End: 06-18-2019 Radiologic examination pelvis 1/2 views Manny Maldonado MD Work Phone: Start: 12-23-2018 Mammography Kilo flores MD Work Phone: Start: 02-26-2012 Colonoscopy Kilo flores MD Work Phone: NEGATED: Highlighted rowStart: 06-18-2019 End: 06-18-2019 Documentation of current medications Leatha Peña LPN NEGATED: Highlighted rowStart: 06-18-2019 End: 06-18-2019 Smoking cessation education Leatha Peña LPN Plan of Treatment Date Care Activity Detail Author Start: 09-04-2024 [facility] Start: 02-25-2022 Colonoscopy COLONOSCOPY [facility] Start: 02-25-2022 COLORECTAL CANCER SCREENING COLORECTAL CANCER SCREENING [facility] Start: 12-08-2021 Influenza vaccination C [facility] Start: 09-04-2021 DIABETES SCREEN DIABETES SCREEN [facility] Start: 04-09-2021 ADVANCE DIRECTIVE DISCUSSION ADVANCE DIRECTIVE DISCUSSION [facility] Start: 12-08-2020 Influenza vaccination INFLUENZA (#1) [facility] Start: 09-18-2020 Creatinine measurement Creatinine mo [facility], [place] Start: 09-18-2020 Potassium monitoring Potassium monit oring [place], [place] Start: 07-07-2020 COVID-19 VACCINE (2 - Pfizer 3-dose series) COVID-19 VACCINE (2 - Pfizer 3-dose series) [facility] Start: 07-07-2020 COVID-19 VACCINE (2 - Pfizer series) COVID-19 VACCINE (2 - Pfizer series) [facility] Start: 12-24-2019 Mammography MAMMOGRAM [facility] Start: 12-09-2019 Influenza vaccination Flu vacc ine (Season Ended) [place], [place] Start: 01-21-2018 LIPID SCREEN LIPID SCREEN [facility] Start: 01-17-2017 PNEUMOCOCCAL: 65+ (2 - PCV) PNEUMOCOCCAL: 65+ (2 - PCV) [facility] Start: 08-13-2012 SHINGRIX VACCINE (2 of 3) SHINGRIX VACCINE (2 of 3) [facility] Start: 1994 COLOGUARD (FIT-DNA) COLOGUARD (FIT-D NA) [facility] Start: [address] COLONOGRAPHY [facility] Start: 1994 FECAL OCCULT BLOOD FECAL OCCULT BLOO D [facility] Start: 1994 SIGMOIDOSCOPY SIGMOIDOSCOPY [facility] Start: 1968 Urine microalbumin profile DTAP,TDAP,TD (1 - Tdap) [facility] Start: 07-05-1967 ANNUAL PCP TEAM DOCUMENT ADVISOR JACOB DISEASE VISIT ANNUAL PCP TEAM CHRONIC DISEASE VISIT [facility] Start: 07-05-1967 BP CONTROLLED (<130/80) BP CONTROLLE D (<130/80) [facility] Start: 07-05-1967 HEPATITIS C SCREENING HEPATITIS C NV AYDEN [facility] End: 09-23-2019 Basic metabolic 2000 panel Basic Metabolic Panel Lab Routine Tomorrow AM for 1 Occurrences starting 09/23/2019 until 09/23/2019 [facility], [place] Comment on above: Tomorrow AM for 1 Oc currences starting 09/23/2019 until 09/23/2019 End: 09-23-2019 CBC CBC Lab Routine Tomorrow AM for 1 Occurrences starting 09/23/2019 until 09/23/2019 [facility] Comment on above: Tomorrow AM for 1 Oc currences starting 09/23/2019 until 09/23/2019 End: 09-23-2019 Cobalamin (Vitamin B12) [Mass/Vol] Vitamin B12 Lab Routine Tomorrow AM for 1 Occurrences starting 09/23/2019 until 09/23/2019 [facility] [place] Comment on above: Tomorrow AM for 1 Oc currences starting 09/23/2019 until 09/23/2019 Initiate Oxygen Ther apy Protocol Initiate Oxygen Therapy Protocol Respiratory Care Routine Daily until discontinued starting 09/19/2019 [facility] Comment on above: Daily until disconti nued starting 09/19/2019 Patient Education Tiffany [facility] Work Phone: Patient referral [facility] Work Phone: End: 09-23-2019 Vitamin D 25 Hydroxy Vitamin D 25 Hydroxy Lab Routine Tomorrow AM for 1 Occurrences starting 09/23/2019 until 09/23/2019 [facility], [place] Comment on above: Tomorrow AM for 1 Oc currences starting 09/23/2019 until 09/23/2019 Immunizations Immunization Date Immunization Notes Care Provider Carmen maynard 06-16-2020 COVID-19 vaccine, ag e 12+ yr (PFI[employer]ER-[employer] - PURPLE TOP) Kilo Bonds MD Work Phone: [facility] Work Phone: 01-16-2018 influenza, injectabl e, quadrivalent, contains preservative Kilo Bonds MD Work Phone: [facility] 01-18-2016 influenza, injectabl e, quadrivalent, contains preservative Kilo Bonds MD Work Phone: [facility] 01-18-2016 pneumococcal polysaccharide vaccine, 23 valent Kilo Bonds MD Work Phone: [facility] 01-04-2015 influenza, high dose seasonal, preservative-free Kilo Bonds MD Work Phone: [facility] 01-06-2014 influenza, seasonal, injectable Kilo Bonds MD Work Phone: [facility] 01-06-2013 influenza virus vacc ine, unspecified formulation Kilo Bonds MD Work Phone: [facility] 06-18-2012 zoster vaccine, live Kilo Segura MD Work Phone: [facility] 01-08-2012 influenza virus vacc ine, unspecified formulation Kilo Bonds MD Work Phone: [facility] 02-04-2011 influenza virus vacc ine, unspecified formulation Kilo Bonds MD Work Phone: [facility] 02-11-2010 influenza virus vacc ine, unspecified formulation Kilo Bonds MD Work Phone: [facility] 02-14-2006 influenza virus vacc ine, unspecified formulation Kilo Bonds MD Work Phone: [facility] Work Phone: Payers Date Payer Category Payer Private Health Insurance [id number] 2023 Private Health Insurance 101 [id number] 2023 Self-pay [id number] 2021 Medicare AETNA MEDICARE A ETNA MEDICARE HMO [id number] 2021-Present [phone] [address] [place] [address] [facility] [id number] 2017 Medicare 2016 Unknown [id number] 2014 Medicare [id number] Unknown [id number] Unknown [id number] Unknown [id number] Unknown [id number] 62 Unknown [id number] Social History Date Type Detail Facility Start: 09-24-2019 End: 02-14-2022 Assertion Unknown if ever smoked [facility] Work Phone: Start: 1950 Sex Assigned At Not on file M [place], [place] Exposure to SARS-CoV-2 (event) Unable to assess [place], [place] Start: 01-01-1997 End: 01-01-2019 Tobacco smoking status KYIS Occasional tobacco smoker [facility] Work Phone: Start: 01-01-1997 History of tobacco use Cigarette Smoker [facility] Work Phone: Start: 01-05-2012 End: 01-01-2019 Cigarettes smoked current (pack per day) - Reported 0.[address] [facility] Start: 01-05-2012 End: 01-01-2019 Tobacco use and exposure Smokeless tobacco non-user 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 Start: 02-18-2015 Tobacco Comment 2 cig per day [facility] Start: 09-24-2019 None [facility] Start: 07-15-2021 Homeless [facility] Start: 1950 Sex Assigned At Female [facility] Start: 02-14-2022 End: 09-04-2024 Tobacco smoking status NHIS Smokes tobacco daily (finding) [facility] Start: 07-22-2024 Sex Female (finding) [facility] NEGATED: Highlighted rowStart: 06-18-2019 End: 06-18-2019 Tobacco use and exposure Tobacco use and exposure [facility] Work Phone: Mental Status Date Assessment Result Facility 09-04-2024 Cognitive function Level Of Cons ciousness Awake;Alert;Appropriate;Follow s Commands [facility] Work Phone: 12-20-2021 Cognitive function Level Of Cons ciousness Awake;Alert;Appropriate;Follow s Commands [facility] Work Phone: Radiology Diagnostic study note 09-04-2024 Note Date & Type Note Facility 09-04-2024 Radiology Diagnostic study note [facility] Imaging Services [address] [place], [place] [address] Brain/Head without Contrast MR#: [id number] Acct: [id number] Name: ANGÉLICA DAWN Rep #: [id number] : 1950 F 74 From: Teodoro Olea MD PCP: Dr. Regino Davey MD Status: REG E R Study:Brain/Head without Contrast Date of Exa m: 09/04/24 Exam# [id number] Ordering Dr: Alla Bueno DO PROCEDURE: BRAIN/HEAD WITHOUT CONTRAST 09/04/2024 REASON FOR EXAM: HEADACHE TECHNIQUE: Head CT without intravenous contrast. Coronal and Sagittal reconstruction serieswere provided. One or more dose reduction techniques were used (e.g., Automated exposure control, adjustment of the mA and/or kV according to patient size, use of iterative reconstruction technique. RADIATION DOSE SUMMARY: CTDlvol: 44.99 mGy DLP: 846.73 mGycm COMPARISON: 09/24/2019 FINDINGS: No intracranial hemorrhage, mass effect or CT evidence of large vascular territory acute infarct. The ventricles are unchanged in size and remain midline. Convexity volume loss again noted. The paranasal sinuses, mastoids and orbits appear within limits. CT/Brain/Head without Contrast IMPRESSION: No intracranial hemorrhage, mass effect or CT evidence of large vascular territory acute infarct. Reading Location: [id number] CC: Dr. Regino Davey MD; Jesse Bueno DO ~ Manufacturing Engineer Paint: Signed [facility] Hospital Discharge instructions 12-20-2021 Note Date & Type Note Facility 12-20-2021 Hospital Discharg e instructions Additional Instructions Your lab work and urinalysis tonight did not indicate any sign of dehydration. You were given a liter of IV fluids. Please continue supportive care measures at home and follow-up with your primary care physician if not improving. [facility] Work Phone: Note 11-03-2021 Telephone Encounter - Grace Kathy - 11/03/2021 10:53 AM EDT Note Date & Type Note Facility 11-03-2021 Miscellaneous Notes Formattin g of this note is different from the original. Pending Prescriptions Disp Refills VALACYCLOVIR 500 MG TABLET 120 tablet 5 Sig: Take 1 tablet by mouth twice daily. HERMELINDO: No Patient called and would like the above medication refilled. Patient had last annual on 02/2019. She said that since she had back surgery a few years ago, she's not able to get in a position for the annual exam. She would like this medication if possible and if she needs an appointment for this, she'd like to do a phone call if she could. Please advise. Thank you. Grace Chavez documented in this encounter [facility] Note 10-26-2021 Telephone Encounter - Kilo Bonds MD - 10/26/2021 5:23 PM EDTTelephone Encounter - Nancie Patino RN - 10/26/2021 3:13 PM EDT Note Date & Type Note Facility 10-26-2021 Miscellaneous Notes The following approved medication requests have been transmitted electronically. Signed Prescriptions Disp Refills clotrimazole-betamethasone (LOTRISONE) cream 45 g 4 Sig: Apply to outside of vagina and crease of legs twice a day for 10-14 days when needed. HERMELINDO: No Authorizing Provider: KILO BONDS fluconazole (DIFLUCAN) 150 mg tablet 7 tablet 0 Sig: Take one tablet by mouth once daily for 7 days HERMELINDO: No Authorizing Provider: KILO BONDS MD Patient calls requesting medication for a yeast infection. documented in this encounter [facility] Note 07-06-2021 Telephone Encounter - Shanika Sofia RN - 07/06/2021 11:08 AM EDTTelephone Encounter - Cathie Baker - 07/06/2021 10:26 AM EDT Note Date & Type Note Facility 07-06-2021 Miscellaneous Notes Script sent to [facility] in [place] noting that patient will be utilizing [facility] and paying out of pocket in the stated amount of 25.59. Called patient and left detailed message on regarding above information and pharmacy script was sent to. Shanika Sofia RN Patient called in that her insurance has changed to aetna medicare. Her insurance is not covering it and it will cost 250. Please send another similar medication that will be covered better. Thank you documented in this encounter [facility] Evaluation note Note Date & Type Note Facility Evaluation note Diagnosis Vaginal atrophy Postmenopausal atrophic vaginitis documented in this encounter [facility] Evaluation note Note Date & Type Note Facility Evaluation note No assessment information availa ble [facility] Work Phone: Evaluation note Note Date & Type Note Facility Evaluation note Diagnosis Rash and other nonspecific skin eruption- Primary documented in this encounter [facility] Discharge instructions Note Date & Type Note Facility Hospital Discharge instructions Additional Instructions Your workup today showed no sign of endorgan damage such as heart damage or kidney damage and your head CT showed no sign of bleed or mass. Please continue all of your blood pressure medications as directed by your doctor and return to the ER should you have any further concerns [facility] Work Phone: Reason for referral (narrative) Note Date & Type Note Facility Reason for referral (narrative) No reason for referral information available [facility] Work Phone: Summary Purpose Family History No Family History Records Found Relationship Condition Age at Onset Recorded Date/T sheila sister Diabetes mellitus Unknown father Cardiac disease Unknown mother Alzheimer's disease Unknown Relationship Condition Age at Onset Recorded Date/T sheila sister Diabetes mellitus Unknown Alcoholism Unknown Obesity Unknown father Cardiac disease Unknown Coronary artery disease Unknown mother Alzheimer's disease Unknown Arthritis Unknown grandfather Malignant neoplasm of lung Unknown aunt Alzheimer's disease Unknown Malignant neoplasm Unknown uncle Alzheimer's disease Unknown Advance Directives No Advanced Directives Records FoundDocuments on File Type Date Recorded 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 Advance Directives and Living Will Power of Tax Attorney Latest Code Status on File Code Status Date Activated Date Inactivated Comments Full Code 09/19/2019 6:26 PM Documents on File Type Date Recorded 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 Advance Directive(s) 09/04/2018 1:43 PM Advance Directive Response Recorded Date/ Time Advance Directives Yes February 11:53am Living Will No September 24, 2019 2:52pm Power of Tax Attorney No September 23 2:52pm Documents on File Type Date Recorded 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 No September 04, 2024 4:14am Advance Directives Yes February 14, 2022 11:19am Chief Complaint Chief Complaint Description Start Date left hip pain Preliminary chief co mplaint data, not yet signed by the author as of Instructions Instruction Description Start Date Patient advised to follow-up with Primary Care Physician for BMI management. Assessments Diagnosis Altered mental status, unspecified altered mental status type Hallucinations Delirium Other alteration [...] has not been provided by the sender. * Betty Chapa PTA - 09/23/2019 10:23 AM EDT Physical Therapy Attempted PT. Pt politely declined therapy today, states her hip hurts today and did not want to address stairs at this time. Also states she is going home today. Will re-attempt at a later date if still admitted. Betty Chapa PTA * Kate Lee, CHRISSIE - VERONICA - 09/23/2019 10:22 AM EDT [facility] Geriatric Medicine Inpatient Consult Service Admission [...] follow up as needed outpatient at the [facility] if there are ongoing concerns aboutcognition. Acute pain post operatively --Recommend continuing scheduled acetaminophen, PRN low dose oxycodone for breakthrough Declining functional status --Related to recent surgery --Continue PT/OT as able while inpatient --Anticipate d/c to home with home care level of PT/OT Anxiety -Recommend continued outpatient follow-up regarding attempts to wean the lorazepam dose. As she gets older she will increasingly have difficulty with this and will increase her risk of both confusionand falls. -Recommend no more than 25% dose reduction every 2 weeks with slower weaning as the doses get lower Discussed with RN Subjective Chief Complaint: delirium Geriatrics consulted for paranoid;delusional; delirium vs psych vs withdrawal HPI- The patient is known to me. 69 y.o. year-old female admitted to acute care from [facility] for worsening confusion, hallucinations. Diagnosed with altered mental status, benzo withdrawal. Interval History: Remains on general medical/surgical floor . Mentation better today. Remains out of restraints. Did refuse AM labs and some AM medications. No evidence of hallucinations. No agitation with staff. Pt c/o back pain, better. Feels thinking is back to normal. Knows she's in the hospital, feels safe, looking forward to going home. Feels safe at home with . Denies hallucinations. Seen by PT. Supervision level of assistance, walked 300ft. Recommending home with home PT, 24 hr assist. Review of Systems Musculoskeletal: Positive for back pain. Negative for arthralgias. Psychiatric/Behavioral: Negative for agitation, confusion and sleep disturbance. Objective BP (!) 148/60 Pulse 71 Temp 97.5 F (36.4 C) (Temporal) Resp 20 Ht 5' 2 (1.575 m) Wt 150 lb (68 kg) SpO2 96% BMI 27.44 kg/m Intake/Output Summary (Last 24 hours) at 09/23/2019 [...] more appropriate today , oriented x date, place, city and self, follows commands, no tremor Labs and Imaging: No results found for this or any previous visit (from the past 24 hour(s)). Lab Results Component Value Date TSH 0.941 09/19/2019 No results found for: [id number] No results found for: VITD25 Head CT neg Reviewed: active problem list, medication list, lab results Lab Results Component Value Date TSH 0.941 09/19/2019 No results found for: [id number] No results found for: FOLATE No results found for: VITD25 Lab Results Component Value Date WBC 13.9 (H) 09/19/2019 Lab Results Component Value Date HGB 12.8 09/19/2019 Follow-up: prn, please page with any questions/issues. Can follow up as needed outpatient if there are ongoing concerns about cognition. * Amira Terry APRN - CNP - 09/23/2019 7:55 AM EDT Department of Psychiatry Progress Note Reason for Consult/Chief Complaint: Chief Complaint Patient presents with Delusional Dietrich slipped from [facility] at [facility] she had back surgery 2 days ago. [...] not seen her. Kate on 7W at [facility] states she had a sitter last night that would be very unlikely. Patient is currently A&Ox3. Consulting Practitioner: Amira Terry APRN Identifying data: Angélica Dawn is a 69 y.o. female HISTORY OF PRESENT ILLNESS: Pt seen for follow up regarding consult for hallucinations. Please see Dr. Lugo's note for full consult. Spoke with at length over the phone about how he felt about taking her home based on his visit yesterday. Discussed the likelihood that the current environment (being hospitalized, with unfamiliar people and unfamiliar routines) may be contributing toher suspiciousness. Discussed concern for forcing a psych admit potentially being traumatizing for the pt and further exacerbating her condition. Per Mr. Dawn he feels safe taking her home, feels that it would be beneficial for her to be back in a familiar environment and is in agreement that transfer to psych would likely be more harmful than helpful. He is retired, and is aware of recommendation for 24 hour supervision and feels that he is able to help his at home. On approach this morning pt is calm, cooperative and pleasant. States that she is feeling significantly improved this morning, doesn't remember speaking with me yesterday morning. She is A and O x 4,pleasant and insightful regarding her delirium. Hopeful for discharge home but is not insistent or demanding. Smiles and makes good eye contact. Appears to be near baseline level of function. Past Medical and Psychiatric History: PTSD, GABRIELLA, major depressive disorder No past medical history on file. Family Psychiatric and Medical History: no known family psych history. Father with ETOH use disorder No family history on file. Social History: Lives at home with . Social History Socioeconomic History Marital status: Spouse name: Not on file Number of children: Not on file Years of education: Not on file Highest education level: Not on file Occupational History Not on file Social Needs Financial resource strain: Not on file Food insecurity Worry: Not on file Inability: Not on file Transportation needs Medical: Not on file Non-medical: Not on file Tobacco Use Smoking status: Not on file Substance and Sexual Activity Alcohol use: Not on file Drug use: Not on file Sexual activity: Not on file Lifestyle Physical activity Days per week: Not on file Minutes per session: Not on file Stress: Not on file Relationships Social connections Talks on phone: Not on file Gets together: Not on file Attends christian service: Not on file Active member of club or organization: Not on file Attends meetings of clubs or organizations: Not on file Relationship status: Not on file Intimate partner violence Fear of current or ex partner: Not on file Emotionally abused: Not on file Physically abused: Not on file Forced sexual activity: Not on file Other Topics Concern Not on file Social History Narrative Not on file PAST SURGICAL HISTORY No past surgical history on file. Recent lumbar spinal surgery Allergies: Patient has no allergy information on record. REVIEW OF SYSTEMS: ROS: Review of Systems Musculoskeletal: Positive for gait problem. Psychiatric/Behavioral: Negative for agitation, behavioral problems, confusion, decreased concentration, dysphoric mood, hallucinations, self-injury, sleep disturbance and suicidal ideas. The patientis nervous/anxious. The patient is not hyperactive. PHYSICAL EXAM: Vitals: BP (!) 148/60 Pulse 71 Temp 97.5 F (36.4 C) (Temporal) Resp 20 Ht 5' 2 (1.575 m) Wt 150 lb (68 kg) SpO2 96% BMI 27.44 kg/m Physical Examination: Physical Exam HENT: Head: Normocephalic [...] questions or concerns. Please page myself or station repairer psychiatrist for emergent needs or follow up questions. Thank you forallowing me to participate in the care of this patient. * Rosibel García RN - 09/22/2019 3:00 PM EDT Non-violent restraints removed at this time. Will continue to monitor. * Kate Lee APRN - CNP - 09/22/2019 2:03 PM EDT [facility] Geriatric Medicine Inpatient Consult Service Admission [...]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 effects. If you have questions about the drugs you are taking, check with your doctor, nurse or pharmacist. Copyright 6096-6874 [employer] Version: 15.01. Revision date: 02/03/2019. Care instructions adapted under license by [employer]. If you have questions about a medical condition or this instruction, always ask your healthcare professional. [employer] disclaims any warranty or liability for your use of this information. documented in this encounter Reason for Referral Specialty Diagnoses / Procedures Referred By Contac t Referred To Contact Dermatology Diagnoses Rash and other nonspecific skin eruption Procedures CONSULT TO DERMATOLOGY OFFICE/OUTPATIENT NEW HIGH MDM 60-74 MINUTES Kilo Bonds MD [address] [address] [place] [address] [place] [address] Phone: [phone] Referral ID Status Reason Start Date Expiration Date Visits Requested Visits Authorized [id number] Authorized PCP Requested Referral 08/25/2021 08/24/2022 1 1 Chief Complaint and Reason for Visit Chief Complaint GENERAL Chief Complaint Admit Date high bp September 04, 2024 4:13a m Additional Source Comments INFORMATION SOURCE (unrecogn ized section and content) DATE CREATED AUTHOR 09/27/[address] [facility] DATE CREATED AUTHOR AUTHOR'S ORGANIZ ATION 09/20/2019 [facility] DATE CREATED AUTHOR AUTHOR'S ORGANIZ ATION 10/28/2019 [facility] DATE CREATED AUTHOR AUTHOR'S ORGANIZ ATION 07/17/2020 [facility] DATE CREATED AUTHOR AUTHOR'S ORGANIZ ATION 10/29/2021 [facility] DATE CREATED AUTHOR AUTHOR'S ORGANIZ ATION 09/12/2024 [facility] Reason for Visit (unrecogniz ed section and content) Reason For Visit Description New/Est - 1st visit with physician 06/17 Preliminary reason f or visit data, not yet signed by the author as of left hip pain Reason Comments Delusional Dietrich slipped from [facility] she had back surgery 2 days ago. [...] cooperative with staff. Hallucinations Patient denies the a marcus but does make mention of black bears in her room. SHe states she had an unwitnessed fall this am in the bathroom. When RN inquired if she let her nurse know, she states I have not seen her. Kate on [facility]W at [facility] states she had a sitter last night that would be very unlikely. Patient is currently A&Ox3. Reason Comments Medication Problem Reason Comments needs consult for dermatology Reason Comments Patient Question Reason Comments Refill Request Source Comments (unrecognize d section and content) In the event this informatio n is protected by the Federal Confidentiality of Alcohol and Drug Abuse Patient Records regulations: The Federal rules restrict any use of the information to criminally investigate or prosecute any alcohol or drug abuse patient.[facility] the event this information is protected by the Federal Confidentiality of Alcohol and Drug Abuse Patient Records regulations: The Federal rules restrict any use of the information to criminally investigate or prosecute any alcohol or drug abuse patient.[facility] the event this information is protected by the Federal Confidentiality of Alcohol and Drug Abuse Patient Records regulations: The Federal rules restrict any use of the information to criminally investigate or prosecute any alcohol or drug abuse patient.[facility] the event this information is protected by the Federal Confidentiality of Alcohol and Drug Abuse Patient Records regulations: The Federal rules restrict any use of the information to criminally investigate or prosecute any alcohol or drug abuse patient.[facility] Care Teams (unrecognized sec tion and content) Community [employer] Officer Relationship Specialty Start Date End Date Regino Davey MD PCP - General Family Practice 03/08/17 [employer] Officer Relationship Specialty Start Date End Date Regino Davey MD PCP - General Family Practice 03/08/17 [employer] Officer Relationship Specialty Start Date End Date Regino Davey MD PCP - General Family Practice 03/08/17 [employer] Officer Relationship Specialty Start Date End Date Regino Davey MD PCP - General Family Practice 03/08/17 Team Status: Active Member Role Status Dates Dr. Regino Davey MD Family Provider Active Dr. Regino Davey MD Primary Care Provider Active Team Status: Inactive Member Role Status Dates Dr. Regino Davey MD Primary Care Provider, Attending Provider Active Team Status: Inactive Member Role Status Dates Dr. Regino Davey MD Primary Care Provider Active Start: July 16, 2024 End: July 16, 2024 Dr. Regino Davey MD Attending Provider Active Start: July 16, 2024 End: July 16, 2024 Dr. Regino Davey MD Referring Provider Active Start: July 16, 2024 End: July 16, 2024 Team Status: Inactive Member Role Status Dates Dr. Regino Davey MD Primary Care Provider Active Start: August 15, 2024 End: August 15, 2024 Dr. Regino Davey MD Attending Provider Active Start: August 15, 2024 End: August 15, 2024 Dr. Regino Davey MD Referring Provider Active Start: August 15, 2024 End: August 15, 2024 Team Status: Active Member Role Status Dates Dr. Regino Davey MD Primary Care Provider Active Team Status: Inactive Member Role Status Dates Dr. Regino Davey MD Primary Care Provider Active Start: September 04, 2024 End: September 04, 2024 Dr. Jesse Bueno DO Emergency Provider Active Start: September 04, 2024 End: September 04, 2024 Goals (unrecognized section and content) Goals may be documented in a n alternate sectionGoals may be documented in an alternate sectionGoals may be documented in an alternate sectionGoals may be documented in an alternate sectionGoals may be documented in an alternate sectionGoals may be documented in an alternate section FOR RECORDS PERTAINING TO PATIENTS WHO ARE OR HAVE BEEN ENROLLED IN A CHEMICAL DEPENDENCY/SUBSTANCEABUSE PROGRAM, SOME INFORMATION MAY BE OMITTED. This clinical summary was aggregated from multiple sources. Caution should be exercised in using it in the provision of clinical care. This summary normalizes information from multiple sources, and as a consequence, information in this document may materially change the coding, format and clinical context of patient data. In addition, data may be omitted in some cases. CLINICAL DECISIONS SHOULD BE BASED ON THE PRIMARY CLINICAL RECORDS. [employer] [facility]. provides no warranty or guarantee of the accuracy or completeness of information in this document.
== END | disposition home or self-care (01) ==
LOC: MFPLAB 15:10
PROVIDERS: PCP Family Medicine; Visit Provider Family Medicine
DX: I10 Essential (primary) hypertension (principal)
CPT/HCPCS: 36415; 80053; 80061